=== PATIENT | male | born 1950 | race Caucasian/White ===

== ENCOUNTER 2019-08-17 08:41 | Inpatient (IN) | payer MEDICARE, OTHER, SELFPAY ==
[2019-08-17] VITALS (10 sets, daily range): BP systolic 107–132; BP diastolic 54–77; PULSE 79–122; RESP 13–22; TEMP 36.1–36.8; O2SAT 94–100
--- NOTE | ~2019-08-17 | US_ITS ---
EXAMINATION: US right upper quadrant DATE: 08/17/2019 11:04 INDICATION: Abdominal pain and vomiting TECHNIQUE: Multiple grayscale and Doppler ultrasound images of the abdomen were obtained. COMPARISON: CT dated 08/17/2019 FINDINGS: The region of the pancreas is obscured by shadowing bowel gas. The inferior vena cava is also not oscar [place] visualized. Liver has normal echogenicity and contour, with a smooth surface. No liver lesion id entified. No intrahepatic biliary duct dilation suspected. Portal venous flow was seen in the hepatop etal, normal direction and has normal Doppler waveform. The gallbladder is filled with echogenic slud ge. No definitive shadowing cholelithiasis identified. There is a mild gallbladder wall thickening or small amount of pericholecystic fluid. The common bile duct measures 5-6 mm in diameter which is wit hin normal limits. Sonographic Arriaga sign was reported as positive by the veterinary medicine scientist. IMPRESSION: 1. Sludge-filled gallbladder with mild wall thickening versus small amount of pericholecystic fluid a nd with positive sonographic Arriaga's which is concerning for acute cholecystitis although no definit sandeep shadowing cholelithiasis is appreciated. If clinically indicated HIDA scan could be obtained for more definitive determination. Reviewed, dictated and finalized at location A. IMPRESSION: 1. Sludge-filled gallbladder with mild wall thickening versus small amount of p ericholecystic fluid and with positive sonographic Arriaga's which is concerning for acute cholecystitis although no definitive shadowing cholelithiasis is sudarshan reciated. If clinically indicated HIDA scan could be obtained for more definiti ve determination.
--- NOTE | ~2019-08-17 | XR_ITS ---
EXAMINATION: XR chest 2V DATE: 08/17/2019 14:18 INDICATION: Abnormal findings of the lung green on CT CT TECHNIQUE: AP and lateral views of the chest are obtained. COMPARISON: CT from today FINDINGS: There are patchy opacities of the right middle and lower lobes. There is no pleural effusio n or pneumothorax. The cardiomediastinal silhouette is normal. There is mild thoracic spondylosis. IMPRESSION: 1. Airspace opacities of the right middle and lower lobes, likely infectious or inflammatory. Reviewed, dictated and finalized at location A.
--- NOTE | ~2019-08-17 | CT_ITS ---
EXAMINATION: CT abdomen pelvis w con DATE: 08/17/2019 09:52 INDICATION: Abdominal pain and vomiting TECHNIQUE: Computed tomography (CT) of the abdomen and pelvis was performed with 100 mL Omnipaque-350 intravenous contrast. Automated exposure control and iterative reconstruction technique were employe d. The dose-length product was 1574.65 mGy-cm. COMPARISON: None FINDINGS: Tree-in-bud opacities throughout the right middle lobe and medial basilar segment of the right lower lobe consistent with endobronchial spread of disease which could be either pneumonia or aspiration. M ild dependent atelectasis in the bilateral lower lobes and mild discoid atelectasis at the lingula. H eart size is normal. Atherosclerotic coronary artery calcification. No pericardial or pleural effusio n. Small sliding-type hiatal hernia. There is edematous wall thickening along the distal esophagus li luci related to reflux esophagitis. There is some inflammatory stranding surrounding the gallbladder suspicious for acute cholecystitis. Minimal central intrahepatic biliary ductal dilation. Common bile duct remains normal in caliber. Sma ll amount of perihepatic ascites with additional small amount of ascites in the deep pelvis. Mild fat ty atrophy of the pancreas. Spleen and bilateral adrenal glands are normal. Multiple small bilateral renal cysts, the largest measuring 1.9 cm in the right kidney. Gas and fluid throughout the small bow el which is not frankly dilated and without discrete transition point to suggest obstruction but whic h would be consistent with an ileus. Moderate amount of stool scattered throughout the colon. Bladder is normal. No abscess or free intraperitoneal gas. There is calcified atherosclerosis of the aorta a nd many of the other arteries. Small fat-containing left inguinal hernia. No pathologically enlarged abdominal or pelvic lymphadenopathy. Mild to moderate scattered degenerative skeletal changes. IMPRESSION: 1. Pericholecystic inflammatory stranding suspicious for acute cholecystitis. Correlate for Arriaga si gn and consider further evaluation with either ultrasound or HIDA scan. 2. Mild intrahepatic biliary ductal dilation with normal caliber common bile duct. Correlate with victorino er function tests. 3. Small sliding-type hiatal hernia with wall thickening throughout the distal esophagus suggestive o f reflux esophagitis. 4. Tree-in-bud opacities in the right middle and lower lobes which could represent aspiration and/or pneumonia. 5. Small amount of likely reactive ascites. 6. Nonspecific increased gas and fluid throughout the small bowel without discrete obstruction but wh ich could be seen with reactive ileus. Reviewed, dictated and finalized at location A. IMPRESSION: 1. Pericholecystic inflammatory stranding suspicious for acute cholecystitis. C orrelate for Arriaga sign and consider further evaluation with either ultrasound or HIDA scan. 2. Mild intrahepatic biliary ductal dilation with normal caliber common bile du ct. Correlate with liver function tests. 3. Small sliding-type hiatal hernia with wall thickening throughout the distal esophagus suggestive of reflux esophagitis. 4. Tree-in-bud opacities in the right middle and lower lobes which could repres ent aspiration and/or pneumonia. 5. Small amount of likely reactive ascites. 6. Nonspecific increased gas and fluid throughout the small bowel without discr ete obstruction but which could be seen with reactive ileus.
--- NOTE | 2019-08-17 08:55 | ECG_ITS ---
Measurements Intervals [place] Rate: 91 P: 27 CT: 164 QRS: 14 QRSD: 92 T: 31 QT: 329 QTc: 405 Interpretive Statements SINUS RHYTHM ATRIAL PREMATURE COMPLEXES BASELINE WANDER- I, AVR, V1, V6 BORDERLINE ECG Electronically Signed On 08-17-2019 9:34:42 CDT by Malcolm Han D.O.
[2019-08-17 09:02] LABS: Basophils Percent Auto 0.2 % (0.2-1.2); Eosinophils Absolute Auto 0.2 K/mm3 (0-0.3); Eosinophils Percent Auto 0.9 % (0-4.4); Hematocrit 42.2 % (42.0-52.0); Hemoglobin 14.2 g/dL (14.0-18.0); Immature Granulocyte Absolute 0.09 K/mm3 (0.00-0.031); Immature Granulocyte Percent A 0.5 % (0-0.5); Lymphocytes Percent Auto 4.3 % (18.3-44.2); Mean Corpuscular HGB Conc 33.6 g/dl (32-36); Mean Corpuscular Hemoglobin 30.3 pg (26-34); Mean Corpuscular Volume 90.2 fl (80-100); Mean Platelet Volume 9.9 fl (7.4-10.4); Monocytes Absolute Auto 1.3 K/mm3 (0.1-0.6); Monocytes Percent Auto 6.9 % (2.6-8.5); Neutrophils Absolute Auto 16.1 K/mm3 (1.3-6.7); Neutrophils Percent Auto 87.2 % (45.5-73.1); Platelet Count Result 184 k/mm3 (150-375); Red Blood Count 4.68 M/mm3 (4.6-6.20); Red Cell Distribution Width 13.1 % (11.5-14.5); White Blood Count 18.5 K/mm3 (4.5-10.0)
--- NOTE | 2019-08-17 09:06 | ED.GIBLEED ---
HPI - GI Bleed General Chief complaint: GI Bleed Stated complaint: vomiting blood Time Seen by Provider: 08/17/19 09:05 History of Present Illness HPI Narrative: Patient arrives via EMS from the assisted for vomiting dark substance. He has upper abdominal pain, 8 out of 10, which started yesterday. He has been vomiting this morning dark substance, with no history of ulcers. He denies other illness such as chest pain shortness of breath, coughing or fever. MD complaint: coffee ground emesis Onset (ago): hour(s) Pain Consistency: constant Severity: severe Relieving factors: none Exacerbating factors: none Context: other (No known history.) Associated symptoms: abdominal pain and nausea Related Data Home Medications Medication Instructions Recorded Confirmed amlodipine 5 mg PO DAILY 08/17/19 aspirin [Aspir-81] 81 mg PO DAILY 08/17/19 cyanocobalamin (vitamin B-12) 500 mcg PO DAILY 08/17/19 docusate sodium 100 mg PO DAILY 08/17/19 famotidine 08/17/19 folic acid 08/17/19 lidocaine 08/17/19 melatonin mg PO 08/17/19 multivitamin 1 tablet PO DAILY 08/17/19 olanzapine 2.5 mg PO DAILY 08/17/19 quetiapine 400 mg PO BID 08/17/19 saliva substitute combo no.9 08/17/19 [Biotene Dry Mouth Oral Rinse] simvastatin 20 mg PO DAILY 08/17/19 tamsulosin mg PO 08/17/19 Allergies Allergy/AdvReac Type Severity Reaction Status Date / Time No Known Allergies Allergy Verified 08/17/19 09:15 Review of Systems Review of Systems: Narrative: CONSTITUTIONAL: Denies fever, chills, or sweats. EYES: Denies visual changes, redness, or discharge. ENT: Denies rhinorrhea, congestion, sore throat, or otalgia. CARDIOVASCULAR: Denies chest pain, palpitations, or edema. RESPIRATORY: Denies cough or dyspnea. GASTROINTESTINAL: He is nauseated and vomiting with upper abdominal pain. GENITOURINARY: Denies dysuria or hematuria. SKIN: Denies rash or itching. MUSCULOSKELETAL: Denies back pain, joint pain, or myalgia. NEUROLOGIC: Denies headache, numbness, or weakness. PSYCHIATRIC: Denies anxiety or depression. [facility] Social History Social History (Updated 08/17/19 @ 09:24 by Abi Carballo MD) Smoking status: Never smoker Gender identity (if verbalized by the patient): Male Exam Narrative: Exam Narrative: GENERAL: Well-appearing, well-nourished, and in no acute distress. Unkempt HEAD: Normocephalic, atraumatic. EYES: PERRLA and EOMI. ENT: Nares clear, no rhinorrhea or epistaxis. Mucous membranes dry NECK: Supple. CHEST: Clear to auscultation. No respiratory distress. HEART: Regular rate and rhythm. No murmur heard. Normal peripheral pulses. ABDOMEN: Upper abdomen is firm and tender. EXTREMITIES: Normal range of motion. No edema. SKIN: Warm, dry, no rash. NEURO: No focal deficits. Alert. PSYCH: Flat affect and slow speech. Course Reevaluation(s) Reevaluation #1: I wanted to tell the patient that it is his gallbladder and he needs to be hospitalized and possible surgery, and he says he just wants to go back as he has an appointment on Sunday. I assured him he would be discharged by then. Date: 08/17/19 Time: 11:39 Consultations Consultation #1: Call the general surgeon Dr. Villalba for consultation for cholecystitis. He agrees to consult but would like the patient admitted under the hospitalist. Date: 08/17/19 Time: 11:34 Consultation #2: Call the hospitalist for admission for cholecystitis. Dr. Starks returned to call and accepts the patient. Date: 08/17/19 Time: 11:56 Vital Signs Vital signs: Vital Signs Temperature 97.8 F 08/17/19 08:38 Pulse Rate 106 H 08/17/19 08:38 Respiratory Rate 20 08/17/19 08:38 Blood Pressure 113/69 08/17/19 08:38 Pulse Oximetry 95 08/17/19 08:38 Temperature 97.8 F 08/17/19 08:38 Pulse Rate 90 08/17/19 11:54 Respiratory Rate 13 08/17/19 11:54 Blood Pressure 124/68 08/17/19 10:19 Pulse Oximetry 94 08/17/19 11:54 MDM - GI Bleed Differential Diag
[2019-08-17 09:14] LABS: INR 1.1; Partial Thromboplastin Time 27.6 SECONDS (22.3-36.8); Prothrombin Time 13.5 Seconds (11.1-14.7)
[2019-08-17 09:15] LABS: Alanine Aminotransferase 30 U/L (4-50); Alkaline Phosphatase 103 U/L (38-126); Aspartate Amino Transferase 26 U/L (17-59); Bilirubin,Total 0.9 mg/dL (0.2-1.3); Blood Urea Nitrogen 21 mg/dL (9-20); Calcium 9.2 mg/dL (8.4-10.2); Carbon Dioxide 23 mmol/L (22-30); Chloride 104 mmol/L (98-107); Estimated CRCL calculation 72 ml/min; Estimated Glomerular Filt Rate > 60; Glucose 176 mg/dL (75-110); Potassium 3.6 mmol/L (3.4-5.0); Sodium 137 mmol/L (137-145)
[2019-08-17] MEDS: SODIUM CHLORIDE 0.9% IV 1,000 ML 999 ML IV CONT (09:15)
[2019-08-17] MEDS: ONDANSETRON INJ 4 MG/2 ML VIAL IV PUSH (09:35)
[2019-08-17] MEDS: MORPHINE SULFATE 4 MG/ML INJ IV PUSH ×2 (09:35→16:54)
--- NOTE | 2019-08-17 09:42 | PC.NURSE ---
Pt to CT scan via stretcher.
[2019-08-17 11:03] LABS: Lipase 19 U/L (23-300)
--- NOTE | 2019-08-17 13:52 | PM.CNGS ---
Assessment and Plan Assessment and plan (1) Acute cholecystitis: Code(s): K81.0 - Acute cholecystitis Status: Acute Assessment and Plan: it appears patient does have acute cholecystitis. We will go ahead and treat him with IV Zosyn antibiotics. I will start a scheduled dose of IV ibuprofen and p.r.n. doses of IV morphine. He will be NPO except for ice chips. Hopefully will improve with the above measures. Continue IV fluids. (2) Abnormal CT scan of lung: Code(s): R91.8 - Other nonspecific abnormal finding of lung field Status: Acute Assessment and Plan: Will get PA and lateral chest x-ray to evaluate. (3) Bipolar 1 disorder: Code(s): F31.9 - Bipolar disorder, unspecified Status: Acute Assessment and Plan: Poor historian. Very poor memory. History of Present Illness Consult details Consult date: 08/17/19 Reason for consult: abdominal pain Narrative: Patient is a 68-year-old man who comes to the emergency room today from a senior care. He has a history of bipolar affective disorder. He reportedly was vomiting dark fluid. However he has severe upper abdominal pain which started yesterday. He really was not able to give me much in the way of history and most of my history was taken from talking to the emergency room physician and reading the record. He apparently is also had some nausea and vomiting. Evaluation in the emergency room showed a firm, tender abdomen with particular tenderness in right upper quadrant. The patient describes his pain is more in the lower abdomen but is tenderness is in the right upper quadrant. He was afebrile but is white blood cell [place] [address]. There was no anemia. Liver function tests were normal. Electrolytes were normal. EKG showed no acute changes. He had a CT scan of the abdomen and pelvis which showed inflammatory stranding around the gallbladder suspicious for acute cholecystitis. There was no biliary ductal dilatation. Tree in bud opacities in the right middle and lower lobes were noted. The patient also had a right upper quadrant ultrasound this showed a sludge filled gallbladder with mild wall thickening and a positive sonographic Arriaga sign. The patient has been admitted and he is seen now in consultation. He appeared quite uncomfortable when I saw him in the emergency room. Review of Systems Review of Systems: All systems reviewed & are unremarkable except as noted in HPI and below ROS unobtainable: Yes other ( Difficult to obtain review of systems, Poor memory) Constitutional: Constitutional: Denies headache(s) ENT: Denies headache(s) Cardiovascular: Cardiovascular: Denies chest pain and Denies dyspnea Respiratory: Respiratory: Denies cough and Denies dyspnea Gastrointestinal: Gastrointestinal: Reports as per HPI Neurologic: Denies syncope, Denies headache(s) and Denies focal weakness Psychiatric: Psychiatric: Reports confusion, Reports difficulty concentrating and Reports memory loss PMFSH Social History Social History Smoking status: Never smoker Alcohol intake: former Substance use: never Substance use type: does not use Gender identity (if verbalized by the patient): Male Spiritual care concerns: No Meds Home Medications and Allergies Home Medications Medication Instructions Recorded Confirmed Type amlodipine 5 mg PO DAILY 08/17/19 History aspirin [Aspir-81] 81 mg PO DAILY 08/17/19 History cyanocobalamin (vitamin B-12) 500 mcg PO DAILY 08/17/19 History docusate sodium 100 mg PO DAILY 08/17/19 History famotidine 08/17/19 History folic acid 08/17/19 History lidocaine 08/17/19 History melatonin mg PO 08/17/19 History multivitamin 1 tablet PO DAILY 08/17/19 History olanzapine 2.5 mg PO DAILY 08/17/19 History quetiapine 400 mg PO BID 08/17/19 History saliva substitute combo no.9 08/17/19 History [Biotene Dry M
[2019-08-17] MEDS: DEXTROSE 5%/0.9% SOD CHL 1,000 ML 100 ML IV CONT (15:12)
--- NOTE | 2019-08-17 15:45 | PM.IMHP ---
H&P: HPI History of Present Illness Chief complaint: cholecystitis Narrative: Manny Hurt is a 68 year old male was at [facility] for rehabilitation and doing well until last evening when he began to have some epigastric abdominal discomfort. He was unable to characterize it. But was worse with eating or drinking. Today he developed nausea and emesis of dark material. Because of this EMS was summoned by the staff and he was brought [facility]. Up until yesterday he had been eating and drinking well without change in bowel habits. His waited been relatively stable. He denied chest pain shortness of breath edema palpitations syncope dysuria hematuria hematochezia. [facility] records do indicate that he had fallen a couple of times in the past 2 days. But without injury. Review of Systems Review of Systems: All systems reviewed & are unremarkable except as noted in HPI and below PMFSH Past Medical History Medical History (Updated 08/17/19 @ 15:58 by Jose Godoy MD) Bipolar 1 disorder BPH loc w urin obs/LUTS GERD (gastroesophageal reflux disease) Hyperlipidemia Hypertension, essential Surgical History Surgical History (Updated 08/17/19 @ 15:58 by Jose Godoy MD) History of appendectomy at about age 21 Family History Family History (Updated 08/17/19 @ 15:58 by Jose Godoy MD) Father No problems noted. Mother No problems noted. Social History Social History (Updated 08/17/19 @ 16:00 by Jose Godoy MD) Social History: Quit smoking as a young man. Never abused alcohol or recreational drugs. Smoking status: Former smoker Alcohol intake: former Substance use: never Living arrangements: custodial Additional living arrangements comments: Currently resides at [facility] but hopes to get strong enough to go home. Occupation/Education: retired Gender identity (if verbalized by the patient): Male Spiritual care concerns: No Meds Home Medications and Allergies Home Medications Medication Instructions Recorded Confirmed Type amlodipine 5 mg PO DAILY 08/17/19 08/17/19 History aspirin [Aspir-81] 81 mg PO DAILY 08/17/19 08/17/19 History cyanocobalamin (vitamin B-12) 500 mcg PO DAILY 08/17/19 08/17/19 History docusate sodium 200 mg PO DAILY 08/17/19 08/17/19 History famotidine 10 mg PO BID 08/17/19 08/17/19 History folic acid 1 mg PO DAILY 08/17/19 08/17/19 History lidocaine 5 % TRANSDERMAL DAILY 08/17/19 08/17/19 History melatonin 3 mg PO HS PRN 08/17/19 08/17/19 History multivitamin 1 tablet PO DAILY 08/17/19 08/17/19 History olanzapine 2.5 mg PO DAILY PRN 08/17/19 08/17/19 History quetiapine 800 mg PO HS 08/17/19 08/17/19 History saliva substitute combo no.9 5 ml PO TID 08/17/19 08/17/19 History [Biotene Dry Mouth Oral Rinse] simvastatin 20 mg PO HS 08/17/19 08/17/19 History tamsulosin 0.4 mg PO HS 08/17/19 08/17/19 History Allergies Allergy/AdvReac Type Severity Reaction Status Date / Time No Known Allergies Allergy Verified 08/17/19 09:15 Vital Signs Vital Signs - 24 hr 08/17/19 08:38 08/17/19 08:50 08/17/19 08:51 Temperature 97.8 F Pulse Rate 106 H 112 H 122 H Respiratory Rate 20 Blood Pressure 113/69 108/69 Pulse Oximetry 95 08/17/19 10:19 08/17/19 11:54 08/17/19 12:11 Temperature Pulse Rate 88 90 113 H Respiratory Rate 13 13 22 H Blood Pressure 124/68 107/58 L Pulse Oximetry 98 94 98 08/17/19 12:54 Temperature Pulse Rate 79 Respiratory Rate 14 Blood Pressure Pulse Oximetry 99 Exam Narrative: Exam Narrative: HEENT: EOMI, PERRL, sclerae nonicteric, pharyngeal mucosa pink and intact NECK: No JVD, adenopathy, or thyromegaly CHEST: Clear to auscultation. Normal effort. HEART: NL S1/S2, regular, no murmur ABDOMEN: BS+, soft, exquisitely tender in the right upper quadrant with positive Arriaga sign. Guarding. No rebound. EXTREMITIES:
[2019-08-17] MEDS: HALOPERIDOL LACTATE 5 MG/ML VIAL IM (21:40)
[2019-08-17] MEDS: IBUPROFEN IV 800 MG/200 ML 800 MG/200 ML BAG 400 MG IVPB (21:45)
[2019-08-17] MEDS: FAMOTIDINE 20 MG/2 ML VIAL IV PUSH (21:50)
[2019-08-18] MEDS: DEXTROSE 5%/0.9% SOD CHL 1,000 ML 100 ML IV CONT ×2 (00:49→21:10)
[2019-08-18] MEDS: IBUPROFEN IV 800 MG/200 ML 800 MG/200 ML BAG 400 MG IVPB ×4 (03:46→21:10)
[2019-08-18 06:00] VITALS: BP 125/69; PULSE 73; RESP 20; TEMP 36.2; O2SAT 97
[2019-08-18 06:28] LABS: Basophils Percent Auto 0.2 % (0.2-1.2); Eosinophils Absolute Auto 0.7 K/mm3 (0-0.3); Eosinophils Percent Auto 5.6 % (0-4.4); Hematocrit 37.4 % (42.0-52.0); Hemoglobin 12.4 g/dL (14.0-18.0); Immature Granulocyte Absolute 0.05 K/mm3 (0.00-0.031); Immature Granulocyte Percent A 0.4 % (0-0.5); Lymphocytes Absolute Auto 1.05 K/mm3 (0.9-3.2); Lymphocytes Percent Auto 8.9 % (18.3-44.2); Mean Corpuscular HGB Conc 33.2 g/dl (32-36); Mean Corpuscular Hemoglobin 30.1 pg (26-34); Mean Corpuscular Volume 90.8 fl (80-100); Mean Platelet Volume 9.8 fl (7.4-10.4); Monocytes Absolute Auto 0.6 K/mm3 (0.1-0.6); Monocytes Percent Auto 4.9 % (2.6-8.5); Neutrophils Absolute Auto 9.4 K/mm3 (1.3-6.7); Platelet Count Result 147 k/mm3 (150-375); Red Blood Count 4.12 M/mm3 (4.6-6.20); Red Cell Distribution Width 13.3 % (11.5-14.5); White Blood Count 11.8 K/mm3 (4.5-10.0)
[2019-08-18 06:44] LABS: Alanine Aminotransferase 23 U/L (4-50); Albumin Level 3.2 g/dL (3.5-5.1); Alkaline Phosphatase 81 U/L (38-126); Aspartate Amino Transferase 21 U/L (17-59); Bilirubin,Total 0.6 mg/dL (0.2-1.3); Blood Urea Nitrogen 29 mg/dL (9-20); Calcium 8.9 mg/dL (8.4-10.2); Carbon Dioxide 25 mmol/L (22-30); Chloride 108 mmol/L (98-107); Estimated CRCL calculation 57 ml/min; Estimated Glomerular Filt Rate > 60; Glucose 112 mg/dL (75-110); Potassium 3.5 mmol/L (3.4-5.0); Sodium 138 mmol/L (137-145)
--- NOTE | 2019-08-18 08:13 | PM.PNGS ---
Progress Note: A&P Assessment and Plan (1) Acute cholecystitis: Code(s): K81.0 - Acute cholecystitis Status: Acute Assessment and Plan: patient improved this morning. Will start low-fat diet. Plan to go ahead tomorrow with laparoscopic cholecystectomy. I tried to discuss this with him but he has seems to have very limited cognition. He did nod as if he understands. The procedure the risks the benefits were discussed. He had no questions. (2) Abnormal CT scan of lung: Code(s): R91.8 - Other nonspecific abnormal finding of lung field Status: Acute Assessment and Plan: Chest x-ray looks unremarkable to me. (3) Bipolar 1 disorder: Code(s): F31.9 - Bipolar disorder, unspecified Status: Chronic Assessment and Plan: Very poor memory. Calm and cooperative. Subjective Subjective Date/Time Seen: 08/18/19 08:13 Patient reports: feels better and pain is less Interval history: patient still does not have much history to give. He does remember having abdominal pain yesterday. He is sleeping this morning and appears very comfortable. He currently denies any abdominal pain. Review of Systems Review of Systems: ROS unobtainable: Yes unobtainable due to mental status Exam Const: General: comfortable and no acute distress; No confusion Orientation/consciousness: patient oriented x3 and No confusion GI: Inspection: non-distended and obesity GI Palp: Yes Soft to palpation, Yes Tenderness to palpation present (GI) ( Mild right upper quadrant tenderness, markedly improved), No Guarding due to palpation present (GI) and No Rebound tenderness present Auscultation: normal bowel sounds Neuro: General: patient oriented x3, no focal motor deficits and No confusion Extrem: General: no calf tenderness and no edema Psych: Affect: normal affect Insight: Good insight present (Psych) Judgement: Good judgement present (Psych) Objective Data Vital Signs Vital Signs: Vital Signs - 24 hr 08/17/19 08:38 08/17/19 08:50 08/17/19 08:51 Temperature 36.6 C Pulse Rate 106 H 112 H 122 H Respiratory Rate 20 Blood Pressure 113/69 108/69 Pulse Oximetry 95 08/17/19 10:19 08/17/19 11:54 08/17/19 12:11 Temperature Pulse Rate 88 90 113 H Respiratory Rate 13 13 22 H Blood Pressure 124/68 107/58 L Pulse Oximetry 98 94 98 08/17/19 12:54 08/17/19 14:00 08/17/19 16:00 Temperature 36.1 C L 36.3 C L Pulse Rate 79 86 104 H Respiratory Rate 14 18 20 Blood Pressure 110/77 130/65 Pulse Oximetry 99 100 100 08/17/19 22:00 08/18/19 06:00 Temperature 36.8 C 36.2 C L Pulse Rate 90 73 Respiratory Rate 20 20 Blood Pressure 132/54 L 125/69 Pulse Oximetry 97 97 Intake/Output Intake/Output: Intake & Output 08/15/19 08/16/19 08/17/19 08/18/19 23:59 23:59 23:59 23:59 Intake Total 1350 1300 Balance 1350 1300 Meds/Results Medications: Active Medications Generic Name Dose Route Start Last Admin Trade Name Freq PRN Reason Stop Dose Admin Chlorhexidine Gluconate 1 applic 08/18/19 08:09 Hibiclens TOPICAL 08/18/19 08:10 ONCE ONE Enoxaparin Sodium 40 mg 08/18/19 09:00 Lovenox SUB-Q DAILY KWASI Famotidine 20 mg 08/17/19 21:00 08/17/19 21:50 Pepcid Iv IV PUSH 20 mg Q12HR KWASI Administration Hydralazine HCl 10 mg 08/17/19 16:13 Apresoline Hcl Inj IV PUSH Q8H PRN Blood Pressure - High Dextrose/Sodium Chloride 1,000 mls @ 100 mls/hr 08/17/19 12:10 08/18/19 00:49 Dextrose 5% Sodium Chloride 0.9% IV CONT 100 mls/hr .Q10H KWASI Administration Piperacillin/Tazobactam/Dextrose 3.375 gm in 50 mls @ 100 mls/hr 08/17/19 18:00 08/18/19 06:42 Zosyn 3.375 Gm/D5w 50ml Pm IVPB Infused Q6HR KWASI Infusion Ibuprofen 800 mg in 200 mls @ 400 mls/hr 08/18/19 09:00 Caldolor 800 Mg/200 Ml IVPB Q6H KWASI Cefazolin Sodium 2 gm in 50 mls @ 100 mls/hr 08/18/19 08:09 Ancef 2 Gm/D5w 50 Ml IVPB 05
--- NOTE | 2019-08-18 09:04 | PM.IMPN ---
Progress Note: A&P Assessment and Plan (1) Acute cholecystitis: Code(s): K81.0 - Acute cholecystitis Status: Acute Assessment and Plan: Clinically he has acute cholecystitis Mild biliary dilatation could be due to stone versus inflammatory change Normal LFTs favor the latter IV Zosyn Bowel rest Analgesics Antiemetics IV fluid Plan for lap cholecystectomy 08/18 (2) Abnormal CT scan of lung: Code(s): R91.8 - Other nonspecific abnormal finding of lung field Status: Acute Assessment and Plan: Lack of respiratory symptoms and history of emesis today suggest possible aspiration IV Zosyn (3) Bipolar 1 disorder: Code(s): F31.9 - Bipolar disorder, unspecified Status: Chronic Assessment and Plan: Hold quetiapine while NPO Haloperidol 5 mg IM one time at bedtime 08/16 08/17 Quetiapin 800mg at HS (4) Hypertension, essential: Code(s): I10 - Essential (primary) hypertension Status: Acute Assessment and Plan: Currently normotensive Monitor off medications while NPO P.r.n. hydralazine while NPO (5) GERD (gastroesophageal reflux disease): Code(s): K21.9 - Gastro-esophageal reflux disease without esophagitis Status: Acute Assessment and Plan: IV famotidine while NPO Subjective Date/time seen: 08/18/19 09:04 Interval history: 08/16 Admitted with abdominal pain, acute cholecystitis. 08/17 Less upper abdominal pain. Can't characterize it. Denied other pain (head, chest, back). Denied dyspnea. Denied difficulty with urinating or defecating. Denied bleeding. Denied weakness. Review of Systems Review of Systems: All systems reviewed & are unremarkable except as noted in HPI and below Exam Narrative: Exam Narrative: HEENT: EOMI, PERRL, sclerae nonicteric, pharyngeal mucosa pink and intact NECK: No JVD, adenopathy, or thyromegaly CHEST: Clear to auscultation. Normal effort. HEART: NL S1/S2, regular, no murmur ABDOMEN: BS+, soft, exquisitely tender in the right upper quadrant with positive Arriaga sign. Guarding. No rebound. EXTREMITIES: No cyanosis, edema, or clubbing. Venous stasis changes on distal lower extremities bilaterally. NEUROLOGIC: CN intact and symmetric to inspection. MUSCULOSKELETAL: Tone and strength symmetric. PSYCH: Alert. Oriented to person, place, and time. Flat affect. But otherwise cooperative and relatively pleasant. Answers questions tersely. Objective Data Vital Signs Vital Signs: Vital Signs - 24 hr 08/17/19 10:19 08/17/19 11:54 08/17/19 12:11 Temperature Pulse Rate 88 90 113 H Respiratory Rate 13 13 22 H Blood Pressure 124/68 107/58 L Pulse Oximetry 98 94 98 08/17/19 12:54 08/17/19 14:00 08/17/19 16:00 Temperature 97.0 F L 97.4 F L Pulse Rate 79 86 104 H Respiratory Rate 14 18 20 Blood Pressure 110/77 130/65 Pulse Oximetry 99 100 100 08/17/19 22:00 08/18/19 06:00 Temperature 98.3 F 97.2 F L Pulse Rate 90 73 Respiratory Rate 20 20 Blood Pressure 132/54 L 125/69 Pulse Oximetry 97 97 Intake/Output Intake/Output: Intake & Output 08/15/19 08/16/19 08/17/19 08/18/19 23:59 23:59 23:59 23:59 Intake Total 1350 1300 Balance 1350 1300 Meds/Results Medications: Active Medications Generic Name Dose Route Start Last Admin Trade Name Freq PRN Reason Stop Dose Admin Enoxaparin Sodium 40 mg 08/18/19 09:00 Lovenox SUB-Q DAILY KWASI Famotidine 20 mg 08/17/19 21:00 08/17/19 21:50 Pepcid Iv IV PUSH 20 mg Q12HR KWASI Administration Hydralazine HCl 10 mg 08/17/19 16:13 Apresoline Hcl Inj IV PUSH Q8H PRN Blood Pressure - High Dextrose/Sodium Chloride 1,000 mls @ 100 mls/hr 08/17/19 12:10 08/18/19 00:49 Dextrose 5% Sodium Chloride 0.9% IV CONT 100 mls/hr .Q10H KWASI Administration Piperacillin/Tazobactam/Dextrose 3.375 gm in 50 mls @ 100 mls/hr 08/17/19 18:00 08/18/19 06:42 Zosyn 3.375 Gm/D5w 50ml Pm IVP
[2019-08-18] MEDS: SALIVA SUBSTITUTE RINSE 473 ML BOTTLE PO ×3 (10:15→17:29)
[2019-08-18] MEDS: ENOXAPARIN 40 MG/0.4 ML SYRINGE SUB-Q (10:16)
[2019-08-18] MEDS: FAMOTIDINE 20 MG/2 ML VIAL IV PUSH ×2 (10:16→21:10)
[2019-08-18] MEDS: MORPHINE SULFATE 4 MG/ML INJ IV PUSH ×2 (10:23→17:28)
[2019-08-18 14:00] VITALS: BP 127/53; PULSE 92; RESP 18; TEMP 36.7; O2SAT 94
[2019-08-18] MEDS: QUEtiapine FUMARATE XR 200 MG TAB.ER.24H 800 MG PO (21:10)
[2019-08-18] MEDS: TAMSULOSIN HCL 0.4 MG CAPSULE PO (21:10)
[2019-08-18 22:00] VITALS: BP 129/65; PULSE 66; RESP 18; TEMP 35.9; O2SAT 96
[2019-08-19] VITALS (13 sets, daily range): BP systolic 115–150; BP diastolic 58–88; PULSE 67–98; RESP 12–20; TEMP 36–36.6; O2SAT 95–100
[2019-08-19] MEDS: IBUPROFEN IV 800 MG/200 ML 800 MG/200 ML BAG 400 MG IVPB (02:39)
[2019-08-19] MEDS: CHLORHEXIDINE GLUCONATE 4% SOL 120 ML BTL 1 APPLIC TOPICAL (06:11)
[2019-08-19 06:33] LABS: Alanine Aminotransferase 24 U/L (4-50); Albumin Level 3.1 g/dL (3.5-5.1); Alkaline Phosphatase 93 U/L (38-126); Amylase 84 U/L (30-110); Aspartate Amino Transferase 21 U/L (17-59); Bilirubin,Total 0.4 mg/dL (0.2-1.3)
[2019-08-19] MEDS: LACTATED RINGERS 1,000 ML 30 ML IV CONT ×2 (06:45→09:07)
--- NOTE | 2019-08-19 06:54 | WPDANESEPPF ---
Anes - Initial Pre Proc Eval Procedure: Operation Date: 08/19/19 07:30 Proposed Procedures p Laparoscopic Cholecystectomy - Leobardo Villalba MD Date/Time: 08/19/19 06:54 Surgeon: Jose Godoy MD Pre Op Diagnosis: cholecystitis Patient Data Age: 68 Gender: M Height: 5 ft 10 in Weight: 93.8 kg Last Vital Signs Temp 36.0 C L 08/19/19 02:00 Pulse 67 08/19/19 02:00 Resp 18 08/19/19 02:00 BP 142/88 H 08/19/19 02:00 Pulse Ox 96 08/19/19 02:00 Allergies Allergy/AdvReac Type Severity Reaction Status Date / Time No Known Allergies Allergy Verified 08/19/19 06:47 Home Medications Medication Instructions Recorded Confirmed Type amlodipine 5 mg PO DAILY 08/17/19 08/17/19 History aspirin [Aspir-81] 81 mg PO DAILY 08/17/19 08/17/19 History cyanocobalamin (vitamin B-12) 500 mcg PO DAILY 08/17/19 08/17/19 History docusate sodium 200 mg PO DAILY 08/17/19 08/17/19 History famotidine 10 mg PO BID 08/17/19 08/17/19 History folic acid 1 mg PO DAILY 08/17/19 08/17/19 History lidocaine 5 % TRANSDERMAL DAILY 08/17/19 08/17/19 History melatonin 3 mg PO HS PRN 08/17/19 08/17/19 History multivitamin 1 tablet PO DAILY 08/17/19 08/17/19 History olanzapine 2.5 mg PO DAILY PRN 08/17/19 08/17/19 History quetiapine 800 mg PO HS 08/17/19 08/17/19 History saliva substitute combo no.9 5 ml PO TID 08/17/19 08/17/19 History [Biotene Dry Mouth Oral Rinse] simvastatin 20 mg PO HS 08/17/19 08/17/19 History tamsulosin 0.4 mg PO HS 08/17/19 08/17/19 History Laboratory Tests 08/19/19 05:53 Total Bilirubin 0.4 mg/dL mg/dL (0.2-1.3) Direct Bilirubin 0.0 mg/dL mg/dL (0-0.3) AST 21 U/L U/L (17-59) ALT 24 U/L U/L (4-50) Alkaline Phosphatase 93 U/L U/L (38-126) Total Protein 6.0 g/dL L g/dL (6.3-8.2) Albumin 3.1 g/dL L g/dL (3.5-5.1) Amylase 84 U/L U/L (30-110) Lipase Pending Patient hx anesthesia problems: none Family hx anesthesia problems: none PMFSH Past Medical History Medical History Bipolar 1 disorder BPH loc w urin obs/LUTS GERD (gastroesophageal reflux disease) Hyperlipidemia Hypertension, essential Surgical History Surgical History History of appendectomy at about age 21 Family History Family History Father No problems noted. Mother No problems noted. Social History Social History Social History: Quit smoking as a young man. Never abused alcohol or recreational drugs. Smoking status: Former smoker Alcohol intake: former Substance use: never Living arrangements: group home Additional living arrangements comments: Currently resides at [facility] but hopes to get strong enough to go home. Occupation/Education: retired Gender identity (if verbalized by the patient): Male Spiritual care concerns: No Anes - Eval Final PreProcedure Day of Procedure 08/19/19 06:54 Patient weight: overweight Heart: regular rate and rhythm Lungs: clear to auscultation Airway: Mallampati scale class II Neurological: confused Last oral intake: >/= 8 hours ASA classification: III Emergent: no Anesthetic plan: proceed Anesthesia type and monitoring: general ETT and standard monitoring Informed Consent: The patient's anesthetic plan and its attendant risks and benefits were discussed with the patient/family/POA. Questions were solicited and answers provided to the satisfaction of the patient/family/POA.
[2019-08-19 07:16] LABS: Lipase < 10 U/L (23-300)
[2019-08-19] MEDS: ceFAZolin 2 GM/D5W 50 ML 2 GM/50 ML BAG IVPB (07:21)
[2019-08-19] MEDS: BUPIVACAINE/EPINEPHRINE 0.5% 30 ML VIAL INFILTRATE (07:53)
--- NOTE | 2019-08-19 09:27 | PM.PROC ---
Procedure Note - Detailed Date of procedure: 08/19/19 Pre-op diagnosis: Acute cholecystitis Acute cholecystitis Post-op diagnosis: other (Acute cholecystitis with gallstones with cystic duct obstruction and gallbladder rupture) Procedure performed: Laparoscopic cholecystectomy for ruptured gallbladder Description of procedure: The patient was taken to surgery and induced into general anesthesia. The abdomen was prepped and draped. Trocars were placed in the usual fashion using 0.5% Marcaine with epinephrine and applied Medical optical trocars. A 5 mm camera was used. After insufflating the abdomen, it was immediately obvious that the gallbladder had ruptured. There was greenish pigment splattered on multiple surface of the inside of the abdominal wall. We gently teased some of the omental adhesions from the fundus of the gallbladder and the hole was obvious. It was almost a cm in length near the fundus of the gallbladder. I suctioned out as much of the residual bile as I could. We then removed thickened pigmented strands of bile from the area and suctioned away the bile that was lying in the vicinity of the gallbladder. From there, we gently retracted the gallbladder and took down the inflammatory adhesions to the gallbladder and to the undersurface of the liver. Towards the infundibulum of the gallbladder, these adhesions were dense and difficult to take down. Sharp dissection and blunt dissection as well as cautery was used. I had to put an extra 5 mm port in the right mid abdomen. This was another 5 mm port. This was used as a blunt retractor to retract the distal stomach and duodenum posteriorly so that the cholecystohepatic triangle could be adequately exposed. Eventually, we took down enough adhesions that we could see the cystic duct. The cystic duct was actually pretty short. In this area, the inflammation was severe and all the adhesions were very tenacious and the tissues were hardened. Careful dissection with predominantly blunt technique but some hook cautery eventually showed us the cystic duct and cystic artery. Continued dissection of the lower portion of the gallbladder allowed us to free the lower 3rd of the gallbladder. Critical view was achieved. I then securely clipped and divided the cystic duct and cystic artery. The gallbladder was then carefully dissected free from the liver. The inflammation and gangrenous changes of the gallbladder at its attachment to the liver made it difficult to find a plane and dissect the gallbladder free without tearing off the liver surface. With more careful dissection, eventually we were able to dissect the gallbladder free. Near the fundus of the gallbladder, the wall of the gallbladder was taken with the liver surface as there was no ability to separate the 2. Finally the gallbladder was completely freed. I then exposed the gallbladder fossa and made this area hemostatic with the cautery. Patient had fatty liver change. There were some areas of the liver on the under surface that had cracks and were bleeding. We used Surgiflo and then placed it over these areas as well as the gallbladder surface. This greatly helped to achieve good hemostasis of any oozing from the surfaces. The gallbladder was then placed in an Endo-Catch bag and retrieved through the 10 11 epigastric trocar site. The epigastric trocar had to be enlarged to accommodate the gallbladder with large stone and thickened gallbladder wall. Eventually the gallbladder was removed. We replaced the 10 11 epigastric trocar and used a towel clip to occlude the site so that we could reinsufflate. I then looked again at the gallbladder fossa. We irrigated and suctioned the area. The cracks in the liver and the gallbladder fossa were hemostatic. I then looked at other areas in the abdomen and suctioned away any free bile and any pigment that I could find. A 19 Swedish Scotty drain was brought through the right lower quadrant trocar and positioned in
--- NOTE | 2019-08-19 11:01 | PC.NURSE ---
Returned from OR per BED DENIES THE NEED FOR PAIN MEDS AT PRESENT TIME. IV SITE CLEAN AND INTACT H-L 5 PUNCTURE SITES CLEAN MARAH J-P CONPRESSED AND MILKED BLLODDY RETURN NOTED TO RESERVIOR THE TOP PUMCTURE SITE SMALL HEMATOMA NOTED WILL CONT T MONITOR [ ]
[2019-08-19] MEDS: ENOXAPARIN 40 MG/0.4 ML SYRINGE SUB-Q (11:38)
[2019-08-19] MEDS: FAMOTIDINE 20 MG/2 ML VIAL IV PUSH ×2 (11:38→22:15)
[2019-08-19] MEDS: SALIVA SUBSTITUTE RINSE 473 ML BOTTLE PO ×3 (11:47→16:10)
[2019-08-19] MEDS: LACTATED RINGERS 1,000 ML 100 ML IV CONT (11:47)
--- NOTE | 2019-08-19 17:42 | PM.IMPN ---
Progress Note: A&P Assessment and Plan (1) Acute cholecystitis: Code(s): K81.0 - Acute cholecystitis Status: Acute Assessment and Plan: Clinically he has acute cholecystitis Mild biliary dilatation could be due to stone versus inflammatory change Normal LFTs favor the latter IV Zosyn Bowel rest Analgesics Antiemetics IV fluid Status post lap cholecystectomy this a.m. (2) Abnormal CT scan of lung: Code(s): R91.8 - Other nonspecific abnormal finding of lung field Status: Acute Assessment and Plan: Lack of respiratory symptoms and history of emesis today suggest possible aspiration IV Zosyn continue for respiratory as well as cholecystitis (3) Bipolar 1 disorder: Code(s): F31.9 - Bipolar disorder, unspecified Status: Chronic Assessment and Plan: Hold quetiapine while NPO Haloperidol 5 mg IM one time at bedtime 08/16 08/17 Quetiapin 800mg at HS (4) Hypertension, essential: Code(s): I10 - Essential (primary) hypertension Status: Acute Assessment and Plan: Currently normotensive Monitor off medications while NPO P.r.n. hydralazine while NPO (5) GERD (gastroesophageal reflux disease): Code(s): K21.9 - Gastro-esophageal reflux disease without esophagitis Status: Acute Assessment and Plan: IV famotidine while NPO Subjective Date/time seen: 08/19/19 17:42 Interval history: 08/16 Admitted with abdominal pain, acute cholecystitis. 08/18 Less upper abdominal pain. Status post lap choly this a.m.. Denied other pain (head, chest, back). Denied dyspnea. Exam Narrative: Exam Narrative: Blood pressure 144/70 pulse 96 sat 100% on room air HEENT: PERRL, sclerae nonicteric, NECK: No JVD, CHEST: Clear to auscultation. Normal effort. HEART: NL S1/S2, regular, no murmur ABDOMEN: BS+, incisions are clean EXTREMITIES: No edema, or . Venous stasis changes on distal lower extremities bilaterally. NEUROLOGIC: CN intact and no focal deficits PSYCH: Alert. Oriented to person, place, and time. Flat affect. But otherwise cooperative and relatively pleasant. . Objective Data Vital Signs Vital Signs: Vital Signs - 24 hr 08/18/19 22:00 08/19/19 02:00 05/19/20 06:00 Temperature 35.9 C L 36.0 C L 36.3 C L Pulse Rate 66 67 80 Respiratory Rate 18 18 18 Blood Pressure 129/65 142/88 H 137/68 Pulse Oximetry 96 96 96 08/19/19 06:30 08/19/19 09:07 08/19/19 09:15 Temperature 36.4 C L 36.1 C L Pulse Rate 85 76 78 Respiratory Rate 20 12 13 Blood Pressure 115/72 148/70 H 149/73 H Pulse Oximetry 96 100 100 08/19/19 09:30 08/19/19 09:45 08/19/19 10:00 Temperature Pulse Rate 82 89 81 Respiratory Rate 12 12 12 Blood Pressure 150/71 H 144/70 H 150/63 H Pulse Oximetry 98 97 97 08/19/19 10:10 08/19/19 10:30 08/19/19 10:45 Temperature 36.3 C L 36.4 C L Pulse Rate 90 95 97 Respiratory Rate 14 18 18 Blood Pressure 142/64 H 129/58 L 144/70 H Pulse Oximetry 97 98 100 Intake/Output Intake/Output: Intake & Output 08/16/19 08/17/19 08/18/19 08/19/19 23:59 23:59 23:59 23:59 Intake Total 1350 3270 780 Output Total 700 985 Balance 1350 2570 -205 Meds/Results Medications: Active Medications Generic Name Dose Route Start Last Admin Trade Name Freq PRN Reason Stop Dose Admin Hydrocodone Bitart/Acetaminophen 1 tab 08/19/19 10:16 [place] 5-325 Mg PO Q4H PRN Pain Rated 4-6 Hydrocodone Bitart/Acetaminophen 1 tab 08/19/19 10:16 [place] 10-325 Mg PO Q4H PRN Pain Rated 7-10 Enoxaparin Sodium 40 mg 08/18/19 09:00 08/19/19 11:38 Lovenox SUB-Q 40 mg DAILY KWASI Administration Famotidine 20 mg 08/17/19 21:00 08/19/19 11:38 Pepcid Iv IV PUSH 20 mg Q12HR KWASI Administration Hydralazine HCl 10 mg 08/17/19 16:13 Apresoline Hcl Inj IV PUSH Q8H PRN Blood Pressure - High Lactated Ringer's 1,000 mls @ 100 mls/hr 08/19/19 10:16 08/19/19
[2019-08-19] MEDS: TAMSULOSIN HCL 0.4 MG CAPSULE PO (22:13)
[2019-08-19] MEDS: QUEtiapine FUMARATE XR 200 MG TAB.ER.24H 800 MG PO (22:14)
[2019-08-20] MEDS: LACTATED RINGERS 1,000 ML 100 ML IV CONT ×2 (00:59→09:47)
[2019-08-20 02:00] VITALS: BP 157/75; PULSE 86; RESP 18; TEMP 36.4; O2SAT 97
[2019-08-20 06:00] VITALS: BP 136/66; PULSE 75; RESP 16; TEMP 36.4; O2SAT 97
[2019-08-20 06:15] LABS: Basophils Percent Auto 0.1 % (0.2-1.2); Eosinophils Absolute Auto 0.3 K/mm3 (0-0.3); Eosinophils Percent Auto 3.2 % (0-4.4); Hematocrit 30.6 % (42.0-52.0); Hemoglobin 10.2 g/dL (14.0-18.0); Immature Granulocyte Absolute 0.03 K/mm3 (0.00-0.031); Immature Granulocyte Percent A 0.3 % (0-0.5); Lymphocytes Absolute Auto 1.08 K/mm3 (0.9-3.2); Mean Corpuscular HGB Conc 33.3 g/dl (32-36); Mean Platelet Volume 9.8 fl (7.4-10.4); Monocytes Absolute Auto 0.6 K/mm3 (0.1-0.6); Monocytes Percent Auto 6.3 % (2.6-8.5); Neutrophils Absolute Auto 7.8 K/mm3 (1.3-6.7); Neutrophils Percent Auto 79.1 % (45.5-73.1); Platelet Count Result 163 k/mm3 (150-375); Red Cell Distribution Width 12.9 % (11.5-14.5); White Blood Count 9.8 K/mm3 (4.5-10.0)
[2019-08-20 06:30] LABS: Blood Urea Nitrogen 15 mg/dL (9-20); Carbon Dioxide 28 mmol/L (22-30); Chloride 106 mmol/L (98-107); Estimated CRCL calculation 53 ml/min; Estimated Glomerular Filt Rate 60; Glucose 99 mg/dL (75-110); Potassium 3.3 mmol/L (3.4-5.0); Sodium 139 mmol/L (137-145)
--- NOTE | 2019-08-20 08:59 | P.PNAN_ITS ---
Anes - Prog Note Post-Op Date/Time: 08/20/19 08:59 Cardiovascular status: normal Respiratory status: normal Airway patency: baseline Mental status: baseline Post-Op hydration status: normal Vital Signs: Last Vital Signs Temp 36.4 C L 08/20/19 06:00 Pulse 75 08/20/19 06:00 Resp 16 08/20/19 06:00 BP 136/66 08/20/19 06:00 Pulse Ox 97 08/20/19 06:00 I/O: Intake & Output 08/19/19 08/20/19 08/20/19 23:59 07:59 15:59 Intake Total 1380 1100 Output Total 1520 745 Balance -140 355 Laboratory Tests 08/20/19 05:48 08/20/19 05:48 08/20/19 08/20/19 05:48 05:48 WBC 9.8 RBC 3.40 L Hgb 10.2 L Hct 30.6 L MCV 90.0 MCH 30.0 MCHC 33.3 RDW 12.9 Plt Count 163 MPV 9.8 Immature Gran % (Auto) 0.3 Neut % (Auto) 79.1 H Lymph % (Auto) 11.0 L [place] % (Auto) 6.3 Eos % (Auto) 3.2 Baso % (Auto) 0.1 L Lymph # (Auto) 1.08 [place] # (Auto) 0.6 Eos # (Auto) 0.3 Baso # (Auto) 0.0 Abs Immat Gran (auto) 0.03 Absolute Neuts (auto) 7.8 H Absolute Nucleated RBC 0.0 Nucleated RBC % 0.0 Sodium 139 Potassium 3.3 L Chloride 106 Carbon Dioxide 28 BUN 15 D Creatinine 1.20 Estim Creat Clear Calc 53 Estimated GFR 60 Glucose 99 Calcium 9.0 Post-procedural complaints: none Patient Feedback: Patient satisfied with anesthetic care.
[2019-08-20] MEDS: POTASSIUM CHLORIDE 20 MEQ TABLET 40 MEQ PO (09:15)
[2019-08-20] MEDS: SALIVA SUBSTITUTE RINSE 473 ML BOTTLE PO ×3 (09:16→17:26)
[2019-08-20] MEDS: ENOXAPARIN 40 MG/0.4 ML SYRINGE SUB-Q (09:16)
[2019-08-20] MEDS: FAMOTIDINE 20 MG/2 ML VIAL IV PUSH ×2 (09:46→20:35)
--- NOTE | 2019-08-20 10:50 | PM.PNGS ---
Progress Note: A&P Assessment and Plan (1) Acute cholecystitis: Code(s): K81.0 - Acute cholecystitis Status: Acute Assessment and Plan: POD1 and doing well. Pain is well-controlled and patient is tolerating clear liquids well. Will advance diet as tolerated to a low fat diet. D/C IV fluids and bunch catheter today. Continue to monitor MARU drain output. Continue IV antibiotics. Encouraged increased activity and ambulation today. (2) Abnormal CT scan of lung: Code(s): R91.8 - Other nonspecific abnormal finding of lung field Status: Acute (3) Bipolar 1 disorder: Code(s): F31.9 - Bipolar disorder, unspecified Status: Chronic Assessment and Plan: Calm and cooperative this morning. Additional Plan K+ 3.3 today and replaced by Hospitalist. WBC normal. Discussed plan of care with Dr. Villalba. Subjective Subjective Date/Time Seen: 08/20/19 10:40 Post Op day: 1 (lap aron) Patient reports: no new complaints, tolerating liquids well, flatus and no bowel movement Interval history: Patient reports tolerating clear liquids with no nausea, vomiting, or bloating. Reports abdominal incisional pain that is tolerable with p.r.n. [place]. Bunch in place and draining well. Reports flatus this morning but no BM. No other complaints at this time. Review of Systems Review of Systems: All systems reviewed & are unremarkable except as noted in HPI and below Constitutional: Constitutional: Denies headache(s) Cardiovascular: Cardiovascular: Denies chest pain Respiratory: Respiratory: Denies cough and Denies dyspnea Gastrointestinal: Gastrointestinal: Reports as per HPI Neurologic: Denies focal weakness Exam Const: General: comfortable, no acute distress, alert and awake Orientation/consciousness: patient oriented x3 Resp: Effort & Inspection: normal respiratory effort Auscultation: clear to auscultation bilaterally Cardio: Rate: regular rate Rhythm: regular rhythm GI: Inspection: non-distended, incision (clean and dry) and obesity GI Palp: Yes Soft to palpation, Yes Tenderness to palpation present (GI) (incisional), No Guarding due to palpation present (GI) and No Rebound tenderness present Auscultation: normal bowel sounds Rectal Exam: deferred Other: MARU drain with serosanguineous drainage Skin: Rashes: no rashes Neuro: General: moves all extremities and no focal motor deficits Extrem: General: no calf tenderness and no edema Psych: Affect: Blunted affect present Insight: Good insight present (Psych) Judgement: Good judgement present (Psych) Objective Data Vital Signs Vital Signs: Vital Signs - 24 hr 08/19/19 14:00 08/19/19 22:00 08/20/19 02:00 Temperature 36.6 C 36.3 C L 36.4 C L Pulse Rate 98 84 86 Respiratory Rate 18 18 18 Blood Pressure 139/65 150/84 H 157/75 H Pulse Oximetry 100 95 97 08/20/19 06:00 Temperature 36.4 C L Pulse Rate 75 Respiratory Rate 16 Blood Pressure 136/66 Pulse Oximetry 97 Intake/Output Intake/Output: Intake & Output 08/17/19 08/18/19 08/19/19 08/20/19 23:59 23:59 23:59 23:59 Intake Total 1350 3270 2160 2090 Output Total 700 2505 745 Balance 1350 2570 -345 1345 Meds/Results Medications: Active Medications Generic Name Dose Route Start Last Admin Trade Name Freq PRN Reason Stop Dose Admin Hydrocodone Bitart/Acetaminophen 1 tab 08/19/19 10:16 [place] 5-325 Mg PO Q4H PRN Pain Rated 4-6 Hydrocodone Bitart/Acetaminophen 1 tab 08/19/19 10:16 08/20/19 05:55 [place] 10-325 Mg PO 1 tab Q4H PRN Administration Pain Rated 7-10 Enoxaparin Sodium 40 mg 08/18/19 09:00 08/20/19 09:16 Lovenox SUB-Q 40 mg DAILY KWASI Administration Famotidine 20 mg 08/17/19 21:00 08/20/19 09:46 Pepcid Iv IV PUSH 20 mg Q12HR KWASI Administration Hydralazine HCl 10 mg 08/17/19 16:13 Apresoline Hcl Inj IV PUSH Q8H PRN Blood Pressure - High Lactated Ringer's 1,000 mls @ 100 mls/
[2019-08-20 14:00] VITALS: BP 133/72; PULSE 81; RESP 18; TEMP 36.6; O2SAT 100
--- NOTE | 2019-08-20 17:14 | P.PNIM_ITS ---
Progress Note: A&P Assessment and Plan (1) Acute cholecystitis: Code(s): K81.0 - Acute cholecystitis Status: Acute Assessment and Plan: * Clinically he has had acute cholecystitis * Mild biliary dilatation could be due to stone versus inflammatory change * Normal LFTs favor the latter * IV Zosyn * Bowel rest * Analgesics * Antiemetics * IV fluid * Status post lap cholecystectomy 08/18 pod #1 and doing well. (2) Abnormal CT scan of lung: Code(s): R91.8 - Other nonspecific abnormal finding of lung field Status: Acute Assessment and Plan: * Lack of respiratory symptoms and history of emesis today suggest possible aspiration * IV Zosyn continue for respiratory as well as cholecystitis (3) Bipolar 1 disorder: Code(s): F31.9 - Bipolar disorder, unspecified Status: Chronic Assessment and Plan: * Hold quetiapine while NPO * Haloperidol 5 mg IM one time at bedtime 08/16 * 08/17 Quetiapin 800mg at HS (4) Hypertension, essential: Code(s): I10 - Essential (primary) hypertension Status: Acute Assessment and Plan: * Currently normotensive restart amlodipine 08/20 (5) GERD (gastroesophageal reflux disease): Code(s): K21.9 - Gastro-esophageal reflux disease without esophagitis Status: Acute Assessment and Plan: * IV famotidine while NPO Subjective Date/time seen: 08/20/19 17:14 Interval history: 08/16 Admitted with abdominal pain, acute cholecystitis. 08/19 Less upper abdominal pain. Status post lap choly 08/18. Denied other pain (head, chest, back). Denied dyspnea. gas but no bm yet Exam Narrative: Exam Narrative: Blood pressure 132/72 pulse 80 sat 100% on room air HEENT: PERRL, sclerae nonicteric, NECK: No JVD, CHEST: Clear to auscultation. Normal effort. HEART: NL S1/S2, regular, no murmur ABDOMEN: BS+, incisions are clean EXTREMITIES: No edema, or . Venous stasis changes on distal lower extremities bilaterally. NEUROLOGIC: CN intact and no focal deficits PSYCH: Alert. Oriented to person, place, and time. Flat affect. But otherwise cooperative and relatively pleasant. . Objective Data Vital Signs Vital Signs: Vital Signs - 24 hr 08/19/19 22:00 08/20/19 02:00 08/20/19 06:00 Temperature 36.3 C L 36.4 C L 36.4 C L Pulse Rate 84 86 75 Respiratory Rate 18 18 16 Blood Pressure 150/84 H 157/75 H 136/66 Pulse Oximetry 95 97 97 08/20/19 14:00 Temperature 36.6 C Pulse Rate 81 Respiratory Rate 18 Blood Pressure 133/72 Pulse Oximetry 100 Intake/Output Intake/Output: Intake & Output 08/17/19 08/18/19 08/19/19 08/20/19 23:59 23:59 23:59 23:59 Intake Total 1350 3270 2160 2810 Output Total 700 2505 745 Balance 1350 2570 -981 2065 Meds/Results Medications: Active Medications Generic Name Dose Route Start Last Admin Trade Name Freq PRN Reason Stop Dose Admin Hydrocodone Bitart/Acetaminophen 1 tab 08/19/19 10:16 [place] 5-325 Mg PO Q4H PRN Pain Rated 4-6 Hydrocodone Bitart/Acetaminophen 1 tab 08/19/19 10:16 08/20/19 05:55 [place] 10-325 Mg PO 1 tab Q4H PRN Administration Pain Rated 7-10 Enoxaparin Sodium 40 mg 08/18/19 09:00 08/19
--- NOTE | 2019-08-20 17:14 | PM.IMPN ---
Progress Note: A&P Assessment and Plan (1) Acute cholecystitis: Code(s): K81.0 - Acute cholecystitis Status: Acute Assessment and Plan: Clinically he has had acute cholecystitis Mild biliary dilatation could be due to stone versus inflammatory change Normal LFTs favor the latter IV Zosyn Bowel rest Analgesics Antiemetics IV fluid Status post lap cholecystectomy 08/18 pod #1 and doing well. (2) Abnormal CT scan of lung: Code(s): R91.8 - Other nonspecific abnormal finding of lung field Status: Acute Assessment and Plan: Lack of respiratory symptoms and history of emesis today suggest possible aspiration IV Zosyn continue for respiratory as well as cholecystitis (3) Bipolar 1 disorder: Code(s): F31.9 - Bipolar disorder, unspecified Status: Chronic Assessment and Plan: Hold quetiapine while NPO Haloperidol 5 mg IM one time at bedtime 08/16 08/17 Quetiapin 800mg at HS (4) Hypertension, essential: Code(s): I10 - Essential (primary) hypertension Status: Acute Assessment and Plan: Currently normotensive restart amlodipine 08/20 (5) GERD (gastroesophageal reflux disease): Code(s): K21.9 - Gastro-esophageal reflux disease without esophagitis Status: Acute Assessment and Plan: IV famotidine while NPO Subjective Date/time seen: 08/20/19 17:14 Interval history: 08/16 Admitted with abdominal pain, acute cholecystitis. 08/19 Less upper abdominal pain. Status post lap choly 08/18. Denied other pain (head, chest, back). Denied dyspnea. gas but no bm yet Exam Narrative: Exam Narrative: Blood pressure 132/72 pulse 80 sat 100% on room air HEENT: PERRL, sclerae nonicteric, NECK: No JVD, CHEST: Clear to auscultation. Normal effort. HEART: NL S1/S2, regular, no murmur ABDOMEN: BS+, incisions are clean EXTREMITIES: No edema, or . Venous stasis changes on distal lower extremities bilaterally. NEUROLOGIC: CN intact and no focal deficits PSYCH: Alert. Oriented to person, place, and time. Flat affect. But otherwise cooperative and relatively pleasant. . Objective Data Vital Signs Vital Signs: Vital Signs - 24 hr 08/19/19 22:00 08/20/19 02:00 08/20/19 06:00 Temperature 36.3 C L 36.4 C L 36.4 C L Pulse Rate 84 86 75 Respiratory Rate 18 18 16 Blood Pressure 150/84 H 157/75 H 136/66 Pulse Oximetry 95 97 97 08/20/19 14:00 Temperature 36.6 C Pulse Rate 81 Respiratory Rate 18 Blood Pressure 133/72 Pulse Oximetry 100 Intake/Output Intake/Output: Intake & Output 08/17/19 08/18/19 08/19/19 08/20/19 23:59 23:59 23:59 23:59 Intake Total 1350 3270 2160 2810 Output Total 700 2505 745 Balance 1350 4830 -401 2069 Meds/Results Medications: Active Medications Generic Name Dose Route Start Last Admin Trade Name Freq PRN Reason Stop Dose Admin Hydrocodone Bitart/Acetaminophen 1 tab 08/19/19 10:16 [place] 5-325 Mg PO Q4H PRN Pain Rated 4-6 Hydrocodone Bitart/Acetaminophen 1 tab 08/19/19 10:16 08/20/19 05:55 [place] 10-325 Mg PO 1 tab Q4H PRN Administration Pain Rated 7-10 Enoxaparin Sodium 40 mg 08/18/19 09:00 08/20/19 09:16 Lovenox SUB-Q 40 mg DAILY KWASI Administration Famotidine 20 mg 08/17/19 21:00 08/20/19 09:46 Pepcid Iv IV PUSH 20 mg Q12HR KWASI Administration Hydralazine HCl 10 mg 08/17/19 16:13 Apresoline Hcl Inj IV PUSH Q8H PRN Blood Pressure - High Piperacillin/Tazobactam/Dextrose 3.375 gm in 50 mls @ 100 mls/hr 08/19/19 18:00 08/20/19 13:30 Zosyn 3.375 Gm/D5w 50ml Pm IVPB 100 mls/hr Q6HR KWASI Administration Ibuprofen 400 mg 08/19/19 10:16 Motrin PO Q6H PRN Pain Rated 1-3 Morphine Sulfate 2 mg 08/17/19 13:48 Morphine Sulfate Inj IV PUSH Q2H PRN Pain Rated 4-6 Morphine Sulfate 4 mg 08/17/19 13:48 08/18/19 17:28 Morphine Sulfate Inj IV PUSH 4 mg Q2H PRN Administra
[2019-08-20] MEDS: TAMSULOSIN HCL 0.4 MG CAPSULE PO (20:35)
[2019-08-20] MEDS: QUEtiapine FUMARATE XR 200 MG TAB.ER.24H 800 MG PO (20:35)
[2019-08-20 22:00] VITALS: BP 145/71; PULSE 70; RESP 18; TEMP 36.2; O2SAT 94
[2019-08-21 06:00] VITALS: BP 137/65; PULSE 90; RESP 18; TEMP 36.4; O2SAT 96
[2019-08-21 08:00] VITALS: PULSE 90; RESP 18; O2SAT 96
[2019-08-21 09:14] LABS: Blood Urea Nitrogen 10 mg/dL (9-20); Calcium 8.4 mg/dL (8.4-10.2); Carbon Dioxide 27 mmol/L (22-30); Chloride 106 mmol/L (98-107); Estimated CRCL calculation 69 ml/min; Estimated Glomerular Filt Rate > 60; Glucose 105 mg/dL (75-110); Sodium 140 mmol/L (137-145)
[2019-08-21] MEDS: FAMOTIDINE 20 MG/2 ML VIAL IV PUSH ×2 (09:29→21:22)
[2019-08-21] MEDS: SALIVA SUBSTITUTE RINSE 473 ML BOTTLE PO ×3 (09:29→16:04)
[2019-08-21] MEDS: ENOXAPARIN 40 MG/0.4 ML SYRINGE SUB-Q (09:29)
--- NOTE | 2019-08-21 09:29 | PM.PNGS ---
Progress Note: A&P Assessment and Plan (1) Acute cholecystitis: Code(s): K81.0 - Acute cholecystitis Status: Acute Assessment and Plan: POD2 and doing well. Pain is well-controlled and patient is tolerating a low fat diet. Continue to monitor MARU drain output today. Continue IV antibiotics. Encouraged increased activity and ambulation. (2) Abnormal CT scan of lung: Code(s): R91.8 - Other nonspecific abnormal finding of lung field Status: Acute (3) Bipolar 1 disorder: Code(s): F31.9 - Bipolar disorder, unspecified Status: Chronic Assessment and Plan: Calm and cooperative this morning. Additional Plan Pathology showed acalculous gangrenous acute cholecystitis. Discussed plan of care with Dr. Villalba today. Subjective Subjective Date/Time Seen: 08/21/19 09:29 Post Op day: 2 (lap aron) Patient reports: feels better, tolerating a regular diet, flatus and no bowel movement Interval history: Reports feeling well today with mild incisional abdominal pain at this time being controlled well with PRN analgesics. Denies nausea, vomiting, or bloating. Tolerating the low fat diet. Voiding well without difficulties s/p bunch removal yesterday. No other complaints at this time. Review of Systems Review of Systems: All systems reviewed & are unremarkable except as noted in HPI and below Exam Const: General: comfortable, no acute distress, alert and awake Orientation/consciousness: patient oriented x3 GI: Inspection: non-distended, incision (clean and dry) and obesity GI Palp: Yes Soft to palpation, Yes Tenderness to palpation present (GI) (incisional), No Guarding due to palpation present (GI) and No Rebound tenderness present Auscultation: normal bowel sounds Other: MARU drain RLQ with serosanguineous drainage Skin: Rashes: no rashes Neuro: General: moves all extremities and no focal motor deficits Extrem: General: no calf tenderness and no edema Psych: Affect: normal affect Attitude: cooperative Insight: Good insight present (Psych) Judgement: Good judgement present (Psych) Objective Data Vital Signs Vital Signs: Vital Signs - 24 hr 08/20/19 14:00 08/20/19 22:00 08/21/19 06:00 Temperature 36.6 C 36.2 C L 36.4 C Pulse Rate 81 70 90 Respiratory Rate 18 18 18 Blood Pressure 133/72 145/71 H 137/65 Pulse Oximetry 100 94 96 08/21/19 08:00 Temperature Pulse Rate 90 Respiratory Rate 18 Blood Pressure Pulse Oximetry 96 Intake/Output Intake/Output: Intake & Output 08/18/19 08/19/19 08/20/19 08/21/19 23:59 23:59 23:59 23:59 Intake Total 3270 2410 3160 530 Output Total 700 4015 1675 30 Balance 2570 -1605 1485 500 Meds/Results Medications: Active Medications Generic Name Dose Route Start Last Admin Trade Name Freq PRN Reason Stop Dose Admin Hydrocodone Bitart/Acetaminophen 1 tab 08/19/19 10:16 [place] 5-325 Mg PO Q4H PRN Pain Rated 4-6 Hydrocodone Bitart/Acetaminophen 1 tab 08/19/19 10:16 08/21/19 04:04 [place] 10-325 Mg PO 1 tab Q4H PRN Administration Pain Rated 7-10 Enoxaparin Sodium 40 mg 08/18/19 09:00 08/21/19 09:29 Lovenox SUB-Q 40 mg DAILY KWASI Administration Famotidine 20 mg 08/17/19 21:00 08/21/19 09:29 Pepcid Iv IV PUSH 20 mg Q12HR KWASI Administration Hydralazine HCl 10 mg 08/17/19 16:13 Apresoline Hcl Inj IV PUSH Q8H PRN Blood Pressure - High Piperacillin/Tazobactam/Dextrose 3.375 gm in 50 mls @ 100 mls/hr 08/19/19 18:00 08/21/19 06:30 Zosyn 3.375 Gm/D5w 50ml Pm IVPB Infused Q6HR KWASI Infusion Ibuprofen 400 mg 08/19/19 10:16 Motrin PO Q6H PRN Pain Rated 1-3 Morphine Sulfate 2 mg 08/17/19 13:48 Morphine Sulfate Inj IV PUSH Q2H PRN Pain Rated 4-6 Morphine Sulfate 4 mg 08/17/19 13:48 08/18/19 17:28 Morphine Sulfate Inj IV PUSH 4 mg Q2H PRN Administration Pain Rated 7-10 Naloxone HCl 0.1 mg 08/17/19 13:48 Richard
[2019-08-21 09:33] VITALS: O2SAT 96
[2019-08-21] MEDS: POTASSIUM CHLORIDE 20 MEQ TABLET 40 MEQ PO ×2 (12:00→17:41)
[2019-08-21 14:00] VITALS: BP 122/63; PULSE 74; RESP 18; TEMP 36.9; O2SAT 98
--- NOTE | 2019-08-21 16:58 | PM.IMPN ---
Progress Note: A&P Assessment and Plan (1) Acute cholecystitis: Code(s): K81.0 - Acute cholecystitis Status: Acute Assessment and Plan: Clinically he has had acute cholecystitis IV Zosyn Analgesics Antiemetics IV fluid Status post lap cholecystectomy 08/18 pod #2 and doing well.tolerating diet (2) Abnormal CT scan of lung: Code(s): R91.8 - Other nonspecific abnormal finding of lung field Status: Acute Assessment and Plan: Lack of respiratory symptoms and history of emesis 08/18 suggest possible aspiration IV Zosyn continue for respiratory as well as cholecystitis (3) Bipolar 1 disorder: Code(s): F31.9 - Bipolar disorder, unspecified Status: Chronic Assessment and Plan: Hold quetiapine while NPO Haloperidol 5 mg IM one time at bedtime 08/16 08/17 Quetiapin 800mg at HS (4) Hypertension, essential: Code(s): I10 - Essential (primary) hypertension Status: Acute Assessment and Plan: Currently normotensive restart amlodipine 08/21 (5) GERD (gastroesophageal reflux disease): Code(s): K21.9 - Gastro-esophageal reflux disease without esophagitis Status: Acute Assessment and Plan: IV famotidine while NPO Subjective Date/time seen: 08/21/19 16:58 Interval history: 08/16 Admitted with abdominal pain, acute cholecystitis. 08/20 Less upper abdominal pain. Status post lap choly 08/18. Denied other pain (head, chest, back). Denied dyspnea. tolerating diet Exam Narrative: Exam Narrative: Blood pressure 122/64 pulse 72 sat 100% on room air T 36.9 HEENT: PERRL, sclerae nonicteric, NECK: No JVD, CHEST: Clear to auscultation. Normal effort. HEART: NL S1/S2, regular, no murmur ABDOMEN: BS+, incisions are clean EXTREMITIES: No edema, or . Venous stasis changes on distal lower extremities bilaterally. NEUROLOGIC: CN intact and no focal deficits PSYCH: Alert. Oriented to person, place, and time. Flat affect. But otherwise cooperative and relatively pleasant. . Objective Data Vital Signs Vital Signs: Vital Signs - 24 hr 08/20/19 22:00 08/21/19 06:00 08/21/19 08:00 Temperature 36.2 C L 36.4 C Pulse Rate 70 90 90 Respiratory Rate 18 18 18 Blood Pressure 145/71 H 137/65 Pulse Oximetry 94 96 96 08/21/19 09:33 08/21/19 14:00 Temperature 36.9 C Pulse Rate 74 Respiratory Rate 18 Blood Pressure 122/63 Pulse Oximetry 96 98 Intake/Output Intake/Output: Intake & Output 08/18/19 08/19/19 08/20/19 08/21/19 23:59 23:59 23:59 23:59 Intake Total 3270 2410 3160 1060 Output Total 700 4015 1675 30 Balance 2570 -1605 1485 1030 Meds/Results Medications: Active Medications Generic Name Dose Route Start Last Admin Trade Name Freq PRN Reason Stop Dose Admin Hydrocodone Bitart/Acetaminophen 1 tab 08/19/19 10:16 [place] 5-325 Mg PO Q4H PRN Pain Rated 4-6 Hydrocodone Bitart/Acetaminophen 1 tab 08/19/19 10:16 08/21/19 04:04 [place] 10-325 Mg PO 1 tab Q4H PRN Administration Pain Rated 7-10 Enoxaparin Sodium 40 mg 08/18/19 09:00 08/21/19 09:29 Lovenox SUB-Q 40 mg DAILY KWASI Administration Famotidine 20 mg 08/17/19 21:00 08/21/19 09:29 Pepcid Iv IV PUSH 20 mg Q12HR KWASI Administration Hydralazine HCl 10 mg 08/17/19 16:13 Apresoline Hcl Inj IV PUSH Q8H PRN Blood Pressure - High Piperacillin/Tazobactam/Dextrose 3.375 gm in 50 mls @ 100 mls/hr 08/19/19 18:00 08/21/19 12:30 Zosyn 3.375 Gm/D5w 50ml Pm IVPB Infused Q6HR KWASI Infusion Ibuprofen 400 mg 08/19/19 10:16 Motrin PO Q6H PRN Pain Rated 1-3 Morphine Sulfate 2 mg 08/17/19 13:48 Morphine Sulfate Inj IV PUSH Q2H PRN Pain Rated 4-6 Morphine Sulfate 4 mg 08/17/19 13:48 08/18/19 17:28 Morphine Sulfate Inj IV PUSH 4 mg Q2H PRN Administration Pain Rated 7-10 Naloxone HCl 0.1 mg 08/17/19 13:48 Narcan IV PUSH Q2M PRN
[2019-08-21] MEDS: AMLODIPINE BESYLATE 5 MG TABLET PO (17:41)
[2019-08-21] MEDS: QUEtiapine FUMARATE XR 200 MG TAB.ER.24H 800 MG PO (21:22)
[2019-08-21] MEDS: TAMSULOSIN HCL 0.4 MG CAPSULE PO (21:22)
[2019-08-21 22:00] VITALS: BP 135/70; PULSE 77; RESP 20; TEMP 36.3; O2SAT 97
[2019-08-22 06:00] VITALS: BP 170/66; PULSE 65; RESP 16; TEMP 36.3; O2SAT 99
[2019-08-22 06:31] VITALS: BP 136/77
[2019-08-22] MEDS: IBUPROFEN 400 MG TABLET PO (06:34)
[2019-08-22 06:49] LABS: Blood Urea Nitrogen 12 mg/dL (9-20); Calcium 8.7 mg/dL (8.4-10.2); Carbon Dioxide 30 mmol/L (22-30); Chloride 104 mmol/L (98-107); Estimated CRCL calculation 63 ml/min; Estimated Glomerular Filt Rate > 60; Glucose 93 mg/dL (75-110); Potassium 3.6 mmol/L (3.4-5.0); Sodium 137 mmol/L (137-145)
[2019-08-22] MEDS: POTASSIUM CHLORIDE 20 MEQ TABLET 40 MEQ PO (08:24)
[2019-08-22] MEDS: ENOXAPARIN 40 MG/0.4 ML SYRINGE SUB-Q (08:26)
[2019-08-22] MEDS: FAMOTIDINE 20 MG/2 ML VIAL IV PUSH (08:26)
--- NOTE | 2019-08-22 09:00 | PM.PNGS ---
Progress Note: A&P Assessment and Plan (1) Acute gangrenous cholecystitis: Code(s): K81.0 - Acute cholecystitis Status: Acute Assessment and Plan: with gallbladder perforation. No stones were noted. Patient doing quite well. Now eating solid food and comfortable on oral analgesics. Can be discharged today or tomorrow depending on opinion of hospitalist service. I will need to see him again in 2 weeks. I would continue him on Augmentin for another 4 days. See discharge instructions. (2) Bipolar 1 disorder: Code(s): F31.9 - Bipolar disorder, unspecified Status: Chronic (3) Hypertension, essential: Code(s): I10 - Essential (primary) hypertension Status: Acute Subjective Subjective Date/Time Seen: 08/22/19 09:00 Post Op day: 3 Patient reports: no new complaints, feels better, pain is less, tolerating a regular diet and bowel movement Review of Systems Review of Systems: All systems reviewed & are unremarkable except as noted in HPI and below Cardiovascular: Cardiovascular: Denies chest pain and Denies dyspnea Respiratory: Respiratory: Denies cough and Denies dyspnea Gastrointestinal: Gastrointestinal: Reports as per HPI Exam Const: General: cooperative, comfortable, no acute distress, alert and awake; No confusion GI: Inspection: incision ( all incisions healing well; MARU drain fluid is serous, No bile) and obesity GI Palp: Yes Soft to palpation, Yes Tenderness to palpation present (GI) ( appropriate right upper quadrant tenderness), No Guarding due to palpation present (GI), No Rigid due to palpation, No Hernia present, No Palpable mass present and No Rebound tenderness present Auscultation: normal bowel sounds Extrem: General: no calf tenderness and no edema Objective Data Vital Signs Vital Signs: Vital Signs - 24 hr 08/21/19 09:33 08/21/19 14:00 08/21/19 22:00 Temperature 36.9 C 36.3 C L Pulse Rate 74 77 Respiratory Rate 18 20 Blood Pressure 122/63 135/70 Pulse Oximetry 96 98 97 08/22/19 06:00 08/22/19 06:31 Temperature 36.3 C L Pulse Rate 65 Respiratory Rate 16 Blood Pressure 170/66 H 136/77 Pulse Oximetry 99 Intake/Output Intake/Output: Intake & Output 08/19/19 08/20/19 08/21/19 08/22/19 23:59 23:59 23:59 23:59 Intake Total 2410 3160 1600 200 Output Total 4015 1675 60 30 Balance -1605 1485 1540 170 Meds/Results Medications: Active Medications Generic Name Dose Route Start Last Admin Trade Name Freq PRN Reason Stop Dose Admin Hydrocodone Bitart/Acetaminophen 1 tab 08/19/19 10:16 08/21/19 17:44 [place] 5-325 Mg PO 1 tab Q4H PRN Administration Pain Rated 4-6 Hydrocodone Bitart/Acetaminophen 1 tab 08/19/19 10:16 08/21/19 04:04 [place] 10-325 Mg PO 1 tab Q4H PRN Administration Pain Rated 7-10 Amlodipine Besylate 5 mg 08/21/19 09:00 08/21/19 17:41 Norvasc PO 5 mg QAM KWASI Administration Enoxaparin Sodium 40 mg 08/18/19 09:00 08/22/19 08:26 Lovenox SUB-Q 40 mg DAILY KWASI Administration Famotidine 20 mg 08/17/19 21:00 08/22/19 08:26 Pepcid Iv IV PUSH 20 mg Q12HR KWASI Administration Hydralazine HCl 10 mg 08/17/19 16:13 Apresoline Hcl Inj IV PUSH Q8H PRN Blood Pressure - High Piperacillin/Tazobactam/Dextrose 3.375 gm in 50 mls @ 100 mls/hr 08/19/19 18:00 08/22/19 06:37 Zosyn 3.375 Gm/D5w 50ml Pm IVPB Infused Q6HR KWASI Infusion Ibuprofen 400 mg 08/19/19 10:16 08/22/19 06:34 Motrin PO 400 mg Q6H PRN Administration Pain Rated 1-3 Morphine Sulfate 2 mg 08/17/19 13:48 Morphine Sulfate Inj IV PUSH Q2H PRN Pain Rated 4-6 Morphine Sulfate 4 mg 08/17/19 13:48 08/18/19 17:28 Morphine Sulfate Inj IV PUSH 4 mg Q2H PRN Administration Pain Rated 7-10 Naloxone HCl 0.1 mg 08/17/19 13:48 Narcan IV PUSH Q2M PRN Opiate Reversal Ondansetron HCl 4 mg 08/19/19 10:16 Zofran Inj IV
[2019-08-22] MEDS: SALIVA SUBSTITUTE RINSE 473 ML BOTTLE PO (10:26)
[2019-08-22] MEDS: AMLODIPINE BESYLATE 5 MG TABLET PO (10:26)
--- NOTE | 2019-08-22 12:30 | PM.DS ---
DS: Admitting Diagnosis Admitting Diagnosis Admitting Diagnosis: Acute cholecystitis DS: Discharge Diagnosis Discharge Diagnosis (1) Acute cholecystitis: Code(s): K81.0 - Acute cholecystitis Status: Deleted Assessment and Plan: Clinically he has had acute cholecystitis s/p lap aron per Dr. Villalba POD 3. Doing well postoperatively. Okay for discharge from Surgical standpoint. Tolerating PO IV Zosyn during stay; will do Augmentin for 4 additional days per Surgery rec Analgesics Antiemetics d/c today to [facility] for SN[facility] (2) Abnormal CT scan of lung: Code(s): R91.8 - Other nonspecific abnormal finding of lung field Status: Acute Assessment and Plan: Lack of respiratory symptoms and history of emesis 08/18 suggest possible aspiration IV Zosyn during stay for respiratory as well as cholecystitis; will switch to Augmentin x4 days today (3) Bipolar 1 disorder: Code(s): F31.9 - Bipolar disorder, unspecified Status: Chronic Assessment and Plan: Continue home medications as prescribed (4) Hypertension, essential: Code(s): I10 - Essential (primary) hypertension Status: Acute Assessment and Plan: BP 130s sys Continue home medications (5) GERD (gastroesophageal reflux disease): Code(s): K21.9 - Gastro-esophageal reflux disease without esophagitis Status: Acute Assessment and Plan: Home medications DS: Summary Hospital Course Reason for hospitalization: Acute cholecystitis Hospital Course: Patient is a 68 yo M with history of GERD, HTN, HLD, and Bipolar 1 disorder who presented to the ED on 08/16 from [facility] with complaints of epigastric abdominal discomfort. While in the ER he was found to have imaging findings suggestive of acute cholecystitis. Patient was admitted under this setting. Please see H&P for further details. Presenting VS: Temp Pulse Resp BP Pulse Ox 97.8 F 106 H 20 113/69 95 08/17/19 08:38 08/17/19 08:38 08/17/19 08:38 08/17/19 08:38 08/17/19 08:38 Presenting Pertinent labs: WBC 18.5k. CBC, Chem, otherwise unremarkable Micro: none Imaging: Abdomen/Pelvis CT 08/17/19 09:57 IMPRESSION: 1. Pericholecystic inflammatory stranding suspicious for acute cholecystitis. Correlate for Arriaga sign and consider further evaluation with either ultrasound or HIDA scan. 2. Mild intrahepatic biliary ductal dilation with normal caliber common bile duct. Correlate with liver function tests. 3. Small sliding-type hiatal hernia with wall thickening throughout the distal esophagus suggestive of reflux esophagitis. 4. Tree-in-bud opacities in the right middle and lower lobes which could represent aspiration and/or pneumonia. 5. Small amount of likely reactive ascites. 6. Nonspecific increased gas and fluid throughout the small bowel without discrete obstruction but which could be seen with reactive ileus. Upper Quadrant Ultrasound 08/17/19 11:07 IMPRESSION: 1. Sludge-filled gallbladder with mild wall thickening versus small amount of pericholecystic fluid and with positive sonographic Arriaga's which is concerning for acute cholecystitis although no definitive shadowing cholelithiasis is appreciated. If clinically indicated HIDA scan could be obtained for more definitive determination. Chest X-Ray 08/17/19 20:09 IMPRESSION: 1. Airspace opacities of the right middle and lower lobes, likely infectious or inflammatory. ECG: Interpretive Statements SINUS RHYTHM ATRIAL PREMATURE COMPLEXES BASELINE WANDER- I, AVR, V1, V6 BORDERLINE ECG Patient was admitted to the hospitalist service for further evaluation for likely acute cholecystitis on imaging; Dr. Villalba (General Surgery) was consulted for further input. Patient was placed on IV Zosyn
[2019-08-22 14:00] VITALS: BP 111/60; PULSE 97; RESP 18; TEMP 36.1; O2SAT 100
== END 2019-08-22 15:00 | DRG 418 ==
LOC: ANHED 12:11 → ANH3MEDSUR 13:20
PROVIDERS: Internal Medicine; Surgery; Admitting Provider Internal Medicine; Emergency Provider Emergency Medicine; Visit Provider Internal Medicine
PROC: 0FT44ZZ Resection of Gallbladder, Percutaneous Endoscopic Approach (ICD-10-PCS; CPT 47562; principal; 2019-08-19 07:30)
DX: K81.0 Acute cholecystitis (principal); K82.A2 Perforation of gallbladder in cholecystitis; K91.61 Intraoperative hemorrhage and hematoma of a digestive system organ or structure complicating a digestive system procedure; K82.A1 Gangrene of gallbladder in cholecystitis; I10 Essential (primary) hypertension; K21.9 Gastro-esophageal reflux disease without esophagitis; F31.9 Bipolar disorder, unspecified; K82.8 Other specified diseases of gallbladder; R91.8 Other nonspecific abnormal finding of lung field; K76.0 Fatty (change of) liver, not elsewhere classified
CPT/HCPCS: 36415; 71046; 74177; 76705; 80048; 80053; 80076; 82150; 83690; 85025; 85610; 85730; 86850; 86900; 86901; 88304; 93005; 96365; 96375; 97110; 97116; 97161; 97165; 97530; 97535; 99285; A9270; C1713; J0330; J0690; J1100; J1630; J1650; J1741; J2001; J2270; J2405; J2543; J3010; J7030; J7042; J7120; Q9967

== ENCOUNTER 2019-09-23 07:32 | Inpatient (IN) | payer MEDICARE, OTHER, SELFPAY ==
[2019-09-23] VITALS (12 sets, daily range): BP systolic 103–141; BP diastolic 65–75; PULSE 10–130; RESP 12–28; TEMP 36.3–36.6; O2SAT 95–100; BMI 29.0
--- NOTE | ~2019-09-23 | CT_ITS ---
EXAMINATION: CT abdomen pelvis w con DATE: 10/06/2019 10:39 INDICATION: Persistent abdominal distention, ileus TECHNIQUE: Computed tomography (CT) of the abdomen and pelvis was performed with 100 cc Omnipaque 350 intravenous contrast. Automated exposure control and iterative reconstruction technique were employe d. Exam dose: 994.09 mGy-cm total exam DLP. COMPARISON: 09/29/2019 upper gastrointestinal water soluble contrast radiographic examination with sma ll bowel series 08/17/2019 CT abdomen pelvis 08/17/2019 right upper quadrant abdominal ultrasound 09/26/2019 radionuclide hepatobiliary scan postcholecystectomy FINDINGS: There is bilateral mild dependent lower lobe infiltrate and/atelectasis, left greater than right. There are small bilateral pleural effusions. Cardiomegaly. No pericardial effusion. Status post cholecystectomy. No hepatic, splenic, pancreatic, and adrenal space-occupying mass lesion is evident. Occasional renal cysts, the largest situated on the right, measuring approximately 1.9 c m maximal dimension, the largest on the left measuring up to approximately 1.6 cm dimension. No urina ry tract calculus or hydroureteronephrosis. There is extensive calcification of the abdominal aorta and iliac arteries but no evidence of aneurys m. There is calcification at the origins of the renal arteries and superior mesenteric and inferior m esenteric artery. No intraperitoneal or retroperitoneal or pelvic mass lesion or adenopathy. There is a minimal amount of free fluid in the dependent pelvis. The urinary bladder is unremarkable. There is a small sliding hiatal hernia with air-fluid level. There are air-fluid levels within the st omach, small bowel, colon and rectum without any apparent transition zone, suggesting enterocolitis. No intraperitoneal free air. IMPRESSION: Air-fluid levels throughout the stomach, small bowel, colon and rectum, suggesting enter ocolitis Cardiomegaly, small bilateral pleural effusions Bilateral dependent lower lobe infiltrate and/atelectasis, left greater than right Small sliding hiatal hernia Status post cholecystectomy Bilateral renal cysts Reviewed, dictated and finalized at [facility]. Reviewed, dictated and finalized at location B. IMPRESSION: Air-fluid levels throughout the stomach, small bowel, colon and re ctum, suggesting enterocolitis Cardiomegaly, small bilateral pleural effusions Bilateral dependent lower lobe infiltrate and/atelectasis, left greater than ri ght Small sliding hiatal hernia Status post cholecystectomy Bilateral renal cysts
--- NOTE | ~2019-09-23 | XR_ITS ---
EXAMINATION: XR ribs RT 2V INDICATION: Right rib pain, initial encounter TECHNIQUE: 3 views of the right ribs were obtained. COMPARISON: 0835 hours FINDINGS: There are acute fractures of the anterior right sixth and seventh ribs. And possible fractu res of the eighth and ninth ribs. The visualized thorax is unremarkable. There is no pleural effusion or pneumothorax. The cardiomediastinal silhouette is normal. Surgical clips in the right upper quadr ant are likely from prior cholecystectomy. IMPRESSION: 1. Acute fractures of the right sixth and seventh ribs and possible fractures of the right eighth and ninth ribs. Reviewed, dictated and finalized at location A. IMPRESSION: 1. Acute fractures of the right sixth and seventh ribs and possible fractures o f the right eighth and ninth ribs.
--- NOTE | ~2019-09-23 | XR_ITS ---
EXAMINATION: XR abdomen/kub 1V DATE: 10/08/2019 06:09 INDICATION: Ileus TECHNIQUE: A supine view of the abdomen on 2 radiographs was obtained. COMPARISON: CT dated 10/06/2019 FINDINGS: Again seen is diffuse gaseous distention of the colon and small bowel consistent with ileus. Cholecys tectomy clips in the right upper quadrant. Lung bases are clear. Heart size is normal. Mild scattered degenerative skeletal changes. IMPRESSION: 1. Extensive gaseous distention of the large and small bowel consistent with persistent ileus. Reviewed, dictated and finalized at location A. IMPRESSION: 1. Extensive gaseous distention of the large and small bowel consistent with pe rsistent ileus.
--- NOTE | ~2019-09-23 | XR_ITS ---
EXAMINATION: XR abdomen NG/feed tube insert EXAM DATE: 09/26/2019 09:40 INDICATION: Feeding tube insertion. TECHNIQUE: Frontal projection(s) of the abdomen for interpretation. Comparison is made to prior exami nation from earlier same date. FINDINGS: Bowel with large amount of gas, and stool probably combination of small and large bowel. F eeding tube has been inserted and is projecting over expected location of gastric body, adequate. Preeti g bases are unremarkable. IMPRESSION: Feeding tube in position. Air-filled dilated large and small bowel. Reviewed, dictated and finalized at location B. IMPRESSION: Feeding tube in position. Air-filled dilated large and small bowel .
--- NOTE | ~2019-09-23 | XR_ITS ---
EXAMINATION: XR abdomen/kub 1V DATE: 09/26/2019 05:51 INDICATION: Abdominal pain, emesis and constipation. TECHNIQUE: A supine view of the abdomen was obtained. COMPARISON: 09/25/2019 FINDINGS: A few persistent mildly dilated gas-filled loops of small bowel which could represent small bowel obs truction or ileus. Additional gas in the stomach and throughout the colon. Cholecystectomy clips in t he right upper quadrant. IMPRESSION: 1. Small bowel obstruction versus ileus. Reviewed, dictated and finalized at location A.
--- NOTE | ~2019-09-23 | XR_ITS ---
EXAMINATION: XR UGI water soluble w sbs DATE: 09/29/2019 22:14 INDICATION: Persistent ileus versus small bowel obstruction TECHNIQUE: 500 cc of Omnipaque 350 water-soluble contrast were injected through the indwelling nasoga stric tube. Conventional supine abdomen radiographs and fluoroscopy of the stomach and small bowel we re performed. Fluoroscopy exposure time was 0.3 minutes. The DAP for this procedure was 59.693 Gycm2. COMPARISON: 09/26/2019 FINDINGS: UPPER GASTROINTESTINAL SERIES: The nasogastric tube is in the stomach. The stomach shows a normal folding pattern. A small sliding h iatal hernia is present. There is a small amount of reflux contrast material in the distal esophagus. SMALL BOWEL SERIES: [place] image demonstrates multiple dilated loops of small bowel. The nasogastric tube is in the stomac h. Contrast material passes into the colon between the 10 hour and 14 hour images. IMPRESSION: 1. Possible dilated small bowel loops with slow transit of contrast, consistent with ileus. Reviewed, dictated and finalized at location A.
--- NOTE | ~2019-09-23 | XR_ITS ---
XR abdomen NG/feed tube rechec DATE: 09/26/2019 15:23 INDICATION: Abdominal pain, vomiting. TECHNIQUE: Portable upright AP view on 09/26/2019 1522 hours COMPARISON: None FINDINGS: A nasogastric tube is coiled once upon itself in the proximal stomach. IMPRESSION: NG tube in stomach Reviewed, dictated and finalized at [facility]. Reviewed, dictated and finalized at location A. IMPRESSION: NG tube in stomach
--- NOTE | ~2019-09-23 | XR_ITS ---
XR UGI water soluble wo kub DATE: 09/25/2019 11:13 INDICATION: Small bowel obstruction TECHNIQUE: 1 minute fluoroscopy time DAP: 20 COMPARISON: None FINDINGS: Upper gastrointestinal series and small bowel follow-through were attempted with water solu ble contrast material. The patient ingested a small amount of the contrast material but then declined to continue with the examination. There is esophageal tortuosity. There are tertiary contractions of esophagus. There is a small slidin g hiatal hernia. IMPRESSION: Incomplete examination due to patient refusal to complete examination Reviewed, dictated and finalized at [facility]. Reviewed, dictated and finalized at location A. IMPRESSION: Incomplete examination due to patient refusal to complete examinati on
--- NOTE | ~2019-09-23 | XR_ITS ---
XR abdomen NG/feed tube insert INDICATION: Evaluate NG tube position. TECHNIQUE: Limited KUB perform for evaluating NG tube . COMPARISON: 10/01/2019 FINDINGS: NG tube tip in the stomach. Visualized bowel gas pattern is nonspecific with residual cont rast in the right colon.There are cholecystectomy clips. IMPRESSION: 1: NG tube tip in the stomach. Reviewed, dictated and finalized at location A.
--- NOTE | ~2019-09-23 | XR_ITS ---
EXAMINATION: XR enema water soluble DATE: 09/23/2019 14:53 INDICATION: Leukocytosis with distended colon on CT. TECHNIQUE: A sizing sponger radiograph was obtained. A catheter was inserted into the patient's rectum. Contra st was infused by gravity. A total of 11 fluoroscopic images were obtained. Fluoroscopy exposure time was 0.4 minutes. COMPARISON: None. FINDINGS: Retrograde contrast administration into the rectum and sigmoid colon demonstrates multiple filling de fects corresponding to the large amount of stool as seen on prior CT. No evidence stricture or mucosa l irregularities. Contrast was unable to be advanced past the sigmoid colon as the enema bulb was loulou ble to be maintained in position in the distal rectum. IMPRESSION: 1. Incomplete single contrast enema evaluating only the rectum and sigmoid colon due to laxity of the anus and the large amount of stool in the sigmoid colon resulting in repeated ejection of the enema bulb from the rectum. Consider further therapeutic enemas and/or manual disimpaction with repeat imag ing as clinically indicated following resolution of constipation. 2. No stricture or mucosal irregularities identified along the rectum or sigmoid colon. Reviewed, dictated and finalized at location A. IMPRESSION: 1. Incomplete single contrast enema evaluating only the rectum and sigmoid colo n due to laxity of the anus and the large amount of stool in the sigmoid colon resulting in repeated ejection of the enema bulb from the rectum. Consider furt her therapeutic enemas and/or manual disimpaction with repeat imaging as clinic ally indicated following resolution of constipation. 2. No stricture or mucosal irregularities identified along the rectum or sigmoi d colon.
--- NOTE | ~2019-09-23 | XR_ITS ---
EXAMINATION: XR abdomen/kub 1V DATE: 10/01/2019 06:57 INDICATION: Small bowel obstruction TECHNIQUE: A supine view of the abdomen on 2 radiographs was obtained. COMPARISON: 09/30/2019 and 09/29/2019 FINDINGS: Nasogastric tube tip in proximal side port in the distal body of the stomach. Cholecystectomy clips i n the right upper quadrant. There is some oral contrast material throughout the gas distended colon. Some gas is also seen within a few loops of likely small bowel without bay dilation. IMPRESSION: 1. Nonspecific bowel gas pattern likely related to ileus without bay small bowel dilation to sugges t obstruction. Reviewed, dictated and finalized at location A. IMPRESSION: 1. Nonspecific bowel gas pattern likely related to ileus without bay small carlos wel dilation to suggest obstruction.
--- NOTE | ~2019-09-23 | XR_ITS ---
EXAMINATION: XR abdomen/kub 1V EXAM DATE: 09/28/2019 11:47 INDICATION: Follow-up ileus versus small bowel obstruction. TECHNIQUE: Frontal projection(s) of the abdomen for interpretation. Comparison is made to prior exami nation from 09/27/2019. FINDINGS: Feeding tube is in position. Previously seen stomach contrast is no longer identified. Aga in there is severely distended segment of small bowel, and moderate amount of colonic gas. There are cholecystectomy clips. There are bony degenerative changes. IMPRESSION: 1. Feeding tube in position. 2. Severely distended small bowel loops, moderate colonic distention unchanged. Reviewed, dictated and finalized at location A. IMPRESSION: 1. Feeding tube in position. 2. Severely distended small bowel loops, moderate colonic distention unchanged .
--- NOTE | ~2019-09-23 | XR_ITS ---
EXAMINATION: XR abdomen NG/feed tube rechec EXAM DATE: 09/30/2019 13:52 INDICATION: Feeding tube position. TECHNIQUE: Frontal projection(s) of the abdomen for interpretation. Comparison is made to prior exami nation from earlier same date. FINDINGS: Feeding tube overlying expected position of gastric body. There are multiple loops of catalino rely dilated air-filled small bowel. There is some contrast within the colon. Lung bases unremarkable . Mild to moderate lumbar spondylosis. IMPRESSION: Feeding tube in position. Severe small bowel dilation. Reviewed, dictated and finalized at location B.
--- NOTE | ~2019-09-23 | XR_ITS ---
EXAMINATION: XR abdomen/kub 1V DATE: 10/02/2019 05:50 INDICATION: Small bowel obstruction TECHNIQUE: A supine view of the abdomen on 2 radiographs was obtained. COMPARISON: 10/01/2019 FINDINGS: Nasogastric tube with tip in proximal side port in the distal stomach. Cholecystectomy clips in the r ight upper quadrant. There are a few mildly dilated gas-filled loops of small bowel in the central ab domen. Persistent gaseous distention of the colon with small amount of residual oral contrast materia l at the ascending colon. No pneumatosis. Lung bases are clear. IMPRESSION: 1. Multiple gas-filled loops of large and mildly dilated small bowel and favor ileus over obstruction . Reviewed, dictated and finalized at location A. IMPRESSION: 1. Multiple gas-filled loops of large and mildly dilated small bowel and favor ileus over obstruction.
--- NOTE | ~2019-09-23 | CT_ITS ---
EXAMINATION: CT brain wo con DATE: 09/23/2019 08:40 INDICATION: Syncopal episode. TECHNIQUE: Computed tomography (CT) of the head was performed without intravenous contrast. Sagittal and coronal reconstructions were performed. The mA was adjusted according to patient size. Iterative reconstruction technique was employed. The dose-length product was 681.00 mGy-cm. COMPARISON: None FINDINGS: No acute intracranial hemorrhage, acute infarction or abnormal extra axial fluid collection. Ventricl es are normal and symmetric. No mass/mass effect. Changes of bilateral intraocular lens replacement. The orbits, paranasal sinuses and mastoid air cells are normal. Intracranial calcified cerebral athe rosclerosis is noted. IMPRESSION: 1. No acute intracranial process. Reviewed, dictated and finalized at location A.
--- NOTE | ~2019-09-23 | XR_ITS ---
EXAMINATION: XR abdomen/kub 1V DATE: 10/05/2019 05:49 INDICATION: Ileus TECHNIQUE: A supine view of the abdomen on 2 radiographs was obtained. COMPARISON: 10/04/2019 FINDINGS: No significant interval change in large amount of gas scattered throughout the colon and several mild ly dilated loops of small bowel. No pneumatosis. Cholecystectomy clips in the right upper quadrant. L marisela bases are clear. Heart size is normal. IMPRESSION: 1. Unchanged ileus versus less likely obstruction. Reviewed, dictated and finalized at location A.
--- NOTE | ~2019-09-23 | XR_ITS ---
EXAMINATION: XR chest 1V DATE: 09/23/2019 08:37 INDICATION: Syncope. Weakness and vomiting. TECHNIQUE: frontal view of the chest was obtained. COMPARISON: Chest radiograph dated 08/17/2019 FINDINGS: Small lung volumes. No airspace opacities, pulmonary edema, pleural effusion or pneumothorax. The car diomediastinal silhouette is normal. Visualized bones and soft tissues are unremarkable. Cholecystect po clips in the right upper quadrant. Moderate degenerative skeletal changes in the cervical spine a nd bilateral shoulders. IMPRESSION: 1. No acute cardiopulmonary disease. Reviewed, dictated and finalized at location A.
--- NOTE | ~2019-09-23 | CT_ITS ---
EXAMINATION: CT abdomen pelvis w con EXAM DATE: 09/23/2019 08:41 INDICATION: Syncopal episode. Low abdominal pain with nausea and vomiting. TECHNIQUE: Spiral CT of the abdomen and pelvis was performed following intravenous injection of 100 m L Omnipaque 350. Axial, coronal and sagittal images were reviewed. The dose-length product (DLP) fo r this examination was 1375.49 mGy-cm. The exposure was tailored according to patient size (auto mA exposure control), and iterative reconstruction (ASIR) was used as additional dose reduction techniqu e. Comparison is made to prior examination from 08/17/2019. FINDINGS: The liver, spleen, adrenal glands and pancreas are unremarkable. There are cholecystectomy clips. Portal and splenic veins are patent. Kidneys enhance symmetrically. There is no hydronephr osis. The prostate is unremarkable. The bladder is unremarkable. There is no retroperitoneal or p elvic lymphadenopathy. There is moderate scattered arteriosclerotic disease. The appendix is not positively visualized. There is no pericecal inflammatory change to suggest appe ndicitis. There is small to moderate-sized gastroesophageal hiatal hernia. Evidence of gastroesopha geal reflux. There is large amount of colonic stool and gas throughout the colon, with the rectal va ult measuring 8 cm. No regions of focal wall thickening or pneumatosis intestinalis. No free intraper itoneal gas. The heart is normal in size. There are no pericardial or pleural effusions. The lung bases are unremarkable. Mild lumbar scoliosis. There are no osteoblastic or osteolytic lesions iden tified. Compared to last month, there was only moderate amount of colonic stool and gas on that examination. Patient has had interval cholecystectomy. Previously seen distal esophageal wall edema probably esoph agitis appears to have resolved. The previously seen lung basilar tree-in-bud pattern acute infectiou s process has resolved. IMPRESSION: 1. Large amount of colonic stool and gas with distended rectal vault up to 8 cm. Consider constipatio n. 2. Small to moderate hiatal hernia. Reflux. 3. Interval cholecystectomy. Reviewed, dictated and finalized at location B. IMPRESSION: 1. Large amount of colonic stool and gas with distended rectal vault up to 8 cm . Consider constipation. 2. Small to moderate hiatal hernia. Reflux. 3. Interval cholecystectomy.
--- NOTE | ~2019-09-23 | XR_ITS ---
EXAMINATION: XR abdomen/kub 1V DATE: 09/30/2019 06:00 INDICATION: Small bowel obstruction TECHNIQUE: A supine view of the abdomen on 2 radiographs was obtained. COMPARISON: 09/29/2019 FINDINGS: Nasogastric tube tip in the right upper quadrant likely in the proximal duodenum. Gas-filled but not frankly dilated small bowel with a small amount of residual oral contrast material in the distal smal l bowel. The majority of the contrast has advanced into the colon extending to the rectum. IMPRESSION: 1. Delayed transit of contrast through the small bowel which is not frankly dilated consistent with i leus. Reviewed, dictated and finalized at location A. IMPRESSION: 1. Delayed transit of contrast through the small bowel which is not frankly dil ated consistent with ileus.
--- NOTE | ~2019-09-23 | XR_ITS ---
XR abdomen NG/feed tube rechec INDICATION: Evaluate NG tube position. TECHNIQUE: Limited KUB perform for evaluating NG tube . COMPARISON: 09/29/2019 FINDINGS: NG tube tip in the stomach. There are multiple dilated loops of bowel in the upper abdomen, unchanged. There are cholecystectomy clips.. IMPRESSION: 1: NG tube tip in the stomach. Reviewed, dictated and finalized at location A.
--- NOTE | ~2019-09-23 | XR_ITS ---
EXAMINATION: XR abdomen/kub 1V DATE: 10/03/2019 05:53 INDICATION: Small bowel obstruction TECHNIQUE: A supine view of the abdomen on 2 radiographs was obtained. COMPARISON: 10/02/2019 FINDINGS: Nasogastric tube tip near the gastric antrum with proximal side-port in the body of the stomach. Chol ecystectomy clips in the right upper quadrant. Interval decrease in a small amount of residual oral c ontrast material scattered throughout the colon. Again seen are a few dilated gas-filled loops of sma ll bowel in the mid and left abdomen. Lung bases are clear. Heart size is normal. Minimal lumbar levo curvature. IMPRESSION: 1. Persistent dilated gas-filled small bowel which could represent ileus or obstruction. Reviewed, dictated and finalized at location A. IMPRESSION: 1. Persistent dilated gas-filled small bowel which could represent ileus or obs truction.
--- NOTE | ~2019-09-23 | NM_ITS ---
EXAMINATION: NM hepatobiliary wo pharm EXAM DATE: 09/26/2019 12:54 INDICATION: Evaluate for bile leak. Status post cholecystectomy. TECHNIQUE: 5 mCi Tc-99m mebrofenin (Choletec) was administered intravenously. Scintigraphic images o f the abdomen were obtained for one hour. Correlation is made to KUB same date, CT scan 09/22.. FINDINGS: There is normal clearance of radiotracer from the blood pool. There is homogeneous tracer u ptake by the liver. Activity rapidly excreted into the duodenal sweep, and also retrogradely into the stomach. During 60 minutes of imaging, only the stomach, dilated duodenum and small segment of jejun um demonstrate activity. This is suspicious for small bowel ileus or obstruction. No extraluminal act ivity/bile leak suspected. IMPRESSION: 1. No evidence of bile leak. 2. Activity within distended duodenum, small portion of jejunum and retrogradely within the stomach. Reviewed, dictated and finalized at location B. IMPRESSION: 1. No evidence of bile leak. 2. Activity within distended duodenum, small portion of jejunum and retrograde ly within the stomach.
--- NOTE | ~2019-09-23 | XR_ITS ---
EXAMINATION: XR abdomen/kub 1V EXAM DATE: 09/27/2019 06:02 INDICATION: Follow-up ileus versus small bowel obstruction. TECHNIQUE: Frontal projection(s) of the abdomen for interpretation. Comparison is made to prior exami nation from 09/26/2019. Correlation also made with upper GI examination from yesterday. FINDINGS: Feeding tube is in position. There is contrast within the stomach from yesterday's exam. T he contrast previously administered with yesterday's upper GI exam which was within the duodenum and 1st loop of small bowel is not identified today. Again there is severely distended segment of small b owel, and moderate amount of colonic gas. There are cholecystectomy clips. There are bony degenerativ e changes. IMPRESSION: 1. Feeding tube in position. 2. Contrast in stomach from yesterday's upper GI exam. Persistent jejunal loop and colonic dilation. Reviewed, dictated and finalized at location A.
--- NOTE | ~2019-09-23 | XR_ITS ---
EXAMINATION: XR abdomen obstructive series DATE: 09/24/2019 08:47 INDICATION: Evaluate retained stool. TECHNIQUE: Frontal supine and upright views of the abdomen were obtained. COMPARISON: None. FINDINGS: Moderate amount of stool in the ascending and proximal transverse colon. No significant stool in the gas-filled transverse or descending colon. There is a moderate amount of stool at the rectum projecti ng over the contrast opacified bladder. No dilated gas-filled loops of bowel. No free intraperitonea l gas. IMPRESSION: 1. Moderate amount of colonic stool in the proximal colon and at the rectum. Reviewed, dictated and finalized at location A.
--- NOTE | ~2019-09-23 | XR_ITS ---
EXAMINATION: XR abdomen/kub 1V DATE: 10/04/2019 05:57 INDICATION: Small bowel obstruction TECHNIQUE: A supine view of the abdomen on 2 radiographs was obtained. COMPARISON: None. FINDINGS: Nasogastric tube tip and proximal side port at the gastric antrum. Cholecystectomy clips in right upp er quadrant. Persistent large amount of gas throughout the colon and several mildly dilated loops of small bowel. Small amount of residual oral contrast material at the rectum. No pneumatosis are presen t to suggest free intraperitoneal gas. Visualized lung bases are clear. Heart size is normal. IMPRESSION: 1. Unchanged ileus versus is likely obstruction. Reviewed, dictated and finalized at location A.
--- NOTE | ~2019-09-23 | XR_ITS ---
EXAMINATION: XR UGI water soluble w sbs DATE: 09/26/2019 21:21 INDICATION: Abdominal pain, possible small bowel obstruction TECHNIQUE: Water-soluble contrast was administered through the nasogastric tube. Conventional supine abdomen radiographs and fluoroscopy of the esophagus, stomach, and small bowel were performed. Fluoro scopy exposure time was 1.9 minutes. The DAP for this procedure was 35.76 Gycm2. 14 images are obtain ed. COMPARISON: None. FINDINGS: UPPER GASTROINTESTINAL SERIES: The nasogastric tube is in the stomach. The stomach is normal in contour and appearance. There is a s mall sliding hiatal hernia. Contrast material refluxes into the distal esophagus. SMALL BOWEL SERIES: Multiple dilated loops of bowel are present. Sequential images of the abdomen are obtained. At the fo ur hour time point, the contrast had barely entered the first portion of the jejunum. IMPRESSION: 1. Findings consistent with ileus versus small bowel obstruction. Reviewed, dictated and finalized at location A.
--- NOTE | 2019-09-23 07:40 | ECG_ITS ---
Measurements Intervals [place] Rate: 95 P: 23 MO: 185 QRS: 4 QRSD: 82 T: 62 QT: 332 QTc: 418 Interpretive Statements SINUS RHYTHM BORDERLINE R WAVE PROGRESSION, ANTERIOR LEADS BORDERLINE T WAVE ABNORMALITY- HIGH LATERAL LEADS BASELINE ARTIFACT- I, II, AVR, V1 BORDERLINE ECG Electronically Signed On 09-23-2019 8:38:33 CDT by Malcolm Han D.O.
[2019-09-23 08:07] LABS: Hematocrit 46.3 % (42.0-52.0); Hemoglobin 15.3 g/dL (14.0-18.0); Mean Corpuscular Hemoglobin 30.5 pg (26-34); Mean Corpuscular Volume 92.4 fl (80-100); Platelet Count Result 203 k/mm3 (150-375); Red Blood Count 5.01 M/mm3 (4.6-6.20); Red Cell Distribution Width 13.4 % (11.5-14.5)
--- NOTE | 2019-09-23 08:10 | ED.SYNCOPE ---
HPI - Syncope General Chief Complaint: Syncope Stated Complaint: syncopal episode Time Seen by Provider: 09/23/19 08:32 History of Present Illness HPI narrative: [facility] He was standing up to go to the bathroom when he fainted. There was no injury. He said he felt woozy beforehand. He denies any pain. He is very slow to answer questions and sentences are short.. On exam he has lower abdominal tenderness and says that 3 out of 10. MD complaint: loss of consciousness and collapsed Duration of episode: 2 -: minutes(s) Description of event: other (Low blood pressure) Prodromal symptoms: other ([place] woozy) Witnessed: Yes - by Bystander Context: standing up Injuries sustained associated with event: none Current symptoms: none Treatments prior to arrival: none Related Data Home Medications Medication Instructions Recorded Confirmed Biotene Dry Mouth Oral Rinse 5 ml PO TID 08/17/19 09/08/19 amlodipine 5 mg PO DAILY 08/17/19 09/08/19 aspirin [Aspir-81] 81 mg PO DAILY 08/17/19 09/08/19 cyanocobalamin (vitamin B-12) 500 mcg PO DAILY 08/17/19 09/08/19 docusate sodium 200 mg PO DAILY 08/17/19 09/08/19 famotidine 10 mg PO BID 08/17/19 09/08/19 folic acid 1 mg PO DAILY 08/17/19 09/08/19 lidocaine 5 % TRANSDERMAL DAILY 08/17/19 09/08/19 melatonin 3 mg PO HS PRN 08/17/19 09/08/19 multivitamin 1 tablet PO DAILY 08/17/19 09/08/19 olanzapine 2.5 mg PO DAILY PRN 08/17/19 09/08/19 quetiapine 800 mg PO HS 08/17/19 09/08/19 simvastatin 20 mg PO HS 08/17/19 09/08/19 tamsulosin 0.4 mg PO HS 08/17/19 09/08/19 acetaminophen [Tylenol Extra 500 mg PO Q6H PRN 09/23/19 Strength] amoxicillin-pot clavulanate 1 tablet PO Q12H 09/23/19 hydrocodone-acetaminophen 1 tablet PO Q6H PRN 09/23/19 ibuprofen 600 mg PO Q6H PRN 09/23/19 sodium phosphates [Fleet Enema] 118 ml MA ONCE 09/23/19 Allergies Allergy/AdvReac Type Severity Reaction Status Date / Time No Known Allergies Allergy Verified 09/23/19 08:12 Review of Systems Review of Systems: Narrative: Review of systems limited by patient's slow response time. [facility] Past Medical History Medical History Bipolar 1 disorder BPH loc w urin obs/LUTS GERD (gastroesophageal reflux disease) Hyperlipidemia Hypertension, essential Surgical History Surgical History History of appendectomy at about age 21 Hx laparoscopic cholecystectomy Social History Social History Social History: Quit smoking as a young man. Never abused alcohol or recreational drugs. Smoking status: Former smoker Alcohol intake: former Substance use: never Additional living arrangements comments: Currently resides at [facility] but hopes to get strong enough to go home. Gender identity (if verbalized by the patient): Male Spiritual care concerns: No Exam Narrative: Exam Narrative: GENERAL: Elderly man with little spontaneous movement looking straight ahead with poor eye contact.. HEAD: Normocephalic, atraumatic. EYES: PERRLA and EOMI. ENT: Nares clear, no rhinorrhea or epistaxis. Mucous membranes moist. NECK: Supple. CHEST: Clear to auscultation. No respiratory distress. HEART: Regular rate and rhythm. No murmur heard. Normal peripheral pulses. ABDOMEN: Soft, mildly tender, nondistended, normal active bowel sounds. EXTREMITIES: Normal range of motion. Mild edema. SKIN: Warm, dry, no rash. NEURO: No focal deficits. Alert. PSYCH: Flat affect, and poor eye contact, very slow speech. Course Consultations Consultation #1: Call Dr. Villalba for a consult, for sepsis, since he had surgery last month for his gallbladder. Dr. Xie called back and accepts the consult. Date: 09/23/19 Time: 09:35 Consultation #2: Call the hospitalist, Dr. Bernal, admission for sepsis. He accepts to IMU. Date:
[2019-09-23 08:22] LABS: Estimated CRCL calculation 50 ml/min; Estimated Glomerular Filt Rate 46
[2019-09-23 08:23] LABS: Band Neutrophils Percent 3 % (0-6); Lymphocytes Absolute Manual 0.88 K/mm3 (1.1-4.5); Metamyelocytes Percent 1 %; Monocytes Absolute Manual 0.22 K/mm3 (0.1-0.90); Monocytes Percent Manual 1 % (3-9); Neutrophils Absolute Manual 20.68 K/mm3 (1.3-6.7); Neutrophils Percent Manual 91 % (46-73); Platelet Estimate Adequate (Adequate); Total Cells Counted 100
[2019-09-23 08:24] LABS: Albumin Level 4.4 g/dL (3.5-5.1); Alkaline Phosphatase 150 U/L (38-126); Aspartate Amino Transferase 51 U/L (17-59); Blood Urea Nitrogen 24 mg/dL (9-20); Calcium 10.8 mg/dL (8.4-10.2); Carbon Dioxide 19 mmol/L (22-30); Chloride 105 mmol/L (98-107); Estimated CRCL calculation 53 ml/min; Estimated Glomerular Filt Rate 50; Glucose 210 mg/dL (75-110); Potassium 4.3 mmol/L (3.4-5.0); Sodium 139 mmol/L (137-145)
--- NOTE | 2019-09-23 08:31 | PC.NURSE ---
PT IS STILL IN RADIOLOGY AT THIS TIME, PT HAS NOT GIVEN UA YET, WILL STRAIGHT CATH UPON HIS ARRIVAL BACK TO ED, AND MEDICATE PER PROVIDER ORDER.
[2019-09-23 08:33] LABS: NT Pro B Type Natriuretic Pept 69 PG/ML (5-100); Troponin I < 0.012 ng/mL (0.000-0.034)
[2019-09-23 08:40] LABS: Alanine Aminotransferase 46 U/L (4-50)
[2019-09-23] MEDS: ONDANSETRON INJ 4 MG/2 ML VIAL IV PUSH ×3 (08:42→17:10)
[2019-09-23] MEDS: SODIUM CHLORIDE 0.9% IV 1,000 ML 500 ML IV CONT (08:43)
--- NOTE | 2019-09-23 08:44 | PC.NURSE ---
PT BACK FROM SCANS, HILTON CLEMENTS DRAWING CULTURES AT THIS TIME, MEDICATED PER PROVIDER ORDER, HILTON LAUGHLIN CATHING PT FOR URINE, WILL ADMINISTER ANTIBIOTICS WHEN CULTURES ARE FINISHED.
[2019-09-23 09:17] LABS: Creatine Kinase 23 U/L (55-170)
[2019-09-23 09:19] LABS: Add Urine Microscopic? YES; Appearance Urine Clear (Clear); Bilirubin Urine 1+ (Negative); Blood Urine Negative (Negative); Color Urine Amber (Yellow); Glucose Urine UA Negative (Negative); Ketones Urine Negative (Negative); Leukocyte Esterase Ur Negative LEU/UL (Negative); Mucus Urine Rare /lpf; Nitrate Urine Negative (Negative); Protein Urine Negative (Negative); RBC Urine 0-2 /hpf (0-2); Specific Grav Ur 1.018 (1.001-1.035); WBC Urine 0-3 /hpf
[2019-09-23 09:23] LABS: Lactic Acid 4.8 mmol/L (0.7-2.1)
[2019-09-23 09:31] LABS: Amphetamine Screen Urine Negative (Negative); Barbiturate Screen Urine Negative (Negative); Benzodiazepines Screen Urine Negative (Negative); Cannabinoid Screen Urine Negative (Negative); Cocaine Screen Urine Negative (Negative); Methadone Screen Urine Negative (Negative); Opiate Screen Urine Negative (Negative); Phencyclidine Screen Urine Negative (Negative)
--- NOTE | 2019-09-23 10:52 | PC.NURSE ---
FLEETS ENEMA ADMINISTERED AT THIS TIME, PT HOLDING FLUID IN CURRENTLY.
--- NOTE | 2019-09-23 10:53 | PC.NURSE ---
MAGALI MEJIAS STATES THAT SHE DOES NOT WANT THE ORTHOSTATIC VS DONE.
--- NOTE | 2019-09-23 11:52 | PC.NURSE ---
This patient, Manny Hurt, was admitted to IMU Room 231-01. Patient/family oriented to hospital policies and general routines including ID bracelet, bed and alarms, visiting hours, pain management, procedures, bathroom and other care routines, personal items, smoking policy, room service/diet, and visiting hours. Valuables list has been completed. Information on how to activate the Rapid Response Team has been discussed. Patient/Family are encouraged to report perceived risks to care and to ask questions if they do not understand what they are told or what they should do.
--- NOTE | 2019-09-23 13:30 | PM.CNGS ---
Assessment and Plan Assessment and plan (1) Leukocytosis: Qualifiers: Leukocytosis type: unspecified Qualified Code(s): D72.829 - Elevated white blood cell count, unspecified Code(s): D72.829 - Elevated white blood cell count, unspecified Status: Acute Assessment and Plan: The patient has significant leukocytosis with a white blood cell count of 22,000, along with lactic acidosis. Blood cultures have been sent and he was started on broad-spectrum IV antibiotics. This does not appear to be due to any post-operative complications. Urine negative for UTI. Chest x-ray normal. No evidence of an intra-abdominal abscess, bowel obstruction, pancreatitis, or retained common bile duct stone on CT. No obvious source of infection as of yet, and he is afebrile. I discussed the patient's case and plan of care with Dr. Villalba. Some of this could be related to the vomiting with constipation. I started the patient on IV fluids and made him NPO. Continue analgesics and antiemetics. Will order a stat hypaque enema to further assess for any obstructing lesion in the colon that could be causing the constipation. Will start him on Metamucil and Mineral oil if tolerating oral intake later today. Will also repeat labs tomorrow morning. We will continue to follow along with you. Thank you for allowing me to see the patient in consultation. (2) Acidosis, lactic: Code(s): E87.2 - Acidosis Status: Acute Assessment and Plan: See plan above. (3) Constipation: Qualifiers: Constipation type: unspecified constipation type Qualified Code(s): K59.00 - Constipation, unspecified Code(s): K59.00 - Constipation, unspecified Status: Acute Assessment and Plan: See plan above. (4) ROSENDO (acute kidney injury): Code(s): N17.9 - Acute kidney failure, unspecified Status: Acute Assessment and Plan: Creatinine 1.4 on admission. Continue with IV fluid resuscitation. Monitor labs. (5) Syncope and collapse: Code(s): R55 - Syncope and collapse Status: Acute Assessment and Plan: Head CT normal. Management per Hospitalist. (6) Hypertension, essential: Code(s): I10 - Essential (primary) hypertension Status: Acute (7) Bipolar 1 disorder: Code(s): F31.9 - Bipolar disorder, unspecified Status: Chronic Assessment and Plan: Flat affect and difficult to gather a thorough history. (8) GERD (gastroesophageal reflux disease): Code(s): K21.9 - Gastro-esophageal reflux disease without esophagitis Status: Acute History of Present Illness Consult details Consult date: 09/23/19 Reason for consult: other (Leukocytosis and lactic acidosis with abdominal pain, nausea, vomiting. Status post laparoscopic cholecystectomy 08/19/19.) Narrative: This is a 68-year-old male with Bipolar Disorder who is a poor historian. He was hospitalized last month for acute cholecystitis and had a laparoscopoic cholecystectomy on 08/19/[address] Villalba and was found to have ruptured acute cholecystitis. He was treated with IV antibiotics and monitored for a few days inpatient. He was then discharged home with 4 more days of Augmentin, which he reportedly completed. The patient was apparently recovering well from surgery and was seen in our office in follow-up on 09/08/19 without any issues or complaints. The patient resides at [facility], where he reportedly had a syncopal episode this morning. He was being helped into the bathroom and lost consciousness while standing, but was assisted to the ground without a fall/injury. EMS reported emesis at the bedside when they came to transport the patient. He was then brought to the emergency department for further evaluation. While in the ED, he had more vomiting. CT scan of the abdomen and pelvis showed interval cholecystectomy, a large amount of colonic stool and gas with a distended rectal vault up to 8 cm, and a sm
[2019-09-23] MEDS: SODIUM CHLORIDE 0.9% IV 1,000 ML 150 ML IV CONT (15:03)
[2019-09-23 16:30] LABS: Lactic Acid Reflex 5.9 mmol/L (0.7-2.1)
--- NOTE | 2019-09-23 17:13 | PM.IMHP ---
H&P: HPI History of Present Illness Chief complaint: syncope/leukocytosis/lactic acidosis/constipation Narrative: Manny Hurt is a 68 year old male Who resides at [facility] for rehab. The patient came to the emergency room due to his syncopal episode. EMS was activated after the patient had a syncopal episode at the retirement. The patient was standing up to go to the bathroom when he fainted. Patient's blood pressure was found to be low. He did lose consciousness he felt woozy and it was witnessed. No injuries were sustained. The patient had a laparoscopic cholecystectomy on 08/18 here at [facility]. On IV Zosyn at that time. He was also placed on Augmentin when discharged. The patient stated he has been taking some pain medication but he does not feel he did it excessively. He cannot recall when he had his last bowel movement. He is vomiting all I from substance today. He feels very nauseated. To be read as large amount of colonic stool and gas with distended rectal vault up to 8 cm consider constipation hiatal hernia. Surgery had been consulted and enema with water-soluble had been prescribed single contrast enema evaluating only the rectum and sigmoid colon due to laxity of the anus of stool in the sigmoid colon resulting in repeated injection of the enema bulb from a rectum. The patient was given a Fleet enema in the emergency room. Since he had elevated white count white count was noted to be 22.0 to vomit light brown substance. 4.8 and now 5.9. The patient does have IV fluids infusing at this time. His afebrile. His speech is slow. He is slow to answer. Is a very poor historian. Creatinine 1.4. He has acute kidney injury as well. His being admitted for acute kidney injury constipation and sepsis. Date of 6 service 09/23/2019 Review of Systems Review of Systems: Narrative: Poor historian All systems reviewed & are unremarkable except as noted in HPI and below Constitutional: Constitutional: Reports as per HPI and Reports no additional constitutional complaints Eyes: Eyes: Reports as per HPI and Reports no additional eye complaints ENT: Reports system reviewed and no additional complaints, except as documented and Reports Normal hearing present Cardiovascular: Cardiovascular: Reports no additional cardiovascular complaints Respiratory: Respiratory: Reports no additional respiratory complaints and Reports no additional respiratory complaints Gastrointestinal: Gastrointestinal: Reports as per HPI and Reports no additional gastrointestinal complaints Musculoskeletal: Musculoskeletal: Reports no additional musculoskeletal complaints Integumentary/Breasts: Skin/Breast: Reports system reviewed and no additional complaints, except as docu and Reports as per HPI Neurologic: Reports system reviewed and no additional complaints, except as documented, Reports as per HPI and Reports Normal hearing present Psychiatric: Psychiatric: Reports no additional psychiatric complaints and Reports as per HPI Endocrine: Endocrine: Reports no additional endocrine complaints Hematologic/Lymphatic: Hematologic/Lymphatic: Reports no additional hematologic/lymphatic complaints Allergic/Immunologic: Allergic/Immunologic: Reports no additional allergic/immunologic complaints [facility] Past Medical History Medical History Bipolar 1 disorder BPH loc w urin obs/LUTS GERD (gastroesophageal reflux disease) Hyperlipidemia Hypertension, essential Surgical History Surgical History History of appendectomy at about age 21 Hx laparoscopic cholecystectomy 08/19/19 Laparoscopic cholecystectomy for acute rupture cholecystitis. Family History Family History (Updated 09/23/19 @ 17:26 by Radha Patel NP) Father No problems noted. Mother Cancer Social History Social History (Updated
[2019-09-23] MEDS: METHYLNALTREXONE 12 MG/0.6 ML VIAL SUB-Q (18:21)
[2019-09-23] MEDS: LACTULOSE ENEMA 200 GM/1,000 ML ENEMA RECTAL (18:28)
[2019-09-23 19:08] LABS: Reflex Lactic Acid Yes or No Add Lactic
--- NOTE | 2019-09-23 19:42 | PC.NURSE ---
At 1740 this nurse heard a sound from patient room. Upon entering room, patient was found to be on the floor. Patient stated he was going to the bucket to void. Patient was on bottom. Patient denies hitting head. Patient stated that right rib area was sore. Charge nurse notified, Radha Patel NP notified. Patient assisted to bed with hospital staff. Patient oriented x3, and answering all questions appropriately. No bruising or open areas noted, no shortness of breath or chest pain noted. Will continue to monitor closely.
[2019-09-23 19:43] LABS: Lactic Acid 5.8 mmol/L (0.7-2.1)
[2019-09-23] MEDS: LORAZEPAM INJ 2 MG/ML VIAL 0.5 MG IV PUSH (20:39)
[2019-09-24] VITALS (14 sets, daily range): BP systolic 90–180; BP diastolic 49–80; PULSE 73–106; RESP 12–18; TEMP 35.7–37.7; O2SAT 92–99; BMI 28.9
[2019-09-24] MEDS: SODIUM CHLORIDE 0.9% IV 1,000 ML 150 ML IV CONT ×2 (01:28→08:54)
[2019-09-24 05:19] LABS: Hematocrit 44.3 % (42.0-52.0); Hemoglobin 14.6 g/dL (14.0-18.0); Mean Corpuscular Volume 91.2 fl (80-100); Mean Platelet Volume 10.2 fl (7.4-10.4); Platelet Count Result 194 k/mm3 (150-375); Red Blood Count 4.86 M/mm3 (4.6-6.20); Red Cell Distribution Width 13.8 % (11.5-14.5); White Blood Count 21.7 K/mm3 (4.5-10.0)
[2019-09-24 05:44] LABS: Lactic Acid 3.3 mmol/L (0.7-2.1)
[2019-09-24 05:49] LABS: Band Neutrophils Percent 5 % (0-6); Lymphocytes Absolute Manual 1.08 K/mm3 (1.1-4.5); Monocytes Percent Manual 12 % (3-9); Neutrophils Absolute Manual 18.01 K/mm3 (1.3-6.7); Neutrophils Percent Manual 78 % (46-73); Platelet Estimate Adequate (Adequate); Total Cells Counted 100
--- NOTE | 2019-09-24 07:12 | PM.PNGS ---
Progress Note: A&P Assessment and Plan (1) Syncope and collapse: Code(s): R55 - Syncope and collapse Status: Acute Assessment and Plan: etiology unclear but patient more awake alert and comfortable this morning. May all be due to severe constipation. (2) Acidosis, lactic: Code(s): E87.2 - Acidosis Status: Acute Assessment and Plan: Lactate decreased today. (3) Constipation: Qualifiers: Constipation type: unspecified constipation type Qualified Code(s): K59.00 - Constipation, unspecified Code(s): K59.00 - Constipation, unspecified Status: Acute Assessment and Plan: Unable to retain high peak enema due to large volume of distal colonic and rectal stool. Patient had several bowel movements after lactulose enema. Will get obstructive series today. Continue Metamucil and mineral oil b.i.d.. Will add Senokot S 2 tabs at bedtime. (4) Leukocytosis: Qualifiers: Leukocytosis type: unspecified Qualified Code(s): D72.829 - Elevated white blood cell count, unspecified Code(s): D72.829 - Elevated white blood cell count, unspecified Status: Acute Assessment and Plan: Still over 20,000. Subjective Subjective Date/Time Seen: 09/24/19 07:12 Patient reports: feels better, pain is less, bowel movement ( multiple) and afebrile Review of Systems Review of Systems: All systems reviewed & are unremarkable except as noted in HPI and below Constitutional: Constitutional: Denies fever(s) and Reports increased appetite Cardiovascular: Cardiovascular: Denies chest pain and Denies dyspnea Respiratory: Respiratory: Denies cough and Denies dyspnea Gastrointestinal: Gastrointestinal: Reports as per HPI Exam Const: General: cooperative, comfortable, no acute distress, alert, awake and other ( mental status seems to be baseline for him, has bipolar disorder); No confusion Nutritional Appearance: obese Orientation/consciousness: No confusion and No patient obtunded GI: Inspection: non-distended and scar ( all laparoscopic trocar sites healing well) GI Palp: Yes Soft to palpation, Yes Tenderness to palpation present (GI) ( mild diffuse tenderness), No Guarding due to palpation present (GI) and No Rebound tenderness present Auscultation: normal bowel sounds Neuro: General: no focal motor deficits and CN's II-XI intact bilaterally Speech: normal speech Extrem: General: no calf tenderness and no edema Psych: Speech and movement: Slowed movement present (Neuro) Affect: Blunted affect present Attitude: cooperative Thought process: Impoverished thought process present Thought content: Yes Normal thought content present Insight: Fair insight present (Psych) Judgement: Fair judgement present (Psych) Objective Data Vital Signs Vital Signs: Vital Signs - 24 hr 09/23/19 07:33 09/23/19 07:40 09/23/19 09:02 Temperature 36.3 C L Pulse Rate 99 100 102 H Respiratory Rate 28 H 25 H 22 H Blood Pressure 124/72 124/72 141/70 H Pulse Oximetry 100 100 100 09/23/19 09:59 09/23/19 10:54 09/23/19 11:10 Temperature Pulse Rate 96 100 98 Respiratory Rate 18 18 18 Blood Pressure 110/68 130/75 133/68 Pulse Oximetry 99 99 95 09/23/19 12:00 09/23/19 14:00 09/23/19 16:00 Temperature 36.3 C L 36.6 C Pulse Rate 108 H 107 H 95 Respiratory Rate 12 12 Blood Pressure 111/70 123/69 Pulse Oximetry 99 100 09/23/19 18:00 09/23/19 20:00 09/23/19 22:00 Temperature 36.6 C Pulse Rate 108 H 120 H 108 H Respiratory Rate 20 Blood Pressure 103/65 Pulse Oximetry 99 09/24/19 00:00 09/24/19 01:45 09/24/19 04:00 Temperature 36.6 C 36.8 C Pulse Rate 104 H 101 H 94 Respiratory Rate 18 18 Blood Pressure 110/67 135/66 Pulse Oximetry 96 92 09/24/19 04:01 09/24/19 05:50 Temperature Pulse Rate 73 Respiratory Rate Blood Pressure 135/66 Pulse Oximetry Intake/Output Intake/Output: Intake & Output 06
[2019-09-24 07:35] LABS: Alanine Aminotransferase 36 U/L (4-50); Albumin Level 3.8 g/dL (3.5-5.1); Alkaline Phosphatase 89 U/L (38-126); Amylase 57 U/L (30-110); Aspartate Amino Transferase 35 U/L (17-59); Bilirubin,Total 1.3 mg/dL (0.2-1.3); Blood Urea Nitrogen 48 mg/dL (9-20); Calcium 9.5 mg/dL (8.4-10.2); Carbon Dioxide 20 mmol/L (22-30); Chloride 108 mmol/L (98-107); Estimated CRCL calculation 39 ml/min; Estimated Glomerular Filt Rate 40; Glucose 149 mg/dL (75-110); Potassium 4.3 mmol/L (3.4-5.0); Sodium 139 mmol/L (137-145)
[2019-09-24 08:10] LABS: Lipase < 10 U/L (23-300)
[2019-09-24] MEDS: ENOXAPARIN 40 MG/0.4 ML SYRINGE SUB-Q (09:00)
[2019-09-24] MEDS: MINERAL OIL 30 ML UDC PO ×2 (09:06→16:50)
[2019-09-24] MEDS: PSYLLIUM POWDER PACKET 1 PACKET PO ×2 (09:06→20:49)
--- NOTE | 2019-09-24 09:44 | PM.IMPN ---
Progress Note: A&P Assessment and Plan (1) Syncope and collapse: Code(s): R55 - Syncope and collapse Status: Acute Assessment and Plan: Patient had a witnessed syncopal episode at his SNF at [facility] prior to arrival while he was going to the bathroom. Could have been secondary to vasovagal episode, dehydration versus severe constipation Orthostatic blood pressure showed: Laying 145/63, and sitting 135/66, they did not perform a standing blood pressure. Patient's telemetry shows normal sinus rhythm with a heart rate of 95 beats per minute with some PACs and occasional PVCs noted. No arrhythmia identified or other causes of syncope. Patient has been receiving IV fluids on admission which will continue at this time. Do not feel further cardiac workup is needed at this time with an echocardiogram or carotid Dopplers since I believe syncopal episode is most likely vasovagal in origin due to severe constipation. Will continue monitoring on telemetry and the patient's symptoms. Will check orthostatics Q shift. (2) SIRS (systemic inflammatory response syndrome): Code(s): R65.10 - Systemic inflammatory response syndrome (SIRS) of non-infectious origin without acute organ dysfunction Status: Acute Assessment and Plan: The patient was initially said to be septic but there is no acute cause of infection at this time. We do have the patient on IV antibiotics but no underlying infection is diagnosed. The patient has leukocytosis, elevated lactic acid level, and tachycardia. Patient's vitals are much improved today, afebrile, normal blood pressure, non tachycardic, normal oxygenation and respiratory status. Continue IV antibiotics until underlying infection can be ruled out. Have been sent and initial reading is no growth at this time. Will continue monitoring. Will continue monitoring patient's vitals and lactic acid levels during admission. (3) ROSENDO (acute kidney injury): Code(s): N17.9 - Acute kidney failure, unspecified Status: Acute Assessment and Plan: Patient has been vomiting and is constipated probably has a poor appetite. Creatinine on arrival was 1.4 and this morning it increased to 1.7. Will continue with IV fluid hydration at this time since he has had a few episodes of vomiting and we are still treating his severe constipation. Continue monitoring his renal function, strict input and output. (4) Constipation: Qualifiers: Constipation type: unspecified constipation type Qualified Code(s): K59.00 - Constipation, unspecified Code(s): K59.00 - Constipation, unspecified Status: Acute Assessment and Plan: Patient was found to have a large amount of stool to his rectum and sigmoid colon. The patient had been given a fleets enema on arrival to the emergency department. The patient had also received a lactulose enema upon admission to the floor. The patient also received a water-soluble enema in the radiologist did not see much benefit but recommended to continue and emesis and possible manual disimpaction would be needed. Patient was also given Relistor for narcotic induced constipation to see if this would help. Surgery was consulted from the emergency department and have ordered the patient to be given Metamucil twice a day, mineral oil twice a day, Senokot 2 tablets HS and continue monitoring his constipation. Surgery ordered an obstructive series to be completed which showed moderate amount of colonic stool in the proximal colon and at the rectum. Will continue to monitor the patient's stool output and surgeries input is greatly appreciated. (5) Acidosis, lactic: Code(s): E87.2 - Acidosis Status: Acute Assessment and Plan: Could be due to dehydration could possibly be due to infectious p
[2019-09-24] MEDS: PANTOPRAZOLE SODIUM IV 40 MG VIAL IV PUSH ×2 (15:00→20:49)
[2019-09-24] MEDS: SODIUM CHLORIDE 0.9% IV 1,000 ML 125 ML IV CONT (16:50)
--- NOTE | 2019-09-24 19:16 | PC.NURSE ---
This patient, Manny Hurt, was transferred to [facility] on 09/24/19 at 1916. Personal belongings sent with patient. Report given to MEGAN Singer. Appropriate documentation sent with patient.
--- NOTE | 2019-09-24 19:28 | PC.NURSE ---
patient arrived to room 325-1 from IMU per bed.
[2019-09-24] MEDS: SENNA/DOCUSATE SODIUM TABLET 2 TAB PO (20:49)
[2019-09-24] MEDS: QUEtiapine FUMARATE 100 MG TABLET 800 MG PO (20:50)
[2019-09-24] MEDS: TAMSULOSIN HCL 0.4 MG CAPSULE PO (20:51)
[2019-09-24] MEDS: SIMVASTATIN 20 MG TABLET PO (20:51)
[2019-09-24] MEDS: ONDANSETRON INJ 4 MG/2 ML VIAL IV PUSH (21:08)
[2019-09-25] VITALS (16 sets, daily range): BP systolic 104–157; BP diastolic 74–89; PULSE 95–141; RESP 16–18; TEMP 36.6–37.8; O2SAT 96–99
[2019-09-25] MEDS: SODIUM CHLORIDE 0.9% IV 1,000 ML 125 ML IV CONT (01:29)
[2019-09-25] MEDS: ACETAMINOPHEN 500 MG TABLET PO ×2 (01:34→06:48)
[2019-09-25] MEDS: ONDANSETRON INJ 4 MG/2 ML VIAL IV PUSH (06:01)
[2019-09-25 06:55] LABS: Hematocrit 40.1 % (42.0-52.0); Hemoglobin 12.9 g/dL (14.0-18.0); Mean Corpuscular HGB Conc 32.2 g/dl (32-36); Mean Corpuscular Hemoglobin 29.5 pg (26-34); Mean Corpuscular Volume 91.8 fl (80-100); Platelet Count Result 166 k/mm3 (150-375); Red Blood Count 4.37 M/mm3 (4.6-6.20); White Blood Count 14.7 K/mm3 (4.5-10.0)
[2019-09-25 07:08] LABS: Blood Urea Nitrogen 45 mg/dL (9-20); Carbon Dioxide 20 mmol/L (22-30); Chloride 109 mmol/L (98-107); Estimated CRCL calculation 50 ml/min; Estimated Glomerular Filt Rate 55; Glucose 143 mg/dL (75-110); Potassium 3.5 mmol/L (3.4-5.0); Sodium 138 mmol/L (137-145)
[2019-09-25 07:09] LABS: Lactic Acid 2.5 mmol/L (0.7-2.1)
[2019-09-25 07:24] LABS: Lipase < 10 U/L (23-300)
[2019-09-25] MEDS: ASPIRIN 81 MG ENTERIC TABLET PO (08:36)
[2019-09-25] MEDS: ENOXAPARIN 40 MG/0.4 ML SYRINGE SUB-Q (08:36)
[2019-09-25] MEDS: MINERAL OIL 30 ML UDC PO ×2 (08:37→17:23)
[2019-09-25] MEDS: PANTOPRAZOLE SODIUM IV 40 MG VIAL IV PUSH ×2 (08:37→21:21)
[2019-09-25 10:00] LABS: Hematocrit 38.4 % (42.0-52.0); Hemoglobin 12.8 g/dL (14.0-18.0); Mean Corpuscular HGB Conc 33.3 g/dl (32-36); Mean Corpuscular Hemoglobin 30.5 pg (26-34); Mean Corpuscular Volume 91.6 fl (80-100); Mean Platelet Volume 10.3 fl (7.4-10.4); Platelet Count Result 156 k/mm3 (150-375); Red Blood Count 4.19 M/mm3 (4.6-6.20); Red Cell Distribution Width 14.1 % (11.5-14.5); White Blood Count 12.6 K/mm3 (4.5-10.0)
[2019-09-25] MEDS: SODIUM CHLORIDE 0.9% IV 1,000 ML 75 ML IV CONT ×2 (10:21→23:27)
[2019-09-25 10:28] LABS: Band Neutrophils Percent 6 % (0-6); Lymphocytes Absolute Manual 1.38 K/mm3 (1.1-4.5); Metamyelocytes Percent 1 %; Monocytes Absolute Manual 0.37 K/mm3 (0.1-0.90); Monocytes Percent Manual 3 % (3-9); Neutrophils Absolute Manual 10.71 K/mm3 (1.3-6.7); Neutrophils Percent Manual 79 % (46-73); Platelet Estimate Adequate (Adequate); Total Cells Counted 100
--- NOTE | 2019-09-25 10:28 | PM.PNGS ---
Progress Note: A&P Assessment and Plan (1) Constipation: Qualifiers: Constipation type: unspecified constipation type Qualified Code(s): K59.00 - Constipation, unspecified Code(s): K59.00 - Constipation, unspecified Status: Acute Assessment and Plan: Having bowel movements but still some nausea and small emesis. Will get Gastrografin upper GI small-bowel follow-through to evaluate for gastric or small bowel obstruction. (2) Syncope and collapse: Code(s): R55 - Syncope and collapse Status: Acute Assessment and Plan: None since admission. Will metabolic acidosis improved. Acute kidney injury improved. Lactate is down to 2.5 today (3) ROSENDO (acute kidney injury): Code(s): N17.9 - Acute kidney failure, unspecified Status: Acute Assessment and Plan: Creatinine normal today. (4) Nausea and vomiting: Code(s): R11.2 - Nausea with vomiting, unspecified Status: Acute Assessment and Plan: Still some episodes last night although overall better. Subjective Subjective Date/Time Seen: 09/25/19 10:28 Patient reports: feels better, pain is less, bowel movement (Large BM early this morning about 6:00 a.m.), nausea, vomiting (Small emesis around 2 or 3:00 a.m. with nausea) and afebrile Review of Systems Review of Systems: All systems reviewed & are unremarkable except as noted in HPI and below Constitutional: Constitutional: Denies headache(s) Cardiovascular: Cardiovascular: Denies chest pain and Denies dyspnea Respiratory: Respiratory: Denies cough and Denies dyspnea Gastrointestinal: Gastrointestinal: Reports as per HPI, Reports nausea and Reports vomiting (Small) Exam Const: General: comfortable, alert, awake and other (Baseline mental status with bipolar) Nutritional Appearance: well nourished Resp: Effort & Inspection: normal respiratory effort Auscultation: clear to auscultation bilaterally Cardio: Rate: regular rate Rhythm: regular rhythm GI: Inspection: normal to inspection, non-distended and incision (Well healed) GI Palp: Yes Soft to palpation, Yes Tenderness to palpation present (GI) (Minimal tenderness), No Guarding due to palpation present (GI) and No Rebound tenderness present Auscultation: normal bowel sounds Neuro: General: no focal motor deficits and No confusion Cranial nerves: Yes facial symmetry and Yes Midline tongue present Cognition (Neuro): abnormal cognition (Slow mentation but this is his baseline) Extrem: General: no calf tenderness and no edema Psych: Speech and movement: Slowed speech present (Psych) Affect: Blunted affect present Attitude: cooperative Thought process: Impoverished thought process present Insight: Limited insight present (Psych) Judgement: Limited judgement present (Psych) Objective Data Vital Signs Vital Signs: Vital Signs - 24 hr 09/24/19 12:00 09/24/19 13:00 09/24/19 14:00 Temperature 35.9 C L Pulse Rate 90 97 Respiratory Rate 12 Blood Pressure 180/77 H 90/70 L Pulse Oximetry 98 09/24/19 16:00 09/24/19 19:20 09/24/19 20:00 Temperature 35.7 C L 36.6 C Pulse Rate 85 97 101 H Respiratory Rate 12 12 Blood Pressure 121/61 143/71 H Pulse Oximetry 98 98 09/24/19 22:00 09/25/19 00:00 09/25/19 01:34 Temperature 37.7 C H 37.7 C H Pulse Rate 102 H 105 H Respiratory Rate 12 Blood Pressure 153/80 H Pulse Oximetry 99 09/25/19 02:00 09/25/19 02:34 09/25/19 04:00 Temperature 37.8 C H 36.9 C Pulse Rate 115 H 114 H Respiratory Rate 16 Blood Pressure 150/89 H Pulse Oximetry 99 09/25/19 06:00 09/25/19 06:05 09/25/19 06:10 Temperature 37.6 C H Pulse Rate 114 H 116 H 141 H Respiratory Rate 16 Blood Pressure 157/77 H 149/76 H 104/74 Pulse Oximetry 98 09/25/19 06:48 Temperature 37.6 C H Pulse Rate Respiratory Rate Blood Pressure Pulse Oximetry Intake/Output Intake/Output: Intake & Output 09/22/19 09/23/19 06/2
--- NOTE | 2019-09-25 11:58 | PM.IMPN ---
Progress Note: A&P Assessment and Plan (1) SIRS (systemic inflammatory response syndrome): Code(s): R65.10 - Systemic inflammatory response syndrome (SIRS) of non-infectious origin without acute organ dysfunction Status: Acute Assessment and Plan: The patient was initially said to be septic but there is no acute cause of infection at this time. We do have the patient on IV antibiotics but no underlying infection is diagnosed. The patient has leukocytosis, elevated lactic acid level, and tachycardia. Patient's vitals showed he had a fever overnight at 100F and slight fever of 99.7F this morning and tachycardic heart rate. His lactic acid this morning was still slightly elevated at 2.5. He has a normal blood pressure, normal oxygenation and respiratory status. Continue IV antibiotics until underlying infection can be ruled out. Blood cultures have been sent and initial reading is no growth at this time. Will continue monitoring. Will continue monitoring patient's vitals and lactic acid levels during admission. (2) ROSENDO (acute kidney injury): Code(s): N17.9 - Acute kidney failure, unspecified Status: Acute Assessment and Plan: Patient has been vomiting and is constipated probably has a poor appetite. Creatinine improved to 1.3 today. Will continue with IV fluid hydration at this time Continue monitoring his renal function, strict input and output. (3) Syncope and collapse: Code(s): R55 - Syncope and collapse Status: Acute Assessment and Plan: Patient had a witnessed syncopal episode at his SNF at [facility] prior to arrival while he was going to the bathroom. Could have been secondary to vasovagal episode, dehydration versus severe constipation Positive Orthostatic blood pressure showing: Laying 157/77, and sitting 149/76, Standing 104/74. Patient's telemetry shows sinus tachcyardia with a heart rate of 105 beats per minute with some PACs and occasional PVCs noted. No arrhythmia identified or other causes of syncope. Patient has been receiving IV fluids on admission which will continue at this time. Do not feel further cardiac workup is needed at this time with an echocardiogram or carotid Dopplers since I believe syncopal episode is most likely vasovagal in origin due to severe constipation. Will continue monitoring on telemetry and the patient's symptoms. Will check orthostatics Q shift. (4) Constipation: Qualifiers: Constipation type: unspecified constipation type Qualified Code(s): K59.00 - Constipation, unspecified Code(s): K59.00 - Constipation, unspecified Status: Acute Assessment and Plan: Patient was found to have a large amount of stool to his rectum and sigmoid colon. The patient had been given a fleets enema on arrival to the emergency department. The patient had also received a lactulose enema upon admission to the floor. The patient also received a water-soluble enema in the radiologist did not see much benefit but recommended to continue and emesis and possible manual disimpaction would be needed. Patient was also given Relistor for narcotic induced constipation to see if this would help. Surgery was consulted from the emergency department and have ordered the patient to be given Metamucil twice a day, mineral oil twice a day, Senokot 2 tablets HS and continue monitoring his constipation. Surgery ordered a small bowel follow through but the patient would not completely drink the contrast and continued to fall asleep. They did preform another abdominal x-ray to evaluate constipation. Pending. Will continue to monitor the patient's stool output and surgeries input is greatly appreciated. (5) Acidosis, lactic: Code(s): E87.2 - Acidosis Status: Acute Assessment and Plan: C
[2019-09-25] MEDS: PSYLLIUM POWDER PACKET 1 PACKET PO ×2 (12:05→21:22)
[2019-09-25 14:03] LABS: Lactic Acid Reflex 0.8 mmol/L (0.7-2.1)
[2019-09-25 14:06] LABS: Blood Urea Nitrogen 42 mg/dL (9-20); Calcium 8.7 mg/dL (8.4-10.2); Carbon Dioxide 19 mmol/L (22-30); Chloride 111 mmol/L (98-107); Estimated CRCL calculation 66 ml/min; Estimated Glomerular Filt Rate > 60; Glucose 117 mg/dL (75-110); Magnesium 2.2 mg/dL (1.6-2.3); Potassium 3.6 mmol/L (3.4-5.0); Sodium 136 mmol/L (137-145)
[2019-09-25] MEDS: LIDOCAINE 5% PATCH 1 PATCH TRANSDERM (14:52)
--- NOTE | 2019-09-25 15:11 | PCOTNOTE ---
Pt found in supine- pt refused therapy due to nausea- RN aware.
--- NOTE | 2019-09-25 15:19 | PCPTNOTE ---
The PT treatment was unable to be completed today. Will continue per Plan of Care frequency and duration.
[2019-09-25] MEDS: SENNA/DOCUSATE SODIUM TABLET 2 TAB PO (21:21)
[2019-09-25] MEDS: QUEtiapine FUMARATE 100 MG TABLET 800 MG PO (21:22)
[2019-09-25] MEDS: TAMSULOSIN HCL 0.4 MG CAPSULE PO (21:23)
[2019-09-25] MEDS: SIMVASTATIN 20 MG TABLET PO (21:23)
[2019-09-26] VITALS (11 sets, daily range): BP systolic 109–194; BP diastolic 73–91; PULSE 95–111; RESP 18–20; TEMP 36.8–37.2; O2SAT 95–99
--- NOTE | 2019-09-26 06:00 | PC.NURSE ---
Attempted orthostatic vitals as ordered every shift, but unable to complete because of nausea, vomiting, and weakness.
[2019-09-26] MEDS: ONDANSETRON INJ 4 MG/2 ML VIAL IV PUSH (06:49)
[2019-09-26 06:58] LABS: Blood Urea Nitrogen 34 mg/dL (9-20); Calcium 8.7 mg/dL (8.4-10.2); Carbon Dioxide 23 mmol/L (22-30); Chloride 110 mmol/L (98-107); Estimated CRCL calculation 73 ml/min; Estimated Glomerular Filt Rate > 60; Glucose 131 mg/dL (75-110); Potassium 3.4 mmol/L (3.4-5.0); Sodium 138 mmol/L (137-145)
[2019-09-26 07:00] LABS: Lactic Acid 0.7 mmol/L (0.7-2.1)
[2019-09-26 07:01] LABS: Basophils Absolute Auto 0.1 K/mm3 (0.0-0.1); Basophils Percent Auto 0.4 % (0.2-1.2); Eosinophils Absolute Auto 0.1 K/mm3 (0-0.3); Eosinophils Percent Auto 0.6 % (0-4.4); Hematocrit 37.3 % (42.0-52.0); Hemoglobin 12.4 g/dL (14.0-18.0); Immature Granulocyte Absolute 0.06 K/mm3 (0.00-0.031); Immature Granulocyte Percent A 0.5 % (0-0.5); Lymphocytes Absolute Auto 0.72 K/mm3 (0.9-3.2); Lymphocytes Percent Auto 5.7 % (18.3-44.2); Mean Corpuscular HGB Conc 33.2 g/dl (32-36); Mean Corpuscular Hemoglobin 30.3 pg (26-34); Mean Corpuscular Volume 91.2 fl (80-100); Mean Platelet Volume 10.1 fl (7.4-10.4); Monocytes Absolute Auto 0.6 K/mm3 (0.1-0.6); Monocytes Percent Auto 4.5 % (2.6-8.5); Neutrophils Absolute Auto 11.1 K/mm3 (1.3-6.7); Neutrophils Percent Auto 88.3 % (45.5-73.1); Platelet Count Result 167 k/mm3 (150-375); Red Blood Count 4.09 M/mm3 (4.6-6.20); Red Cell Distribution Width 13.9 % (11.5-14.5); White Blood Count 12.5 K/mm3 (4.5-10.0)
--- NOTE | 2019-09-26 08:57 | PM.PNGS ---
Progress Note: A&P Assessment and Plan (1) Nausea and vomiting: Code(s): R11.2 - Nausea with vomiting, unspecified Status: Acute Assessment and Plan: Although no evidence of small-bowel obstruction on initial CT scan, patient continues to have nausea and vomiting for reasons that are not clear. His plain films today suggest ileus or small-bowel obstruction with a very dilated gas-filled stomach. Will place NG tube. Will also get HIDA scan to evaluate for bile leak after laparoscopic cholecystectomy done prior to this admission. Patient was unable to get upper GI small-bowel follow-through yesterday as he was too sleepy to conduct the test. May need to get this per the NG tube later today or tomorrow if HIDA scan is negative. (2) Constipation: Qualifiers: Constipation type: unspecified constipation type Qualified Code(s): K59.00 - Constipation, unspecified Code(s): K59.00 - Constipation, unspecified Status: Acute Assessment and Plan: Bowels have been working after Metamucil, mineral oil and Senokot at bedtime. (3) Bipolar 1 disorder: Code(s): F31.9 - Bipolar disorder, unspecified Status: Chronic Assessment and Plan: Difficult to get any history from patient. Subjective Subjective Date/Time Seen: 09/26/19 08:57 Patient reports: nausea, vomiting (HAD EMESIS ALTHOUGH SMALL AMOUNTS THROUGHOUT THE NIGHT) and afebrile Review of Systems Review of Systems: All systems reviewed & are unremarkable except as noted in HPI and below (HPI) Gastrointestinal: Gastrointestinal: Reports belching, Reports bloating, Reports nausea and Reports vomiting Exam Const: General: comfortable, no acute distress, alert and awake; No confusion Nutritional Appearance: overweight GI: Inspection: distended and incision (All laparoscopic incisions healing well) GI Palp: Yes Soft to palpation, Yes Tenderness to palpation present (GI) (Minimal tenderness), No Guarding due to palpation present (GI) and No Rebound tenderness present Auscultation: Hypoactive bowel sounds present Extrem: General: no calf tenderness and no edema Objective Data Vital Signs Vital Signs: Vital Signs - 24 hr 09/25/19 12:00 09/25/19 14:00 09/25/19 16:00 Temperature 36.6 C Pulse Rate 99 95 98 Respiratory Rate 18 Blood Pressure 145/82 H Pulse Oximetry 98 09/25/19 20:00 09/25/19 22:00 09/26/19 00:00 Temperature 36.9 C Pulse Rate 107 H 112 H 102 H Respiratory Rate 18 Blood Pressure 126/78 Pulse Oximetry 96 09/26/19 01:58 09/26/19 04:00 09/26/19 06:00 Temperature 37.2 C 36.8 C Pulse Rate 108 H 104 H 100 Respiratory Rate 18 20 Blood Pressure 145/79 H 152/83 H Pulse Oximetry 99 97 Intake/Output Intake/Output: Intake & Output 09/23/19 09/24/19 09/25/19 09/26/19 23:59 23:59 23:59 23:59 Intake Total 2150 2640 3720 200 Output Total 1000 100 600 Balance 1150 2640 3620 -400 Meds/Results Medications: Active Medications Generic Name Dose Route Start Last Admin Trade Name Freq PRN Reason Stop Dose Admin Acetaminophen 500 mg 09/24/19 07:10 09/25/19 06:48 Tylenol Tablet PO 500 mg Q6H PRN Administration Mild Pain (1-3) or Fever Hydrocodone Bitart/Acetaminophen 1 tab 09/24/19 07:10 [place] 5-325 Mg PO Q4H PRN Pain Rated 4-6 Hydrocodone Bitart/Acetaminophen 1 tab 09/24/19 07:10 [place] 7.5-325 Mg PO Q4H PRN Pain Rated 7-10 Aspirin 81 mg 09/25/19 09:00 09/25/19 08:36 Aspirin Ec PO 81 mg DAILY KWASI Administration Enoxaparin Sodium 40 mg 09/24/19 09:00 09/25/19 08:36 Lovenox SUB-Q 40 mg DAILY KWASI Administration Hydralazine HCl 10 mg 09/23/19 17:46 Apresoline Hcl Inj IV PUSH Q8H PRN Blood Pressure - High Piperacillin/Tazobactam/Dextrose 3.375 gm in 50 mls @ 100 mls/hr 09/23/19 15:00 09/26/19 03:53 Zosyn 3.375 Gm/D5w 50ml Pm IVPB Infused Q6H KWASI Infusion Sodium Chlor
[2019-09-26] MEDS: ENOXAPARIN 40 MG/0.4 ML SYRINGE SUB-Q (09:53)
[2019-09-26] MEDS: PANTOPRAZOLE SODIUM IV 40 MG VIAL IV PUSH ×2 (09:53→20:53)
[2019-09-26] MEDS: LIDOCAINE 5% PATCH 1 PATCH TRANSDERM (09:53)
--- NOTE | 2019-09-26 11:52 | PCOTNOTE ---
Attempted to see patient this am, however patient was off floor for Nuclear Medicine at this time.
--- NOTE | 2019-09-26 13:24 | PCOTNOTE ---
Attempted to see patient this pm, however declined stating, I feel terrible. I don't feel like doing anything. Pt not seen for this reason.
--- NOTE | 2019-09-26 13:25 | PM.IMPN ---
Progress Note: A&P Assessment and Plan (1) Small bowel obstruction: Code(s): K56.609 - Unspecified intestinal obstruction, unspecified as to partial versus complete obstruction Status: Acute Assessment and Plan: Overnight the patient began having a few episodes of vomiting and a abdominal x-ray this morning shows he has a small-bowel obstruction versus an ileus. An NG tube was placed the patient is currently NPO. Surgery evaluated the patient and has plans to continue monitoring the patient with NG tube in place and possibly get a repeat upper GI small-bowel follow-through with the contrast through the NG for further evaluation. Surgery also will be getting a HIDA scan to rule out a bile leak from his laparoscopic cholecystectomy that was done a few weeks prior. Continue monitoring in surgical input is greatly appreciated. (2) SIRS (systemic inflammatory response syndrome): Code(s): R65.10 - Systemic inflammatory response syndrome (SIRS) of non-infectious origin without acute organ dysfunction Status: Acute Assessment and Plan: The patient was initially said to be septic but there is no acute cause of infection at this time. We do have the patient on IV antibiotics but no underlying infection is diagnosed. The patient has leukocytosis, elevated lactic acid level, and tachycardia. Patient is still intermittently tachycardic, he has been afebrile since yesterday morning. Blood pressure has been stable and oxygenation has been normal. Continue IV antibiotics until underlying infection can be ruled out. Blood cultures have been sent and initial reading is no growth at this time. Will continue monitoring. Will continue monitoring patient's vitals and lactic acid levels during admission. (3) ROSENDO (acute kidney injury): Code(s): N17.9 - Acute kidney failure, unspecified Status: Acute Assessment and Plan: Patient has been vomiting and is constipated probably has a poor appetite. Creatinine improved to 1.0 today. Will continue with IV fluid hydration at this time Continue monitoring his renal function, strict input and output. (4) Syncope and collapse: Code(s): R55 - Syncope and collapse Status: Acute Assessment and Plan: Patient had a witnessed syncopal episode at his SNF at [facility] prior to arrival while he was going to the bathroom. Could have been secondary to vasovagal episode, dehydration versus severe constipation Positive Orthostatic blood pressure showing: Laying 157/77, and sitting 149/76, Standing 104/74. Patient's telemetry shows normal sinus rhythm with a heart rate of 98 beats per minute with some PACs and occasional PVCs noted. No arrhythmia identified or other causes of syncope. Patient has been receiving IV fluids on admission which will continue at this time. Do not feel further cardiac workup is needed at this time with an echocardiogram or carotid Dopplers since I believe syncopal episode is most likely vasovagal in origin due to severe constipation. Will continue monitoring on telemetry and the patient's symptoms. Will check orthostatics Q shift. (5) Constipation: Qualifiers: Constipation type: unspecified constipation type Qualified Code(s): K59.00 - Constipation, unspecified Code(s): K59.00 - Constipation, unspecified Status: Acute Assessment and Plan: Patient was found to have a large amount of stool to his rectum and sigmoid colon. The patient had been given a fleets enema on arrival to the emergency department. The patient had also received a lactulose enema upon admission to the floor. The patient also received a water-soluble enema in the radiologist did not see much benefit but recommended to continue and emesis
--- NOTE | 2019-09-26 13:42 | PCPTNOTE ---
The PT treatment was unable to be completed today due to patient out of room for procedure. Will continue per Plan of Care frequency and duration.
[2019-09-26] MEDS: SODIUM CHLORIDE 0.9% IV 1,000 ML 75 ML IV CONT (15:00)
[2019-09-26] MEDS: QUEtiapine FUMARATE 100 MG TABLET 800 MG PO (20:56)
[2019-09-26] MEDS: TAMSULOSIN HCL 0.4 MG CAPSULE PO (20:56)
[2019-09-27] VITALS (10 sets, daily range): BP systolic 100–162; BP diastolic 68–79; PULSE 86–115; RESP 16–20; TEMP 36.6–36.9; O2SAT 95–99
[2019-09-27] MEDS: SODIUM CHLORIDE 0.9% IV 1,000 ML 75 ML IV CONT ×2 (04:39→23:58)
[2019-09-27 06:30] LABS: Basophils Percent Auto 0.2 % (0.2-1.2); Eosinophils Absolute Auto 0.2 K/mm3 (0-0.3); Eosinophils Percent Auto 2.2 % (0-4.4); Hematocrit 34.5 % (42.0-52.0); Hemoglobin 11.5 g/dL (14.0-18.0); Immature Granulocyte Absolute 0.07 K/mm3 (0.00-0.031); Immature Granulocyte Percent A 0.7 % (0-0.5); Lymphocytes Absolute Auto 0.98 K/mm3 (0.9-3.2); Lymphocytes Percent Auto 9.9 % (18.3-44.2); Mean Corpuscular HGB Conc 33.3 g/dl (32-36); Mean Corpuscular Volume 90.1 fl (80-100); Mean Platelet Volume 9.3 fl (7.4-10.4); Monocytes Absolute Auto 0.7 K/mm3 (0.1-0.6); Monocytes Percent Auto 6.6 % (2.6-8.5); Neutrophils Percent Auto 80.4 % (45.5-73.1); Platelet Count Result 191 k/mm3 (150-375); Red Blood Count 3.83 M/mm3 (4.6-6.20); Red Cell Distribution Width 13.7 % (11.5-14.5); White Blood Count 9.9 K/mm3 (4.5-10.0)
[2019-09-27 06:50] LABS: Blood Urea Nitrogen 28 mg/dL (9-20); Calcium 8.6 mg/dL (8.4-10.2); Carbon Dioxide 22 mmol/L (22-30); Chloride 111 mmol/L (98-107); Estimated CRCL calculation 65 ml/min; Estimated Glomerular Filt Rate > 60; Glucose 94 mg/dL (75-110); Magnesium 2.1 mg/dL (1.6-2.3); Potassium 3.1 mmol/L (3.4-5.0); Sodium 140 mmol/L (137-145)
[2019-09-27] MEDS: ONDANSETRON INJ 4 MG/2 ML VIAL IV PUSH (08:20)
[2019-09-27] MEDS: LIDOCAINE 5% PATCH 1 PATCH TRANSDERM (08:20)
[2019-09-27] MEDS: PANTOPRAZOLE SODIUM IV 40 MG VIAL IV PUSH ×2 (08:20→20:51)
[2019-09-27] MEDS: ENOXAPARIN 40 MG/0.4 ML SYRINGE SUB-Q (08:21)
--- NOTE | 2019-09-27 09:48 | PM.IMPN ---
Progress Note: A&P Assessment and Plan (1) Small bowel obstruction: Code(s): K56.609 - Unspecified intestinal obstruction, unspecified as to partial versus complete obstruction Status: Acute Assessment and Plan: Overnight the patient began having a few episodes of vomiting and a abdominal x-ray this morning shows he has a small-bowel obstruction versus an ileus. An NG tube was placed the patient is currently NPO. Surgery evaluated the patient and has plans to continue monitoring the patient with NG tube in place. Small-bowel follow-through was completed yesterday through his NG tube and showed ileus versus small-bowel obstruction. Repeat abdominal x-ray this morning shows severely distended segment of small bowel and moderate amount of colonic gas. HIDA scan showed that the patient does not have a bile leak from his laparoscopic cholecystectomy that was done a few weeks prior. The patient seems to still have a lot of output from his NG tube. Continue monitoring and surgical input is greatly appreciated. (2) SIRS (systemic inflammatory response syndrome): Code(s): R65.10 - Systemic inflammatory response syndrome (SIRS) of non-infectious origin without acute organ dysfunction Status: Acute Assessment and Plan: The patient was initially said to be septic but there is no acute cause of infection at this time. We do have the patient on IV antibiotics but no underlying infection is diagnosed. The patient has leukocytosis, elevated lactic acid level, and tachycardia. Patient is still intermittently tachycardic, he has been afebrile. Blood pressure has been stable and oxygenation has been normal. Continue IV antibiotics until underlying infection can be ruled out. Blood cultures have been sent and initial reading is no growth at this time. Will continue monitoring patient's vitals and lactic acid levels during admission. (3) ROSENDO (acute kidney injury): Code(s): N17.9 - Acute kidney failure, unspecified Status: Acute Assessment and Plan: Patient has been vomiting and is constipated probably has a poor appetite. Creatinine improved to 1.0 today. Will continue with IV fluid hydration at this time Continue monitoring his renal function, strict input and output. (4) Syncope and collapse: Code(s): R55 - Syncope and collapse Status: Acute Assessment and Plan: Patient had a witnessed syncopal episode at his SNF at [facility] prior to arrival while he was going to the bathroom. Could have been secondary to vasovagal episode, dehydration versus severe constipation Positive Orthostatic blood pressure showing: Laying 157/77, and sitting 149/76, Standing 104/74. Patient's telemetry shows normal sinus rhythm with a heart rate of 98 beats per minute with some PACs and occasional PVCs noted. No arrhythmia identified or other causes of syncope. Will discontinue telemetry at this time. Patient has been receiving IV fluids on admission which will continue at this time. Do not feel further cardiac workup is needed at this time with an echocardiogram or carotid Dopplers since I believe syncopal episode is most likely vasovagal in origin due to severe constipation. Will continue monitoring on telemetry and the patient's symptoms. Will check orthostatics Q shift. (5) Constipation: Qualifiers: Constipation type: unspecified constipation type Qualified Code(s): K59.00 - Constipation, unspecified Code(s): K59.00 - Constipation, unspecified Status: Acute Assessment and Plan: Patient was found to have a large amount of stool to his rectum and sigmoid colon. The patient had been given a fleets enema on arrival to the emergency department. The patient had also rec
--- NOTE | 2019-09-27 10:29 | PM.PNGS ---
Progress Note: A&P Assessment and Plan (1) Small bowel obstruction: Code(s): K56.609 - Unspecified intestinal obstruction, unspecified as to partial versus complete obstruction Status: Acute Assessment and Plan: seems more functional, will try Reglan, cont NG decompression for now (2) Acute gangrenous cholecystitis: Code(s): K81.0 - Acute cholecystitis Status: Acute Assessment and Plan: s/p cholecystectomy Subjective Subjective Date/Time Seen: 09/27/19 10:29 Pt largely non-verbal, drinking and eating large cup of ice chips, denies any pain, nausea Review of Systems Review of Systems: ROS unobtainable: Yes unobtainable due to mental status Exam Const: General: no acute distress Resp: Auscultation: diminished lung sounds Cardio: Rate: regular rate Rhythm: regular rhythm GI: Other: S, mod dist, NT, hypo BS Objective Data Vital Signs Vital Signs: Vital Signs - 24 hr 09/26/19 14:00 09/26/19 14:05 09/26/19 14:10 Temperature 37.1 C Pulse Rate 95 Respiratory Rate 18 Blood Pressure 194/90 H 133/91 H 109/73 Pulse Oximetry 97 09/26/19 16:00 09/26/19 20:00 09/26/19 21:20 Temperature 36.8 C Pulse Rate 102 H 95 105 H Respiratory Rate 18 Blood Pressure 160/75 H Pulse Oximetry 95 09/27/19 00:00 09/27/19 02:27 09/27/19 04:00 Temperature 36.9 C Pulse Rate 95 106 H 96 Respiratory Rate 20 Blood Pressure 162/79 H Pulse Oximetry 95 09/27/19 06:00 09/27/19 08:00 09/27/19 08:01 Temperature 36.8 C 36.8 C 36.8 C Pulse Rate 102 H 94 106 H Respiratory Rate 18 16 18 Blood Pressure 136/68 153/77 H 111/70 Pulse Oximetry 95 98 98 09/27/19 08:02 Temperature 36.8 C Pulse Rate 115 H Respiratory Rate 18 Blood Pressure 100/75 Pulse Oximetry 99 Intake/Output Intake/Output: Intake & Output 09/24/19 09/25/19 09/26/19 09/27/19 23:59 23:59 23:59 23:59 Intake Total 2640 3720 1350 1100 Output Total 100 2700 1000 Balance 2640 3620 -1350 100 Meds/Results Medications: Active Medications Generic Name Dose Route Start Last Admin Trade Name Freq PRN Reason Stop Dose Admin Acetaminophen 500 mg 09/24/19 07:10 09/25/19 06:48 Tylenol Tablet PO 500 mg Q6H PRN Administration Mild Pain (1-3) or Fever Hydrocodone Bitart/Acetaminophen 1 tab 09/24/19 07:10 [place] 5-325 Mg PO Q4H PRN Pain Rated 4-6 Hydrocodone Bitart/Acetaminophen 1 tab 09/24/19 07:10 [place] 7.5-325 Mg PO Q4H PRN Pain Rated 7-10 Aspirin 81 mg 09/25/19 09:00 09/25/19 08:36 Aspirin Ec PO 81 mg DAILY KWASI Administration Enoxaparin Sodium 40 mg 09/24/19 09:00 09/27/19 08:21 Lovenox SUB-Q 40 mg DAILY KWASI Administration Hydralazine HCl 10 mg 09/23/19 17:46 Apresoline Hcl Inj IV PUSH Q8H PRN Blood Pressure - High Piperacillin/Tazobactam/Dextrose 3.375 gm in 50 mls @ 100 mls/hr 09/23/19 15:00 09/27/19 08:50 Zosyn 3.375 Gm/D5w 50ml Pm IVPB Infused Q6H KWASI Infusion Sodium Chloride 1,000 mls @ 100 mls/hr 09/23/19 12:40 09/27/19 05:04 Normal Saline Iv IV CONT 75 mls/hr .Q10H KWASI Infusion Ibuprofen 800 mg in 200 mls @ 400 mls/hr 09/24/19 07:10 [place] 800 Mg/200 Ml IVPB Q6H PRN Pain Rated 4-6 Potassium Chloride 500 mls @ 125 mls/hr 09/27/19 07:45 09/27/19 09:06 Kcl 40 Meq/D5w 500 Ml Peripheral IVPB 09/27/19 11:44 125 mls/hr ONCE ONE Administration Lidocaine 1 patch 09/25/19 09:00 09/27/19 08:20 Lidoderm TRANSDERM 1 patch DAILY KWASI Administration Lorazepam 0.5 mg 09/23/19 17:43 09/23/19 20:39 Ativan Inj IV PUSH 0.5 mg Q6H PRN Administration Anxiety Mineral Oil 30 ml 09/23/19 17:00 09/25/19 17:23 Mineral Oil PO 30 ml BID KWASI Administration Morphine Sulfate 2 mg 09/24/19 07:10 Morphine Sulfate Inj IV PUSH Q2H PRN Pain Rated 7-10 Olanzapine 2.5 mg 09/24/19 11:45 Zyprexa PO DAILY PRN
[2019-09-27] MEDS: METOCLOPRAMIDE HCL INJ 10 MG/2 ML VIAL IV PUSH ×2 (11:44→18:00)
[2019-09-27] MEDS: QUEtiapine FUMARATE 100 MG TABLET 800 MG PO (20:51)
[2019-09-27] MEDS: TAMSULOSIN HCL 0.4 MG CAPSULE PO (20:52)
[2019-09-28] VITALS (10 sets, daily range): BP systolic 117–163; BP diastolic 63–87; PULSE 86–109; RESP 16–20; TEMP 36.6–37.1; O2SAT 96–100
[2019-09-28] MEDS: METOCLOPRAMIDE HCL INJ 10 MG/2 ML VIAL IV PUSH ×5 (00:23→23:28)
[2019-09-28 06:31] LABS: Basophils Percent Auto 0.4 % (0.2-1.2); Eosinophils Absolute Auto 0.2 K/mm3 (0-0.3); Eosinophils Percent Auto 3.1 % (0-4.4); Hematocrit 35.5 % (42.0-52.0); Hemoglobin 11.6 g/dL (14.0-18.0); Immature Granulocyte Absolute 0.14 K/mm3 (0.00-0.031); Immature Granulocyte Percent A 1.9 % (0-0.5); Lymphocytes Absolute Auto 1.22 K/mm3 (0.9-3.2); Lymphocytes Percent Auto 16.2 % (18.3-44.2); Mean Corpuscular HGB Conc 32.7 g/dl (32-36); Mean Corpuscular Hemoglobin 29.8 pg (26-34); Mean Corpuscular Volume 91.3 fl (80-100); Mean Platelet Volume 9.4 fl (7.4-10.4); Monocytes Absolute Auto 0.7 K/mm3 (0.1-0.6); Neutrophils Absolute Auto 5.2 K/mm3 (1.3-6.7); Neutrophils Percent Auto 69.4 % (45.5-73.1); Platelet Count Result 212 k/mm3 (150-375); Red Blood Count 3.89 M/mm3 (4.6-6.20); Red Cell Distribution Width 13.5 % (11.5-14.5); White Blood Count 7.5 K/mm3 (4.5-10.0)
[2019-09-28 06:42] LABS: Blood Urea Nitrogen 26 mg/dL (9-20); Calcium 8.6 mg/dL (8.4-10.2); Carbon Dioxide 24 mmol/L (22-30); Chloride 109 mmol/L (98-107); Estimated CRCL calculation 71 ml/min; Estimated Glomerular Filt Rate > 60; Glucose 89 mg/dL (75-110); Magnesium 2.1 mg/dL (1.6-2.3); Potassium 3.1 mmol/L (3.4-5.0); Sodium 141 mmol/L (137-145)
[2019-09-28] MEDS: LACTATED RINGERS 1,000 ML 100 ML IV CONT ×2 (07:54→21:14)
[2019-09-28] MEDS: PANTOPRAZOLE SODIUM IV 40 MG VIAL IV PUSH ×2 (07:57→21:10)
[2019-09-28] MEDS: ENOXAPARIN 40 MG/0.4 ML SYRINGE SUB-Q (07:57)
[2019-09-28] MEDS: LIDOCAINE 5% PATCH 1 PATCH TRANSDERM (07:57)
--- NOTE | 2019-09-28 11:13 | PM.IMPN ---
Progress Note: A&P Assessment and Plan (1) Small bowel obstruction: Code(s): K56.609 - Unspecified intestinal obstruction, unspecified as to partial versus complete obstruction Status: Acute Assessment and Plan: Overnight the patient began having a few episodes of vomiting and a abdominal x-ray this morning shows he has a small-bowel obstruction versus an ileus. An NG tube was placed the patient is currently NPO. Surgery evaluated the patient and has plans to continue monitoring the patient with NG tube in place. HIDA scan showed that the patient does not have a bile leak from his laparoscopic cholecystectomy that was done a few weeks prior. Small-bowel follow-through was completed through his NG tube and showed ileus versus small-bowel obstruction. Repeat abdominal x-ray this morning shows severely distended segment of small bowel and moderate amount of colonic gas. The patient did have a bowel movement overnight. Surgery evaluated the patient today and recommended clamping his tube to see how he does. Continue monitoring and surgical input is greatly appreciated. (2) SIRS (systemic inflammatory response syndrome): Code(s): R65.10 - Systemic inflammatory response syndrome (SIRS) of non-infectious origin without acute organ dysfunction Status: Acute Assessment and Plan: The patient was initially said to be septic but there is no acute cause of infection at this time. We do have the patient on IV antibiotics but no underlying infection is diagnosed. The patient has leukocytosis, elevated lactic acid level, and tachycardia. Patient is still intermittently tachycardic, he has been afebrile. Blood pressure has been stable and oxygenation has been normal. Continue IV antibiotics until underlying infection can be ruled out. Blood cultures have been sent and initial reading is no growth at this time. Will continue monitoring patient's vitals and lactic acid levels during admission. (3) ROSENDO (acute kidney injury): Code(s): N17.9 - Acute kidney failure, unspecified Status: Acute Assessment and Plan: Patient has been vomiting and is constipated probably has a poor appetite. Creatinine improved to 0.9 today. Will continue with IV fluid hydration at this time Continue monitoring his renal function, strict input and output. (4) Syncope and collapse: Code(s): R55 - Syncope and collapse Status: Acute Assessment and Plan: Patient had a witnessed syncopal episode at his SNF at [facility] prior to arrival while he was going to the bathroom. Could have been secondary to vasovagal episode, dehydration versus severe constipation Positive Orthostatic blood pressure showing: Laying 157/77, and sitting 149/76, Standing 104/74. 09/27/2019: Patient's telemetry shows normal sinus rhythm with a heart rate of 98 beats per minute with some PACs and occasional PVCs noted. No arrhythmia identified or other causes of syncope. Will discontinue telemetry at this time. Patient has been receiving IV fluids on admission which will continue at this time. Do not feel further cardiac workup is needed at this time with an echocardiogram or carotid Dopplers since I believe syncopal episode is most likely vasovagal in origin due to severe constipation. Will continue monitoring on telemetry and the patient's symptoms. Will check orthostatics Q shift. (5) Constipation: Qualifiers: Constipation type: unspecified constipation type Qualified Code(s): K59.00 - Constipation, unspecified Code(s): K59.00 - Constipation, unspecified Status: Acute Assessment and Plan: Patient was found to have a large amount of stool to his rectum and sigmoid colon. The patient had been given a fle
[2019-09-28 12:08] LABS: Glucose Point of Care 116 (65-105)
[2019-09-28 13:05] LABS: Potassium 3.4 mmol/L (3.4-5.0)
--- NOTE | 2019-09-28 13:26 | PM.PNGS ---
Progress Note: A&P Assessment and Plan (1) Small bowel obstruction: Code(s): K56.609 - Unspecified intestinal obstruction, unspecified as to partial versus complete obstruction Status: Acute Assessment and Plan: exam benign, +BM overnight, will trial NG clamping Subjective Subjective Date/Time Seen: 09/28/19 13:26 seems better today, +loose BM overnight, no N/V, NG output significantly decreased Review of Systems Review of Systems: ROS unobtainable: Yes unobtainable due to mental status Exam Const: General: no acute distress Resp: Auscultation: clear to auscultation bilaterally Cardio: Rate: regular rate Rhythm: regular rhythm GI: Other: S, mod dist, NT Objective Data Vital Signs Vital Signs: Vital Signs - 24 hr 09/27/19 14:00 09/27/19 22:00 09/28/19 02:00 Temperature 36.7 C 36.6 C 36.6 C Pulse Rate 99 86 90 Respiratory Rate 16 20 18 Blood Pressure 141/75 H 150/68 H 155/74 H Pulse Oximetry 99 98 100 09/28/19 03:09 09/28/19 03:10 09/28/19 08:00 Temperature 37.1 C Pulse Rate 95 109 H 99 Respiratory Rate 16 Blood Pressure 152/85 H 132/87 160/75 H Pulse Oximetry 97 09/28/19 08:01 09/28/19 08:02 09/28/19 10:20 Temperature 37.1 C Pulse Rate 100 Respiratory Rate 16 Blood Pressure 142/77 H 117/70 126/80 Pulse Oximetry 98 Intake/Output Intake/Output: Intake & Output 09/25/19 09/26/19 09/27/19 09/28/19 23:59 23:59 23:59 23:59 Intake Total 3720 1350 2700 722 Output Total 100 2700 1950 1575 Balance 3620 1350 750 -393 Meds/Results Medications: Active Medications Generic Name Dose Route Start Last Admin Trade Name Freq PRN Reason Stop Dose Admin Acetaminophen 500 mg 09/24/19 07:10 09/25/19 06:48 Tylenol Tablet PO 500 mg Q6H PRN Administration Mild Pain (1-3) or Fever Hydrocodone Bitart/Acetaminophen 1 tab 09/24/19 07:10 [place] 5-325 Mg PO Q4H PRN Pain Rated 4-6 Hydrocodone Bitart/Acetaminophen 1 tab 09/24/19 07:10 [place] 7.5-325 Mg PO Q4H PRN Pain Rated 7-10 Aspirin 81 mg 09/25/19 09:00 09/25/19 08:36 Aspirin Ec PO 81 mg DAILY KWASI Administration Enoxaparin Sodium 40 mg 09/24/19 09:00 09/28/19 07:57 Lovenox SUB-Q 40 mg DAILY KWASI Administration Hydralazine HCl 10 mg 09/23/19 17:46 Apresoline Hcl Inj IV PUSH Q8H PRN Blood Pressure - High Piperacillin/Tazobactam/Dextrose 3.375 gm in 50 mls @ 100 mls/hr 09/23/19 15:00 09/28/19 08:25 Zosyn 3.375 Gm/D5w 50ml Pm IVPB Infused Q6H KWASI Infusion Ibuprofen 800 mg in 200 mls @ 400 mls/hr 09/24/19 07:10 Caldolor 800 Mg/200 Ml IVPB Q6H PRN Pain Rated 4-6 Lactated Ringer's 1,000 mls @ 100 mls/hr 09/28/19 07:40 09/28/19 07:54 Lr - Lactated Ringers Iv IV CONT 100 mls/hr .Q10H KWASI Administration Lidocaine 1 patch 09/25/19 09:00 09/28/19 07:57 Lidoderm TRANSDERM 1 patch DAILY KWASI Administration Lorazepam 0.5 mg 09/23/19 17:43 09/23/19 20:39 Ativan Inj IV PUSH 0.5 mg Q6H PRN Administration Anxiety Metoclopramide HCl 10 mg 09/27/19 12:00 09/28/19 12:21 Reglan IV PUSH 10 mg Q6HR KWASI Administration Mineral Oil 30 ml 09/23/19 17:00 09/25/19 17:23 Mineral Oil PO 30 ml BID KWASI Administration Morphine Sulfate 2 mg 09/24/19 07:10 Morphine Sulfate Inj IV PUSH Q2H PRN Pain Rated 7-10 Olanzapine 2.5 mg 09/24/19 11:45 Zyprexa PO DAILY PRN Anxiety Ondansetron HCl 4 mg 09/23/19 10:27 09/27/19 08:20 Zofran Inj IV PUSH 4 mg Q4H PRN Administration Nausea Pantoprazole Sodium 40 mg 09/24/19 11:50 09/28/19 07:57 Protonix Iv IV PUSH 40 mg Q12HR KWASI Administration Psyllium Hydrophilic Mucilloid 1 packet 09/23/19 21:00 09/25/19 21:22 Metamucil Packet PO 1 packet Q12HR KWASI Administration Quetiapine Fumarate 800 mg 09/24/19 21:00 09/27/19 20:51 Seroquel PO 800 mg HS KWASI Adm
[2019-09-28 17:41] LABS: Glucose Point of Care 123 (65-105)
[2019-09-28] MEDS: TAMSULOSIN HCL 0.4 MG CAPSULE PO (21:11)
[2019-09-28] MEDS: QUEtiapine FUMARATE 100 MG TABLET 800 MG PO (21:12)
[2019-09-29 00:08] LABS: Glucose Point of Care 92 (65-105)
[2019-09-29] MEDS: METOCLOPRAMIDE HCL INJ 10 MG/2 ML VIAL IV PUSH ×3 (05:25→17:54)
[2019-09-29 06:00] VITALS: BP 151/75; PULSE 91; RESP 18; TEMP 36.3; O2SAT 96
[2019-09-29 06:15] LABS: Hematocrit 36.5 % (42.0-52.0); Hemoglobin 11.7 g/dL (14.0-18.0); Mean Corpuscular HGB Conc 32.1 g/dl (32-36); Mean Corpuscular Hemoglobin 29.9 pg (26-34); Mean Corpuscular Volume 93.4 fl (80-100); Mean Platelet Volume 9.2 fl (7.4-10.4); Platelet Count Result 230 k/mm3 (150-375); Red Blood Count 3.91 M/mm3 (4.6-6.20); Red Cell Distribution Width 13.6 % (11.5-14.5); White Blood Count 8.5 K/mm3 (4.5-10.0)
[2019-09-29 06:29] LABS: Blood Urea Nitrogen 21 mg/dL (9-20); Calcium 8.6 mg/dL (8.4-10.2); Carbon Dioxide 22 mmol/L (22-30); Chloride 109 mmol/L (98-107); Estimated CRCL calculation 71 ml/min; Estimated Glomerular Filt Rate > 60; Glucose 106 mg/dL (75-110); Potassium 3.3 mmol/L (3.4-5.0); Sodium 138 mmol/L (137-145)
[2019-09-29 06:30] LABS: Glucose Point of Care 93 (65-105)
--- NOTE | 2019-09-29 07:30 | PC.NURSE ---
To radiology per hospital bed for abdominal x-ray/kub.
[2019-09-29 08:00] VITALS: BP 151/75; PULSE 91; RESP 18; TEMP 36.3; O2SAT 96
[2019-09-29] MEDS: KCL 40 MEQ/D5/0.9% SOD CHL 1,000 ML 100 ML IV CONT (09:29)
[2019-09-29] MEDS: LIDOCAINE 5% PATCH 1 PATCH TRANSDERM (09:34)
[2019-09-29] MEDS: ENOXAPARIN 40 MG/0.4 ML SYRINGE SUB-Q (09:34)
[2019-09-29] MEDS: PANTOPRAZOLE SODIUM IV 40 MG VIAL IV PUSH ×2 (09:35→20:51)
--- NOTE | 2019-09-29 11:15 | PM.PNGS ---
Progress Note: A&P Assessment and Plan (1) Small bowel obstruction: Code(s): K56.609 - Unspecified intestinal obstruction, unspecified as to partial versus complete obstruction Status: Acute Assessment and Plan: Bowels are moving, although he remains distended and diffusely tender with intermittent nausea. His plain films still showing persistently dilated small bowel. Ordered a Gastrografin small bowel follow through today to further assess for an obstruction. Continue NG tube decompression for now and bowel rest while pending SBFT results. Will order PICC line and initiate TPN/Clinimix with lipids today for nutrition. (2) Bipolar 1 disorder: Code(s): F31.9 - Bipolar disorder, unspecified Status: Chronic Assessment and Plan: Baseline mentation. Additional Plan Discussed the plan of care with Dr. Villalba today. HIDA scan showed no evidence of a bile leak. Subjective Subjective Date/Time Seen: 09/29/19 11:15 Patient reports: no new complaints and bowel movement Interval history: Patient seen and examined. Reports still having bloating and abdominal tenderness. Denies nausea at this time but has been intermittently nauseous this morning and is holding an emesis bag in his hand. No reported vomiting. Per the nurse, he had bowel movements overnight. No other complaints at this time. Review of Systems Review of Systems: Narrative: ROS limited due to baseline cognition with bipolar disorder Exam Const: General: no acute distress, alert, awake and other (Baseline mental status with bipolar) GI: Inspection: distended and incision (All laparoscopic incisions well healed) GI Palp: Yes Soft to palpation, Yes Tenderness to palpation present (GI) (mild diffuse tenderness), No Guarding due to palpation present (GI) and No Rebound tenderness present Auscultation: High-pitched bowel sounds present and Hyperactive bowel sounds present Skin: General skin exam: normal color Extrem: General: no clubbing, cyanosis or edema and no calf tenderness Psych: Mental Status: mental status grossly normal Speech and movement: Slowed speech present (Psych) Affect: Blunted affect present Insight: Fair insight present (Psych) Judgement: Fair judgement present (Psych) Objective Data Vital Signs Vital Signs: Vital Signs - 24 hr 09/28/19 14:00 09/28/19 20:00 09/28/19 22:00 Temperature 36.6 C 36.6 C Pulse Rate 87 86 Respiratory Rate 18 20 Blood Pressure 149/75 H 124/63 163/80 H Pulse Oximetry 96 99 09/29/19 06:00 09/29/19 08:00 Temperature 36.3 C L 36.3 C L Pulse Rate 91 91 Respiratory Rate 18 18 Blood Pressure 151/75 H 151/75 H Pulse Oximetry 96 96 Intake/Output Intake/Output: Intake & Output 09/26/19 09/27/19 09/28/19 09/29/19 23:59 23:59 23:59 23:59 Intake Total 1350 2700 2822 223 Output Total 2700 1950 1575 Balance -0939 602 9712 223 Meds/Results Medications: Active Medications Generic Name Dose Route Start Last Admin Trade Name Freq PRN Reason Stop Dose Admin Acetaminophen 500 mg 09/24/19 07:10 09/25/19 06:48 Tylenol Tablet PO 500 mg Q6H PRN Administration Mild Pain (1-3) or Fever Hydrocodone Bitart/Acetaminophen 1 tab 09/24/19 07:10 [place] 5-325 Mg PO Q4H PRN Pain Rated 4-6 Hydrocodone Bitart/Acetaminophen 1 tab 09/24/19 07:10 [place] 7.5-325 Mg PO Q4H PRN Pain Rated 7-10 Aspirin 81 mg 09/25/19 09:00 09/25/19 08:36 Aspirin Ec PO 81 mg DAILY KWASI Administration Enoxaparin Sodium 40 mg 09/24/19 09:00 09/29/19 09:34 Lovenox SUB-Q 40 mg DAILY KWASI Administration Hydralazine HCl 10 mg 09/23/19 17:46 Apresoline Hcl Inj IV PUSH Q8H PRN Blood Pressure - High Piperacillin/Tazobactam/Dextrose 3.375 gm in 50 mls @ 100 mls/hr 09/23/19 15:00 09/29/19 09:35 Zosyn 3.375 Gm/D5w 50ml Pm IVPB 100 mls/hr Q6H KWASI Administration Ibuprofen 800 mg in 200 mls @ 400 mls/hr 09/24/19 07:10 Jovita
[2019-09-29 11:42] LABS: Glucose Point of Care 105 (65-105)
--- NOTE | 2019-09-29 12:27 | PM.IMPN ---
Progress Note: A&P Assessment and Plan (1) Small bowel obstruction: Code(s): K56.609 - Unspecified intestinal obstruction, unspecified as to partial versus complete obstruction Status: Acute Assessment and Plan: The patient developed vomiting and plain abdominal films 09/26/19 revealed a small bowel obstruction versus ileus. NG tube was placed and the patient is NPO. General surgery is on board and input is greatly appreciated. Plan to continue conservative management with NG tube decompression and bowel rest. Continue analgesics PRN and antiemetics PRN. SBFT was ordered and results are pending. He did have two soft bowel movements with diarrhea last night (09/28/19) and today. Bowel sounds are normoactive. Plan for PICC line and TPN/clinimix with lipids for nutrition. Continue to monitor closely with abdominal plain films and UGI tomororw. (2) SIRS (systemic inflammatory response syndrome): Code(s): R65.10 - Systemic inflammatory response syndrome (SIRS) of non-infectious origin without acute organ dysfunction Status: Acute Assessment and Plan: The patient met SIRS criteria with leukocytosis and tachycardia. Lactic acid was elevated initially which has resolved. There was no identifiable cause of infection and his tachycardia and leukocytosis may have been due to vomiting. He was treated with IV zosyn since he is s/p recent cholecystectomy and his leukocytosis resolved. HIDA was negative for bile leak. He is stable from this standpoint. Blood cultures were final and reveal no growth. Continue to monitor. (3) ROSENDO (acute kidney injury): Code(s): N17.9 - Acute kidney failure, unspecified Status: Resolved Assessment and Plan: Resolved. ROSENDO was likely pre-renal due to decreased PO intake and vomiting. Plan to continue gentle IV fluids. Continue to monitor renal function. (4) Syncope and collapse: Code(s): R55 - Syncope and collapse Status: Acute Assessment and Plan: Patient had a witnessed syncopal episode at his SNF at [facility] prior to arrival while he was going to the bathroom. This was likely due to a vasovagal episode due to dehydration versus severe constipation. he does exhibit orthostatic hypotension. Temeletry revealed sinus rhythm with occasional PACs and PVCs. There were no evidence of arrhythmias/pauses. No further caridac workup was indicated as his episode was highly suspicious for vasovagal syncope. Continue to monitor. (5) Constipation: Qualifiers: Constipation type: unspecified constipation type Qualified Code(s): K59.00 - Constipation, unspecified Code(s): K59.00 - Constipation, unspecified Status: Acute Assessment and Plan: Patient was found to have a large amount of stool to his rectum and sigmoid colon. The patient had been given a fleets enema on arrival to the emergency department. The patient had also received a lactulose enema upon admission to the floor. The patient also received a water-soluble enema in the radiologist did not see much benefit but recommended to continue and emesis and possible manual disimpaction would be needed. Patient was also given Relistor for narcotic induced constipation to see if this would help. Surgery was consulted from the emergency department and had him on a bowel regimen. Now the patient is NPO with a potential bowel obstruction versus ileus. Will continue to monitor the patient's stool output and surgeries input is greatly appreciated. (6) Hypertension, essential: Code(s): I10 - Essential (primary) hypertension Status: Acute Assessment and Plan: Blood pressures were reviewed and blood pressure control is reasonable with slight BP elevation in the 150s systolic. Continue PRN hydralazine. Continue to monitor closely. (7) Bipolar 1 disorder: Code(s): F31.9 - B
[2019-09-29 13:22] VITALS: BMI 29.9
[2019-09-29] MEDS: LIDOCAINE HCL 1% PF INJ 5 ML VIAL INFILTRATE (13:45)
[2019-09-29 14:00] VITALS: BP 153/74; PULSE 98; RESP 16; TEMP 36.7; O2SAT 97
--- NOTE | 2019-09-29 14:47 | PCPTNOTE ---
PT attempted to see patient 4 times today. Pt was unavailable on 3 attempts due to bowel incontinence and fourth attempt patient having PIC line placed. PT will continue to follow per plan of care.
[2019-09-29] MEDS: FAT EMULSIONS IV 20% 250 ML 20.8 ML IVPB (17:54)
[2019-09-29] MEDS: CENTRAL LINE FLUSH 10 ML IV PUSH ×2 (17:57→20:54)
[2019-09-29 19:50] LABS: Glucose Point of Care 159 (65-105)
[2019-09-29 20:00] VITALS: RESP 20
[2019-09-29] MEDS: QUEtiapine FUMARATE 100 MG TABLET 800 MG PO (20:52)
[2019-09-29] MEDS: TAMSULOSIN HCL 0.4 MG CAPSULE PO (20:52)
[2019-09-29 22:00] VITALS: BP 165/87; PULSE 100; RESP 22; TEMP 36.9; O2SAT 95
--- NOTE | 2019-09-30 00:23 | PC.NURSE ---
notified that patient's NG tube has put out over 3 liters since 2219. Orders received and entered.
[2019-09-30] MEDS: SODIUM CHLORIDE 0.9% IV 500 ML 250 ML IV CONT (00:32)
[2019-09-30] MEDS: METOCLOPRAMIDE HCL INJ 10 MG/2 ML VIAL IV PUSH ×4 (00:33→21:24)
[2019-09-30 02:30] VITALS: BP 165/85; PULSE 93; RESP 20; TEMP 37.1; O2SAT 98
[2019-09-30 02:37] LABS: Glucose Point of Care 159 (65-105)
[2019-09-30] MEDS: CENTRAL LINE FLUSH 10 ML IV PUSH ×4 (05:01→21:54)
[2019-09-30 05:11] LABS: Basophils Absolute Auto 0.1 K/mm3 (0.0-0.1); Basophils Percent Auto 0.5 % (0.2-1.2); Eosinophils Absolute Auto 0.2 K/mm3 (0-0.3); Eosinophils Percent Auto 2.6 % (0-4.4); Hematocrit 34.4 % (42.0-52.0); Hemoglobin 11.4 g/dL (14.0-18.0); Immature Granulocyte Absolute 0.14 K/mm3 (0.00-0.031); Immature Granulocyte Percent A 1.5 % (0-0.5); Lymphocytes Absolute Auto 0.98 K/mm3 (0.9-3.2); Lymphocytes Percent Auto 10.4 % (18.3-44.2); Mean Corpuscular HGB Conc 33.1 g/dl (32-36); Mean Corpuscular Hemoglobin 30.2 pg (26-34); Mean Platelet Volume 9.3 fl (7.4-10.4); Monocytes Absolute Auto 0.7 K/mm3 (0.1-0.6); Monocytes Percent Auto 7.3 % (2.6-8.5); Neutrophils Absolute Auto 7.3 K/mm3 (1.3-6.7); Neutrophils Percent Auto 77.7 % (45.5-73.1); Platelet Count Result 283 k/mm3 (150-375); Red Blood Count 3.78 M/mm3 (4.6-6.20); Red Cell Distribution Width 13.8 % (11.5-14.5); White Blood Count 9.4 K/mm3 (4.5-10.0)
[2019-09-30 06:00] VITALS: BP 154/66; PULSE 83; RESP 18; TEMP 36.9; O2SAT 96
[2019-09-30 07:10] LABS: Glucose Point of Care 142 (65-105)
[2019-09-30 08:00] VITALS: BP 154/66; PULSE 82; PULSE 83; RESP 18; TEMP 36.9; O2SAT 96
[2019-09-30] MEDS: LIDOCAINE 5% PATCH 1 PATCH TRANSDERM (08:59)
[2019-09-30] MEDS: PANTOPRAZOLE SODIUM IV 40 MG VIAL IV PUSH ×2 (08:59→21:43)
[2019-09-30] MEDS: ENOXAPARIN 40 MG/0.4 ML SYRINGE SUB-Q (09:00)
[2019-09-30 09:07] LABS: Blood Urea Nitrogen 17 mg/dL (9-20); Calcium 8.6 mg/dL (8.4-10.2); Carbon Dioxide 27 mmol/L (22-30); Chloride 108 mmol/L (98-107); Estimated CRCL calculation 80 ml/min; Estimated Glomerular Filt Rate > 60; Glucose 136 mg/dL (75-110); Phosphorus 3.3 mg/dL (2.5-4.5); Sodium 138 mmol/L (137-145)
[2019-09-30 09:21] LABS: Triglycerides 131 mg/dL (<150)
[2019-09-30 11:11] LABS: Hemoglobin A1C 5.7 % (<5.7)
--- NOTE | 2019-09-30 12:19 | PM.PNGS ---
Progress Note: A&P Assessment and Plan (1) Adynamic ileus: Code(s): K56.0 - Paralytic ileus Status: Acute Assessment and Plan: patient with prolonged ileus. Etiology is unclear to me. The entire scenario is puzzling. The patient had surgery for acute gangrenous cholecystitis with ruptured gallbladder on August 18. This was done laparoscopically and he did well. He was able to be returned to the [facility]p in [facility] after discharge on August 21. He was seen in the office on September 07 doing well and having finished a 1 week course of all antibiotics. He then presented with all the signs of sepsis other than a known source of infection. This was on September 22. He had lactic acidosis with a lactate as high as 5.9. His CT scan showed no evidence of complication from his cholecystectomy but did show severe constipation. No sign of bowel obstruction was noted. He was started empirically on Zosyn and given fluid resuscitation. His signs of sepsis and lactic acidosis reversed. He had several bowel movements and was continued on some fiber supplement cathartics. Today is 7 days of Zosyn and this has been stopped. I talked to the hospitalist Adina Willard PAC., about the patient. He started showing signs of ileus or small-bowel obstruction on September 24. Small-bowel series was ordered but patient would not drink the contrast. A HIDA scan was done which showed no evidence of bile leak. Follow-up plain films showed either ileus or small-bowel obstruction and on 09/26/2019 in NG tube was placed. A water-soluble contrast upper GI small-bowel follow-through was done on 09/25. Multiple dilated loops of bowel were present. By 4 hours the contrasted barely entered the 1st portion of the jejunum. The NG tube was left in place. He had high NG outputs. His NG tube was clamped on SundaySeptember 27. On Sunday he looked worse and NG was resume to suction. Contrast moved exceptionally slowly. On 09/26, there was still contrast in the stomach. Although the small intestine was still quite dilated, the contrast there had moved on to the colon. A repeat upper GI small-bowel follow-through with water-soluble contrast done yesterday took 12 hours to completely perform. This was consistent with ileus. His NG was clamped the entire time and last night when it was hooked to suction 4 L of fluid was evacuated. He does look better this morning and has some bowel sounds. He still has large in small-bowel air with small bowel dilatation. After talking with the hospitalist, we will consult gastroenterology. I agree with stopping his IV antibiotics. We will continue his TPN which was started yesterday. Continue NG suction for now. He may need an EGD since contrast is so slow to exit the stomach. Will continue to follow but see no indication for surgery. (2) Bipolar 1 disorder: Code(s): F31.9 - Bipolar disorder, unspecified Status: Chronic Subjective Subjective Date/Time Seen: 09/30/19 12:19 Patient reports: no new complaints, bowel movement ( Eventually had 3 bowel movements yesterday and 1 so far today.) and other ( Patient had Gastrografin upper GI small-bowel follow-through yesterday. Took until 10:00 last night to complete.) Interval history: Nursing reports patient NG was clamped all day due to the upper GI small-bowel follow-through. At 10:00 p.m. last night, the NG tube was hooked back to suction and 4000 cc came forth. Patient feels a little better this morning. He did have bowel movements after the study. The study showed an ileus. Review of Systems Review of Systems: All systems reviewed & are unremarkable except as noted in HPI and below ( HPI and those items noted below) ROS unobtainable: Yes unobtainable due to mental status ( patient provides little history due to bipolar affective disorder ) Constitutional: Constitutional: Denies headache(s) Cardiovascular: Cardiovascular: Denies chest pain and
[2019-09-30 12:34] LABS: Glucose Point of Care 174 (65-105)
--- NOTE | 2019-09-30 13:18 | WPDGICN ---
Assessment and Plan Assessment and plan (1) Adynamic ileus: Code(s): K56.0 - Paralytic ileus Status: Acute Assessment and Plan: Patient appears to have prolonged ileus. No evidence of obstruction by recent small bowel series. He does appear to have poor motility. Manifested by decreased bowel sounds, prolonged constipation, significant NG tube output. At present with the dilated loops of small bowel no obvious obstruction. I would defer endoscopy at this time. Agree with using metoclopramide promotility agent via IV. I would attempt to discontinue any extra narcotics if at all possible. And perhaps some of the antipsychotic medications as well. We will continue to follow with you. Ensuring that electrolytes are imbalance will be important as well. (2) Rib fractures: Qualifiers: Encounter type: sequela Rib fracture type: multiple ribs Fracture type: closed Laterality: right Qualified Code(s): S22.41XS - Multiple fractures of ribs, right side, sequela Code(s): S22.39XA - Fracture of one rib, unspecified side, initial encounter for closed fracture Status: Acute Assessment and Plan: Rib fractures do not immediately appear to contribute to his poor motility aside from the use of narcotic pain medications which should be limited at this juncture. (3) Bipolar 1 disorder: Code(s): F31.9 - Bipolar disorder, unspecified Status: Chronic (4) Hx laparoscopic cholecystectomy: Code(s): Z90.49 - Acquired absence of other specified parts of digestive tract Status: Acute Assessment and Plan: Patient had lap choly 1 month ago. At that time was identified as having a gangrenous gallbladder and ruptured gallbladder. It is possible the patient could have adhesions contributing to poor motility. No obstruction on recent small bowel series noted. Recent HIDA scan reveals no evidence of a bile leak. (5) Constipation: Qualifiers: Constipation type: unspecified constipation type Qualified Code(s): K59.00 - Constipation, unspecified Code(s): K59.00 - Constipation, unspecified Status: Acute Assessment and Plan: Constipation likely on the basis of poor bowel motility. Perhaps secondary to recent narcotic use. Plan is to continue Reglan. Consider enemas and will try dulcolax suppository. GI Consult Note Consult date/time: 09/30/19 13:18 HPI: Manny Hurt is a 68 year old male seen in evaluation at the request of the hospitalist service. This patient has a history of bipolar illness. Currently resides in a senior living. He was admitted to the hospital 1 month ago. During that hospital stay underwent a cholecystectomy by Dr. Villalba on 08/19/2019 he was identified as having a gangrenous on ruptured gallbladder. He was able to be discharged home on antibiotics on 08/21 and return to her senior living. He apparently had syncope prompting him to be admitted to the hospital on 09/23/2019 and was felt to have significant constipation by CT scan. Patient has been unable to give any useful history. It is uncertain but apparently this is his baseline. He currently has been treated with metoclopramide with poor response to this therapy. Nursing staff does report bowel movements on a daily basis. Patient is unable to confirm this. Patient underwent a small bowel series yesterday which reveal contrast passing through to the colon but in a delayed fashion. The small bowel is noted to be somewhat distended. Review of Systems Review of Systems: All systems reviewed & are unremarkable except as noted in HPI and below ROS unobtainable: Yes unobtainable due to mental status PMFSH Past Medical History Medical History Bipolar 1 disorder BPH loc w urin obs/LUTS GERD (gastroesophageal reflux disease) Hyperlipidemia Hypertension, essential Surgical History Surgical History (Reviewed 09/30/19 @ 13:21
[2019-09-30] MEDS: BISACODYL 10 MG SUPPOSITORY RECTAL (14:21)
--- NOTE | 2019-09-30 17:03 | PCDIET ---
Nutrition Follow-Up Complete: Altered GI fxn as related to SBO as evidenced by NPO x 5 days. Meet estimated nutritional needs Goal: Goal met. Continue current goal. Pt current nutrition is TNP. Nutrition recommendation: Agree Last recorded weight is 91.8 kg (down from 97.4kg yesterday, questions accuracy) Bowel Motility: Decreased (on reglan, mineral oil, and senna) Labs Reviewed:Glucose 136. Triglycerides normal Meds Noted:Ativan, Zofran, and bowel agents noted above Additional Notes: Pt on TPN: Clinimix E 5/15 at 40 ml/hr and 250 ml Lipid Emulsion providing 1182 kcals and 48g protein. All labs WNL today. Recommend advancing to 80 ml/hr to provide 1863kcals and 98g protein to better meet pt needs. Pt with aron one month ago. May benefit from roasterman bile salt supplementation to aid in proper digestion. Recommend a heart healthy diet when pt able to consume foods orally. We will continue to monitor every T/F.
[2019-09-30 17:38] LABS: Glucose Point of Care 117 (65-105)
--- NOTE | 2019-09-30 17:42 | PM.IMPN ---
Progress Note: A&P Assessment and Plan (1) Adynamic ileus: Code(s): K56.0 - Paralytic ileus Status: Acute Assessment and Plan: The patient developed vomiting and plain abdominal films 09/26/19 revealed a small bowel obstruction versus ileus. NG tube was placed and the patient is NPO. General surgery is on board and input is greatly appreciated. Repeat upper GI series with gastrografin and SBFT 09/29/19 revealed evidence of ileus as contrast did reach the colon between the 10 and [address] Sellers with GI was consulted today after discussion with general surgery and input is appreciated. Plan to continue conservative management with NG tube decompression and bowel rest. Continue analgesics PRN and antiemetics PRN. Discontinue opioids. Taper seroquel slowly. Encourage ambulation and OOB to chair. He did have three bowel movements yesterday and two today so far. His abdomen feels softer today and he does have bowel sounds which are somewhat hypoactive. He is on TPN/clinimix at this time and the registered associate recommended we increase his rate to 80cc/hr to meet his nutritional needs. Will check TSH. Continue to monitor electrolytes. Continue to monitor closely with abdominal plain films tomorrow. (2) SIRS (systemic inflammatory response syndrome): Code(s): R65.10 - Systemic inflammatory response syndrome (SIRS) of non-infectious origin without acute organ dysfunction Status: Acute Assessment and Plan: The patient met SIRS criteria with leukocytosis and tachycardia. Lactic acid was elevated initially which has resolved. There was no identifiable cause of infection and his tachycardia and leukocytosis may have been due to vomiting. He was treated with IV zosyn since he is s/p recent cholecystectomy and his leukocytosis resolved. HIDA was negative for bile leak. He is stable from this standpoint. Blood cultures were final and reveal no growth. Continue to monitor. (3) ROSENDO (acute kidney injury): Code(s): N17.9 - Acute kidney failure, unspecified Status: Resolved Assessment and Plan: Resolved. ROSENDO was likely pre-renal due to decreased PO intake and vomiting. Plan to continue gentle IV fluids. Continue to monitor renal function. (4) Syncope and collapse: Code(s): R55 - Syncope and collapse Status: Acute Assessment and Plan: Patient had a witnessed syncopal episode at his SNF at [facility] prior to arrival while he was going to the bathroom. This was likely due to a vasovagal episode due to dehydration versus severe constipation. he does exhibit orthostatic hypotension and seroquel is likely contributing. Temeletry revealed sinus rhythm with occasional PACs and PVCs. There were no evidence of arrhythmias/pauses. No further caridac workup was indicated as his episode was highly suspicious for vasovagal syncope. Continue to monitor. (5) Constipation: Qualifiers: Constipation type: unspecified constipation type Qualified Code(s): K59.00 - Constipation, unspecified Code(s): K59.00 - Constipation, unspecified Status: Acute Assessment and Plan: Patient was found to have a large amount of stool to his rectum and sigmoid colon at presentation. This is likely due to poor motility and possibly narcotic pain medication. He received several enemas and relistor. General surgery was consulted from the ED. He developed SBO vs ileus 09/26/19. He is NPO with NG tube in place for bowel rest. He is having loose stools. Continue to monitor. Appreciated continued GI and general surgery input. (6) Hypertension, essential: Code(s): I10 - Essential (primary) hypertension Status: Acute Assessment and Plan: Blood pressures were reviewed and blood pressure control is reasonable bu elevated >150 systolic. Resume amlodipine. Continue PRN hydralazine. Continue to monitor closely. (7) Bipolar 1 dis
[2019-09-30] MEDS: FAT EMULSIONS IV 20% 250 ML 20.8 ML IVPB (18:35)
[2019-09-30] MEDS: QUEtiapine FUMARATE 100 MG TABLET 700 MG PO (21:31)
[2019-09-30] MEDS: TAMSULOSIN HCL 0.4 MG CAPSULE PO (21:32)
[2019-09-30 22:00] VITALS: BP 143/73; PULSE 71; RESP 18; TEMP 36.4; O2SAT 97
[2019-10-01] VITALS (9 sets, daily range): BP systolic 89–146; BP diastolic 51–73; PULSE 72–105; RESP 16–18; TEMP 36.2–36.7; O2SAT 95–100
[2019-10-01 00:26] LABS: Glucose Point of Care 125 (65-105)
[2019-10-01] MEDS: METOCLOPRAMIDE HCL INJ 10 MG/2 ML VIAL IV PUSH ×3 (04:57→17:33)
[2019-10-01] MEDS: CENTRAL LINE FLUSH 10 ML IV PUSH ×4 (04:57→21:20)
[2019-10-01 06:33] LABS: Hematocrit 33.3 % (42.0-52.0); Hemoglobin 11.1 g/dL (14.0-18.0); Mean Corpuscular HGB Conc 33.3 g/dl (32-36); Mean Corpuscular Hemoglobin 30.6 pg (26-34); Mean Corpuscular Volume 91.7 fl (80-100); Mean Platelet Volume 9.3 fl (7.4-10.4); Platelet Count Result 272 k/mm3 (150-375); Red Blood Count 3.63 M/mm3 (4.6-6.20); Red Cell Distribution Width 13.7 % (11.5-14.5); White Blood Count 8.8 K/mm3 (4.5-10.0)
[2019-10-01 06:48] LABS: Blood Urea Nitrogen 20 mg/dL (9-20); Calcium 8.2 mg/dL (8.4-10.2); Carbon Dioxide 27 mmol/L (22-30); Chloride 106 mmol/L (98-107); Estimated CRCL calculation 80 ml/min; Estimated Glomerular Filt Rate > 60; Glucose 123 mg/dL (75-110); Potassium 4.2 mmol/L (3.4-5.0); Sodium 137 mmol/L (137-145)
[2019-10-01] MEDS: BISACODYL 10 MG SUPPOSITORY RECTAL (08:33)
[2019-10-01] MEDS: PANTOPRAZOLE SODIUM IV 40 MG VIAL IV PUSH ×2 (08:33→21:11)
[2019-10-01] MEDS: ENOXAPARIN 40 MG/0.4 ML SYRINGE SUB-Q (08:33)
[2019-10-01] MEDS: LIDOCAINE 5% PATCH 1 PATCH TRANSDERM (08:33)
--- NOTE | 2019-10-01 09:31 | WPDGIPROGNO ---
Progress Note: A&P Assessment and Plan (1) Hx laparoscopic cholecystectomy: Code(s): Z90.49 - Acquired absence of other specified parts of digestive tract Status: Acute (2) Adynamic ileus: Code(s): K56.0 - Paralytic ileus Status: Acute Assessment and Plan: Clinically ileus is improved. Bowel sounds are present. Bowel movements are reported by nursing staff abdomen is soft and nontender. A KUB obtained today reveals nondistended loops of bowel. Recent small bowel series revealed no obstruction. Plan is to clamp the NG tube. Continue Reglan intravenously. Dulcolax suppositories may be of some benefit will be continued. Hopefully we can DC NG tube if is abdomen remains nondistended. (3) Bipolar 1 disorder: Code(s): F31.9 - Bipolar disorder, unspecified Status: Chronic Subjective Date/time seen: 10/01/19 09:31 Patient unable to give any useful history. He is alert today. Offers no specific complaints. Nursing staff reports he continues to have bowel movements daily. No bleeding reported. Exam Narrative: Exam Narrative: On physical exam is vital signs are stable. He is afebrile. He is anicteric. Lungs are clear. NG tube in place. Abdomen is soft bowel sounds are present today no tenderness. No organomegaly. Objective Data Vital Signs Vital Signs: Vital Signs - 24 hr 09/30/19 22:00 10/01/19 06:00 10/01/19 06:05 Temperature 36.4 C 36.2 C L Pulse Rate 71 75 86 Respiratory Rate 18 16 Blood Pressure 143/73 H 137/56 L 92/51 L Pulse Oximetry 97 95 10/01/19 06:10 10/01/19 08:13 Temperature Pulse Rate 102 H Respiratory Rate Blood Pressure 89/57 L 146/60 H Pulse Oximetry Intake/Output Intake/Output: Intake & Output 09/28/19 09/29/19 09/30/19 10/01/19 23:59 23:59 23:59 23:59 Intake Total 2822 373 2365 Output Total 1575 1800 300 Balance 1247 373 565 -300 Meds/Results Medications: Active Medications Generic Name Dose Route Start Last Admin Trade Name Freq PRN Reason Stop Dose Admin Acetaminophen 500 mg 09/24/19 07:10 09/25/19 06:48 Tylenol Tablet PO 500 mg Q6H PRN Administration Mild Pain (1-3) or Fever Hydrocodone Bitart/Acetaminophen 1 tab 09/24/19 07:10 [place] 5-325 Mg PO Q4H PRN Pain Rated 4-6 Hydrocodone Bitart/Acetaminophen 1 tab 09/24/19 07:10 [place] 7.5-325 Mg PO Q4H PRN Pain Rated 7-10 Aspirin 81 mg 09/25/19 09:00 09/25/19 08:36 Aspirin Ec PO 81 mg DAILY KWASI Administration Bisacodyl 10 mg 09/30/19 09:00 10/01/19 08:33 Dulcolax Suppository RECTAL 10 mg QAM KWASI Administration Enoxaparin Sodium 40 mg 09/24/19 09:00 10/01/19 08:33 Lovenox SUB-Q 40 mg DAILY KWASI Administration Hydralazine HCl 10 mg 09/23/19 17:46 Apresoline Hcl Inj IV PUSH Q8H PRN Blood Pressure - High Ibuprofen 800 mg in 200 mls @ 400 mls/hr 09/24/19 07:10 Caldolor 800 Mg/200 Ml IVPB Q6H PRN Pain Rated 4-6 Dextrose 1,000 mls @ 50 mls/hr 09/29/19 11:39 Dextrose 10% IV CONT .Q20H PRN if PN is interrupted Multivitamins 5 ml/ Amino 2,005 mls @ 80 mls/hr 09/29/19 18:00 09/30/19 18:36 Acids/Electrolytes/Dextrose IV CONT 40 mls/hr .Q24H KWASI Administration Protocol Fat Emulsion Intravenous 250 mls @ 20.833 mls/hr 09/29/19 18:00 09/30/19 18:35 Lipids 20% IVPB 20.8 mls/hr Q24H KWASI Administration Lidocaine 1 patch 09/25/19 09:00 10/01/19 08:33 Lidoderm TRANSDERM 1 patch DAILY KWASI Administration Lorazepam 0.5 mg 09/23/19 17:43 09/23/19 20:39 Ativan Inj IV PUSH 0.5 mg Q6H PRN Administration Anxiety Metoclopramide HCl 10 mg 09/27/19 12:00 10/01/19 04:57 Reglan IV PUSH 10 mg Q6HR KWASI Administration Mineral Oil 30 ml 09/23/19 17:00 09/25/19 17:23 Mineral Oil PO 30 ml BID KWASI Administration Morphine Sulfate 2 mg 09/24/19 07:10 Morphine Sulfate Inj IV PUSH
--- NOTE | 2019-10-01 10:35 | PC.NURSE ---
Patient is withdrawn and unwilling to answer questions this morning. I have asked the patient multiple times about any pain he may have and he will look away and not answer my questions this morning.
--- NOTE | 2019-10-01 11:19 | PCPTNOTE ---
Patient refused treatment this session due to fatigue. Therapist reminded Pt of the importance of therapy and getting up. POt continued to refuse stating Nope, I don't really want to do that. Will attempt again.
--- NOTE | 2019-10-01 11:20 | PM.PNGS ---
Progress Note: A&P Assessment and Plan (1) Adynamic ileus: Code(s): K56.0 - Paralytic ileus Status: Acute Assessment and Plan: S/p laparoscopic cholecystectomy on 08/19/19 for acute gangrenous cholecystitis with a ruptured gallbladder. Completed a course of antibiotics and discharged home with oral antibiotics. Returned to the ER for this hospitalization with constipation, leukocytosis, and lactic acidosis. HIDA scan showed no evidence of a bile leak. He has completed a 7-day course of broad-spectrum IV abx, which was stopped yesterday. WBC remains normal and he is afebrile. Constipation was treated initially as well. He then began showing signs of an ileus versus SBO on 09/25/19. Patient now with prolonged ileus of an uknown etiology. SBFT done on 09/26/19 and again on 09/29/19 which showed no evidence of an obstruction but prolonged transit, consistent with an ileus. The second SBFT showed contrast moving to the colon between 10-12 hours. Gastroenterology consulted yesterday and recommendations noted. Continue Reglan to promote motility and dulcolax supp. KUB this morning showed normal bowel gas pattern with some oral contrast in the colon. NG tube has been clamped this morning. Will see how he tolerates this. Continue TPN for now until tolerating a substantial diet. Still no indication for surgery at this time. (2) Bipolar 1 disorder: Code(s): F31.9 - Bipolar disorder, unspecified Status: Chronic Assessment and Plan: Non-verbal for me today. When speaking to his sister/POA earlier this week, she stated that he becomes non-verbal when feeling more depressed. It appears he has been continued on his home medications that he takes for his psychiatric illness. Management per Hospitalist. Additional Plan Discussed the plan of care with Dr. Villalba today. Subjective Subjective Date/Time Seen: 10/01/19 10:00 Interval history: The patient is sitting up in bed alert and awake. He is refusing to answer any questions today and will not verbally respond to me, but does make eye contact. Review of Systems Review of Systems: ROS unobtainable: Yes unobtainable due to mental status Exam Const: General: no acute distress, alert and awake Nutritional Appearance: overweight Resp: Effort & Inspection: no respiratory distress Auscultation: clear to auscultation bilaterally Cardio: Rate: regular rate Rhythm: regular rhythm GI: Inspection: incision ( Laparoscopic trocar sites continue to heal well) and other (mildly distended) GI Palp: Yes Soft to palpation, No Tenderness to palpation present (GI) (No grimacing with palpation) and No Guarding due to palpation present (GI) Auscultation: normal bowel sounds ( good bowel sounds this morning.) Neuro: General: moves all extremities and no focal motor deficits Cranial nerves: Yes facial symmetry Extrem: General: no calf tenderness and no edema Psych: Affect: Blunted affect present Insight: Limited insight present (Psych) Judgement: Limited judgement present (Psych) Objective Data Vital Signs Vital Signs: Vital Signs - 24 hr 09/30/19 22:00 10/01/19 06:00 10/01/19 06:05 Temperature 36.4 C 36.2 C L Pulse Rate 71 75 86 Respiratory Rate 18 16 Blood Pressure 143/73 H 137/56 L 92/51 L Pulse Oximetry 97 95 10/01/19 06:10 10/01/19 08:13 Temperature Pulse Rate 102 H Respiratory Rate Blood Pressure 89/57 L 146/60 H Pulse Oximetry Intake/Output Intake/Output: Intake & Output 09/28/19 09/29/19 09/30/19 10/01/19 23:59 23:59 23:59 23:59 Intake Total 2822 373 2365 Output Total 1575 1800 300 Balance 1247 373 565 -300 Meds/Results Medications: Active Medications Generic Name Dose Route Start Last Admin Trade Name Freq PRN Reason Stop Dose Admin Acetaminophen 500 mg 09/24/19 07:10 09/25/19 06:48 Tylenol Tablet PO 500 mg Q6H PRN Administration Mild Pain (1-3) or Fever Hydrocodone Bitart/Acetaminophen 1 tab 09/24/19 07:
--- NOTE | 2019-10-01 11:37 | PCOTNOTE ---
Attempted to see patient this am, however patient declined. Upon entering, patient made minimal communication or eye contact. I don't feel like it. Pt declined feeling upset about anything at this time.
[2019-10-01 12:21] LABS: Glucose Point of Care 102 (65-105)
[2019-10-01 12:38] LABS: Glucose Point of Care 108 (65-105)
--- NOTE | 2019-10-01 14:05 | PM.IMPN ---
Progress Note: A&P Assessment and Plan (1) Adynamic ileus: Code(s): K56.0 - Paralytic ileus Status: Acute Assessment and Plan: The patient developed vomiting and plain abdominal films 09/26/19 revealed a small bowel obstruction versus ileus. NG tube was placed and the patient was made NPO for bowel rest. General surgery is on board and input is greatly appreciated. Repeat upper GI series with gastrografin and SBFT 09/29/19 revealed evidence of ileus as contrast did reach the colon between the 10 and [address] Sellers with GI was consulted 09/30/19 after discussion with general surgery and input is appreciated. Plan to continue conservative management. Dr. Sellers clamped the NG tube today (10/01/19)) and will continue ducolax suppositories. Repeat abdominal plain films revealed no significant bowel gas distention today. He does seem to be improving as his abdomen is soft and less distended. He feels he is improving as well. He has not had a bowel movement yet today. Continue analgesics PRN and antiemetics PRN. Discontinue opioids. Taper seroquel slowly. Encourage ambulation and OOB to chair which I dicussed with RN today. Will re-consult PT/OT as well. Continue TPN/clinimix at 80cc/hr to meet his nutritional needs. TSH was normal. Continue to monitor electrolytes. Continue to monitor closely with serial abdominal plain films. (2) SIRS (systemic inflammatory response syndrome): Code(s): R65.10 - Systemic inflammatory response syndrome (SIRS) of non-infectious origin without acute organ dysfunction Status: Resolved Assessment and Plan: Resolved. The patient met SIRS criteria with leukocytosis and tachycardia. Lactic acid was elevated initially which has resolved. There was no identifiable cause of infection and his tachycardia and leukocytosis may have been due to vomiting. He was treated with IV zosyn since he is s/p recent cholecystectomy and his leukocytosis resolved. HIDA was negative for bile leak. He is stable from this standpoint. Blood cultures were final and reveal no growth. (3) ROSENDO (acute kidney injury): Code(s): N17.9 - Acute kidney failure, unspecified Status: Resolved Assessment and Plan: Resolved. ROSENDO was likely pre-renal due to decreased PO intake and vomiting. Plan to continue gentle IV fluids. Continue to monitor renal function. (4) Syncope and collapse: Code(s): R55 - Syncope and collapse Status: Acute Assessment and Plan: Patient had a witnessed syncopal episode at his SNF at [facility] prior to arrival while he was going to the bathroom. This was likely due to a vasovagal episode due to dehydration versus severe constipation. He does exhibit orthostatic hypotension and seroquel is likely contributing as well as tamsulosin. Temeletry revealed sinus rhythm with occasional PACs and PVCs. There were no evidence of arrhythmias/pauses. No further caridac workup was indicated as his episode was highly suspicious for vasovagal syncope. Continue to monitor. Continue RAJ hose for orthostatic hypotension and precautions when going from lying to sitting and sitting to standing. (5) Constipation: Qualifiers: Constipation type: unspecified constipation type Qualified Code(s): K59.00 - Constipation, unspecified Code(s): K59.00 - Constipation, unspecified Status: Acute Assessment and Plan: Patient was found to have a large amount of stool to his rectum and sigmoid colon at presentation. This is likely due to poor motility and possibly narcotic pain medication. He received several enemas and relistor. General surgery was consulted from the ED. He developed SBO vs ileus 09/26/19 and was made NPO with NG tube in place for bowel rest. NG tube is clamped at this time. He has not had a bowel movement today. Continue ducolax suppositories per GI. Appreciate continued GI and general surgery input. (6) Hyp
[2019-10-01] MEDS: FAT EMULSIONS IV 20% 250 ML 20 ML IVPB (17:33)
[2019-10-01 17:50] LABS: Glucose Point of Care 133 (65-105)
[2019-10-01] MEDS: TAMSULOSIN HCL 0.4 MG CAPSULE PO (21:06)
[2019-10-01] MEDS: QUEtiapine FUMARATE 100 MG TABLET 700 MG PO (21:06)
[2019-10-02] MEDS: METOCLOPRAMIDE HCL INJ 10 MG/2 ML VIAL IV PUSH ×4 (00:40→16:41)
[2019-10-02 02:24] LABS: Glucose Point of Care 110 (65-105)
[2019-10-02 05:25] LABS: Basophils Percent Auto 0.2 % (0.2-1.2); Eosinophils Absolute Auto 0.3 K/mm3 (0-0.3); Eosinophils Percent Auto 2.8 % (0-4.4); Hematocrit 31.9 % (42.0-52.0); Hemoglobin 10.5 g/dL (14.0-18.0); Immature Granulocyte Absolute 0.19 K/mm3 (0.00-0.031); Immature Granulocyte Percent A 1.8 % (0-0.5); Lymphocytes Absolute Auto 1.74 K/mm3 (0.9-3.2); Lymphocytes Percent Auto 16.8 % (18.3-44.2); Mean Corpuscular HGB Conc 32.9 g/dl (32-36); Mean Corpuscular Hemoglobin 30.1 pg (26-34); Mean Corpuscular Volume 91.4 fl (80-100); Mean Platelet Volume 9.4 fl (7.4-10.4); Monocytes Absolute Auto 0.5 K/mm3 (0.1-0.6); Monocytes Percent Auto 4.7 % (2.6-8.5); Neutrophils Absolute Auto 7.6 K/mm3 (1.3-6.7); Neutrophils Percent Auto 73.7 % (45.5-73.1); Platelet Count Result 266 k/mm3 (150-375); Red Blood Count 3.49 M/mm3 (4.6-6.20); Red Cell Distribution Width 13.6 % (11.5-14.5); White Blood Count 10.4 K/mm3 (4.5-10.0)
[2019-10-02] MEDS: CENTRAL LINE FLUSH 10 ML IV PUSH ×4 (05:25→20:29)
[2019-10-02 05:39] LABS: Alanine Aminotransferase 105 U/L (4-50); Alkaline Phosphatase 79 U/L (38-126); Aspartate Amino Transferase 50 U/L (17-59); Bilirubin,Total 0.2 mg/dL (0.2-1.3); Blood Urea Nitrogen 24 mg/dL (9-20); Calcium 8.3 mg/dL (8.4-10.2); Carbon Dioxide 25 mmol/L (22-30); Chloride 105 mmol/L (98-107); Estimated CRCL calculation 80 ml/min; Estimated Glomerular Filt Rate > 60; Glucose 111 mg/dL (75-110); Phosphorus 4.1 mg/dL (2.5-4.5); Potassium 4.1 mmol/L (3.4-5.0); Sodium 135 mmol/L (137-145)
[2019-10-02 06:00] VITALS: BP 132/62; PULSE 69; RESP 18; TEMP 36.5; O2SAT 96
[2019-10-02 06:30] VITALS: BP 126/54; PULSE 68
[2019-10-02 06:35] VITALS: BP 115/58; PULSE 77
[2019-10-02 07:51] LABS: Glucose Point of Care 105 (65-105)
[2019-10-02 08:00] VITALS: PULSE 77; RESP 18; O2SAT 96
--- NOTE | 2019-10-02 08:04 | WPDGIPROGNO ---
Progress Note: A&P Additional Plan Patient remains alert. Unable to add significant history. States that he passes a bowel movement daily. Nurses agree with this assessment. NG tube remains in place. Currently clamped. Physical exam reveals patient to be alert. Vital signs are stable. NG tube in place but clamp. Lungs are clear. Heart without murmur. Abdomen is soft. Mild tympany noted diffusely. No localized tenderness. No masses. Impression 1. Ileus may not totally be resolved. Plantar is to restart NG tube decompression. I would not plan an EGD as this is contraindicated with an ileus. Continue intravenous Reglan. Supplement with Dulcolax suppositories. Continue to monitor KUB. Today's KUB results pending. 2. Status post lap choly. 3. Bipolar Subjective Date/time seen: 10/02/19 08:04 Objective Data Vital Signs Vital Signs: Vital Signs - 24 hr 10/01/19 08:13 10/01/19 14:00 10/01/19 15:00 Temperature 98.1 F Pulse Rate 105 H Respiratory Rate 18 Blood Pressure 146/60 H 135/67 139/65 Pulse Oximetry 96 10/01/19 15:01 10/01/19 15:03 10/01/19 22:00 Temperature 97.9 F Pulse Rate 72 Respiratory Rate 18 Blood Pressure 110/61 102/57 L 128/73 Pulse Oximetry 100 10/02/19 06:00 10/02/19 06:30 10/02/19 06:35 Temperature 97.7 F Pulse Rate 69 68 77 Respiratory Rate 18 Blood Pressure 132/62 126/54 L 115/58 L Pulse Oximetry 96 Intake/Output Intake/Output: Intake & Output 09/29/19 09/30/19 10/01/19 10/02/19 23:59 23:59 23:59 23:59 Intake Total 373 2365 1289 Output Total 1800 300 Balance 373 565 989 Meds/Results Medications: Active Medications Generic Name Dose Route Start Last Admin Trade Name Freq PRN Reason Stop Dose Admin Acetaminophen 500 mg 09/24/19 07:10 09/25/19 06:48 Tylenol Tablet PO 500 mg Q6H PRN Administration Mild Pain (1-3) or Fever Hydrocodone Bitart/Acetaminophen 1 tab 09/24/19 07:10 [place] 5-325 Mg PO Q4H PRN Pain Rated 4-6 Hydrocodone Bitart/Acetaminophen 1 tab 09/24/19 07:10 [place] 7.5-325 Mg PO Q4H PRN Pain Rated 7-10 Aspirin 81 mg 09/25/19 09:00 09/25/19 08:36 Aspirin Ec PO 81 mg DAILY KWASI Administration Bisacodyl 10 mg 09/30/19 09:00 10/01/19 08:33 Dulcolax Suppository RECTAL 10 mg QAM KWASI Administration Enoxaparin Sodium 40 mg 09/24/19 09:00 10/01/19 08:33 Lovenox SUB-Q 40 mg DAILY KWASI Administration Hydralazine HCl 10 mg 09/23/19 17:46 Apresoline Hcl Inj IV PUSH Q8H PRN Blood Pressure - High Ibuprofen 800 mg in 200 mls @ 400 mls/hr 09/24/19 07:10 [place] 800 Mg/200 Ml IVPB Q6H PRN Pain Rated 4-6 Dextrose 1,000 mls @ 50 mls/hr 09/29/19 11:39 Dextrose 10% IV CONT .Q20H PRN if PN is interrupted Multivitamins 5 ml/ Amino 2,005 mls @ 80 mls/hr 09/29/19 18:00 10/01/19 17:33 Acids/Electrolytes/Dextrose IV CONT 80 mls/hr .Q24H KWASI Infusion Protocol Fat Emulsion Intravenous 250 mls @ 20.833 mls/hr 09/29/19 18:00 10/01/19 17:33 Lipids 20% IVPB 20 mls/hr Q24H KWASI Administration Lidocaine 1 patch 09/25/19 09:00 10/01/19 08:33 Lidoderm TRANSDERM 1 patch DAILY KWASI Administration Lorazepam 0.5 mg 09/23/19 17:43 09/23/19 20:39 Ativan Inj IV PUSH 0.5 mg Q6H PRN Administration Anxiety Metoclopramide HCl 10 mg 09/27/19 12:00 10/02/19 05:25 Reglan IV PUSH 10 mg Q6HR KWASI Administration Mineral Oil 30 ml 09/23/19 17:00 09/25/19 17:23 Mineral Oil PO 30 ml BID KWASI Administration Morphine Sulfate 2 mg 09/24/19 07:10 Morphine Sulfate Inj IV PUSH Q2H PRN Pain Rated 7-10 Olanzapine 2.5 mg 09/24/19 11:45 Zyprexa PO DAILY PRN Anxiety Ondansetron HCl 4 mg 09/23/19 10:27 09/27/19 08:20 Zofran Inj IV PUSH 4 mg Q4H PRN Administration Nausea Pantoprazole Sodium 40 mg 09/24/19 11:50 07
[2019-10-02] MEDS: LIDOCAINE 5% PATCH 1 PATCH TRANSDERM (09:08)
[2019-10-02] MEDS: ENOXAPARIN 40 MG/0.4 ML SYRINGE SUB-Q (09:09)
[2019-10-02] MEDS: PANTOPRAZOLE SODIUM IV 40 MG VIAL IV PUSH ×2 (09:09→20:28)
[2019-10-02] MEDS: BISACODYL 10 MG SUPPOSITORY RECTAL (09:10)
--- NOTE | 2019-10-02 12:21 | PM.PNGS ---
Progress Note: A&P Assessment and Plan (1) Hx laparoscopic cholecystectomy: Code(s): Z90.49 - Acquired absence of other specified parts of digestive tract Status: Acute Assessment and Plan: I placed NG back up to suction this afternoon and there was very minimal output. Will try to keep NG clamped and start clear liquids today. Also ordered simethicone per NG q.6 hours. Increasing activity would hopefully help with bowel function. Will try to gradually advanced diet and get NG tube out over the next couple days. If there is any worsening of abdominal distension or further elevated white count, could consider repeat CT abdomen and pelvis. (2) Adynamic ileus: Code(s): K56.0 - Paralytic ileus Status: Acute (3) Nausea and vomiting: Qualifiers: Vomiting type: unspecified Vomiting Intractability: non-intractable Qualified Code(s): R11.2 - Nausea with vomiting, unspecified Code(s): R11.2 - Nausea with vomiting, unspecified Status: Acute Subjective Subjective Date/Time Seen: 10/02/19 12:21 Interval history: Patient thinks he had a bowel movement yesterday. He is passing flatus today. Says that NG is uncomfortable. Exam GI: Inspection: incision (Healed) and other (Mild distention) GI Palp: Yes Soft to palpation and No Tenderness to palpation present (GI) Percussion: Yes tympanic to percussion Auscultation: normal bowel sounds Objective Data Vital Signs Vital Signs: Vital Signs - 24 hr 10/01/19 14:00 10/01/19 15:00 10/01/19 15:01 Temperature 36.7 C Pulse Rate 105 H Respiratory Rate 18 Blood Pressure 135/67 139/65 110/61 Pulse Oximetry 96 10/01/19 15:03 10/01/19 22:00 10/02/19 06:00 Temperature 36.6 C 36.5 C Pulse Rate 72 69 Respiratory Rate 18 18 Blood Pressure 102/57 L 128/73 132/62 Pulse Oximetry 100 96 10/02/19 06:30 10/02/19 06:35 10/02/19 08:00 Temperature Pulse Rate 68 77 77 Respiratory Rate 18 Blood Pressure 126/54 L 115/58 L Pulse Oximetry 96 Intake/Output Intake/Output: Intake & Output 09/29/19 09/30/19 10/01/1910/01/20 23:59 23:59 23:59 23:59 Intake Total 373 1952 2266 4090 Output Total 1800 300 Balance 373 299 936 5757 Meds/Results Medications: Active Medications Generic Name Dose Route Start Last Admin Trade Name Freq PRN Reason Stop Dose Admin Acetaminophen 500 mg 09/24/19 07:10 09/25/19 06:48 Tylenol Tablet PO 500 mg Q6H PRN Administration Mild Pain (1-3) or Fever Hydrocodone Bitart/Acetaminophen 1 tab 09/24/19 07:10 [place] 5-325 Mg PO Q4H PRN Pain Rated 4-6 Hydrocodone Bitart/Acetaminophen 1 tab 09/24/19 07:10 [place] 7.5-325 Mg PO Q4H PRN Pain Rated 7-10 Al Hydrox/Mg Hydrox/Simethicone 30 ml 10/02/19 12:20 Mylanta FEED TUBE Q6H KWASI Aspirin 81 mg 09/25/19 09:00 09/25/19 08:36 Aspirin Ec PO 81 mg DAILY KWASI Administration Bisacodyl 10 mg 09/30/19 09:00 10/02/19 09:10 Dulcolax Suppository RECTAL 10 mg QAM KWASI Administration Enoxaparin Sodium 40 mg 09/24/19 09:00 10/02/19 09:09 Lovenox SUB-Q 40 mg DAILY KWASI Administration Hydralazine HCl 10 mg 09/23/19 17:46 Apresoline Hcl Inj IV PUSH Q8H PRN Blood Pressure - High Ibuprofen 800 mg in 200 mls @ 400 mls/hr 09/24/19 07:10 Cald[place] 800 Mg/200 Ml IVPB Q6H PRN Pain Rated 4-6 Dextrose 1,000 mls @ 50 mls/hr 09/29/19 11:39 Dextrose 10% IV CONT .Q20H PRN if PN is interrupted Multivitamins 5 ml/ Amino 2,005 mls @ 80 mls/hr 09/29/19 18:00 10/01/19 17:33 Acids/Electrolytes/Dextrose IV CONT 80 mls/hr .Q24H KWASI Infusion Protocol Fat Emulsion Intravenous 250 mls @ 20.833 mls/hr 09/29/19 18:00 10/02/19 07:00 Lipids 20% IVPB Infused Q24H KWASI Infusion Lidocaine 1 patch 06/25/20 09:00 10/02/19 09:08 Lidoderm TRANSDERM 1 patch DAILY KWASI Administration Lorazepam 0.5 mg
[2019-10-02 12:28] LABS: Glucose Point of Care 93 (65-105)
[2019-10-02] MEDS: MAG HYDROX/AL HYDROX/SIMETH 30 ML UDC FEED TUBE ×2 (12:45→19:57)
[2019-10-02 12:52] LABS: Triglycerides 126 mg/dL (<150)
--- NOTE | 2019-10-02 13:43 | PM.IMPN ---
Progress Note: A&P Assessment and Plan (1) Adynamic ileus: Code(s): K56.0 - Paralytic ileus Status: Acute Assessment and Plan: CT abd/pelvis at admission revealed a large amount of colonic stool and gas throughout the colon, with the rectal vault measuring 8 cm. After admission, the patient developed vomiting. Plain abdominal films 09/26/19 revealed a small bowel obstruction versus ileus. NG tube was placed and the patient was made NPO for bowel rest. General surgery is on board and input is greatly appreciated. Repeat upper GI series with gastrografin and SBFT 09/29/19 revealed evidence of ileus as contrast did reach the colon between the 10 and [address] Sellers with GI was consulted 09/30/19 after discussion with general surgery and input is appreciated. Plan to continue conservative management for now. The NG was placed to suction with very minimal output. Plan to clamp the NG and advance to a clear liquid diet. Begin simethicone. Continue analgesics PRN and antiemetics PRN. Discontinue opioids. Taper seroquel slowly. Continue to encourage ambulation and OOB to chair which I dicussed with RN today. Will re-consult PT/OT as well. Continue TPN/clinimix at 80cc/hr to meet his nutritional needs. TSH was normal. Continue to monitor electrolytes. Continue to monitor closely with serial abdominal plain films. (2) SIRS (systemic inflammatory response syndrome): Code(s): R65.10 - Systemic inflammatory response syndrome (SIRS) of non-infectious origin without acute organ dysfunction Status: Resolved Assessment and Plan: Resolved. The patient met SIRS criteria with leukocytosis and tachycardia. Lactic acid was elevated initially which has resolved. There was no identifiable cause of infection and his tachycardia and leukocytosis may have been due to vomiting. He was treated with IV zosyn since he is s/p recent cholecystectomy. HIDA was negative for bile leak. He is stable from this standpoint. Blood cultures were final and reveal no growth. (3) ROSENDO (acute kidney injury): Code(s): N17.9 - Acute kidney failure, unspecified Status: Resolved Assessment and Plan: Resolved. ROSENDO was likely pre-renal due to decreased PO intake and vomiting. Plan to continue TPN. Continue to monitor renal function. (4) Syncope and collapse: Code(s): R55 - Syncope and collapse Status: Acute Assessment and Plan: Patient had a witnessed syncopal episode at his SNF at [facility] prior to arrival while he was going to the bathroom. This was likely due to a vasovagal episode due to dehydration versus severe constipation. He does exhibit orthostatic hypotension and seroquel is likely contributing as well as tamsulosin. Orthostasis has improved on repeat readings today with rehydration. Temeletry was monitored and revealed sinus rhythm with occasional PACs and PVCs. There were no evidence of arrhythmias/pauses. No further caridac workup was indicated as his episode was highly suspicious for vasovagal syncope. Continue to monitor. Continue RAJ hose for orthostatic hypotension and precautions when going from lying to sitting and sitting to standing. (5) Constipation: Qualifiers: Constipation type: unspecified constipation type Qualified Code(s): K59.00 - Constipation, unspecified Code(s): K59.00 - Constipation, unspecified Status: Resolved Assessment and Plan: Patient was found to have a large amount of stool to his rectum and sigmoid colon on CT abd/pelvis 09/23/19. This is likely due to poor motility, minimal mobility recently, and narcotic pain medication. He received several enemas and relistor. General surgery was consulted from the ED. He developed SBO vs. ileus 09/26/19 and became more consistent with ileus clinically and on imaging. He is having loose bowel movements at this time. Appreciate continued GI and general surgery input. (
[2019-10-02 14:00] VITALS: BP 137/56; PULSE 91; RESP 16; TEMP 36.2; O2SAT 97
[2019-10-02 17:54] LABS: Glucose Point of Care 121 (65-105)
[2019-10-02] MEDS: FAT EMULSIONS IV 20% 250 ML 20 ML IVPB (19:57)
[2019-10-02] MEDS: TAMSULOSIN HCL 0.4 MG CAPSULE PO (20:28)
[2019-10-02] MEDS: QUEtiapine FUMARATE 100 MG TABLET 600 MG PO (20:28)
[2019-10-02 22:00] VITALS: BP 134/69; PULSE 83; RESP 20; TEMP 36.4; O2SAT 94
[2019-10-03] MEDS: METOCLOPRAMIDE HCL INJ 10 MG/2 ML VIAL IV PUSH ×5 (01:00→23:48)
[2019-10-03 03:41] LABS: Blood Urea Nitrogen 22 mg/dL (9-20); Carbon Dioxide 24 mmol/L (22-30); Chloride 103 mmol/L (98-107); Estimated CRCL calculation 80 ml/min; Estimated Glomerular Filt Rate > 60; Glucose 159 mg/dL (75-110); Phosphorus 3.3 mg/dL (2.5-4.5); Potassium 3.3 mmol/L (3.4-5.0); Sodium 136 mmol/L (137-145)
[2019-10-03 03:49] LABS: Glucose Point of Care 163 (65-105)
[2019-10-03 06:00] VITALS: BP 135/67; PULSE 94; RESP 20; TEMP 36.6; O2SAT 97
[2019-10-03] MEDS: CENTRAL LINE FLUSH 10 ML IV PUSH ×4 (07:00→20:43)
--- NOTE | 2019-10-03 07:46 | WPDGIPROGNO ---
Progress Note: A&P Additional Plan Patient unable to give any useful history. Reports that he has had bowel movements. NG tube remains in place. NG tube currently clamped. He feels it is uncomfortable. Physical Koul exam reveals vital signs are stable. Lungs are clear. Abdomen is soft with mild distention. Bowel sounds are present but diminished. No organomegaly. No tenderness. Labs reveal KUB was some continued distention. Impression 1. Resolving ileus. Plan to continue intravenous Reglan. Do a lack suppositories on a routine basis advised. Plan to continue to monitor electrolytes. Avoid narcotics. Hopefully increase activity. I would defer endoscopic evaluation at this time. 2. Status post lap choly. Patient had a gangrenous ruptured gallbladder. 3. Bipolar plan to continue supportive care as outlined above. Surgery following. Subjective Date/time seen: 10/03/19 07:46 Objective Data Vital Signs Vital Signs: Vital Signs - 24 hr 10/02/19 08:00 10/02/19 14:00 10/02/19 22:00 Temperature 97.2 F L 97.6 F Pulse Rate 77 91 83 Respiratory Rate 18 16 20 Blood Pressure 137/56 L 134/69 Pulse Oximetry 96 97 94 10/03/19 06:00 Temperature 97.8 F Pulse Rate 94 Respiratory Rate 20 Blood Pressure 135/67 Pulse Oximetry 97 Intake/Output Intake/Output: Intake & Output 09/30/19 10/01/19 10/02/19 10/03/19 23:59 23:59 23:59 23:59 Intake Total 2365 1289 4941 Output Total 1800 300 Balance 813 393 8364 Meds/Results Medications: Active Medications Generic Name Dose Route Start Last Admin Trade Name Freq PRN Reason Stop Dose Admin Acetaminophen 500 mg 09/24/19 07:10 09/25/19 06:48 Tylenol Tablet PO 500 mg Q6H PRN Administration Mild Pain (1-3) or Fever Hydrocodone Bitart/Acetaminophen 1 tab 09/24/19 07:10 [place] 5-325 Mg PO Q4H PRN Pain Rated 4-6 Hydrocodone Bitart/Acetaminophen 1 tab 09/24/19 07:10 [place] 7.5-325 Mg PO Q4H PRN Pain Rated 7-10 Al Hydrox/Mg Hydrox/Simethicone 30 ml 10/02/19 12:00 10/02/19 19:57 Mylanta FEED TUBE 30 ml Q6HR KWASI Administration Aspirin 81 mg 09/25/19 09:00 09/25/19 08:36 Aspirin Ec PO 81 mg DAILY KWASI Administration Bisacodyl 10 mg 09/30/19 09:00 10/02/19 09:10 Dulcolax Suppository RECTAL 10 mg QAM KWASI Administration Enoxaparin Sodium 40 mg 09/24/19 09:00 10/02/19 09:09 Lovenox SUB-Q 40 mg DAILY KWASI Administration Hydralazine HCl 10 mg 09/23/19 17:46 Apresoline Hcl Inj IV PUSH Q8H PRN Blood Pressure - High Ibuprofen 800 mg in 200 mls @ 400 mls/hr 09/24/19 07:10 Caldolor 800 Mg/200 Ml IVPB Q6H PRN Pain Rated 4-6 Dextrose 1,000 mls @ 50 mls/hr 09/29/19 11:39 Dextrose 10% IV CONT .Q20H PRN if PN is interrupted Multivitamins 5 ml/ Amino 2,005 mls @ 80 mls/hr 09/29/19 18:00 10/02/19 18:40 Acids/Electrolytes/Dextrose IV CONT 80 mls/hr .Q24H KWASI Administration Protocol Fat Emulsion Intravenous 250 mls @ 20.833 mls/hr 09/29/19 18:00 10/02/19 19:57 Lipids 20% IVPB 20 mls/hr Q24H KWASI Administration Lidocaine 1 patch 09/25/19 09:00 10/02/19 09:08 Lidoderm TRANSDERM 1 patch DAILY KWASI Administration Lorazepam 0.5 mg 09/23/19 17:43 09/23/19 20:39 Ativan Inj IV PUSH 0.5 mg Q6H PRN Administration Anxiety Metoclopramide HCl 10 mg 09/27/19 12:00 10/02/19 16:41 Reglan IV PUSH 10 mg Q6HR KWASI Administration Mineral Oil 30 ml 09/23/19 17:00 09/25/19 17:23 Mineral Oil PO 30 ml BID KWASI Administration Morphine Sulfate 2 mg 09/24/19 07:10 Morphine Sulfate Inj IV PUSH Q2H PRN Pain Rated 7-10 Olanzapine 2.5 mg 09/24/19 11:45 Zyprexa PO DAILY PRN Anxiety Ondansetron HCl 4 mg 09/23/19 10:27 09/27/19 08:20 Zofran Inj IV PUSH 4 mg Q4H PRN Administration Nausea Pantoprazole Sodium 40 mg 09/24/19 11:5
[2019-10-03 09:04] LABS: Glucose Point of Care 151 (65-105)
[2019-10-03 09:10] VITALS: BP 109/62; BP 87/46
[2019-10-03] MEDS: POTASSIUM CHLORIDE 20 MEQ TABLET 40 MEQ PO (09:28)
[2019-10-03] MEDS: LIDOCAINE 5% PATCH 1 PATCH TRANSDERM (09:29)
[2019-10-03] MEDS: PANTOPRAZOLE SODIUM IV 40 MG VIAL IV PUSH ×2 (09:29→20:43)
[2019-10-03] MEDS: ENOXAPARIN 40 MG/0.4 ML SYRINGE SUB-Q (09:29)
--- NOTE | 2019-10-03 11:18 | PCOTNOTE ---
Attempted to see patient this am, pt reported already completing bathing and dressing. Pt up in chair at this time reported feeling weak. Assisted patient back to bed. Pt declined activity at this time.
[2019-10-03] MEDS: BISACODYL 10 MG SUPPOSITORY RECTAL (11:59)
[2019-10-03] MEDS: MAG HYDROX/AL HYDROX/SIMETH 30 ML UDC FEED TUBE ×3 (12:04→23:48)
--- NOTE | 2019-10-03 12:40 | PCDIET ---
Nutrition Follow-Up Complete: Altered GI fxn as related to SBO as evidenced by NPO x 5 days. Meet estimated nutritional needs Goal:Progressing towards goal. Continue goal. Pt current nutrition is TPN 08/14+ 250ml lipids at 80ml/hr + clear liquids. Nutrition recommendation: Agree Last recorded weight is 92.6 kg (up from 91.8kg on Sunday) Bowel Motility: Large BM yesterday Labs Reviewed: K 3.3, Na 136, Glucose 159 Meds Noted:Zofran, Ativan, Reglan, Mylanta, Mineral Oil, Dulcolax Additional Notes: Pt has intakes of 100% on clear liquid diet. Bowels moving. NG clamped. Wt up. TNP appropriate. Recommend slowly weaning TNP as diet normalizes and intakes are routinely 50% or greater. We will continue to monitor every T/F.
--- NOTE | 2019-10-03 13:18 | PM.PNGS ---
Progress Note: A&P Assessment and Plan (1) Hx laparoscopic cholecystectomy: Code(s): Z90.49 - Acquired absence of other specified parts of digestive tract Status: Acute (2) Adynamic ileus: Code(s): K56.0 - Paralytic ileus Status: Acute Assessment and Plan: Continue per GI recommendations. Will get repeat CBC in AM. Consider repeat CT abd/pelvis if still not showing any improvement or WBC continues to rise. Subjective Subjective Date/Time Seen: 10/03/19 13:18 Interval history: Still having some distention and nausea with NG clamped and on clears. Nurse had to place NG to suction once overnight for nausea/vomiting. I placed to suction for about 10 min today and got about 400 mL output. Patient says he feels a little bloated at times. Still passing flatus. Exam GI: Other: Mild distention, no focal tenderness. Hypoactive bowel sounds. Objective Data Vital Signs Vital Signs: Vital Signs - 24 hr 10/02/19 14:00 10/02/19 22:00 10/03/19 06:00 Temperature 36.2 C L 36.4 C 36.6 C Pulse Rate 91 83 94 Respiratory Rate 16 20 20 Blood Pressure 137/56 L 134/69 135/67 Pulse Oximetry 97 94 97 Intake/Output Intake/Output: Intake & Output 09/30/19 10/01/19 10/02/19 10/03/19 23:59 23:59 23:59 23:59 Intake Total 2365 1289 4941 350 Output Total 1800 300 Balance 229 624 6561 350 Meds/Results Medications: Active Medications Generic Name Dose Route Start Last Admin Trade Name Freq PRN Reason Stop Dose Admin Acetaminophen 500 mg 09/24/19 07:10 09/25/19 06:48 Tylenol Tablet PO 500 mg Q6H PRN Administration Mild Pain (1-3) or Fever Hydrocodone Bitart/Acetaminophen 1 tab 09/24/19 07:10 [place] 5-325 Mg PO Q4H PRN Pain Rated 4-6 Hydrocodone Bitart/Acetaminophen 1 tab 09/24/19 07:10 [place] 7.5-325 Mg PO Q4H PRN Pain Rated 7-10 Al Hydrox/Mg Hydrox/Simethicone 30 ml 10/02/19 12:00 10/03/19 12:04 Mylanta FEED TUBE 30 ml Q6HR KWASI Administration Aspirin 81 mg 09/25/19 09:00 09/25/19 08:36 Aspirin Ec PO 81 mg DAILY KWASI Administration Bisacodyl 10 mg 09/30/19 09:00 10/03/19 11:59 Dulcolax Suppository RECTAL 10 mg QAM KWASI Administration Enoxaparin Sodium 40 mg 09/24/19 09:00 10/03/19 09:29 Lovenox SUB-Q 40 mg DAILY KWASI Administration Hydralazine HCl 10 mg 09/23/19 17:46 Apresoline Hcl Inj IV PUSH Q8H PRN Blood Pressure - High Ibuprofen 800 mg in 200 mls @ 400 mls/hr 09/24/19 07:10 Caldolor 800 Mg/200 Ml IVPB Q6H PRN Pain Rated 4-6 Dextrose 1,000 mls @ 50 mls/hr 09/29/19 11:39 Dextrose 10% IV CONT .Q20H PRN if PN is interrupted Multivitamins 5 ml/ Amino 2,005 mls @ 80 mls/hr 09/29/19 18:00 10/02/19 18:40 Acids/Electrolytes/Dextrose IV CONT 80 mls/hr .Q24H KWASI Administration Protocol Fat Emulsion Intravenous 250 mls @ 20.833 mls/hr 09/29/19 18:00 10/03/19 08:27 Lipids 20% IVPB Infused Q24H KWASI Infusion Lidocaine 1 patch 09/25/19 09:00 10/03/19 09:29 Lidoderm TRANSDERM 1 patch DAILY KWASI Administration Lorazepam 0.5 mg 09/23/19 17:43 09/23/19 20:39 Ativan Inj IV PUSH 0.5 mg Q6H PRN Administration Anxiety Metoclopramide HCl 10 mg 09/27/19 12:00 10/03/19 12:21 Reglan IV PUSH 10 mg Q6HR KWASI Administration Mineral Oil 30 ml 09/23/19 17:00 09/25/19 17:23 Mineral Oil PO 30 ml BID KWASI Administration Morphine Sulfate 2 mg 09/24/19 07:10 Morphine Sulfate Inj IV PUSH Q2H PRN Pain Rated 7-10 Olanzapine 2.5 mg 09/24/19 11:45 Zyprexa PO DAILY PRN Anxiety Ondansetron HCl 4 mg 09/23/19 10:27 09/27/19 08:20 Zofran Inj IV PUSH 4 mg Q4H PRN Administration Nausea Pantoprazole Sodium 40 mg 09/24/19 11:50 10/03/19 09:29 Protonix Iv IV PUSH 40 mg Q12HR KWASI Administration Psyllium Hydrophilic Mucilloid 1 packet 09/23/19 21:00
[2019-10-03 14:00] VITALS: BP 120/59; PULSE 77; RESP 18; TEMP 37.2; O2SAT 99
--- NOTE | 2019-10-03 16:02 | PM.IMPN ---
Progress Note: A&P Assessment and Plan (1) Adynamic ileus: Code(s): K56.0 - Paralytic ileus Status: Acute Assessment and Plan: CT abd/pelvis at admission revealed a large amount of colonic stool and gas throughout the colon, with the rectal vault measuring 8 cm. After admission, the patient developed vomiting. Plain abdominal films 09/26/19 revealed a small bowel obstruction versus ileus. NG tube was placed and the patient was made NPO for bowel rest. General surgery is on board and input is greatly appreciated. Repeat upper GI series with gastrografin and SBFT 09/29/19 revealed evidence of ileus as contrast did reach the colon between the 10 and [address] Sellers with GI was consulted 09/30/19 after discussion with general surgery and input is appreciated. He was advanced to CLD diet yesterday and tolerated this reasonably well but did vomit overnight. The NG is clamped today and he has not had any further emesis. He reports belching. Continue simethicone. Continue analgesics PRN and antiemetics PRN. Avoid opioids. Taper seroquel slowly. Continue to encourage ambulation and OOB to chair and I reiterated this today. PT/OT was consulted again for further treatment sessions. Continue TPN/clinimix at 80cc/hr to meet his nutritional needs. TSH was normal. Repeat abdominal xray revealed persistent gas-filled small bowel manufacturer's representative of ileus or obstruction. Continue to monitor electrolytes. Continue to monitor closely with serial abdominal plain films. (2) SIRS (systemic inflammatory response syndrome): Code(s): R65.10 - Systemic inflammatory response syndrome (SIRS) of non-infectious origin without acute organ dysfunction Status: Resolved Assessment and Plan: Resolved. The patient met SIRS criteria with marked leukocytosis and tachycardia. Lactic acid was elevated initially which has resolved. There was no identifiable cause of infection and his tachycardia and leukocytosis may have been due to vomiting. He was treated with IV zosyn since he is s/p recent cholecystectomy. HIDA was negative for bile leak. He is stable from this standpoint. Blood cultures were final and reveal no growth. (3) ROSENDO (acute kidney injury): Code(s): N17.9 - Acute kidney failure, unspecified Status: Resolved Assessment and Plan: Resolved. ROSENDO was likely pre-renal due to decreased PO intake and vomiting. Plan to continue TPN. Continue to monitor renal function. (4) Syncope and collapse: Code(s): R55 - Syncope and collapse Status: Acute Assessment and Plan: Patient had a witnessed syncopal episode at his SNF at [facility] prior to arrival while he was going to the bathroom. This was likely due to a vasovagal episode due to dehydration versus severe constipation. He does exhibit orthostatic hypotension and seroquel is likely contributing as well as tamsulosin. Orthostasis has improved on repeat readings today with rehydration. Temeletry was monitored and revealed sinus rhythm with occasional PACs and PVCs. There were no evidence of arrhythmias/pauses. No further caridac workup was indicated as his episode was highly suspicious for vasovagal syncope. Continue to monitor. Continue RAJ hose for orthostatic hypotension and precautions when going from lying to sitting and sitting to standing. (5) Constipation: Qualifiers: Constipation type: unspecified constipation type Qualified Code(s): K59.00 - Constipation, unspecified Code(s): K59.00 - Constipation, unspecified Status: Resolved Assessment and Plan: Patient was found to have a large amount of stool to his rectum and sigmoid colon on CT abd/pelvis 09/23/19. This is likely due to poor motility, minimal mobility recently, and narcotic pain medication. He received several enemas and relistor. General surgery was consulted from the ED. He developed SBO vs. ileus 09/26/19 and became more con
[2019-10-03] MEDS: FAT EMULSIONS IV 20% 250 ML 20.8 ML IVPB (18:01)
[2019-10-03 18:44] LABS: Glucose Point of Care 140 (65-105)
[2019-10-03] MEDS: QUEtiapine FUMARATE 25 MG TABLET 50 MG PO (20:43)
[2019-10-03] MEDS: QUEtiapine FUMARATE 100 MG TABLET 500 MG PO (20:43)
[2019-10-03] MEDS: TAMSULOSIN HCL 0.4 MG CAPSULE PO (20:43)
[2019-10-03 22:00] VITALS: BP 125/60; PULSE 83; RESP 18; TEMP 36.8; O2SAT 94
[2019-10-04] VITALS (7 sets, daily range): BP systolic 84–144; BP diastolic 46–70; PULSE 78–102; RESP 16–18; TEMP 36.3–36.8; O2SAT 95–99
[2019-10-04 05:08] LABS: Hematocrit 31.1 % (42.0-52.0); Hemoglobin 10.2 g/dL (14.0-18.0); Mean Corpuscular HGB Conc 32.8 g/dl (32-36); Mean Corpuscular Hemoglobin 29.9 pg (26-34); Mean Corpuscular Volume 91.2 fl (80-100); Mean Platelet Volume 9.3 fl (7.4-10.4); Platelet Count Result 280 k/mm3 (150-375); Red Blood Count 3.41 M/mm3 (4.6-6.20); Red Cell Distribution Width 13.9 % (11.5-14.5); White Blood Count 9.3 K/mm3 (4.5-10.0)
[2019-10-04 05:22] LABS: Alanine Aminotransferase 68 U/L (4-50); Alkaline Phosphatase 94 U/L (38-126); Aspartate Amino Transferase 30 U/L (17-59); Bilirubin,Total 0.2 mg/dL (0.2-1.3); Blood Urea Nitrogen 26 mg/dL (9-20); Carbon Dioxide 25 mmol/L (22-30); Chloride 102 mmol/L (98-107); Estimated CRCL calculation 80 ml/min; Estimated Glomerular Filt Rate > 60; Glucose 126 mg/dL (75-110); Phosphorus 2.6 mg/dL (2.5-4.5); Sodium 133 mmol/L (137-145)
[2019-10-04 05:32] LABS: Triglycerides 215 mg/dL (<150)
[2019-10-04] MEDS: METOCLOPRAMIDE HCL INJ 10 MG/2 ML VIAL IV PUSH ×3 (05:42→18:40)
[2019-10-04] MEDS: MAG HYDROX/AL HYDROX/SIMETH 30 ML UDC FEED TUBE ×2 (05:44→13:22)
[2019-10-04] MEDS: CENTRAL LINE FLUSH 10 ML IV PUSH ×4 (06:37→23:26)
[2019-10-04] MEDS: ENOXAPARIN 40 MG/0.4 ML SYRINGE SUB-Q (10:00)
[2019-10-04] MEDS: LIDOCAINE 5% PATCH 1 PATCH TRANSDERM (10:00)
[2019-10-04] MEDS: PANTOPRAZOLE SODIUM IV 40 MG VIAL IV PUSH ×2 (10:01→23:24)
--- NOTE | 2019-10-04 11:40 | WPDGIPROGNO ---
Progress Note: A&P Assessment and Plan (1) Adynamic ileus: Code(s): K56.0 - Paralytic ileus <Kymberly Perry APRN - Last Filed: 10/04/19 11:44> Status: Acute <Kymberly Perry APRN - Last Filed: 10/04/19 11:44> Assessment and Plan: Encourage ambulation Increase diet as tolerated KUB in AM Consider d/c NG <Kymberly Perry APRN - Last Filed: 10/04/19 11:44> Additional Plan I have personally reviewed the chart and examined the patient. I agree with the above note. Abdomen soft/NT. Linda clears, positive BM's. No N/V. D/C NG. Increase diet. Appreciate surgical input. Thanks, [facility] [phone] <Domo Ritter MD - Last Filed: 10/04/19 14:33> Subjective Date/time seen: 10/04/19 11:40 Patient is not answering my questions but alert and awake. Per nursing staff he has had no NG output and tolerating a clear liquid diet which he wants to continue. Nursing also reports brown liquids stools. Reviewed KUB and showed continued unchanged ileus <Kymberly Perry APRN - Last Filed: 10/04/19 11:44> Review of Systems Review of Systems: All systems reviewed & are unremarkable except as noted in HPI and below <Kymberly Perry APRN - Last Filed: 10/04/19 11:44> Gastrointestinal: Gastrointestinal: Reports as per HPI <Kymberly Perry APRN - Last Filed: 10/04/19 11:44> Exam Const: General: healthy appearing, comfortable, no acute distress, alert and awake <Kymberly Perry APRN - Last Filed: 10/04/19 11:44> Orientation/consciousness: patient oriented x3 <Kymberly Perry APRN - Last Filed: 10/04/19 11:44> Resp: Effort & Inspection: normal respiratory effort <Kymberly Perry APRN - Last Filed: 10/04/19 11:44> Auscultation: clear to auscultation bilaterally <Kymberly Perry APRN - Last Filed: 10/04/19 11:44> Cardio: Rate: regular rate <Kymberly RachelDary VickyALYCIA bundy - Last Filed: 10/04/19 11:44> Rhythm: regular rhythm <Kymberly VenturaALYCIA bundy Last Filed: 10/04/19 11:44> Heart sounds: S1 normal heart sound present, S2 normal heart sound present, no gallops, no murmurs and no rubs <Kymberly RachelDary Perry APRN - Last Filed: 10/04/19 11:44> GI: Inspection: normal to inspection (mild abd distension) and distended <Kymberly RachelDary Perry APRN - Last Filed: 10/04/19 11:44> GI Palp: No abdominal tenderness, Yes Soft to palpation and No Hepatosplenomegaly present <Kymberly RachelDary Perry APRN Last Filed: 10/04/19 11:44> Auscultation: Hypoactive bowel sounds present <Kymberly VirginieDary Perry APRN Last Filed: 10/04/19 11:44> Rectal Exam: deferred <Kymberly RachelDary Vicky, [employer] Last Filed: 10/04/19 11:44> Skin: General skin exam: normal color <Kymberly VirginieDary Perry APRN Last Filed: 10/04/19 11:44> Neuro: General: patient oriented x3 <Kymberly VirginieDary Perry APRN Last Filed: 10/04/19 11:44> Objective Data Vital Signs Vital Signs: Vital Signs - 24 hr 10/03/19 14:00 10/03/19 22:00 10/04/19 06:00 Temperature 37.2 C 36.8 C 36.6 C Pulse Rate 77 83 80 Respiratory Rate 18 18 18 Blood Pressure 120/59 L 125/60 144/70 H Pulse Oximetry 99 94 96 10/04/19 06:30 10/04/19 06:35 10/04/19 06:40 Temperature Pulse Rate 78 99 102 H Respiratory Rate Blood Pressure 132/53 L 84/46 L 105/64 Pulse Oximetry <Kymberly VirginieDary Perry APRN Last Filed: 10/04/19 11:44> Intake/Output Intake/Output: Intake & Output 07/04/2110/02/19 10/03/19 10/04/19 23:59 23:59 23:59 23:59 Intake Total 1289 4941 3075 1459.0 Output Total 300 300 350 Balance 989 4941 2775 1109.0 <Kymberly Perry, [employer] - Last Filed: 10/04/19 11:44> Meds/Results Medications: Active Medications Generic Name Dose Route Start Last Admin Trade Name Freq PRN Reason Stop Dose Admin Acetaminophen 500 mg 09/24/19 07:10 09/25/19 06:48 Tylenol Tablet PO 500 mg Q6H PRN Administration Mild Pain (1-3) or Fever Hydrocodone Bitart/Acetaminophen 1 tab 09/24/19 07:10 [place] 5-325 Mg PO Q4H PRN Pain Rated 4-6 Hydroc
--- NOTE | 2019-10-04 11:42 | PM.IMPN ---
Progress Note: A&P Assessment and Plan (1) Adynamic ileus: Code(s): K56.0 - Paralytic ileus Status: Acute Assessment and Plan: CT abd/pelvis at admission revealed a large amount of colonic stool and gas throughout the colon, with the rectal vault measuring 8 cm. After admission, the patient developed vomiting. Plain abdominal films 09/26/19 revealed a small bowel obstruction versus ileus. NG tube was placed and the patient was made NPO for bowel rest. General surgery is on board and input is greatly appreciated. Repeat upper GI series with gastrografin and SBFT 09/29/19 revealed evidence of ileus as contrast did reach the colon between the 10 and [address] Sellers with GI was consulted 09/30/19 after discussion with general surgery and input is appreciated. He was advanced to CLD diet 10/02/19 and tolerated this reasonably well with one episode of emesis the night of 10/02/19. He had no further N/V last night or today. He has not had any further NG output and seems to be improving overall. Continue simethicone. Continue analgesics PRN and antiemetics PRN. Avoid opioids. Taper seroquel slowly. Continue to encourage ambulation and OOB to chair and I reiterated this again today. PT/OT was consulted again for further treatment sessions. Continue TPN/clinimix at 80cc/hr to meet his nutritional needs. TSH was normal. Repeat abdominal xray was read as unchanged ileus, less likely obstruction. Continue to monitor electrolytes. Continue to monitor closely with serial abdominal plain films. (2) SIRS (systemic inflammatory response syndrome): Code(s): R65.10 - Systemic inflammatory response syndrome (SIRS) of non-infectious origin without acute organ dysfunction Status: Resolved Assessment and Plan: Resolved. The patient met SIRS criteria with marked leukocytosis and tachycardia. Lactic acid was elevated initially which has resolved. There was no identifiable cause of infection and his tachycardia and leukocytosis may have been due to vomiting. He was treated with IV zosyn since he is s/p recent cholecystectomy. HIDA was negative for bile leak. He is stable from this standpoint. Blood cultures were final and reveal no growth. (3) ROSENDO (acute kidney injury): Code(s): N17.9 - Acute kidney failure, unspecified Status: Resolved Assessment and Plan: Resolved. ROSENDO was likely pre-renal due to decreased PO intake and vomiting. Plan to continue TPN. Continue to monitor renal function. (4) Syncope and collapse: Code(s): R55 - Syncope and collapse Status: Acute Assessment and Plan: Patient had a witnessed syncopal episode at his SNF at [facility] prior to arrival while he was going to the bathroom. This was likely due to a vasovagal episode due to dehydration versus severe constipation. He does exhibit orthostatic hypotension and seroquel is likely contributing as well as tamsulosin. Orthostasis has improved on repeat readings today with rehydration. Temeletry was monitored and revealed sinus rhythm with occasional PACs and PVCs. There were no evidence of arrhythmias/pauses. No further caridac workup was indicated as his episode was highly suspicious for vasovagal syncope. Continue to monitor. Continue RAJ hose for orthostatic hypotension and precautions when going from lying to sitting and sitting to standing. (5) Constipation: Qualifiers: Constipation type: unspecified constipation type Qualified Code(s): K59.00 - Constipation, unspecified Code(s): K59.00 - Constipation, unspecified Status: Resolved Assessment and Plan: Resolved. Patient was found to have a large amount of stool to his rectum and sigmoid colon on CT abd/pelvis 09/23/19. This is likely due to poor motility, minimal mobility recently, and narcotic pain medication. He received several enemas and relistor. General surgery was consulted from the ED. He developed SBO
--- NOTE | 2019-10-04 13:08 | PM.PNGS ---
Progress Note: A&P Assessment and Plan (1) Hx laparoscopic cholecystectomy: Code(s): Z90.49 - Acquired absence of other specified parts of digestive tract Status: Acute (2) Adynamic ileus: Code(s): K56.0 - Paralytic ileus Status: Acute Assessment and Plan: NG out today, advance slowly Subjective Subjective Date/Time Seen: 10/04/19 13:08 Bowels moving, no nausea or vomiting. Exam GI: Inspection: other (mildly distended) GI Palp: No Tenderness to palpation present (GI) and No Guarding due to palpation present (GI) Objective Data Vital Signs Vital Signs: Vital Signs - 24 hr 10/03/19 14:00 10/03/19 22:00 10/04/19 06:00 Temperature 37.2 C 36.8 C 36.6 C Pulse Rate 77 83 80 Respiratory Rate 18 18 18 Blood Pressure 120/59 L 125/60 144/70 H Pulse Oximetry 99 94 96 10/04/19 06:30 10/04/19 06:35 10/04/19 06:40 Temperature Pulse Rate 78 99 102 H Respiratory Rate Blood Pressure 132/53 L 84/46 L 105/64 Pulse Oximetry Intake/Output Intake/Output: Intake & Output 10/01/19 10/02/19 10/03/19 10/04/19 23:59 23:59 23:59 23:59 Intake Total 1289 4941 3075 1459.0 Output Total 300 300 350 Balance 989 4941 2775 1109.0 Meds/Results Medications: Active Medications Generic Name Dose Route Start Last Admin Trade Name Freq PRN Reason Stop Dose Admin Acetaminophen 500 mg 09/24/19 07:10 09/25/19 06:48 Tylenol Tablet PO 500 mg Q6H PRN Administration Mild Pain (1-3) or Fever Hydrocodone Bitart/Acetaminophen 1 tab 09/24/19 07:10 [place] 5-325 Mg PO Q4H PRN Pain Rated 4-6 Hydrocodone Bitart/Acetaminophen 1 tab 09/24/19 07:10 [place] 7.5-325 Mg PO Q4H PRN Pain Rated 7-10 Al Hydrox/Mg Hydrox/Simethicone 30 ml 10/02/19 12:00 10/04/19 05:44 Mylanta FEED TUBE 30 ml Q6HR KWASI Administration Aspirin 81 mg 09/25/19 09:00 09/25/19 08:36 Aspirin Ec PO 81 mg DAILY KWASI Administration Bisacodyl 10 mg 09/30/19 09:00 10/04/19 12:52 Dulcolax Suppository RECTAL Not Given QAM KWASI Enoxaparin Sodium 40 mg 09/24/19 09:00 10/04/19 10:00 Lovenox SUB-Q 40 mg DAILY KWASI Administration Hydralazine HCl 10 mg 09/23/19 17:46 Apresoline Hcl Inj IV PUSH Q8H PRN Blood Pressure - High Ibuprofen 800 mg in 200 mls @ 400 mls/hr 09/24/19 07:10 Caldolor 800 Mg/200 Ml IVPB Q6H PRN Pain Rated 4-6 Dextrose 1,000 mls @ 50 mls/hr 09/29/19 11:39 Dextrose 10% IV CONT .Q20H PRN if PN is interrupted Multivitamins 5 ml/ Amino 2,005 mls @ 80 mls/hr 09/29/19 18:00 10/04/19 05:40 Acids/Electrolytes/Dextrose IV CONT 80 mls/hr .Q24H KWASI Infusion Protocol Fat Emulsion Intravenous 250 mls @ 20.833 mls/hr 09/29/19 18:00 10/04/19 06:37 Lipids 20% IVPB Infused Q24H KWASI Infusion Lidocaine 1 patch 09/25/19 09:00 10/04/19 10:00 Lidoderm TRANSDERM 1 patch DAILY KWASI Administration Lorazepam 0.5 mg 09/23/19 17:43 09/23/19 20:39 Ativan Inj IV PUSH 0.5 mg Q6H PRN Administration Anxiety Metoclopramide HCl 10 mg 09/27/19 12:00 10/04/19 05:42 Reglan IV PUSH 10 mg Q6HR KWASI Administration Mineral Oil 30 ml 09/23/19 17:00 09/25/19 17:23 Mineral Oil PO 30 ml BID KWASI Administration Olanzapine 2.5 mg 09/24/19 11:45 Zyprexa PO DAILY PRN Anxiety Ondansetron HCl 4 mg 09/23/19 10:27 09/27/19 08:20 Zofran Inj IV PUSH 4 mg Q4H PRN Administration Nausea Pantoprazole Sodium 40 mg 09/24/19 11:50 10/04/19 10:01 Protonix Iv IV PUSH 40 mg Q12HR KWASI Administration Psyllium Hydrophilic Mucilloid 1 packet 09/23/19 21:00 09/25/19 21:22 Metamucil Packet PO 1 packet Q12HR KWASI Administration Quetiapine Fumarate 500 mg 10/03/19 21:00 10/03/19 20:43 Seroquel PO 500 mg HS KWASI Administration Quetiapine Fumarate 50 mg 10/03/19 21:00 10/03/19 20:43 Seroquel PO 50 mg H
[2019-10-04] MEDS: SODIUM CHLORIDE 0.9% IV 500 ML IV CONT (17:27)
--- NOTE | 2019-10-04 17:44 | PC.NURSE ---
Pt's NG tube removed at 1715.
[2019-10-04] MEDS: FAT EMULSIONS IV 20% 250 ML 20.8 ML IVPB (18:28)
[2019-10-04 18:48] LABS: Glucose Point of Care 146 (65-105)
[2019-10-04] MEDS: QUEtiapine FUMARATE 25 MG TABLET 50 MG PO (23:25)
[2019-10-04] MEDS: QUEtiapine FUMARATE 100 MG TABLET 500 MG PO (23:25)
[2019-10-04] MEDS: TAMSULOSIN HCL 0.4 MG CAPSULE PO (23:25)
[2019-10-05] VITALS (7 sets, daily range): BP systolic 80–150; BP diastolic 50–66; PULSE 83–110; RESP 18–20; TEMP 36.7–36.9; O2SAT 95–97
[2019-10-05] MEDS: METOCLOPRAMIDE HCL INJ 10 MG/2 ML VIAL IV PUSH ×4 (00:03→18:17)
[2019-10-05] MEDS: MAG HYDROX/AL HYDROX/SIMETH 30 ML UDC FEED TUBE ×4 (00:13→18:17)
[2019-10-05 04:55] LABS: Hematocrit 32.8 % (42.0-52.0); Hemoglobin 10.7 g/dL (14.0-18.0); Mean Corpuscular HGB Conc 32.6 g/dl (32-36); Mean Corpuscular Hemoglobin 30.3 pg (26-34); Mean Corpuscular Volume 92.9 fl (80-100); Mean Platelet Volume 9.9 fl (7.4-10.4); Platelet Count Result 218 k/mm3 (150-375); Red Blood Count 3.53 M/mm3 (4.6-6.20); Red Cell Distribution Width 13.7 % (11.5-14.5); White Blood Count 8.5 K/mm3 (4.5-10.0)
[2019-10-05] MEDS: CENTRAL LINE FLUSH 10 ML IV PUSH ×3 (05:50→20:35)
[2019-10-05 05:58] LABS: Alanine Aminotransferase 56 U/L (4-50); Alkaline Phosphatase 89 U/L (38-126); Aspartate Amino Transferase 32 U/L (17-59); Bilirubin,Total 0.3 mg/dL (0.2-1.3); Blood Urea Nitrogen 25 mg/dL (9-20); Calcium 7.8 mg/dL (8.4-10.2); Carbon Dioxide 24 mmol/L (22-30); Chloride 103 mmol/L (98-107); Estimated CRCL calculation 90 ml/min; Estimated Glomerular Filt Rate > 60; Glucose 138 mg/dL (75-110); Magnesium 2.1 mg/dL (1.6-2.3); Phosphorus 2.9 mg/dL (2.5-4.5); Potassium 4.8 mmol/L (3.4-5.0); Sodium 132 mmol/L (137-145)
[2019-10-05 07:46] LABS: Glucose Point of Care 130 (65-105)
[2019-10-05 08:14] LABS: Glucose Point of Care 157 (65-105)
[2019-10-05] MEDS: LIDOCAINE 5% PATCH 1 PATCH TRANSDERM (10:34)
[2019-10-05] MEDS: PANTOPRAZOLE SODIUM IV 40 MG VIAL IV PUSH ×2 (10:34→20:34)
[2019-10-05] MEDS: ENOXAPARIN 40 MG/0.4 ML SYRINGE SUB-Q (10:34)
--- NOTE | 2019-10-05 10:56 | WPDGIPROGNO ---
Progress Note: A&P Assessment and Plan (1) Adynamic ileus: Code(s): K56.0 - Paralytic ileus Status: Acute Assessment and Plan: Encourage ambulation was discussed again with patient. I am not sure how much he is actually getting up and moving. This would benefit patient a great deal Increase diet as tolerated KUB in AM Continue Reglan Appreciate surgical input If nausea and vomiting resume, may need ng placed Subjective Date/time seen: 10/05/19 10:56 Patient reports nausea and no vomiting. NG was removed yesterday. He is having liquids stools per nursing staff. KUB showed persistant ileus, no evidence of obstruction Review of Systems Review of Systems: All systems reviewed & are unremarkable except as noted in HPI and below Gastrointestinal: Gastrointestinal: Reports as per HPI Exam GI: Inspection: obesity GI Palp: Yes Firmness to palpation present (GI), No Tenderness to palpation present (GI), No Guarding due to palpation present (GI) and No Rigid due to palpation Auscultation: High-pitched bowel sounds present Rectal Exam: deferred Objective Data Vital Signs Vital Signs: Vital Signs - 24 hr 10/04/19 14:00 10/04/19 22:00 10/04/19 23:58 Temperature 36.3 C L 36.8 C Pulse Rate 99 95 90 Respiratory Rate 16 16 Blood Pressure 119/58 L 126/54 L 116/62 Pulse Oximetry 99 97 95 10/05/19 05:00 10/05/19 05:15 10/05/19 05:25 Temperature Pulse Rate 98 110 H 107 H Respiratory Rate Blood Pressure 119/66 92/50 L 80/55 L Pulse Oximetry 10/05/19 06:00 Temperature 36.7 C Pulse Rate 83 Respiratory Rate 20 Blood Pressure 119/66 Pulse Oximetry 97 Intake/Output Intake/Output: Intake & Output 10/02/19 10/03/19 10/04/19 10/05/19 23:59 23:59 23:59 23:59 Intake Total 4941 3075 3155.0 500 Output Total 300 350 650 Balance 4941 2775 2805.0 -150 Meds/Results Medications: Active Medications Generic Name Dose Route Start Last Admin Trade Name Freq PRN Reason Stop Dose Admin Acetaminophen 500 mg 09/24/19 07:10 09/25/19 06:48 Tylenol Tablet PO 500 mg Q6H PRN Administration Mild Pain (1-3) or Fever Hydrocodone Bitart/Acetaminophen 1 tab 09/24/19 07:10 [place] 5-325 Mg PO Q4H PRN Pain Rated 4-6 Hydrocodone Bitart/Acetaminophen 1 tab 09/24/19 07:10 [place] 7.5-325 Mg PO Q4H PRN Pain Rated 7-10 Al Hydrox/Mg Hydrox/Simethicone 30 ml 10/02/19 12:00 10/05/19 05:50 Mylanta FEED TUBE 30 ml Q6HR KWASI Administration Aspirin 81 mg 09/25/19 09:00 09/25/19 08:36 Aspirin Ec PO 81 mg DAILY KWASI Administration Bisacodyl 10 mg 09/30/19 09:00 10/05/19 10:35 Dulcolax Suppository RECTAL 10 mg QAM KWASI Administration Enoxaparin Sodium 40 mg 09/24/19 09:00 10/05/19 10:34 Lovenox SUB-Q 40 mg DAILY KWASI Administration Hydralazine HCl 10 mg 09/23/19 17:46 Apresoline Hcl Inj IV PUSH Q8H PRN Blood Pressure - High Ibuprofen 800 mg in 200 mls @ 400 mls/hr 09/24/19 07:10 Caldolor 800 Mg/200 Ml IVPB Q6H PRN Pain Rated 4-6 Dextrose 1,000 mls @ 50 mls/hr 09/29/19 11:39 Dextrose 10% IV CONT .Q20H PRN if PN is interrupted Multivitamins 5 ml/ Amino 2,005 mls @ 80 mls/hr 09/29/19 18:00 10/04/19 18:28 Acids/Electrolytes/Dextrose IV CONT 80 mls/hr .Q24H KWASI Administration Protocol Fat Emulsion Intravenous 250 mls @ 20.833 mls/hr 09/29/19 18:00 10/04/19 18:28 Lipids 20% IVPB 20.8 mls/hr Q24H KWASI Administration Lidocaine 1 patch 09/25/19 09:00 10/05/19 10:34 Lidoderm TRANSDERM 1 patch DAILY KWASI Administration Lorazepam 0.5 mg 09/23/19 17:43 09/23/19 20:39 Ativan Inj IV PUSH 0.5 mg Q6H PRN Administration Anxiety Metoclopramide HCl 10 mg 09/27/19 12:00 10/05/19 05:47 Reglan IV PUSH 10 mg Q6HR KWASI Administration Mineral Oil 30 ml 09/23/19 17:00 09/25/19 17:23 Mineral Oil PO 30 ml BID KWASI Administr
[2019-10-05 12:45] LABS: Glucose Point of Care 148 (65-105)
--- NOTE | 2019-10-05 12:58 | PM.IMPN ---
Progress Note: A&P Assessment and Plan (1) Adynamic ileus: Code(s): K56.0 - Paralytic ileus Status: Acute Assessment and Plan: CT abd/pelvis at admission revealed a large amount of colonic stool and gas throughout the colon, with the rectal vault measuring 8 cm. After admission, the patient developed vomiting. Plain abdominal films 09/26/19 revealed a small bowel obstruction versus ileus. NG tube was placed and the patient was made NPO for bowel rest. General surgery is on board and input is greatly appreciated. Repeat upper GI series with gastrografin and SBFT 09/29/19 revealed evidence of ileus as contrast did reach the colon between the 10 and [address] Sellers with GI was consulted 09/30/19 after discussion with general surgery and input is appreciated. He was advanced to CLD diet 10/02/19 and tolerated this reasonably well with one episode of emesis the night of 10/02/19. The NG was removed yesterday (10/04/19). He had 1 episode of emesis overnight and one today. Continue simethicone. Continue analgesics PRN and antiemetics PRN. Avoid opioids. Taper seroquel slowly. Continue to encourage ambulation and OOB to chair. He did get up and ambulate with PT today. Continue TPN/clinimix at 80cc/hr to meet his nutritional needs. TSH was normal. Repeat KUB was unchanged. Continue to monitor electrolytes. Continue to monitor closely with serial abdominal plain films. He reports two episodes of emesis and epigastric discomfort. I will repeat CT abd/pelvis today. (2) SIRS (systemic inflammatory response syndrome): Code(s): R65.10 - Systemic inflammatory response syndrome (SIRS) of non-infectious origin without acute organ dysfunction Status: Resolved Assessment and Plan: Resolved. The patient met SIRS criteria with marked leukocytosis and tachycardia. Lactic acid was elevated initially which has resolved. There was no identifiable cause of infection and his tachycardia and leukocytosis may have been due to vomiting. He was treated with IV zosyn since he is s/p recent cholecystectomy. HIDA was negative for bile leak. He is stable from this standpoint. Blood cultures were final and reveal no growth. (3) ROSENDO (acute kidney injury): Code(s): N17.9 - Acute kidney failure, unspecified Status: Resolved Assessment and Plan: Resolved. ROSENDO was likely pre-renal due to decreased PO intake and vomiting. Plan to continue TPN. Continue to monitor renal function. (4) Syncope and collapse: Code(s): R55 - Syncope and collapse Status: Acute Assessment and Plan: Patient had a witnessed syncopal episode at his SNF at [facility] prior to arrival while he was going to the bathroom. This was likely due to a vasovagal episode due to dehydration versus severe constipation. He does exhibit orthostatic hypotension and seroquel is likely contributing as well as tamsulosin. Temeletry was monitored and revealed sinus rhythm with occasional PACs and PVCs. There were no evidence of arrhythmias/pauses. No further caridac workup was indicated as his episode was highly suspicious for vasovagal syncope. Continue to monitor. Continue RAJ hose for orthostatic hypotension and precautions when going from lying to sitting and sitting to standing. (5) Constipation: Qualifiers: Constipation type: unspecified constipation type Qualified Code(s): K59.00 - Constipation, unspecified Code(s): K59.00 - Constipation, unspecified Status: Resolved Assessment and Plan: Resolved. Patient was found to have a large amount of stool to his rectum and sigmoid colon on CT abd/pelvis 09/23/19. This is likely due to poor motility, minimal mobility recently, and narcotic pain medication. He received several enemas and relistor. General surgery was consulted from the ED. He developed SBO vs. ileus 09/26/19 and became more consistent with ileus clinically and on imaging. He is having loose b
--- NOTE | 2019-10-05 15:24 | PM.PNGS ---
Progress Note: A&P Assessment and Plan (1) Hx laparoscopic cholecystectomy: Code(s): Z90.49 - Acquired absence of other specified parts of digestive tract Status: Acute Assessment and Plan: Patient still having distended abdomen and occasional nausea and vomiting. Discussed with Hospitalist today and will get repeat CT abd/pelvis today to rule out colitis or other causes. Advance diet as tolerated. Out of bed and ambulate more frequently. Surgically, no other suggestions. (2) Adynamic ileus: Code(s): K56.0 - Paralytic ileus Status: Acute Subjective Subjective Date/Time Seen: 10/05/19 15:24 Nurse reports patient vomited overnight. Patient says he feels somewhat full. Still passing flatus. Exam GI: Inspection: other (minimally distended but soft) GI Palp: No Tenderness to palpation present (GI), No Guarding due to palpation present (GI) and No Rebound tenderness present Objective Data Vital Signs Vital Signs: Vital Signs - 24 hr 10/04/19 22:00 10/04/19 23:58 10/05/19 05:00 Temperature 36.8 C Pulse Rate 95 90 98 Respiratory Rate 16 Blood Pressure 126/54 L 116/62 119/66 Pulse Oximetry 97 95 10/05/19 05:15 10/05/19 05:25 10/05/19 06:00 Temperature 36.7 C Pulse Rate 110 H 107 H 83 Respiratory Rate 20 Blood Pressure 92/50 L 80/55 L 119/66 Pulse Oximetry 97 10/05/19 08:00 10/05/19 14:00 Temperature 36.7 C Pulse Rate 84 84 Respiratory Rate 18 18 Blood Pressure 106/57 L Pulse Oximetry 96 96 Intake/Output Intake/Output: Intake & Output 10/02/19 10/03/19 10/04/19 10/05/19 23:59 23:59 23:59 23:59 Intake Total 4941 3075 3155.0 740 Output Total 300 350 650 Balance 4941 2775 2805.0 90 Meds/Results Medications: Active Medications Generic Name Dose Route Start Last Admin Trade Name Freq PRN Reason Stop Dose Admin Acetaminophen 500 mg 09/24/19 07:10 09/25/19 06:48 Tylenol Tablet PO 500 mg Q6H PRN Administration Mild Pain (1-3) or Fever Hydrocodone Bitart/Acetaminophen 1 tab 09/24/19 07:10 [place] 5-325 Mg PO Q4H PRN Pain Rated 4-6 Hydrocodone Bitart/Acetaminophen 1 tab 09/24/19 07:10 [place] 7.5-325 Mg PO Q4H PRN Pain Rated 7-10 Al Hydrox/Mg Hydrox/Simethicone 30 ml 10/02/19 12:00 10/05/19 13:53 Mylanta FEED TUBE 30 ml Q6HR KWASI Administration Aspirin 81 mg 09/25/19 09:00 09/25/19 08:36 Aspirin Ec PO 81 mg DAILY KWASI Administration Bisacodyl 10 mg 09/30/19 09:00 10/05/19 11:15 Dulcolax Suppository RECTAL Not Given QAM [facility] Enoxaparin Sodium 40 mg 09/24/19 09:00 10/05/19 10:34 Lovenox SUB-Q 40 mg DAILY KWASI Administration Hydralazine HCl 10 mg 09/23/19 17:46 Apresoline Hcl Inj IV PUSH Q8H PRN Blood Pressure - High Ibuprofen 800 mg in 200 mls @ 400 mls/hr 09/24/19 07:10 Caldolor 800 Mg/200 Ml IVPB Q6H PRN Pain Rated 4-6 Dextrose 1,000 mls @ 50 mls/hr 09/29/19 11:39 Dextrose 10% IV CONT .Q20H PRN if PN is interrupted Multivitamins 5 ml/ Amino 2,005 mls @ 80 mls/hr 09/29/19 18:00 10/04/19 18:28 Acids/Electrolytes/Dextrose IV CONT 80 mls/hr .Q24H KWASI Administration Protocol Fat Emulsion Intravenous 250 mls @ 20.833 mls/hr 09/29/19 18:00 10/04/19 18:28 Lipids 20% IVPB 20.8 mls/hr Q24H KWASI Administration Lidocaine 1 patch 09/25/19 09:00 10/05/19 10:34 Lidoderm TRANSDERM 1 patch DAILY KWAIS Administration Lorazepam 0.5 mg 09/23/19 17:43 09/23/19 20:39 Ativan Inj IV PUSH 0.5 mg Q6H PRN Administration Anxiety Metoclopramide HCl 10 mg 09/27/19 12:00 10/05/19 13:53 Reglan IV PUSH 10 mg Q6HR KWASI Administration Mineral Oil 30 ml 09/23/19 17:00 09/25/19 17:23 Mineral Oil PO 30 ml BID KWASI Administration Olanzapine 2.5 mg 09/24/19 11:45 Zyprexa PO DAILY PRN Anxiety Ondansetron HCl 4 mg 09/23/19 10:27 09/27/19 08:20 Zofra
[2019-10-05] MEDS: FAT EMULSIONS IV 20% 250 ML 20.8 ML IVPB (18:17)
[2019-10-05 18:44] LABS: Glucose Point of Care 154 (65-105)
[2019-10-05] MEDS: TAMSULOSIN HCL 0.4 MG CAPSULE PO (20:34)
[2019-10-05] MEDS: QUEtiapine FUMARATE 100 MG TABLET 500 MG PO (20:35)
[2019-10-06] MEDS: METOCLOPRAMIDE HCL INJ 10 MG/2 ML VIAL IV PUSH ×3 (00:19→12:27)
[2019-10-06] MEDS: CENTRAL LINE FLUSH 10 ML IV PUSH ×2 (00:19→05:48)
[2019-10-06 02:39] LABS: Glucose Point of Care 159 (65-105)
[2019-10-06] MEDS: MAG HYDROX/AL HYDROX/SIMETH 30 ML UDC FEED TUBE (05:48)
[2019-10-06 06:21] LABS: Basophils Percent Auto 0.4 % (0.2-1.2); Eosinophils Absolute Auto 0.2 K/mm3 (0-0.3); Eosinophils Percent Auto 2.8 % (0-4.4); Hematocrit 31.3 % (42.0-52.0); Hemoglobin 10.2 g/dL (14.0-18.0); Immature Granulocyte Absolute 0.02 K/mm3 (0.00-0.031); Immature Granulocyte Percent A 0.3 % (0-0.5); Lymphocytes Absolute Auto 0.95 K/mm3 (0.9-3.2); Lymphocytes Percent Auto 14.1 % (18.3-44.2); Mean Corpuscular HGB Conc 32.6 g/dl (32-36); Mean Corpuscular Hemoglobin 29.9 pg (26-34); Mean Corpuscular Volume 91.8 fl (80-100); Mean Platelet Volume 9.6 fl (7.4-10.4); Monocytes Absolute Auto 0.9 K/mm3 (0.1-0.6); Neutrophils Absolute Auto 4.6 K/mm3 (1.3-6.7); Neutrophils Percent Auto 68.4 % (45.5-73.1); Platelet Count Result 262 k/mm3 (150-375); Red Blood Count 3.41 M/mm3 (4.6-6.20); Red Cell Distribution Width 13.5 % (11.5-14.5); White Blood Count 6.7 K/mm3 (4.5-10.0)
[2019-10-06 06:27] LABS: INR 1.1; Prothrombin Time 13.4 Seconds (11.1-14.7)
[2019-10-06 06:28] LABS: Partial Thromboplastin Time 33.7 SECONDS (22.3-36.8)
[2019-10-06 06:33] LABS: Alanine Aminotransferase 41 U/L (4-50); Albumin Level 2.7 g/dL (3.5-5.1); Alkaline Phosphatase 84 U/L (38-126); Aspartate Amino Transferase 22 U/L (17-59); Bilirubin,Total 0.2 mg/dL (0.2-1.3); Blood Urea Nitrogen 19 mg/dL (9-20); Calcium 7.8 mg/dL (8.4-10.2); Carbon Dioxide 26 mmol/L (22-30); Chloride 102 mmol/L (98-107); Estimated CRCL calculation 90 ml/min; Estimated Glomerular Filt Rate > 60; Glucose 140 mg/dL (75-110); Magnesium 2.1 mg/dL (1.6-2.3); Phosphorus 3.2 mg/dL (2.5-4.5); Potassium 3.4 mmol/L (3.4-5.0); Sodium 133 mmol/L (137-145)
[2019-10-06 06:40] LABS: Transferrin 154 mg/dL (206-381)
[2019-10-06 06:55] LABS: Triglycerides 105 mg/dL (<150)
[2019-10-06 06:56] VITALS: BP 134/58; PULSE 91; RESP 20; TEMP 36.6; O2SAT 96
--- NOTE | 2019-10-06 08:25 | PM.PNGS ---
Progress Note: A&P Assessment and Plan (1) Adynamic ileus: Code(s): K56.0 - Paralytic ileus Status: Acute Assessment and Plan: still appears to have ileus. Abdomen is less distended than the last time I saw him. Last several plain films have shown ileus as well as the upper GI small-bowel series on 09/28. No indication for surgery. Plans per GI and hospitalist. (2) Bipolar 1 disorder: Code(s): F31.9 - Bipolar disorder, unspecified Status: Chronic Assessment and Plan: Seems to be more depressed this morning. Subjective Subjective Date/Time Seen: 10/06/19 08:25 Patient reports: no new complaints ( Minimally verbal this morning) Review of Systems Review of Systems: ROS unobtainable: Yes unobtainable due to mental status Exam GI: Inspection: distended and incision ( all incisions healing well) GI Palp: Yes Soft to palpation and No Tenderness to palpation present (GI) Auscultation: High-pitched bowel sounds present ( some tinkling quality to the bowel sounds) Objective Data Vital Signs Vital Signs: Vital Signs - 24 hr 10/05/19 14:00 10/05/19 22:00 10/06/19 06:56 Temperature 36.7 C 36.9 C 36.6 C Pulse Rate 84 91 91 Respiratory Rate 18 20 20 Blood Pressure 106/57 L 150/65 H 134/58 L Pulse Oximetry 96 95 96 Intake/Output Intake/Output: Intake & Output 10/03/19 10/04/19 10/05/19 10/06/19 23:59 23:59 23:59 23:59 Intake Total 3075 3155.0 3195 250 Output Total 300 350 650 150 Balance 2775 2805.0 2545 100 Meds/Results Medications: Active Medications Generic Name Dose Route Start Last Admin Trade Name Freq PRN Reason Stop Dose Admin Acetaminophen 500 mg 09/24/19 07:10 09/25/19 06:48 Tylenol Tablet PO 500 mg Q6H PRN Administration Mild Pain (1-3) or Fever Hydrocodone Bitart/Acetaminophen 1 tab 09/24/19 07:10 [place] 5-325 Mg PO Q4H PRN Pain Rated 4-6 Hydrocodone Bitart/Acetaminophen 1 tab 09/24/19 07:10 [place] 7.5-325 Mg PO Q4H PRN Pain Rated 7-10 Aspirin 81 mg 09/25/19 09:00 09/25/19 08:36 Aspirin Ec PO 81 mg DAILY KWASI Administration Bisacodyl 10 mg 09/30/19 09:00 10/05/19 11:15 Dulcolax Suppository RECTAL Not Given QAM KWASI Enoxaparin Sodium 40 mg 09/24/19 09:00 10/05/19 10:34 Lovenox SUB-Q 40 mg DAILY KWASI Administration Hydralazine HCl 10 mg 09/23/19 17:46 Apresoline Hcl Inj IV PUSH Q8H PRN Blood Pressure - High Ibuprofen 800 mg in 200 mls @ 400 mls/hr 09/24/19 07:10 [place] 800 Mg/200 Ml IVPB Q6H PRN Pain Rated 4-6 Dextrose 1,000 mls @ 50 mls/hr 09/29/19 11:39 Dextrose 10% IV CONT .Q20H PRN if PN is interrupted Multivitamins 5 ml/ Amino 2,005 mls @ 80 mls/hr 09/29/19 18:00 10/05/19 18:18 Acids/Electrolytes/Dextrose IV CONT 80 mls/hr .Q24H KWASI Administration Protocol Fat Emulsion Intravenous 250 mls @ 20.833 mls/hr 09/29/19 18:00 10/05/19 18:17 Lipids 20% IVPB 20.8 mls/hr Q24H KWASI Administration Lidocaine 1 patch 09/25/19 09:00 10/05/19 10:34 Lidoderm TRANSDERM 1 patch DAILY KWASI Administration Lorazepam 0.5 mg 09/23/19 17:43 09/23/19 20:39 Ativan Inj IV PUSH 0.5 mg Q6H PRN Administration Anxiety Metoclopramide HCl 10 mg 09/27/19 12:00 10/06/19 05:48 Reglan IV PUSH 10 mg Q6HR KWASI Administration Mineral Oil 30 ml 09/23/19 17:00 09/25/19 17:23 Mineral Oil PO 30 ml BID KWASI Administration Olanzapine 2.5 mg 09/24/19 11:45 Zyprexa PO DAILY PRN Anxiety Ondansetron HCl 4 mg 09/23/19 10:27 09/27/19 08:20 Zofran Inj IV PUSH 4 mg Q4H PRN Administration Nausea Pantoprazole Sodium 40 mg 09/24/19 11:50 10/05/19 20:34 Protonix Iv IV PUSH 40 mg Q12HR KWASI Administration Psyllium Hydrophilic Mucilloid 1 packet 09/23/19 21:00 09/25/19 21:22 Metamucil Packet PO 1 packet Q12HR KWASI Administration Quetiap
[2019-10-06 09:02] LABS: Glucose Point of Care 144 (65-105)
[2019-10-06] MEDS: BISACODYL 10 MG SUPPOSITORY RECTAL (09:27)
[2019-10-06] MEDS: ENOXAPARIN 40 MG/0.4 ML SYRINGE SUB-Q (09:27)
[2019-10-06] MEDS: PANTOPRAZOLE SODIUM IV 40 MG VIAL IV PUSH ×2 (09:28→21:13)
[2019-10-06] MEDS: LIDOCAINE 5% PATCH 1 PATCH TRANSDERM (09:28)
--- NOTE | 2019-10-06 10:09 | WPDGIPROGNO ---
Progress Note: A&P Additional Plan Patient alert but unable to add too much to his history. NG tube is now out. Patient reported to be passing bowel movements. Physical exam reveals patient to be alert. Vital signs are stable he is afebrile. HEENT exam is anicteric. Lungs are clear. Heart without murmur. Abdomen is soft. Mild distention. Mild tympany noted. Bowel sounds are present. Impression resolving ileus. Plan is to continue IV Reglan period and Dulcolax suppositories on a routine basis. Liquid diet to be advanced slowly. Continue to avoid narcotics if at all possible. 2. Bipolar. Subjective Date/time seen: 10/06/19 10:09 Objective Data Vital Signs Vital Signs: Vital Signs - 24 hr 10/05/19 14:00 10/05/19 22:00 10/06/19 06:56 Temperature 98.1 F 98.5 F 97.9 F Pulse Rate 84 91 91 Respiratory Rate 18 20 20 Blood Pressure 106/57 L 150/65 H 134/58 L Pulse Oximetry 96 95 96 Intake/Output Intake/Output: Intake & Output 10/03/19 10/04/19 10/05/19 10/06/19 23:59 23:59 23:59 23:59 Intake Total 3075 3155.0 3195 250 Output Total 300 350 650 150 Balance 2775 2805.0 2545 100 Meds/Results Medications: Active Medications Generic Name Dose Route Start Last Admin Trade Name Freq PRN Reason Stop Dose Admin Acetaminophen 500 mg 09/24/19 07:10 09/25/19 06:48 Tylenol Tablet PO 500 mg Q6H PRN Administration Mild Pain (1-3) or Fever Aspirin 81 mg 09/25/19 09:00 09/25/19 08:36 Aspirin Ec PO 81 mg DAILY KWASI Administration Bisacodyl 10 mg 09/30/19 09:00 10/06/19 09:27 Dulcolax Suppository RECTAL 10 mg QAM KWASI Administration Enoxaparin Sodium 40 mg 09/24/19 09:00 10/06/19 09:27 Lovenox SUB-Q 40 mg DAILY KWASI Administration Hydralazine HCl 10 mg 09/23/19 17:46 Apresoline Hcl Inj IV PUSH Q8H PRN Blood Pressure - High Ibuprofen 800 mg in 200 mls @ 400 mls/hr 09/24/19 07:10 [place] 800 Mg/200 Ml IVPB Q6H PRN Pain Rated 4-6 Dextrose 1,000 mls @ 50 mls/hr 09/29/19 11:39 Dextrose 10% IV CONT .Q20H PRN if PN is interrupted Multivitamins 5 ml/ Amino 2,005 mls @ 80 mls/hr 09/29/19 18:00 10/05/19 18:18 Acids/Electrolytes/Dextrose IV CONT 80 mls/hr .Q24H KWASI Administration Protocol Fat Emulsion Intravenous 250 mls @ 20.833 mls/hr 09/29/19 18:00 10/05/19 18:17 Lipids 20% IVPB 20.8 mls/hr Q24H KWASI Administration Lidocaine 1 patch 09/25/19 09:00 10/06/19 09:28 Lidoderm TRANSDERM 1 patch DAILY KWASI Administration Lorazepam 0.5 mg 09/23/19 17:43 09/23/19 20:39 Ativan Inj IV PUSH 0.5 mg Q6H PRN Administration Anxiety Metoclopramide HCl 10 mg 09/27/19 12:00 10/06/19 05:48 Reglan IV PUSH 10 mg Q6HR KWASI Administration Mineral Oil 30 ml 09/23/19 17:00 09/25/19 17:23 Mineral Oil PO 30 ml BID KWASI Administration Olanzapine 2.5 mg 09/24/19 11:45 Zyprexa PO DAILY PRN Anxiety Ondansetron HCl 4 mg 09/23/19 10:27 09/27/19 08:20 Zofran Inj IV PUSH 4 mg Q4H PRN Administration Nausea Pantoprazole Sodium 40 mg 09/24/19 11:50 10/06/19 09:28 Protonix Iv IV PUSH 40 mg Q12HR KWASI Administration Psyllium Hydrophilic Mucilloid 1 packet 09/23/19 21:00 09/25/19 21:22 Metamucil Packet PO 1 packet Q12HR KWASI Administration Quetiapine Fumarate 500 mg 10/03/19 21:00 10/05/19 20:35 Seroquel PO 500 mg HS KWASI Administration Senna/Docusate Sodium 2 tab 09/24/19 21:00 09/25/19 21:21 Senokot S Tablet PO 2 tab HS KWASI Administration Simvastatin 20 mg 09/24/19 21:00 09/25/19 21:23 Zocor PO 20 mg HS KWASI Administration Sodium Chloride 10 ml 09/29/19 22:00 10/06/19 05:48 Central Line Flush IV PUSH 10 ml Q8HR KWASI Administration Sodium Chloride 10 ml 09/29/19 18:00 10/05/19 20:35 Central Line Flush IV PUSH 10 ml DAILY@1800 KWASI Administration Sodium Chloride 20 ml
--- NOTE | 2019-10-06 11:43 | PM.IMPN ---
Progress Note: A&P Assessment and Plan (1) Adynamic ileus: Code(s): K56.0 - Paralytic ileus Status: Acute Assessment and Plan: CT abd/pelvis at admission revealed a large amount of colonic stool and gas throughout the colon, with the rectal vault measuring 8 cm. After admission, the patient developed vomiting. Plain abdominal films 09/26/19 revealed a small bowel obstruction versus ileus. NG tube was placed and the patient was made NPO for bowel rest. General surgery is on board and input is greatly appreciated. Repeat upper GI series with gastrografin and SBFT 09/29/19 revealed evidence of ileus as contrast did reach the colon between the 10 and [address] Sellers with GI was consulted 09/30/19 after discussion with general surgery and input is appreciated. He was advanced to CLD diet 10/02/19 and tolerated this reasonably well with one episode of emesis the night of 10/02/19. The NG was removed 10/04/19. Repeat KUB was unchanged. Repeat CT abdomen pelvis showed enterocolitis with air-fluid levels throughout the stomach, small bowel, colon and rectum. Will talk with GI and Surgery about switching Reglan if possible due to risk of tardive dyskinesia with interaction with his Seroquel. Continue simethicone. Continue analgesics PRN and antiemetics PRN. Avoid opioids. Continue to encourage ambulation and OOB to chair. He did get up and ambulate with PT today, 200 feet. Continue TPN/clinimix at 80cc/hr to meet his nutritional needs. Continue to monitor electrolytes. Continue to monitor closely with serial abdominal plain films. (2) SIRS (systemic inflammatory response syndrome): Code(s): R65.10 - Systemic inflammatory response syndrome (SIRS) of non-infectious origin without acute organ dysfunction Status: Resolved Assessment and Plan: Resolved. The patient met SIRS criteria with marked leukocytosis and tachycardia. Lactic acid was elevated initially which has resolved. There was no identifiable cause of infection and his tachycardia and leukocytosis may have been due to vomiting. He was treated with IV zosyn since he is s/p recent cholecystectomy. HIDA was negative for bile leak. He is stable from this standpoint. Blood cultures were final and reveal no growth. (3) ROSENDO (acute kidney injury): Code(s): N17.9 - Acute kidney failure, unspecified Status: Resolved Assessment and Plan: Resolved. ROSENDO was likely pre-renal due to decreased PO intake and vomiting. Plan to continue TPN. Continue to monitor renal function. (4) Syncope and collapse: Code(s): R55 - Syncope and collapse Status: Acute Assessment and Plan: Patient had a witnessed syncopal episode at his SNF at [facility] prior to arrival while he was going to the bathroom. This was likely due to a vasovagal episode due to dehydration versus severe constipation. He does exhibit orthostatic hypotension and seroquel is likely contributing as well as tamsulosin. Temeletry was monitored and revealed sinus rhythm with occasional PACs and PVCs. There were no evidence of arrhythmias/pauses. No further caridac workup was indicated as his episode was highly suspicious for vasovagal syncope. Continue to monitor. Continue RAJ hose for orthostatic hypotension and precautions when going from lying to sitting and sitting to standing. (5) Constipation: Qualifiers: Constipation type: unspecified constipation type Qualified Code(s): K59.00 - Constipation, unspecified Code(s): K59.00 - Constipation, unspecified Status: Resolved Assessment and Plan: Resolved. Patient was found to have a large amount of stool to his rectum and sigmoid colon on CT abd/pelvis 09/23/19. This is likely due to poor motility, mini
[2019-10-06 11:44] VITALS: PULSE 91; RESP 20; O2SAT 96
[2019-10-06 12:37] LABS: Glucose Point of Care 155 (65-105)
[2019-10-06] MEDS: FAT EMULSIONS IV 20% 250 ML 20.8 ML IVPB (17:37)
[2019-10-06 17:44] LABS: Glucose Point of Care 122 (65-105)
[2019-10-06] MEDS: QUEtiapine FUMARATE 100 MG TABLET 800 MG PO (21:11)
[2019-10-06] MEDS: TAMSULOSIN HCL 0.4 MG CAPSULE PO (21:11)
[2019-10-06 22:00] VITALS: BP 141/59; PULSE 83; RESP 18; TEMP 37; O2SAT 97
[2019-10-07 00:20] LABS: Glucose Point of Care 118 (65-105)
[2019-10-07 06:00] VITALS: BP 120/45; PULSE 74; RESP 18; TEMP 36.7; O2SAT 95
[2019-10-07 06:55] LABS: Glucose Point of Care 121 (65-105)
[2019-10-07 07:08] LABS: Blood Urea Nitrogen 21 mg/dL (9-20); Calcium 7.7 mg/dL (8.4-10.2); Carbon Dioxide 26 mmol/L (22-30); Chloride 105 mmol/L (98-107); Estimated CRCL calculation 90 ml/min; Estimated Glomerular Filt Rate > 60; Glucose 118 mg/dL (75-110); Potassium 3.5 mmol/L (3.4-5.0); Sodium 135 mmol/L (137-145)
--- NOTE | 2019-10-07 07:26 | PM.PNGS ---
Progress Note: A&P Assessment and Plan (1) Adynamic ileus: Code(s): K56.0 - Paralytic ileus Status: Acute Assessment and Plan: still appears to have ileus. Abdomen is still slightly distended. Plans per GI and hospitalist. (2) Bipolar 1 disorder: Code(s): F31.9 - Bipolar disorder, unspecified Status: Chronic Assessment and Plan: more conversant with increase in Seroquel. Subjective Subjective Date/Time Seen: 10/07/19 07:26 Patient reports: no new complaints ( A little more alert and talkative this morning) Interval history: patient denies any vomiting last night. Still has no appetite. Review of Systems Review of Systems: All systems reviewed & are unremarkable except as noted in HPI and below ( HPI and those items noted below) ROS unobtainable: Yes unobtainable due to mental status Exam GI: Inspection: distended and incision ( all incisions healing well) Auscultation: Hypoactive bowel sounds present Objective Data Vital Signs Vital Signs: Vital Signs - 24 hr 10/06/19 11:44 10/06/19 22:00 10/07/19 06:00 Temperature 37.0 C 36.7 C Pulse Rate 91 83 74 Respiratory Rate 20 18 18 Blood Pressure 141/59 H 120/45 L Pulse Oximetry 96 97 95 Intake/Output Intake/Output: Intake & Output 10/04/19 10/05/19 10/06/19 10/07/19 23:59 23:59 23:59 23:59 Intake Total 3155.0 3195 3035 250 Output Total 350 650 150 Balance 2805.0 2545 2885 250 Meds/Results Medications: Active Medications Generic Name Dose Route Start Last Admin Trade Name Freq PRN Reason Stop Dose Admin Acetaminophen 500 mg 09/24/19 07:10 09/25/19 06:48 Tylenol Tablet PO 500 mg Q6H PRN Administration Mild Pain (1-3) or Fever Aspirin 81 mg 09/25/19 09:00 09/25/19 08:36 Aspirin Ec PO 81 mg DAILY KWASI Administration Bisacodyl 10 mg 09/30/19 09:00 10/06/19 09:27 Dulcolax Suppository RECTAL 10 mg QAM KWASI Administration Enoxaparin Sodium 40 mg 09/24/19 09:00 10/06/19 09:27 Lovenox SUB-Q 40 mg DAILY KWASI Administration Hydralazine HCl 10 mg 09/23/19 17:46 Apresoline Hcl Inj IV PUSH Q8H PRN Blood Pressure - High Ibuprofen 800 mg in 200 mls @ 400 mls/hr 09/24/19 07:10 Caldolor 800 Mg/200 Ml IVPB Q6H PRN Pain Rated 4-6 Dextrose 1,000 mls @ 50 mls/hr 09/29/19 11:39 Dextrose 10% IV CONT .Q20H PRN if PN is interrupted Multivitamins 5 ml/ Amino 2,005 mls @ 80 mls/hr 09/29/19 18:00 10/06/19 17:36 Acids/Electrolytes/Dextrose IV CONT 80 mls/hr .Q24H KWSAI Administration Protocol Fat Emulsion Intravenous 250 mls @ 20.833 mls/hr 09/29/19 18:00 10/07/19 05:39 Lipids 20% IVPB Infused Q24H KWASI Infusion Lidocaine 1 patch 09/25/19 09:00 10/06/19 09:28 Lidoderm TRANSDERM 1 patch DAILY KWASI Administration Lorazepam 0.5 mg 09/23/19 17:43 09/23/19 20:39 Ativan Inj IV PUSH 0.5 mg Q6H PRN Administration Anxiety Mineral Oil 30 ml 09/23/19 17:00 09/25/19 17:23 Mineral Oil PO 30 ml BID KWASI Administration Olanzapine 2.5 mg 09/24/19 11:45 Zyprexa PO DAILY PRN Anxiety Ondansetron HCl 4 mg 09/23/19 10:27 09/27/19 08:20 Zofran Inj IV PUSH 4 mg Q4H PRN Administration Nausea Pantoprazole Sodium 40 mg 09/24/19 11:50 10/06/19 21:13 Protonix Iv IV PUSH 40 mg Q12HR KWASI Administration Psyllium Hydrophilic Mucilloid 1 packet 09/23/19 21:00 09/25/19 21:22 Metamucil Packet PO 1 packet Q12HR KWASI Administration Quetiapine Fumarate 800 mg 10/06/19 21:00 10/06/19 21:11 Seroquel PO 800 mg HS KWASI Administration Senna/Docusate Sodium 2 tab 09/24/19 21:00 09/25/19 21:21 Senokot S Tablet PO 2 tab HS KWASI Administration Simvastatin 20 mg 09/24/19 21:00 09/25/19 21:23 Zocor PO 20 mg HS KWASI Administration Sodium Chloride 10 ml 09/29/19 22:00 10/06/19 05:48 Central Line Flush IV PUSH 10
--- NOTE | 2019-10-07 07:54 | WPDGIPROGNO ---
Progress Note: A&P Additional Plan Patient alert this morning. Not willing to have a conversation however. Unable to give any useful history. Nursing staff reports daily bowel movements. Patient denies abdominal pain. Physical exam reveals patient to be alert. Vital signs are stable. Lungs are clear. Heart without murmur. Abdomen is soft and nontender. Bowel sounds are present. Abdomen much softer and less tympanic today than previous. Labs reveal small bowel series with air-fluid levels to a mild degree throughout the intestines. Impression 1. Resolving ileus. Please currently on a clear liquid diet. Plan is to advance diet. Continue IV Reglan. And a [place] suppositories. Try to increase activity if at all possible. 2. Status post lap choly. Patient had a ruptured gangrenous gallbladder. 3. Bipolar Subjective Date/time seen: 10/07/19 07:54 Objective Data Vital Signs Vital Signs: Vital Signs - 24 hr 10/06/19 11:44 10/06/19 22:00 10/07/19 06:00 Temperature 98.6 F 98.1 F Pulse Rate 91 83 74 Respiratory Rate 20 18 18 Blood Pressure 141/59 H 120/45 L Pulse Oximetry 96 97 95 Intake/Output Intake/Output: Intake & Output 10/04/19 10/05/19 10/06/19 10/07/19 23:59 23:59 23:59 23:59 Intake Total 3155.0 3195 3035 250 Output Total 350 650 150 Balance 2805.0 2545 2885 250 Meds/Results Medications: Active Medications Generic Name Dose Route Start Last Admin Trade Name Freq PRN Reason Stop Dose Admin Acetaminophen 500 mg 09/24/19 07:10 09/25/19 06:48 Tylenol Tablet PO 500 mg Q6H PRN Administration Mild Pain (1-3) or Fever Aspirin 81 mg 09/25/19 09:00 09/25/19 08:36 Aspirin Ec PO 81 mg DAILY KWASI Administration Bisacodyl 10 mg 09/30/19 09:00 10/06/19 09:27 Dulcolax Suppository RECTAL 10 mg QAM KWASI Administration Enoxaparin Sodium 40 mg 09/24/19 09:00 10/06/19 09:27 Lovenox SUB-Q 40 mg DAILY KWASI Administration Hydralazine HCl 10 mg 09/23/19 17:46 Apresoline Hcl Inj IV PUSH Q8H PRN Blood Pressure - High Ibuprofen 800 mg in 200 mls @ 400 mls/hr 09/24/19 07:10 Caldolor 800 Mg/200 Ml IVPB Q6H PRN Pain Rated 4-6 Dextrose 1,000 mls @ 50 mls/hr 09/29/19 11:39 Dextrose 10% IV CONT .Q20H PRN if PN is interrupted Multivitamins 5 ml/ Amino 2,005 mls @ 80 mls/hr 09/29/19 18:00 10/06/19 17:36 Acids/Electrolytes/Dextrose IV CONT 80 mls/hr .Q24H KWASI Administration Protocol Fat Emulsion Intravenous 250 mls @ 20.833 mls/hr 09/29/19 18:00 10/07/19 05:39 Lipids 20% IVPB Infused Q24H KWASI Infusion Lidocaine 1 patch 09/25/19 09:00 10/06/19 09:28 Lidoderm TRANSDERM 1 patch DAILY KWASI Administration Lorazepam 0.5 mg 09/23/19 17:43 09/23/19 20:39 Ativan Inj IV PUSH 0.5 mg Q6H PRN Administration Anxiety Mineral Oil 30 ml 09/23/19 17:00 09/25/19 17:23 Mineral Oil PO 30 ml BID KWASI Administration Olanzapine 2.5 mg 09/24/19 11:45 Zyprexa PO DAILY PRN Anxiety Ondansetron HCl 4 mg 09/23/19 10:27 09/27/19 08:20 Zofran Inj IV PUSH 4 mg Q4H PRN Administration Nausea Pantoprazole Sodium 40 mg 09/24/19 11:50 10/06/19 21:13 Protonix Iv IV PUSH 40 mg Q12HR KWASI Administration Psyllium Hydrophilic Mucilloid 1 packet 09/23/19 21:00 09/25/19 21:22 Metamucil Packet PO 1 packet Q12HR KWASI Administration Quetiapine Fumarate 800 mg 10/06/19 21:00 10/06/19 21:11 Seroquel PO 800 mg HS KWASI Administration Senna/Docusate Sodium 2 tab 09/24/19 21:00 09/25/19 21:21 Senokot S Tablet PO 2 tab HS KWASI Administration Simvastatin 20 mg 09/24/19 21:00 09/25/19 21:23 Zocor PO 20 mg HS KWASI Administration Sodium Chloride 10 ml 09/29/19 22:00 10/06/19 05:48 Central Line Flush IV PUSH 10 ml Q8HR KWASI Administration Sodium Chloride 10 ml 09/29/19 18:00 10/05/19 20:35 Central Li
[2019-10-07] MEDS: PANTOPRAZOLE SODIUM IV 40 MG VIAL IV PUSH ×2 (08:43→21:50)
[2019-10-07] MEDS: ENOXAPARIN 40 MG/0.4 ML SYRINGE SUB-Q (08:43)
[2019-10-07] MEDS: LIDOCAINE 5% PATCH 1 PATCH TRANSDERM (08:43)
[2019-10-07] MEDS: BISACODYL 10 MG SUPPOSITORY RECTAL (08:43)
--- NOTE | 2019-10-07 09:45 | PM.IMPN ---
Progress Note: A&P Assessment and Plan (1) Adynamic ileus: Code(s): K56.0 - Paralytic ileus Status: Acute Assessment and Plan: CT abd/pelvis at admission revealed a large amount of colonic stool and gas throughout the colon, with the rectal vault measuring 8 cm. After admission, the patient developed vomiting. Plain abdominal films 09/26/19 revealed a small bowel obstruction versus ileus. NG tube was placed and the patient was made NPO for bowel rest. General surgery is on board and input is greatly appreciated. Repeat upper GI series with gastrografin and SBFT 09/29/19 revealed evidence of ileus as contrast did reach the colon between the 10 and [address] Sellers with GI was consulted 09/30/19 after discussion with general surgery and input is appreciated. He was advanced to CLD diet 10/02/19 and tolerated this reasonably well with one episode of emesis the night of 10/02/19. The NG was removed 10/04/19. Repeat KUB was unchanged. Repeat CT abdomen pelvis showed enterocolitis with air-fluid levels throughout the stomach, small bowel, colon and rectum. I talked to GI who believes that the entercolitis was misdiagnosed and is still his ileus that is resolving. Dr. Villalba surgery told me a could discontinue the IV Reglan to try and prevent the risk of tardive dyskinesia with interaction with his Seroquel. I talked to Dr. Verito BELCHER who states the patient is looking much better today and he is advancing his diet to a full liquid diet. Will continue monitoring the patients symptoms Continue analgesics PRN and antiemetics PRN. Avoid opioids. Continue to encourage ambulation and OOB to chair. He did get up and ambulate with PT today. Continue TPN/clinimix at 80cc/hr to meet his nutritional needs. Continue to monitor electrolytes. Continue to monitor closely with serial abdominal plain films. (2) SIRS (systemic inflammatory response syndrome): Code(s): R65.10 - Systemic inflammatory response syndrome (SIRS) of non-infectious origin without acute organ dysfunction Status: Resolved Assessment and Plan: Resolved. The patient met SIRS criteria with marked leukocytosis and tachycardia. Lactic acid was elevated initially which has resolved. There was no identifiable cause of infection and his tachycardia and leukocytosis may have been due to vomiting. He was treated with IV zosyn since he is s/p recent cholecystectomy. HIDA was negative for bile leak. He is stable from this standpoint. Blood cultures were final and reveal no growth. (3) ROSENDO (acute kidney injury): Code(s): N17.9 - Acute kidney failure, unspecified Status: Resolved Assessment and Plan: Resolved. ROSENDO was likely pre-renal due to decreased PO intake and vomiting. Plan to continue TPN. Continue to monitor renal function. (4) Syncope and collapse: Code(s): R55 - Syncope and collapse Status: Acute Assessment and Plan: Patient had a witnessed syncopal episode at his SNF at [facility] prior to arrival while he was going to the bathroom. This was likely due to a vasovagal episode due to dehydration versus severe constipation. He does exhibit orthostatic hypotension and seroquel is likely contributing as well as tamsulosin. Temeletry was monitored and revealed sinus rhythm with occasional PACs and PVCs. There were no evidence of arrhythmias/pauses. No further caridac workup was indicated as his episode was highly suspicious for vasovagal syncope. Continue to monitor. Continue RAJ hose for orthostatic hypotension and precautions when going from lying to sitting and sitting to standing. (5) Constipation: Qualifiers: Constipation type: unspecified constipation type Qualified Code(s): K59.00 - Constipation, unspecifi
--- NOTE | 2019-10-07 11:09 | PCOTNOTE ---
Patient declined to participate in therapy this date due to patient reporting to not feeling well. Will attempt therapy session at a later date 10/07/2019.
[2019-10-07 12:38] LABS: Glucose Point of Care 112 (65-105)
--- NOTE | 2019-10-07 12:56 | PCNFU ---
Nutrition Follow-Up Complete: Altered GI fxn as related to SBO as evidenced by NPO x 5 days. Goal: Meet estimated nutritional needs Progressing towards goal. We will continue current goal. Pt current nutrition is full liquids. Nutrition recommendation: Advance as tolerated. Last recorded weight is 90.4 kg. Bowel Motility:+BM / Labs Reviewed:Glu 118,BUN 21,Na 135 Meds Noted:Lovenox,Protonix, Clinimix E 4.25/5 and 250 ml of 20% Lipid Emulsion. Additional Notes: Patient remains on PPN at this time providing 1153 kcals and 82 gms protein. Spoke with patient today, he ate all of his full liquid tray for breakfast. We discussed diet supplements and he is going to try Ensure compact BID providing an additional 220 kcals and 9 gms protein. Monitoring: RD will monitor labs, intake every 3 days.
[2019-10-07 14:00] VITALS: BP 118/47; PULSE 77; RESP 18; TEMP 36.7; O2SAT 95
[2019-10-07] MEDS: CENTRAL LINE FLUSH 10 ML IV PUSH ×3 (14:00→21:51)
--- NOTE | 2019-10-07 15:08 | PCPTNOTE ---
Patient refused treatment this session patient stated not today come back tomorrow. Therapist informed R.N. Will continue treatment per POC.
[2019-10-07] MEDS: FAT EMULSIONS IV 20% 250 ML 20.8 ML IVPB (18:00)
[2019-10-07 18:15] LABS: Glucose Point of Care 122 (65-105)
[2019-10-07] MEDS: QUEtiapine FUMARATE 100 MG TABLET 800 MG PO (21:50)
[2019-10-07] MEDS: TAMSULOSIN HCL 0.4 MG CAPSULE PO (21:50)
[2019-10-07 22:00] VITALS: BP 125/57; PULSE 81; RESP 18; TEMP 37.2; O2SAT 99
[2019-10-08 01:11] LABS: Glucose Point of Care 132 (65-105)
[2019-10-08] MEDS: CENTRAL LINE FLUSH 10 ML IV PUSH ×4 (05:42→20:40)
[2019-10-08 06:00] VITALS: BP 121/53; PULSE 82; RESP 18; TEMP 36.9; O2SAT 96
[2019-10-08 06:14] LABS: Glucose Point of Care 110 (65-105)
[2019-10-08 06:41] LABS: Blood Urea Nitrogen 19 mg/dL (9-20); Carbon Dioxide 26 mmol/L (22-30); Chloride 103 mmol/L (98-107); Estimated CRCL calculation 80 ml/min; Estimated Glomerular Filt Rate > 60; Glucose 104 mg/dL (75-110); Potassium 3.8 mmol/L (3.4-5.0); Sodium 134 mmol/L (137-145)
[2019-10-08] MEDS: ENOXAPARIN 40 MG/0.4 ML SYRINGE SUB-Q (09:36)
[2019-10-08] MEDS: PANTOPRAZOLE SODIUM IV 40 MG VIAL IV PUSH ×2 (09:39→20:39)
--- NOTE | 2019-10-08 10:02 | WPDGIPROGNO ---
Progress Note: A&P Additional Plan Patient unable to give any significant history. Apparently tolerating diet. Bowel movements are reported by nursing service. Patient denies any abdominal pain. Physical exam abdomen is modestly distended today. Bowel sounds are present. Abdomen is soft. Mild tympany noted. Impression 1. Ileus. It is apparent that ileus may not be completely resolved. Plan is to resume intravenous Reglan. Seroquel may need To be held if there could be a potential interaction. Plan to continue monitor KUB intermittently. 2. Status post lap choly. History of gangrenous ruptured gallbladder. 3. Bipolar. Subjective Date/time seen: 10/08/19 10:02 Objective Data Vital Signs Vital Signs: Vital Signs - 24 hr 10/07/19 14:00 10/07/19 22:00 10/08/19 06:00 Temperature 98.1 F 99.0 F 98.4 F Pulse Rate 77 81 82 Respiratory Rate 18 18 18 Blood Pressure 118/47 L 125/57 L 121/53 L Pulse Oximetry 95 99 96 Intake/Output Intake/Output: Intake & Output 10/05/19 10/06/19 10/07/19 10/08/19 23:59 23:59 23:59 23:59 Intake Total 3195 3035 2455 640 Output Total 650 150 Balance 2545 2885 2455 640 Meds/Results Medications: Active Medications Generic Name Dose Route Start Last Admin Trade Name Freq PRN Reason Stop Dose Admin Acetaminophen 500 mg 09/24/19 07:10 09/25/19 06:48 Tylenol Tablet PO 500 mg Q6H PRN Administration Mild Pain (1-3) or Fever Aspirin 81 mg 09/25/19 09:00 09/25/19 08:36 Aspirin Ec PO 81 mg DAILY KWASI Administration Bisacodyl 10 mg 09/30/19 09:00 10/07/19 08:43 Dulcolax Suppository RECTAL 10 mg QAM KWASI Administration Enoxaparin Sodium 40 mg 09/24/19 09:00 10/08/19 09:36 Lovenox SUB-Q 40 mg DAILY KWASI Administration Hydralazine HCl 10 mg 09/23/19 17:46 Apresoline Hcl Inj IV PUSH Q8H PRN Blood Pressure - High Ibuprofen 800 mg in 200 mls @ 400 mls/hr 09/24/19 07:10 Caldolor 800 Mg/200 Ml IVPB Q6H PRN Pain Rated 4-6 Dextrose 1,000 mls @ 50 mls/hr 09/29/19 11:39 Dextrose 10% IV CONT .Q20H PRN if PN is interrupted Multivitamins 5 ml/ Amino 2,005 mls @ 80 mls/hr 09/29/19 18:00 10/07/19 18:00 Acids/Electrolytes/Dextrose IV CONT 80 mls/hr .Q24H KWASI Administration Protocol Fat Emulsion Intravenous 250 mls @ 20.833 mls/hr 09/29/19 18:00 10/08/19 07:48 Lipids 20% IVPB Infused Q24H KWASI Infusion Lidocaine 1 patch 09/25/19 09:00 10/07/19 08:43 Lidoderm TRANSDERM 1 patch DAILY KWASI Administration Lorazepam 0.5 mg 09/23/19 17:43 09/23/19 20:39 Ativan Inj IV PUSH 0.5 mg Q6H PRN Administration Anxiety Mineral Oil 30 ml 09/23/19 17:00 09/25/19 17:23 Mineral Oil PO 30 ml BID KWASI Administration Olanzapine 2.5 mg 09/24/19 11:45 Zyprexa PO DAILY PRN Anxiety Ondansetron HCl 4 mg 09/23/19 10:27 09/27/19 08:20 Zofran Inj IV PUSH 4 mg Q4H PRN Administration Nausea Pantoprazole Sodium 40 mg 09/24/19 11:50 10/08/19 09:39 Protonix Iv IV PUSH 40 mg Q12HR KWASI Administration Psyllium Hydrophilic Mucilloid 1 packet 09/23/19 21:00 09/25/19 21:22 Metamucil Packet PO 1 packet Q12HR KWASI Administration Quetiapine Fumarate 800 mg 10/06/19 21:00 10/07/19 21:50 Seroquel PO 800 mg HS KWASI Administration Senna/Docusate Sodium 2 tab 09/24/19 21:00 09/25/19 21:21 Senokot S Tablet PO 2 tab HS KWASI Administration Simvastatin 20 mg 09/24/19 21:00 09/25/19 21:23 Zocor PO 20 mg HS KWASI Administration Sodium Chloride 10 ml 09/29/19 22:00 10/08/19 05:42 Central Line Flush IV PUSH 10 ml Q8HR KWASI Administration Sodium Chloride 10 ml 09/29/19 18:00 10/07/19 18:02 Central Line Flush IV PUSH 10 ml DAILY@1800 KWASI Administration Sodium Chloride 20 ml 09/29/19 14:19 Central Line Flush IV PUSH PRN PRN after blood draws Tams
--- NOTE | 2019-10-08 11:04 | PCPTNOTE ---
Attempted to see pt for PT re-evaluation. Pt states he's too tired to work with therapy and requests coming back later.
--- NOTE | 2019-10-08 11:12 | PM.IMPN ---
Progress Note: A&P Assessment and Plan (1) Adynamic ileus: Code(s): K56.0 - Paralytic ileus Status: Acute Assessment and Plan: CT abd/pelvis at admission revealed a large amount of colonic stool and gas throughout the colon, with the rectal vault measuring 8 cm. After admission, the patient developed vomiting. Plain abdominal films 09/26/19 revealed a small bowel obstruction versus ileus. NG tube was placed and the patient was made NPO for bowel rest. General surgery is on board and input is greatly appreciated. Repeat upper GI series with gastrografin and SBFT 09/29/19 revealed evidence of ileus as contrast did reach the colon between the 10 and [address] Sellers with GI was consulted 09/30/19 after discussion with general surgery and input is appreciated. He was advanced to CLD diet 10/02/19 and tolerated this reasonably well with one episode of emesis the night of 10/02/19. The NG was removed 10/04/19. Repeat KUB was unchanged 10/08/2019. Repeat CT abdomen pelvis showed enterocolitis with air-fluid levels throughout the stomach, small bowel, colon and rectum. I talked to GI who believes that the entercolitis was misdiagnosed and is still his ileus that is resolving. Dr. Villalba surgery told me a could discontinue the IV Reglan to try and prevent the risk of tardive dyskinesia with interaction with his Seroquel. 10/08/2019: Dr. Sellers GI restarted the patient's Reglan IV due to some abdominal distention and decreased bowel sounds. He recommends holding Seroquel if we are concerned about interaction with Reglan. Patient was switched to a soft diet today and ate 80% of his meal. Discussed with Karyna Garcia NP Surgery about the patients diet and she states we can discontinue Clinimix at this time since he has been eating and drinking without any issues. Will continue monitoring the patients symptoms Continue analgesics PRN and antiemetics PRN. Avoid opioids. Continue to encourage ambulation and OOB to chair. He did get up and ambulate with PT today. Continue to monitor electrolytes. Continue to monitor closely with serial abdominal plain films. (2) SIRS (systemic inflammatory response syndrome): Code(s): R65.10 - Systemic inflammatory response syndrome (SIRS) of non-infectious origin without acute organ dysfunction Status: Resolved Assessment and Plan: Resolved. The patient met SIRS criteria with marked leukocytosis and tachycardia. Lactic acid was elevated initially which has resolved. There was no identifiable cause of infection and his tachycardia and leukocytosis may have been due to vomiting. He was treated with IV zosyn since he is s/p recent cholecystectomy. HIDA was negative for bile leak. He is stable from this standpoint. Blood cultures were final and reveal no growth. (3) ROSENDO (acute kidney injury): Code(s): N17.9 - Acute kidney failure, unspecified Status: Resolved Assessment and Plan: Resolved. ROSENDO was likely pre-renal due to decreased PO intake and vomiting. Plan to continue TPN. Continue to monitor renal function. (4) Syncope and collapse: Code(s): R55 - Syncope and collapse Status: Acute Assessment and Plan: Patient had a witnessed syncopal episode at his SNF at [facility] prior to arrival while he was going to the bathroom. This was likely due to a vasovagal episode due to dehydration versus severe constipation. He does exhibit orthostatic hypotension and seroquel is likely contributing as well as tamsulosin. Temeletry was monitored and revealed sinus rhythm with occasional PACs and PVCs. There were no evidence of arrhythmias/pauses. No further caridac workup was indicated as his episode was highly suspicious for vasovagal syncope. Continue to monitor. Continue RAJ hose for orthostatic hypotension and precau
--- NOTE | 2019-10-08 11:15 | PCOTNOTE ---
OT reassess attempted. Patient wanting to take nap and refusing therapy at this time despite encouragement. Will attempt OT re-assessment at later time.
[2019-10-08 11:26] LABS: Triglycerides 85 mg/dL (<150)
--- NOTE | 2019-10-08 12:02 | PM.PNGS ---
Progress Note: A&P Assessment and Plan (1) Adynamic ileus: Code(s): K56.0 - Paralytic ileus Status: Acute Assessment and Plan: Still slightly distended with hypoactive bowel sounds, concerning for a persistent ileus. He is showing slight signs of improvement and is tolerating a soft diet today. No indication for surgery. Plans per GI and Hospitalist. (2) Bipolar 1 disorder: Code(s): F31.9 - Bipolar disorder, unspecified Status: Chronic Assessment and Plan: More talkative and able to hold somewhat of a conversation today, which seems to be improved since I last saw the patient. Has been increased back to home dose of Seroquel. Additional Plan Discussed the plan of care with Dr. Villalba today. Subjective Subjective Date/Time Seen: 10/08/19 11:45 Patient reports: no new complaints, feels better and tolerating a regular diet (soft diet) Interval history: Patient seen in the bed today. Denies abdominal pain, nausea, vomiting, or bloating. Reports eating over 1/2 of his breakfast tray of a soft diet. More talkative and responsive today when asking him questions. No other complaints at this time. Patient cannot recall his last BM or if he is having flatus. Per the nurse, he had a BM yesterday. Review of Systems Review of Systems: All systems reviewed & are unremarkable except as noted in HPI and below Gastrointestinal: Gastrointestinal: Reports as per HPI and Reports no additional gastrointestinal complaints Genitourinary: Genitourinary: Reports no additional male genitourinary complaints, Denies dysuria and Reports urinary incontinence Exam Const: General: comfortable, no acute distress, alert and awake Orientation/consciousness: patient oriented x3 GI: Inspection: incision (abdominal incisions well healed) and other (still mildly distended) GI Palp: Yes Soft to palpation, Yes Tenderness to palpation present (GI) (diffuse mild tenderness, no focal tenderness), No Guarding due to palpation present (GI) and No Rebound tenderness present Auscultation: Hypoactive bowel sounds present Skin: General skin exam: normal color Neuro: General: moves all extremities and no focal motor deficits Psych: Affect: Blunted affect present Attitude: cooperative Insight: Limited insight present (Psych) Judgement: Limited judgement present (Psych) Objective Data Vital Signs Vital Signs: Vital Signs - 24 hr 10/07/19 14:00 10/07/19 22:00 10/08/19 06:00 Temperature 98.1 F 99.0 F 98.4 F Pulse Rate 77 81 82 Respiratory Rate 18 18 18 Blood Pressure 118/47 L 125/57 L 121/53 L Pulse Oximetry 95 99 96 Intake/Output Intake/Output: Intake & Output 10/05/19 10/06/19 10/07/19 10/08/19 23:59 23:59 23:59 23:59 Intake Total 3195 3035 2455 640 Output Total 650 150 Balance 2545 8005 2455 640 Meds/Results Medications: Active Medications Generic Name Dose Route Start Last Admin Trade Name Freq PRN Reason Stop Dose Admin Acetaminophen 500 mg 09/24/19 07:10 09/25/19 06:48 Tylenol Tablet PO 500 mg Q6H PRN Administration Mild Pain (1-3) or Fever Aspirin 81 mg 09/25/19 09:00 09/25/19 08:36 Aspirin Ec PO 81 mg DAILY KWASI Administration Bisacodyl 10 mg 09/30/19 09:00 10/07/19 08:43 Dulcolax Suppository RECTAL 10 mg QAM KWASI Administration Enoxaparin Sodium 40 mg 09/24/19 09:00 10/08/19 09:36 Lovenox SUB-Q 40 mg DAILY KWASI Administration Hydralazine HCl 10 mg 09/23/19 17:46 Apresoline Hcl Inj IV PUSH Q8H PRN Blood Pressure - High Ibuprofen 800 mg in 200 mls @ 400 mls/hr 09/24/19 07:10 Caldolor 800 Mg/200 Ml IVPB Q6H PRN Pain Rated 4-6 Dextrose 1,000 mls @ 50 mls/hr 09/29/19 11:39 Dextrose 10% IV CONT .Q20H PRN if PN is interrupted Lidocaine 1 patch 09/25/19 09:00 10/07/19 08:43 Lidoderm TRANSDERM 1 patch DAILY KWASI Administration Lorazepam 0.5 mg 09/23/19 17:43 09/23/19 20:39 Ativan Inj
[2019-10-08] MEDS: LIDOCAINE 5% PATCH 1 PATCH TRANSDERM (12:56)
[2019-10-08] MEDS: BISACODYL 10 MG SUPPOSITORY RECTAL (12:56)
[2019-10-08] MEDS: METOCLOPRAMIDE HCL 10 MG TABLET PO ×3 (12:56→20:39)
[2019-10-08 13:29] LABS: SARS-CoV-2 RNA PCR Negative
[2019-10-08 14:00] VITALS: BP 123/64; PULSE 95; RESP 16; TEMP 36.3; O2SAT 97
[2019-10-08 17:18] LABS: Glucose Point of Care 101 (65-105)
[2019-10-08 18:32] LABS: Glucose Point of Care 119 (65-105)
[2019-10-08] MEDS: TAMSULOSIN HCL 0.4 MG CAPSULE PO (20:39)
[2019-10-08 22:00] VITALS: BP 137/62; PULSE 96; RESP 16; TEMP 36.7; O2SAT 97
[2019-10-09 00:30] LABS: Glucose Point of Care 97 (65-105)
[2019-10-09 06:00] VITALS: BP 122/60; PULSE 100; RESP 16; TEMP 36.3; O2SAT 97
[2019-10-09] MEDS: CENTRAL LINE FLUSH 10 ML IV PUSH ×4 (06:12→20:58)
[2019-10-09 06:13] LABS: Glucose Point of Care 114 (65-105)
[2019-10-09] MEDS: METOCLOPRAMIDE HCL 10 MG TABLET PO ×4 (06:13→20:57)
[2019-10-09 06:22] LABS: Basophils Percent Auto 0.7 % (0.2-1.2); Eosinophils Absolute Auto 0.1 K/mm3 (0-0.3); Eosinophils Percent Auto 2.4 % (0-4.4); Hemoglobin 10.4 g/dL (14.0-18.0); Immature Granulocyte Absolute 0.04 K/mm3 (0.00-0.031); Immature Granulocyte Percent A 0.7 % (0-0.5); Lymphocytes Absolute Auto 1.29 K/mm3 (0.9-3.2); Lymphocytes Percent Auto 22.4 % (18.3-44.2); Mean Corpuscular HGB Conc 32.5 g/dl (32-36); Mean Corpuscular Volume 92.2 fl (80-100); Mean Platelet Volume 9.4 fl (7.4-10.4); Monocytes Absolute Auto 0.7 K/mm3 (0.1-0.6); Monocytes Percent Auto 11.4 % (2.6-8.5); Neutrophils Absolute Auto 3.6 K/mm3 (1.3-6.7); Neutrophils Percent Auto 62.4 % (45.5-73.1); Platelet Count Result 260 k/mm3 (150-375); Red Blood Count 3.47 M/mm3 (4.6-6.20); Red Cell Distribution Width 13.4 % (11.5-14.5); White Blood Count 5.8 K/mm3 (4.5-10.0)
[2019-10-09 06:45] LABS: Alanine Aminotransferase 20 U/L (4-50); Albumin Level 2.9 g/dL (3.5-5.1); Alkaline Phosphatase 100 U/L (38-126); Aspartate Amino Transferase 16 U/L (17-59); Bilirubin,Total 0.2 mg/dL (0.2-1.3); Blood Urea Nitrogen 20 mg/dL (9-20); Calcium 8.4 mg/dL (8.4-10.2); Carbon Dioxide 23 mmol/L (22-30); Chloride 104 mmol/L (98-107); Estimated CRCL calculation 71 ml/min; Estimated Glomerular Filt Rate > 60; Glucose 112 mg/dL (75-110); Potassium 4.1 mmol/L (3.4-5.0); Sodium 136 mmol/L (137-145)
--- NOTE | 2019-10-09 07:12 | WPDGIPROGNO ---
Progress Note: A&P Additional Plan Patient gives very limited history. He reports that he is starting to tolerate diet. He is uncertain about his bowel habits. Bowel habits have been reported by nursing staff. Physical exam reveals him to be alert. Lungs are clear. Heart without murmur. Abdomen is soft. Bowel sounds are diminished. Abdomen is modestly tympanic. Impression 1. Ileus may not totally be resolved. Plan is to continue intravenous Reglan. Dulcolax suppositories. Start oral laxatives if patient is tolerating diet. Hopefully increase activity to some degree. 2. Status post lap choly for gangrenous gallbladder. 3. Bipolar illness. Subjective Date/time seen: 10/09/19 07:12 Objective Data Vital Signs Vital Signs: Vital Signs - 24 hr 10/08/19 14:00 10/08/19 22:00 10/09/19 06:00 Temperature 97.3 F L 98.0 F 97.3 F L Pulse Rate 95 96 100 Respiratory Rate 16 16 16 Blood Pressure 123/64 137/62 122/60 Pulse Oximetry 97 97 97 Intake/Output Intake/Output: Intake & Output 10/06/19 10/07/19 10/08/19 10/09/19 23:59 23:59 23:59 23:59 Intake Total 3035 2455 1080 350 Output Total 150 Balance 2885 2455 1080 350 Meds/Results Medications: Active Medications Generic Name Dose Route Start Last Admin Trade Name Freq PRN Reason Stop Dose Admin Acetaminophen 500 mg 09/24/19 07:10 09/25/19 06:48 Tylenol Tablet PO 500 mg Q6H PRN Administration Mild Pain (1-3) or Fever Aspirin 81 mg 09/25/19 09:00 09/25/19 08:36 Aspirin Ec PO 81 mg DAILY KWASI Administration Bisacodyl 10 mg 09/30/19 09:00 10/08/19 12:56 Dulcolax Suppository RECTAL 10 mg QAM KWASI Administration Enoxaparin Sodium 40 mg 09/24/19 09:00 10/08/19 09:36 Lovenox SUB-Q 40 mg DAILY KWASI Administration Hydralazine HCl 10 mg 09/23/19 17:46 Apresoline Hcl Inj IV PUSH Q8H PRN Blood Pressure - High Ibuprofen 800 mg in 200 mls @ 400 mls/hr 09/24/19 07:10 Caldolor 800 Mg/200 Ml IVPB Q6H PRN Pain Rated 4-6 Dextrose 1,000 mls @ 50 mls/hr 09/29/19 11:39 Dextrose 10% IV CONT .Q20H PRN if PN is interrupted Lidocaine 1 patch 09/25/19 09:00 10/08/19 12:56 Lidoderm TRANSDERM 1 patch DAILY KWASI Administration Lorazepam 0.5 mg 09/23/19 17:43 09/23/19 20:39 Ativan Inj IV PUSH 0.5 mg Q6H PRN Administration Anxiety Metoclopramide HCl 10 mg 10/08/19 11:30 10/09/19 06:13 Reglan PO 10 mg ACHS KWASI Administration Mineral Oil 30 ml 09/23/19 17:00 09/25/19 17:23 Mineral Oil PO 30 ml BID KWASI Administration Olanzapine 2.5 mg 09/24/19 11:45 Zyprexa PO DAILY PRN Anxiety Ondansetron HCl 4 mg 09/23/19 10:27 09/27/19 08:20 Zofran Inj IV PUSH 4 mg Q4H PRN Administration Nausea Pantoprazole Sodium 40 mg 09/24/19 11:50 10/08/19 20:39 Protonix Iv IV PUSH 40 mg Q12HR KWASI Administration Psyllium Hydrophilic Mucilloid 1 packet 09/23/19 21:00 09/25/19 21:22 Metamucil Packet PO 1 packet Q12HR KWASI Administration Quetiapine Fumarate 800 mg 10/06/19 21:00 10/07/19 21:50 Seroquel PO 800 mg HS KWASI Administration Senna/Docusate Sodium 2 tab 09/24/19 21:00 09/25/19 21:21 Senokot S Tablet PO 2 tab HS KWASI Administration Simvastatin 20 mg 09/24/19 21:00 09/25/19 21:23 Zocor PO 20 mg HS KWASI Administration Sodium Chloride 10 ml 09/29/19 22:00 10/09/19 06:12 Central Line Flush IV PUSH 10 ml Q8HR KWASI Administration Sodium Chloride 10 ml 09/29/19 18:00 10/08/19 17:13 Central Line Flush IV PUSH 10 ml DAILY@1800 KWASI Administration Sodium Chloride 20 ml 09/29/19 14:19 Central Line Flush IV PUSH PRN PRN after blood draws Tamsulosin HCl 0.4 mg 09/24/19 21:00 10/08/19 20:39 Flomax PO 0.4 mg HS KWASI Administration Radiology Results: ITS Impressions Head CT 09/23/19 08:44 IMPRESSION: 1. No acute intrac
--- NOTE | 2019-10-09 07:40 | PM.PNGS ---
Progress Note: A&P Assessment and Plan (1) Adynamic ileus: Code(s): K56.0 - Paralytic ileus Status: Acute Assessment and Plan: Ate better yesterday. We will see how the day goes. Encouraged to ambulate. (2) Hx laparoscopic cholecystectomy: Code(s): Z90.49 - Acquired absence of other specified parts of digestive tract Status: Acute Subjective Subjective Date/Time Seen: 10/09/19 07:40 Patient reports: pain is less and afebrile Interval history: Att more yesterday but feels bloated this morning. Says he may have overdone it with eating too much yesterday. Review of Systems Review of Systems: All systems reviewed & are unremarkable except as noted in HPI and below Constitutional: Constitutional: Denies headache(s) Cardiovascular: Cardiovascular: Denies chest pain and Denies dyspnea Respiratory: Respiratory: Denies cough and Denies dyspnea Gastrointestinal: Gastrointestinal: Reports as per HPI, Denies abdominal pain, Reports bloating, Denies constipation, Reports diarrhea ( Large liquid stool last night), Reports nausea and Denies vomiting Genitourinary: Genitourinary: Reports urinary incontinence ( wearing a diaper.) Exam GI: Inspection: distended and incision ( Healing well) GI Palp: Yes Soft to palpation, No Tenderness to palpation present (GI), No Guarding due to palpation present (GI) and No Rebound tenderness present Neuro: General: patient oriented x3, no focal motor deficits and No confusion Extrem: General: no calf tenderness and no edema Objective Data Vital Signs Vital Signs: Vital Signs - 24 hr 10/08/19 14:00 10/08/19 22:00 10/09/19 06:00 Temperature 36.3 C L 36.7 C 36.3 C L Pulse Rate 95 96 100 Respiratory Rate 16 16 16 Blood Pressure 123/64 137/62 122/60 Pulse Oximetry 97 97 97 Intake/Output Intake/Output: Intake & Output 10/06/19 10/07/19 10/08/19 10/09/19 23:59 23:59 23:59 23:59 Intake Total 3035 2455 1080 350 Output Total 150 Balance 2885 2455 1080 350 Meds/Results Medications: Active Medications Generic Name Dose Route Start Last Admin Trade Name Freq PRN Reason Stop Dose Admin Acetaminophen 500 mg 09/24/19 07:10 09/25/19 06:48 Tylenol Tablet PO 500 mg Q6H PRN Administration Mild Pain (1-3) or Fever Aspirin 81 mg 09/25/19 09:00 09/25/19 08:36 Aspirin Ec PO 81 mg DAILY KWASI Administration Bisacodyl 10 mg 09/30/19 09:00 10/08/19 12:56 Dulcolax Suppository RECTAL 10 mg QAM KWASI Administration Enoxaparin Sodium 40 mg 09/24/19 09:00 10/08/19 09:36 Lovenox SUB-Q 40 mg DAILY KWASI Administration Hydralazine HCl 10 mg 09/23/19 17:46 Apresoline Hcl Inj IV PUSH Q8H PRN Blood Pressure - High Ibuprofen 800 mg in 200 mls @ 400 mls/hr 09/24/19 07:10 Caldolor 800 Mg/200 Ml IVPB Q6H PRN Pain Rated 4-6 Dextrose 1,000 mls @ 50 mls/hr 09/29/19 11:39 Dextrose 10% IV CONT .Q20H PRN if PN is interrupted Lidocaine 1 patch 09/25/19 09:00 10/08/19 12:56 Lidoderm TRANSDERM 1 patch DAILY KWASI Administration Lorazepam 0.5 mg 09/23/19 17:43 09/23/19 20:39 Ativan Inj IV PUSH 0.5 mg Q6H PRN Administration Anxiety Metoclopramide HCl 10 mg 10/08/19 11:30 10/09/19 06:13 Reglan PO 10 mg ACHS KWASI Administration Mineral Oil 30 ml 09/23/19 17:00 09/25/19 17:23 Mineral Oil PO 30 ml BID KWASI Administration Olanzapine 2.5 mg 09/24/19 11:45 Zyprexa PO DAILY PRN Anxiety Ondansetron HCl 4 mg 09/23/19 10:27 09/27/19 08:20 Zofran Inj IV PUSH 4 mg Q4H PRN Administration Nausea Pantoprazole Sodium 40 mg 09/24/19 11:50 10/08/19 20:39 Protonix Iv IV PUSH 40 mg Q12HR KWASI Administration Psyllium Hydrophilic Mucilloid 1 packet 09/23/19 21:00 09/25/19 21:22 Metamucil Packet PO 1 packet Q12HR KWASI Administration Quetiapine Fumarate 800 mg 10/06/19 21:00 10/07/19 21:50
[2019-10-09] MEDS: BISACODYL 10 MG SUPPOSITORY RECTAL (08:45)
[2019-10-09] MEDS: LIDOCAINE 5% PATCH 1 PATCH TRANSDERM (08:45)
[2019-10-09] MEDS: ENOXAPARIN 40 MG/0.4 ML SYRINGE SUB-Q (08:45)
[2019-10-09] MEDS: PANTOPRAZOLE SODIUM IV 40 MG VIAL IV PUSH ×2 (08:46→20:57)
[2019-10-09 14:00] VITALS: BP 145/60; PULSE 88; RESP 18; TEMP 36.7; O2SAT 96
--- NOTE | 2019-10-09 14:57 | PM.IMPN ---
Progress Note: A&P Assessment and Plan (1) Adynamic ileus: Code(s): K56.0 - Paralytic ileus Status: Acute Assessment and Plan: CT abd/pelvis at admission revealed a large amount of colonic stool and gas throughout the colon, with the rectal vault measuring 8 cm. After admission, the patient developed vomiting. Plain abdominal films 09/26/19 revealed a small bowel obstruction versus ileus. NG tube was placed and the patient was made NPO for bowel rest. General surgery is on board and input is greatly appreciated. Repeat upper GI series with gastrografin and SBFT 09/29/19 revealed evidence of ileus as contrast did reach the colon between the 10 and [address] Sellers with GI was consulted 09/30/19 after discussion with general surgery and input is appreciated. He was advanced to CLD diet 10/02/19 and tolerated this reasonably well with one episode of emesis the night of 10/02/19. The NG was removed 10/04/19. Repeat KUB was unchanged 10/08/2019. Repeat CT abdomen pelvis showed enterocolitis with air-fluid levels throughout the stomach, small bowel, colon and rectum. I talked to GI who believes that the entercolitis was misdiagnosed and is still his ileus that is resolving. Dr. Villalba surgery is still monitoring the patient believes he is not a surgical case at this time. 10/08/2019: Dr. Sellers GI restarted the patient's Reglan IV due to some abdominal distention and decreased bowel sounds. He recommends holding Seroquel if we are concerned about interaction with Reglan. Patient is still on a soft diet today and has not had any vomiting episodes. Will continue monitoring the patients symptoms Continue analgesics PRN and antiemetics PRN. Avoid opioids. Continue to encourage ambulation and OOB to chair. He did get up and ambulate with PT today. Continue to monitor electrolytes. Continue to monitor closely with serial abdominal plain films. (2) SIRS (systemic inflammatory response syndrome): Code(s): R65.10 - Systemic inflammatory response syndrome (SIRS) of non-infectious origin without acute organ dysfunction Status: Resolved Assessment and Plan: Resolved. The patient met SIRS criteria with marked leukocytosis and tachycardia. Lactic acid was elevated initially which has resolved. There was no identifiable cause of infection and his tachycardia and leukocytosis may have been due to vomiting. He was treated with IV zosyn since he is s/p recent cholecystectomy. HIDA was negative for bile leak. He is stable from this standpoint. Blood cultures were final and reveal no growth. (3) ROSENDO (acute kidney injury): Code(s): N17.9 - Acute kidney failure, unspecified Status: Resolved Assessment and Plan: Resolved. ROSENDO was likely pre-renal due to decreased PO intake and vomiting. Plan to continue TPN. Continue to monitor renal function. (4) Syncope and collapse: Code(s): R55 - Syncope and collapse Status: Acute Assessment and Plan: Patient had a witnessed syncopal episode at his [facility] at [facility] prior to arrival while he was going to the bathroom. This was likely due to a vasovagal episode due to dehydration versus severe constipation. He does exhibit orthostatic hypotension and seroquel is likely contributing as well as tamsulosin. Temeletry was monitored and revealed sinus rhythm with occasional PACs and PVCs. There were no evidence of arrhythmias/pauses. No further caridac workup was indicated as his episode was highly suspicious for vasovagal syncope. Continue to monitor. Continue RAJ hose for orthostatic hypotension and precautions when going from lying to sitting and sitting to standing. (5) Constipation: Qualifiers: Constipation type: unspecified constipation type Quali
--- NOTE | 2019-10-09 19:37 | PC.NURSE ---
Manny refused to get out of bed to sit in the chair or walk in the halls. I asked him several times. Sylvia asked him four times, also. Pt declined eating breakfast or lunch, but he did eat 50% of dinner and drank all of his dietary supplements. Pt appears extremely withdrawn.
[2019-10-09] MEDS: TAMSULOSIN HCL 0.4 MG CAPSULE PO (20:57)
[2019-10-09 22:00] VITALS: BP 138/51; PULSE 75; RESP 18; TEMP 36.9; O2SAT 100
[2019-10-10 06:00] VITALS: BP 156/62; PULSE 88; RESP 18; TEMP 36.9; O2SAT 98
[2019-10-10] MEDS: CENTRAL LINE FLUSH 10 ML IV PUSH ×3 (06:14→21:27)
[2019-10-10] MEDS: METOCLOPRAMIDE HCL 10 MG TABLET PO ×3 (06:14→21:27)
--- NOTE | 2019-10-10 07:14 | WPDGIPROGNO ---
Progress Note: A&P Additional Plan Patient looking much better this morning. He is more alert. States he is eating better. Physical exam reveals patient to be alert. Abdomen is soft. Bowel sounds are present. Nontender. Improved clinical exam evident. Impression 1. Resolving ileus. Plan to advance diet and activity. Oral medications are suggested. Hopefully we can DC IV meds. 2. Status post recent lap choly for gangrenous gallbladder. Patient clinically healing. 3. Bipolar. Hopefully plan is to hopefully changed oral medications. Increase activity and discharge anticipated. Subjective Date/time seen: 10/10/19 07:14 Objective Data Vital Signs Vital Signs: Vital Signs - 24 hr 10/09/19 14:00 10/09/19 22:00 10/10/19 06:00 Temperature 98.0 F 98.4 F 98.4 F Pulse Rate 88 75 88 Respiratory Rate 18 18 18 Blood Pressure 145/60 H 138/51 L 156/62 H Pulse Oximetry 96 100 98 Intake/Output Intake/Output: Intake & Output 10/07/19 10/08/19 10/09/19 10/10/19 23:59 23:59 23:59 23:59 Intake Total 2455 1080 810 300 Balance 2455 1080 810 300 Meds/Results Medications: Active Medications Generic Name Dose Route Start Last Admin Trade Name Freq PRN Reason Stop Dose Admin Acetaminophen 500 mg 09/24/19 07:10 09/25/19 06:48 Tylenol Tablet PO 500 mg Q6H PRN Administration Mild Pain (1-3) or Fever Aspirin 81 mg 09/25/19 09:00 09/25/19 08:36 Aspirin Ec PO 81 mg DAILY KWASI Administration Bisacodyl 10 mg 09/30/19 09:00 10/09/19 08:45 Dulcolax Suppository RECTAL 10 mg QAM KWASI Administration Enoxaparin Sodium 40 mg 09/24/19 09:00 10/09/19 08:45 Lovenox SUB-Q 40 mg DAILY KWASI Administration Hydralazine HCl 10 mg 09/23/19 17:46 Apresoline Hcl Inj IV PUSH Q8H PRN Blood Pressure - High Ibuprofen 800 mg in 200 mls @ 400 mls/hr 09/24/19 07:10 Caldolor 800 Mg/200 Ml IVPB Q6H PRN Pain Rated 4-6 Dextrose 1,000 mls @ 50 mls/hr 09/29/19 11:39 Dextrose 10% IV CONT .Q20H PRN if PN is interrupted Lidocaine 1 patch 09/25/19 09:00 10/09/19 08:45 Lidoderm TRANSDERM 1 patch DAILY KWASI Administration Lorazepam 0.5 mg 09/23/19 17:43 09/23/19 20:39 Ativan Inj IV PUSH 0.5 mg Q6H PRN Administration Anxiety Metoclopramide HCl 10 mg 10/08/19 11:30 10/10/19 06:14 Reglan PO 10 mg ACHS KWASI Administration Mineral Oil 30 ml 09/23/19 17:00 09/25/19 17:23 Mineral Oil PO 30 ml BID KWASI Administration Olanzapine 2.5 mg 09/24/19 11:45 Zyprexa PO DAILY PRN Anxiety Ondansetron HCl 4 mg 09/23/19 10:27 09/27/19 08:20 Zofran Inj IV PUSH 4 mg Q4H PRN Administration Nausea Pantoprazole Sodium 40 mg 09/24/19 11:50 10/09/19 20:57 Protonix Iv IV PUSH 40 mg Q12HR KWASI Administration Psyllium Hydrophilic Mucilloid 1 packet 09/23/19 21:00 09/25/19 21:22 Metamucil Packet PO 1 packet Q12HR KWASI Administration Quetiapine Fumarate 800 mg 10/06/19 21:00 10/07/19 21:50 Seroquel PO 800 mg HS KWASI Administration Senna/Docusate Sodium 2 tab 09/24/19 21:00 09/25/19 21:21 Senokot S Tablet PO 2 tab HS KWASI Administration Simvastatin 20 mg 09/24/19 21:00 09/25/19 21:23 Zocor PO 20 mg HS KWASI Administration Sodium Chloride 10 ml 09/29/19 22:00 10/10/19 06:14 Central Line Flush IV PUSH 10 ml Q8HR KWASI Administration Sodium Chloride 10 ml 09/29/19 18:00 10/09/19 17:45 Central Line Flush IV PUSH 10 ml DAILY@1800 KWASI Administration Sodium Chloride 20 ml 09/29/19 14:19 Central Line Flush IV PUSH PRN PRN after blood draws Tamsulosin HCl 0.4 mg 09/24/19 21:00 10/09/19 20:57 Flomax PO 0.4 mg HS KWASI Administration Radiology Results: ITS Impressions Head CT 09/23/19 08:44 IMPRESSION: 1. No acute intracranial process. Chest X-Ray 09/23/19 08:46 IMPRESSION: 1. No acute cardiop
[2019-10-10] MEDS: ENOXAPARIN 40 MG/0.4 ML SYRINGE SUB-Q (08:43)
[2019-10-10] MEDS: LIDOCAINE 5% PATCH 1 PATCH TRANSDERM (08:45)
--- NOTE | 2019-10-10 10:22 | PM.PNGS ---
Progress Note: A&P Assessment and Plan (1) Adynamic ileus: Code(s): K56.0 - Paralytic ileus Status: Acute Assessment and Plan: Seems to be eating better. Still lethargic and not ambulating. (2) Hx laparoscopic cholecystectomy: Code(s): Z90.49 - Acquired absence of other specified parts of digestive tract Status: Chronic Assessment and Plan: Healing well. I will sign off. No need for surgical f/u. Resume care with medical doctor after discharge. (3) Bipolar 1 disorder: Code(s): F31.9 - Bipolar disorder, unspecified Status: Chronic Assessment and Plan: seems depressed. Subjective Subjective Date/Time Seen: 10/10/19 10:22 Patient reports: no new complaints and bowel movement Interval history: No particular complaints but still has poor appetite, incontinent of urine, does not want to get up and ambulate. Denies abdominal pain. No vomiting. Eating a little better. Review of Systems Review of Systems: All systems reviewed & are unremarkable except as noted in HPI and below Constitutional: Constitutional: Denies chills, Reports fatigue, Denies headache(s) and Reports poor appetite Cardiovascular: Cardiovascular: Denies chest pain and Denies dyspnea Respiratory: Respiratory: Denies cough and Denies dyspnea Gastrointestinal: Gastrointestinal: Reports as per HPI Neurologic: Denies confusion and Denies headache(s) Exam Resp: Effort & Inspection: normal respiratory effort Auscultation: clear to auscultation bilaterally Cardio: Rate: regular rate Rhythm: regular rhythm GI: Inspection: incision (continue to heal well) GI Palp: Yes Soft to palpation, No Tenderness to palpation present (GI), No Guarding due to palpation present (GI) and No Rebound tenderness present Auscultation: Hypoactive bowel sounds present Extrem: General: no calf tenderness and no edema Objective Data Vital Signs Vital Signs: Vital Signs - 24 hr 10/09/19 14:00 10/09/19 22:00 10/10/19 06:00 Temperature 36.7 C 36.9 C 36.9 C Pulse Rate 88 75 88 Respiratory Rate 18 18 18 Blood Pressure 145/60 H 138/51 L 156/62 H Pulse Oximetry 96 100 98 Intake/Output Intake/Output: Intake & Output 10/07/19 10/08/19 10/09/19 10/10/19 23:59 23:59 23:59 23:59 Intake Total 9244 4640 810 300 Balance 2455 4336 810 300 Meds/Results Medications: Active Medications Generic Name Dose Route Start Last Admin Trade Name Freq PRN Reason Stop Dose Admin Acetaminophen 500 mg 09/24/19 07:10 09/25/19 06:48 Tylenol Tablet PO 500 mg Q6H PRN Administration Mild Pain (1-3) or Fever Aspirin 81 mg 09/25/19 09:00 09/25/19 08:36 Aspirin Ec PO 81 mg DAILY KWASI Administration Bisacodyl 10 mg 09/30/19 09:00 10/09/19 08:45 Dulcolax Suppository RECTAL 10 mg QAM KWASI Administration Enoxaparin Sodium 40 mg 09/24/19 09:00 10/10/19 08:43 Lovenox SUB-Q 40 mg DAILY KWASI Administration Hydralazine HCl 10 mg 09/23/19 17:46 Apresoline Hcl Inj IV PUSH Q8H PRN Blood Pressure - High Ibuprofen 800 mg in 200 mls @ 400 mls/hr 09/24/19 07:10 Caldolor 800 Mg/200 Ml IVPB Q6H PRN Pain Rated 4-6 Dextrose 1,000 mls @ 50 mls/hr 09/29/19 11:39 Dextrose 10% IV CONT .Q20H PRN if PN is interrupted Lidocaine 1 patch 09/25/19 09:00 10/10/19 08:45 Lidoderm TRANSDERM 1 patch DAILY KWASI Administration Lorazepam 0.5 mg 09/23/19 17:43 09/23/19 20:39 Ativan Inj IV PUSH 0.5 mg Q6H PRN Administration Anxiety Metoclopramide HCl 10 mg 10/08/19 11:30 10/10/19 06:14 Reglan PO 10 mg ACHS KWASI Administration Mineral Oil 30 ml 09/23/19 17:00 09/25/19 17:23 Mineral Oil PO 30 ml BID KWASI Administration Olanzapine 2.5 mg 09/24/19 11:45 10/10/19 08:44 Zyprexa PO 2.5 mg DAILY PRN Administration Anxiety Ondansetron HCl 4 mg 09/23/19 10:27 09/27/19 08:20 Zofran Inj IV PUSH 4 mg
[2019-10-10] MEDS: BISACODYL 10 MG SUPPOSITORY RECTAL (11:36)
--- NOTE | 2019-10-10 12:07 | PCNFU ---
Nutrition Follow-Up Complete: Altered GI fxn as related to SBO as evidenced by NPO x 5 days. Goal: Meet estimated nutritional needs progressing towards goal. We will continue current goal. Pt current nutrition is Soft and Bite Sized, Level 6. Nutrition recommendation: Agree Last recorded weight is 90 kg. Bowel Motility:+BM reported 10/09 Labs Reviewed:Na 136,Glu 112,Alb 2.9,Hct 32.0,Hgb 10.4 Meds Noted:Reglan, Lovenox Additional Notes: PPN has been discontinued. Patient oral intake today 30% of breakfast-oatmeal, apple juice and milk. Patient is drinking Ensure compact BID providing an additional 220 kcals and 9 gms protein per 4 oz drink. PO intake is encouraged. Monitoring: every 3 days.
[2019-10-10 14:00] VITALS: BP 145/60; PULSE 86; RESP 20; TEMP 36.4; O2SAT 100
[2019-10-10] MEDS: PANTOPRAZOLE 40 MG TABLET PO ×2 (14:00→21:26)
--- NOTE | 2019-10-10 14:14 | PM.IMPN ---
Progress Note: A&P Assessment and Plan (1) Bipolar 1 disorder: Code(s): F31.9 - Bipolar disorder, unspecified Status: Chronic Assessment and Plan: The patient seems to have a more flat affect today not answering my questions like he was when I saw him a week ago. The patient's daughter has informed the nurses of her concerns that he is becoming more quiet and less talkative which is sometimes what happens when his medications need to be adjusted Continue Seroquel 800 mg (10/06/2019) I discussed with the patient's sister, Meño about the reaction between Reglan and Seroquel. She understands the risks and asks about making adjustments to his medications. I explained that being here in the hospital is not best time to be making adjustments to his antipsychotics and we do not have a psychiatrist who can best make adjustments at this time. She understands and agrees with the plan to continue with the management of Reglan and Seroquel and continue monitoring for any tardive dyskinesias symptoms. 10/10/2019: I did not realize that the patient's Seroquel has been put on hold by the GI specialist starting 10/08/2019. The patient has not been receiving his Seroquel the last 2 nights and that is most likely the cause of his anxiety in slight agitation today. The patient was given Zyprexa 2.5 mg earlier with improvement of his symptoms. I will continue monitoring the patient overnight and restart his Seroquel 100 mg HS. Will see how the patient is doing in the morning and if his mood is more stable then I would feel comfortable with discharging him back to [facility] for further treatment and monitoring at that time. I will have the nursing staff monitor for any tardive dyskinesia during hospitalization secondary to medication interaction. Will continue monitoring for any symptoms to occur. (2) Adynamic ileus: Code(s): K56.0 - Paralytic ileus Status: Acute Assessment and Plan: CT abd/pelvis at admission revealed a large amount of colonic stool and gas throughout the colon, with the rectal vault measuring 8 cm. After admission, the patient developed vomiting. Plain abdominal films 09/26/19 revealed a small bowel obstruction versus ileus. NG tube was placed and the patient was made NPO for bowel rest. General surgery is on board and input is greatly appreciated. Repeat upper GI series with gastrografin and SBFT 09/29/19 revealed evidence of ileus as contrast did reach the colon between the 10 and [address] Sellers with GI was consulted 09/30/19 after discussion with general surgery and input is appreciated. The NG was removed 10/04/19. Repeat KUB was unchanged 10/08/2019. Repeat CT abdomen pelvis showed enterocolitis with air-fluid levels throughout the stomach, small bowel, colon and rectum. I talked to GI who believes that the entercolitis was misdiagnosed and is still his ileus that is resolving. Dr. Villalba surgery is still monitoring the patient believes he is not a surgical case at this time. 10/08/2019: Dr. Sellers GI restarted the patient's Reglan IV due to some abdominal distention and decreased bowel sounds and discontinued the patient's Seroquel at that time. 10/10/2019: The patient's abdomen is much improved today and he is tolerating a soft diet without any issues. Dr. Sellers believes the patient can be discharged to continue Reglan orally for 2-3 weeks and suppositories to help with bowel movements. He does not feel the patient needs to follow-up with him as an outpatient but he can if there is any issues upon discharge. Dr. Villalba surgery has signed off the patient's case because he is not a surgical candidate at this time and his symptoms are improving. I talked to my attending provider who recommended upon discharge to continue his suppositories for another 3 days then discontinue. Then to continue Reglan 10 mg 4 times a day and then decreased the frequency e
[2019-10-10] MEDS: TAMSULOSIN HCL 0.4 MG CAPSULE PO (21:26)
[2019-10-10] MEDS: QUEtiapine FUMARATE 100 MG TABLET 800 MG PO (21:26)
[2019-10-10 22:00] VITALS: BP 127/62; PULSE 89; RESP 20; TEMP 37.2; O2SAT 97
[2019-10-11 06:00] VITALS: BP 125/70; PULSE 93; RESP 16; TEMP 36.9; O2SAT 98
[2019-10-11] MEDS: CENTRAL LINE FLUSH 10 ML IV PUSH ×2 (06:05→13:41)
[2019-10-11] MEDS: METOCLOPRAMIDE HCL 10 MG TABLET PO ×3 (06:05→16:05)
[2019-10-11] MEDS: polyethylene glycoL 3350 17 GM POWD.PACK PO (08:33)
[2019-10-11] MEDS: LIDOCAINE 5% PATCH 1 PATCH TRANSDERM (08:33)
[2019-10-11] MEDS: PANTOPRAZOLE 40 MG TABLET PO (08:33)
[2019-10-11] MEDS: BISACODYL 10 MG SUPPOSITORY RECTAL (08:34)
[2019-10-11] MEDS: ENOXAPARIN 40 MG/0.4 ML SYRINGE SUB-Q (08:34)
[2019-10-11 14:00] VITALS: BP 128/68; PULSE 90; RESP 16; TEMP 36.7; O2SAT 98
--- NOTE | 2019-10-11 15:09 | PM.DS ---
DS: Admitting Diagnosis Admitting Diagnosis Admitting Diagnosis: Elevated white blood cell count, unspecified DS: Discharge Diagnosis Discharge Diagnosis (1) Bipolar 1 disorder: Code(s): F31.9 - Bipolar disorder, unspecified Status: Chronic Assessment and Plan: The patient seems to have a more flat affect today not answering my questions like he was when I saw him a week ago. The patient's daughter has informed the nurses of her concerns that he is becoming more quiet and less talkative which is sometimes what happens when his medications need to be adjusted Continue Seroquel 800 mg (10/06/2019) I discussed with the patient's sister, Meño about the reaction between Reglan and Seroquel. She understands the risks and asks about making adjustments to his medications. I explained that being here in the hospital is not best time to be making adjustments to his antipsychotics and we do not have a psychiatrist who can best make adjustments at this time. She understands and agrees with the plan to continue with the management of Reglan and Seroquel and continue monitoring for any tardive dyskinesias symptoms. 10/10/2019: I did not realize that the patient's Seroquel has been put on hold by the GI specialist starting 10/08/2019. The patient has not been receiving his Seroquel the last 2 nights and that is most likely the cause of his anxiety in slight agitation today. The patient was given Zyprexa 2.5 mg earlier with improvement of his symptoms. 10/11/2019: The patients mood is improved. Will continue him on his Seroquel 100 mg HS. He is stable to be discharged back to [facility] and warnings having given to watch for tardive dyskinesia symptoms. (2) Adynamic ileus: Code(s): K56.0 - Paralytic ileus Status: Acute Assessment and Plan: CT abd/pelvis at admission revealed a large amount of colonic stool and gas throughout the colon, with the rectal vault measuring 8 cm. After admission, the patient developed vomiting. Plain abdominal films 09/26/19 revealed a small bowel obstruction versus ileus. NG tube was placed and the patient was made NPO for bowel rest. General surgery is on board and input is greatly appreciated. Repeat upper GI series with gastrografin and SBFT 09/29/19 revealed evidence of ileus as contrast did reach the colon between the 10 and [address] Sellers with GI was consulted 09/30/19 after discussion with general surgery and input is appreciated. The NG was removed 10/04/19. Repeat KUB was unchanged 10/08/2019. Repeat CT abdomen pelvis showed enterocolitis with air-fluid levels throughout the stomach, small bowel, colon and rectum. I talked to GI who believes that the entercolitis was misdiagnosed and is still his ileus that is resolving. Dr. Villalba surgery is still monitoring the patient believes he is not a surgical case at this time. 10/08/2019: Dr. Sellers GI restarted the patient's Reglan IV due to some abdominal distention and decreased bowel sounds and discontinued the patient's Seroquel at that time. 10/10/2019: The patient's abdomen is much improved today and he is tolerating a soft diet without any issues. Dr. Sellers believes the patient can be discharged to continue Reglan orally for 2-3 weeks and suppositories to help with bowel movements. He does not feel the patient needs to follow-up with him as an outpatient but he can if there is any issues upon discharge. Dr. Villalba surgery has signed off the patient's case because he is not a surgical candidate at this time and his symptoms are improving. I talked to my attending provider who recommended upon discharge to continue his suppositories for another 3 days then discontinue. Then to continue Reglan 10 mg 4 times a day and then decreased the frequency every 3 days until his symptoms have resolved. He also recommended to start MiraLax to help bulk up his stools daily. The patient is much impro
[2019-10-11] MEDS: NEOMYCIN/POLYMYXIN/BACITRACIN OINTMENT PACKET 1 PACKET TOPICAL (16:05)
== END 2019-10-11 18:00 | DRG 392 ==
LOC: ANHED 10:26 → ANHIMU 09-24 07:01 → ANH3MEDSUR 09-24 19:39 → ANHIMU 10-13 12:53
PROVIDERS: Family Medicine; Nurse Practitioner; Nurse Practitioner Family; Physician Assistant; Surgery; Admitting Provider Internal Medicine; Emergency Provider Emergency Medicine; PCP Internal Medicine; Visit Provider Physician Assistant
DX: K59.00 Constipation, unspecified (principal); S22.41XA Multiple fractures of ribs, right side, initial encounter for closed fracture; K56.0 Paralytic ileus; K56.609 Unspecified intestinal obstruction, unspecified as to partial versus complete obstruction; E87.2 Acidosis; N17.9 Acute kidney failure, unspecified; R65.10 Systemic inflammatory response syndrome (SIRS) of non-infectious origin without acute organ dysfunction; N13.8 Other obstructive and reflux uropathy; Z11.59 Encounter for screening for other viral diseases; W19.XXXA Unspecified fall, initial encounter; E86.0 Dehydration; R11.2 Nausea with vomiting, unspecified; I95.1 Orthostatic hypotension; T43.595A Adverse effect of other antipsychotics and neuroleptics, initial encounter; T44.6X5A Adverse effect of alpha-adrenoreceptor antagonists, initial encounter; R55 Syncope and collapse; D72.829 Elevated white blood cell count, unspecified; R00.0 Tachycardia, unspecified; F31.9 Bipolar disorder, unspecified; E83.52 Hypercalcemia; N40.1 Benign prostatic hyperplasia with lower urinary tract symptoms; K21.9 Gastro-esophageal reflux disease without esophagitis; E78.5 Hyperlipidemia, unspecified; I10 Essential (primary) hypertension; Z90.49 Acquired absence of other specified parts of digestive tract; Z87.891 Personal history of nicotine dependence; Z98.42 Cataract extraction status, left eye; Z98.41 Cataract extraction status, right eye
CPT/HCPCS: 36415; 36569; 51701; 70450; 71045; 71100; 74018; 74019; 74177; 74240; 74248; 74270; 78226; 80048; 80053; 80307; 81001; 82150; 82550; 83036; 83605; 83690; 83735; 83880; 84100; 84132; 84443; 84466; 84478; 84484; 85025; 85027; 85610; 85730; 87040; 87635; 93005; 96365; 96375; 97110; 97116; 97161; 97165; 97530; 97535; 99285; A9270; A9537; C1751; C9113; C9803; J1650; J2060; J2212; J2405; J2543; J2765; J3480; J7030; J7040; J7120; Q9967; U0003

== ENCOUNTER 2019-10-20 11:37 | Observation (INO) | payer MEDICARE, OTHER, SELFPAY ==
[2019-10-20] VITALS (14 sets, daily range): BP systolic 74–144; BP diastolic 50–79; PULSE 69–108; RESP 14–20; TEMP 36.5–36.7; O2SAT 99–100; BMI 28.3
--- NOTE | ~2019-10-20 | XR_ITS ---
EXAMINATION: XR chest 1V portable DATE: 10/21/2019 13:11 INDICATION: Syncope. TECHNIQUE: A single frontal view of the chest was obtained. COMPARISON: Chest single view 09/23/2019 FINDINGS: There is mild atelectasis in the lower lung zones. No pleural effusion or pneumothorax. The heart size is normal. Surgical clips in the right upper quadrant are likely from cholecystectomy. IMPRESSION: 1. Mild atelectasis in the lower lung zones. Reviewed, dictated and finalized at location A.
--- NOTE | ~2019-10-20 | CT_ITS ---
EXAMINATION: CTA chest PE protocol DATE: 10/21/2019 23:42 INDICATION: Tachycardia and elevated d-dimer TECHNIQUE: Computed tomography angiography (CTA) of the chest was performed with 100 mL Omnipaque-350 intravenous contrast timed to evaluate the pulmonary arteries. Coronal maximum intensity projection 3D-reconstructions were created by the technologist. The dose-length product (DLP) was 764.63 mGy-cm. Automated exposure control and iterative reconstruction technique were employed. COMPARISON: None. FINDINGS: The pulmonary arteries are well-opacified. There is a saddle embolism. Emboli extend into p roximal branches of the bilateral lower lobes and lingula. There is straightening of the interventric ular septum of the heart. There are patchy airspace opacities in the lower lobes. Small pleural effus ions are present. There is no pneumothorax. The heart size is normal. There are no pathologically enl arged thoracic lymph nodes. The gallbladder is surgically absent. There is moderate thoracic and catalino re lower cervical spondylosis. IMPRESSION: 1. Saddle embolism in the main pulmonary artery with extension proximal branches of the bilateral low er lobes and lingula. Straightening of the interventricular septum of the heart could reflect right h eart strain. These findings were communicated to MEGAN Hoffmann on [address] [place] [address] at 0001 hours on 10/22/2019. 2. Patchy airspace opacities of the lower lobes which could reflect pneumonia or possibly early pulmo nary infarct. Reviewed, dictated and finalized at location A. IMPRESSION: 1. Saddle embolism in the main pulmonary artery with extension proximal branche s of the bilateral lower lobes and lingula. Straightening of the interventricul ar septum of the heart could reflect right heart strain. These findings were co mmunicated to MEGAN Hoffmann on [address] [place] [address] at 0001 hours on 10/22/2019. 2. Patchy airspace opacities of the lower lobes which could reflect pneumonia o r possibly early pulmonary infarct.
--- NOTE | ~2019-10-20 | CT_ITS ---
EXAMINATION: CT brain wo con, CT cervical spine wo con EXAM DATE: 10/20/2019 15:32 INDICATION: Dizziness, fell backwards. Head injury. TECHNIQUE: Spiral CT of the head was performed without contrast. Axial, coronal and sagittal images were reviewed. Spiral CT of the cervical spine was performed without contrast. Axial images were rev iewed. Coronal and sagittal reformatted images were also reviewed. The dose-length product (DLP) fo r this examination was 681.00 (accession [id number]), 450.80 (accession [id number]) mGy-cm. The exposure was tailored according to patient size, and iterative reconstruction (ASIR) was used as additional dose reduction technique. There is no prior study for comparison. FINDINGS: HEAD CT: There is no acute intraparenchymal hemorrhage. No evidence of intraparenchymal brain mass l esion. No evidence of acute infarction. There is mild periventricular and subcortical hypodensity, n onspecific but probably related to small vessel ischemic disease. There is mild prominence of the s ulci and ventricles related to cerebral atrophy. There is intracranial carotid arteriosclerosis. There is no mass effect or midline shift. There is no obstructive hydrocephalus suspected. There are no extra-axial collections. There are no acute calvarial fractures. Patient has had bilateral ocul ar lens surgery. Soft tissue is unremarkable. The visualized sinuses and mastoid air cells are well aerated. CERVICAL CT: Advanced lower cervical disc disease. There is no evidence of acute cervical fracture. The odontoid process is intact. Pre-dens space is normal. Prevertebral soft tissue is normal. Ther e are no soft tissue abnormalities identified. There is no disc space widening or traumatic vertebra l body subluxation suspected. A detailed level by level evaluation of spondylosis can be added as ad dendum if requested. IMPRESSION: 1. No acute intracranial findings or cervical fracture. Reviewed, dictated and finalized at location A. IMPRESSION: 1. No acute intracranial findings or cervical fracture.
--- NOTE | ~2019-10-20 | XR_ITS ---
EXAMINATION: XR abdomen/kub 1V DATE: 10/21/2019 13:11 INDICATION: Adynamic ileus. TECHNIQUE: A supine view of the abdomen was obtained. COMPARISON: Abdomen radiographs 10/08/2019, CT abdomen and pelvis 10/06/2019 FINDINGS: There are multiple dilated loops of small bowel. The colon is normal in caliber. Surgical c lips in the right upper quadrant are likely from cholecystectomy. IMPRESSION: 1. Persistently dilated small bowel, likely adynamic ileus. Reviewed, dictated and finalized at location A.
--- NOTE | 2019-10-20 14:04 | ECG_ITS ---
Measurements Intervals Millen Rate: 75 P: 19 IN: 195 QRS: -9 QRSD: 89 T: 31 QT: 381 QTc: 425 Interpretive Statements SINUS RHYTHM LOW QRS VOLTAGE IN PRECORDIAL LEADS VOLTAGE CRITERIA FOR LVH BORDERLINE ECG Electronically Signed On 10-20-2019 16:13:36 CDT by Malcolm Han D.O.
[2019-10-20 14:56] LABS: Basophils Percent Auto 0.3 % (0.2-1.2); Eosinophils Absolute Auto 0.2 K/mm3 (0-0.3); Eosinophils Percent Auto 3.8 % (0-4.4); Hematocrit 35.5 % (42.0-52.0); Hemoglobin 11.6 g/dL (14.0-18.0); Immature Granulocyte Absolute 0.03 K/mm3 (0.00-0.031); Immature Granulocyte Percent A 0.5 % (0-0.5); Lymphocytes Absolute Auto 1.27 K/mm3 (0.9-3.2); Mean Corpuscular HGB Conc 32.7 g/dl (32-36); Mean Corpuscular Hemoglobin 29.6 pg (26-34); Mean Corpuscular Volume 90.6 fl (80-100); Mean Platelet Volume 8.9 fl (7.4-10.4); Monocytes Absolute Auto 0.4 K/mm3 (0.1-0.6); Monocytes Percent Auto 6.8 % (2.6-8.5); Neutrophils Absolute Auto 4.4 K/mm3 (1.3-6.7); Neutrophils Percent Auto 68.6 % (45.5-73.1); Platelet Count Result 253 k/mm3 (150-375); Red Blood Count 3.92 M/mm3 (4.6-6.20); Red Cell Distribution Width 13.9 % (11.5-14.5); White Blood Count 6.4 K/mm3 (4.5-10.0)
[2019-10-20 15:05] LABS: Prothrombin Time 12.9 Seconds (11.1-14.7)
[2019-10-20 15:06] LABS: Partial Thromboplastin Time 26.8 SECONDS (22.3-36.8)
[2019-10-20 15:10] LABS: Alanine Aminotransferase 12 U/L (4-50); Albumin Level 3.5 g/dL (3.5-5.1); Alkaline Phosphatase 103 U/L (38-126); Aspartate Amino Transferase 17 U/L (17-59); Bilirubin,Total 0.4 mg/dL (0.2-1.3); Blood Urea Nitrogen 19 mg/dL (9-20); Calcium 8.9 mg/dL (8.4-10.2); Carbon Dioxide 25 mmol/L (22-30); Chloride 104 mmol/L (98-107); Estimated CRCL calculation 73 ml/min; Estimated Glomerular Filt Rate > 60; Glucose 106 mg/dL (75-110); Potassium 3.9 mmol/L (3.4-5.0); Sodium 136 mmol/L (137-145)
--- NOTE | 2019-10-20 15:38 | ED.FALL ---
HPI - Fall General Chief Complaint: Fall <MONIK Saravia Last Filed: 10/20/19 18:11> Stated Complaint: fall <MONIK Saravia Last Filed: 10/20/19 18:11> Time Seen by Provider: 10/20/19 14:53 <MONIK Saravia Last Filed: 10/20/19 18:11> Source: patient <MONIK Saravia Last Filed: 10/20/19 18:11> Mode of arrival: ambulatory <MONIK Saravia Last Filed: 10/20/19 18:11> Limitations: no limitations <MONIK Saravia Last Filed: 10/20/19 18:11> History of Present Illness HPI Narrative: Patient is a 68-year-old male who presents from intermediate per EMS for evaluation of having had a fall patient reportedly was going into the bathroom may have become dizzy fell backwards striking the head notes mild posterior headache and neck pain patient on arrival is alert and oriented x3 with a GCS of 15 patient denies other injuries or complaints and is resting comfortably in the room upon arrival. <MONIK Saravia Last Filed: 10/20/19 18:11> Related Data Home Medications: Home Medications Medication Instructions Recorded Confirmed Biotene Dry Mouth Oral Rinse 5 ml PO TID 08/17/19 09/23/19 aspirin [Aspir-81] 81 mg PO DAILY 08/17/19 09/23/19 cyanocobalamin (vitamin B-12) 500 mcg PO DAILY 08/17/19 09/23/19 famotidine 10 mg PO BID 08/17/19 09/23/19 folic acid 1 mg PO DAILY 08/17/19 09/23/19 lidocaine 1 patch TOPICAL DAILY #0 08/17/19 09/23/19 melatonin 3 mg PO HS PRN 08/17/19 09/23/19 multivitamin 1 tablet PO DAILY 08/17/19 09/23/19 olanzapine 2.5 mg PO DAILY PRN 08/17/19 09/23/19 quetiapine 800 mg PO HS 08/17/19 09/23/19 simvastatin 20 mg PO HS 08/17/19 09/23/19 tamsulosin 0.4 mg PO HS 08/17/19 09/23/19 Milk of Magnesia 400 mg PO PRN PRN 09/23/19 09/23/19 acetaminophen [Tylenol Extra 500 mg PO Q6H PRN 09/23/19 09/23/19 Strength] ibuprofen 600 mg PO Q6H PRN 09/23/19 09/23/19 <Israel Mckee PA-C - Last Filed: 10/20/19 18:11> Allergies/Adverse Reactions: Allergies Allergy/AdvReac Type Severity Reaction Status Date / Time No Known Allergies Allergy Verified 09/23/19 08:12 <Israel Mckee PA-C - Last Filed: 10/20/19 18:11> Review of Systems Review of Systems: All systems reviewed & are unremarkable except as noted in HPI and below <Israel Mckee PA-C - Last Filed: 10/20/19 18:11> [facility] Past Medical History Medical History: Medical History Bipolar 1 disorder BPH loc w urin obs/LUTS GERD (gastroesophageal reflux disease) Hyperlipidemia Hypertension, essential <Israel Mckee PA-C - Last Filed: 10/20/19 18:11> Surgical History Surgical History: Surgical History History of appendectomy at about age 21 Hx laparoscopic cholecystectomy 08/19/19 Laparoscopic cholecystectomy for acute rupture cholecystitis. <Israel Mckee PA-C - Last Filed: 10/20/19 18:11> Social History Social History: Social History Social History: Quit smoking as a young man. Never abused alcohol or recreational drugs. Currently resides at [facility]. Prior to his last hospitalization, he was placed there due to confusion and forgetfulness with medications. Previously lived at home alone. . The patient has no biological children. The lady that he was to had 2 children. There are not his biological children. 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 Smoking status: Former smoker Tobacco type: cigars Alcohol intake: never Substance use: never Gender identity (if verbalized by the patient): Male Spiritual care concerns: No <Israel Mckee PA-C - Last Filed: 10/20/19 18:11> Exam Narrative: Exam Narrative: GENERAL: Well-appear
[2019-10-20] MEDS: SODIUM CHLORIDE 0.9% IV 1,000 ML 999 ML IV CONT ×2 (16:05→18:54)
[2019-10-20] MEDS: FAMOTIDINE 20 MG/2 ML VIAL IV PUSH (16:05)
[2019-10-20 17:59] LABS: Add Urine Microscopic? NO; Appearance Urine Clear (Clear); Bilirubin Urine Negative (Negative); Blood Urine Negative (Negative); Color Urine Yellow (Yellow); Glucose Urine UA Negative (Negative); Ketones Urine Negative (Negative); Leukocyte Esterase Ur Negative LEU/UL (Negative); Nitrate Urine Negative (Negative); Protein Urine Negative (Negative); Specific Grav Ur 1.012 (1.001-1.035); Urobilinogen Urine Negative mg/dL (<2.0)
[2019-10-20] MEDS: LACTATED RINGERS 1,000 ML 125 ML IV CONT (21:22)
--- NOTE | 2019-10-20 22:13 | ADMGEN ---
This patient, Manny Hurt, was admitted to Medical Room 344-01. Patient/family oriented to hospital policies and general routines including ID bracelet, bed and alarms, visiting hours, pain management, procedures, bathroom and other care routines, personal items, smoking policy, room service/diet, and visiting hours. Valuables list has been completed. Information on how to activate the Rapid Response Team has been discussed. Patient/Family are encouraged to report perceived risks to care and to ask questions if they do not understand what they are told or what they should do.
[2019-10-21] VITALS (13 sets, daily range): BP systolic 107–151; BP diastolic 62–87; PULSE 61–94; RESP 16–18; TEMP 36.5–36.6; O2SAT 97–100
--- NOTE | 2019-10-21 | ECHO_ITS ---
Patient Info Name: Manny Hurt Age: 68 years : 1950 Gender: Male Ht: 71 in Wt: 202 lbs BSA: 2.16 m2 HR: 81 bpm BP: 126 / 85 mmHg Heart Rhythm: Sinus Rhythm Technical Quality: Good Exam Date: 10/21/2019 3:07 PM Exam Location: [facility] Patient Status: Outpatient Admit Date: 10/20/2019 Staff Ordering Physician: Liz Alfaro PA-C Vice President Supply Chain: Jolie Ascencio RDCS Attending Provider: Liz Alfaro PA-C Referring Physician: Angelina BASHIR; Exam Type: CA echo doppler color flow Study Info Indications R55 - Syncope and collapse Complete two-dimensional, color flow and Doppler transthoracic echocardiogram is performed. Summary 1. Left ventricular chamber dimension is normal. 2. Left ventricular systolic function is normal, estimated at 65-70%. 3. There is no increased left ventricular wall thickness. 4. Left ventricular septal wall motion is normal. 5. The left ventricular diastolic function is grade I diastolic dysfunction. 6. There is mild tricuspid valve regurgitation. 7. There is mild pulmonic regurgitation. Left Ventricle Left ventricular chamber dimension is normal. Left ventricular systolic function is normal, estimated at 65-70%. There is no increased left ventricular wall thickness. Left ventricular septal wall motion is normal. The left ventricular diastolic function is grade I diastolic dysfunction. Right Ventricle Right ventricular chamber dimension is normal. Right ventricular systolic function is normal. Left Atria Left atrial chamber dimension is normal. Right Atria Right atrial chamber dimension is normal. Atrial Septum Intact interatrial septum visualized by color flow imaging. Aortic Valve The aortic valve is trileaflet. There is mild aortic valve sclerosis. There is no aortic valve stenosis. There is trace aortic valve regurgitation. Pulmonic Valve The pulmonic valve is normal. There is no pulmonic valve stenosis. There is mild pulmonic regurgitation. Mitral Valve The mitral valve has normal leaflets. There is no mitral valve stenosis. There is trace mitral valve regurgitation. Tricuspid Valve The tricuspid valve leaflets are normal. There is no significant tricuspid valve stenosis. There is mild tricuspid valve regurgitation. No pulmonary hypertension, estimated pulmonary arterial systolic pressure is 28 mmHg. Pericardium/Pleural The pericardium appears normal. There is no pericardial effusion. Inferior Vena Cava Normal inferior vena cava with >50% collapse upon inspiration consistent with normal right atrial pressure, 10 mmHg. Aorta The aortic root size at the sinus of Valsalva is normal. The prox ascending aorta size is normal. Left Ventricular Outflow Tract Name Value Normal LVOT 2D LVOT Diameter 2.2 cm LVOT Doppler LVOT Peak Gradient 4 mmHg LVOT Mean Gradient 2 mmHg LVOT VTI 19 cm LVOT VTI/AV VTI Ratio 1.0 LVOT Stroke Volume 73 ml LVO
[2019-10-21 05:28] LABS: Basophils Percent Auto 0.4 % (0.2-1.2); Eosinophils Absolute Auto 0.4 K/mm3 (0-0.3); Eosinophils Percent Auto 5.5 % (0-4.4); Hematocrit 33.8 % (42.0-52.0); Hemoglobin 10.8 g/dL (14.0-18.0); Immature Granulocyte Absolute 0.06 K/mm3 (0.00-0.031); Immature Granulocyte Percent A 0.8 % (0-0.5); Lymphocytes Absolute Auto 1.45 K/mm3 (0.9-3.2); Lymphocytes Percent Auto 19.6 % (18.3-44.2); Mean Corpuscular Hemoglobin 29.3 pg (26-34); Mean Corpuscular Volume 91.6 fl (80-100); Mean Platelet Volume 9.1 fl (7.4-10.4); Monocytes Absolute Auto 0.6 K/mm3 (0.1-0.6); Monocytes Percent Auto 7.6 % (2.6-8.5); Neutrophils Absolute Auto 4.9 K/mm3 (1.3-6.7); Neutrophils Percent Auto 66.1 % (45.5-73.1); Platelet Count Result 227 k/mm3 (150-375); Red Blood Count 3.69 M/mm3 (4.6-6.20); White Blood Count 7.4 K/mm3 (4.5-10.0)
[2019-10-21 05:41] LABS: Alanine Aminotransferase 9 U/L (4-50); Albumin Level 2.9 g/dL (3.5-5.1); Alkaline Phosphatase 84 U/L (38-126); Aspartate Amino Transferase 16 U/L (17-59); Bilirubin,Total 0.3 mg/dL (0.2-1.3); Blood Urea Nitrogen 15 mg/dL (9-20); Calcium 8.4 mg/dL (8.4-10.2); Carbon Dioxide 26 mmol/L (22-30); Chloride 109 mmol/L (98-107); Estimated CRCL calculation 71 ml/min; Estimated Glomerular Filt Rate > 60; Glucose 98 mg/dL (75-110); Sodium 138 mmol/L (137-145)
[2019-10-21] MEDS: LACTATED RINGERS 1,000 ML 125 ML IV CONT (05:52)
[2019-10-21] MEDS: FAMOTIDINE 20 MG/2 ML VIAL IV PUSH (09:17)
--- NOTE | 2019-10-21 09:49 | PM.IMHP ---
H&P: HPI History of Present Illness Chief complaint: Head injury, orthostatic hypotension Narrative: Manny Hurt is a 68 year old male with a history of bipolar 1, who was recently discharged ( 10/11/2019) from the hospital after being admitted for 19 days for constipation and ileus, who presents to emergency department after sustaining a fall at [facility] prior to arrival. The patient states he has been having some lightheadedness when standing and believes that he had a syncopal episode prior to arrival while he was walking to go to the bathroom. The patient states he was having some lightheadedness and palpitations prior to this occurring. He did hit the back of his head and was complaining of some neck discomfort which is why they called 911 and he was transferred to our emergency department for further evaluation. Patient denies any more issues with his ileus, and has been eating and drinking without any issues. He denies any nausea, vomiting, abdominal pain, chest pain, shortness of breath, dyspnea on exertion, leg swelling, calf pain, fever, chills, trouble with urination, dysuria, blurry vision, double vision, or any other symptoms at this time. Initial vital signs showed temperature of 97.7?, blood pressure 106/79, heart rate 100, respiratory rate 20, oxygen saturation 99% on room air. Initial labs showed normocytic anemia with a hemoglobin of 11.6, hematocrit 35%, normal coag panel, slight hyponatremia at 136, otherwise normal CMP. normal urinalysis. CT head and cervical spine showed no acute intracranial findings or cervical fracture. Patient was found to be orthostatic in the emergency room and was admitted into the hospital for further evaluation and workup for orthostatic hypotension and syncope workup. Code status: full code POA: Meño alonso PCP: Dr. Rivera Review of Systems Review of Systems: All systems reviewed & are unremarkable except as noted in HPI and below PMFSH Past Medical History Medical History (Updated 10/21/19 @ 12:58 by Liz Alfaro PA-C) Bipolar 1 disorder BPH loc w urin obs/LUTS GERD (gastroesophageal reflux disease) Hyperlipidemia Hypertension, essential Orthostatic hypotension Surgical History Surgical History History of appendectomy at about age 21 Hx laparoscopic cholecystectomy 5/19/20 Laparoscopic cholecystectomy for acute rupture cholecystitis. Family History Family History Father No problems noted. Mother Cancer Social History Social History Social History: Quit smoking as a young man. Never abused alcohol or recreational drugs. Currently resides at [facility]. Prior to his last hospitalization, he was placed there due to confusion and forgetfulness with medications. Previously lived at home alone. . The patient has no biological children. The lady that he was to had 2 children. There are not his biological children. He desires to be a full code and desires to have his youngest sister as a durable power employment law attorney for healthcare. Smoking status: Former smoker Tobacco type: cigars Alcohol intake: former Substance use: never Substance use type: does not use Gender identity (if verbalized by the patient): Male Spiritual care concerns: No Meds Home Medications and Allergies Home Medications Medication Instructions Recorded Confirmed Type Biotene Dry Mouth Oral Rinse 5 ml PO TID PRN 08/17/19 10/20/19 History aspirin [Aspir-81] 81 mg PO DAILY 08/17/19 10/20/19 History cyanocobalamin (vitamin B-12) 500 mcg PO DAILY 08/17/19 10/20/19 History famotidine 10 mg PO BID 08/17/19 10/20/19 History folic acid 1 mg PO DAILY 08/17/19 10/20/19 History lidocaine 1 patch TOPICAL DAILY #0 08/17/19 10/20/19 Hist
--- NOTE | 2019-10-21 12:55 | PC.NURSE ---
At 1230 verified with nurse, Lucia, at [facility] that queitapine is IR 800 mg PO every night.
[2019-10-21] MEDS: METOCLOPRAMIDE HCL 10 MG TABLET PO ×3 (13:42→20:11)
[2019-10-21] MEDS: LACTATED RINGERS 1,000 ML 90 ML IV CONT (14:48)
[2019-10-21] MEDS: QUEtiapine FUMARATE 100 MG TABLET 800 MG PO (20:10)
[2019-10-21] MEDS: TAMSULOSIN HCL 0.4 MG CAPSULE PO (20:11)
[2019-10-21] MEDS: SIMVASTATIN 20 MG TABLET PO (20:11)
[2019-10-21] MEDS: FAMOTIDINE 20 MG TABLET PO (20:11)
[2019-10-22] VITALS: PULSE 103
[2019-10-22] MEDS: ENOXAPARIN 100 MG/ML SYRINGE 90 MG SUB-Q (01:01)
[2019-10-22] MEDS: LACTATED RINGERS 1,000 ML 90 ML IV CONT (01:03)
[2019-10-22 04:00] VITALS: PULSE 80
--- NOTE | 2019-10-22 04:00 | PM.TDS ---
Transfer Discharge Sum: Prov Provider Date of admission: 10/20/19 18:18 Primary care physician: John Rivera Jr., MD Admitting clinician: Malinda Canas MD Consults: 10/21/19 16:49 Consult to Physician Routine Comment: spoke with Dr. Sellers at 17:30 Consulting Provider: Ganga Sellers call person/MD group to consult: larry Reason for consultation: Continued Ileus, still on Reglan 4x daily and suppositories Has provider been notified: Yes DS: Admitting Diagnosis Admitting Diagnosis Admitting Diagnosis: Syncope and collapse DS: Discharge Diagnosis Discharge Diagnosis (1) Saddle pulmonary embolus: Code(s): I26.92 - Saddle embolus of pulmonary artery without acute cor pulmonale Status: Acute (2) Orthostatic hypotension: Code(s): I95.1 - Orthostatic hypotension Status: Acute (3) Syncope and collapse: Code(s): R55 - Syncope and collapse Status: Acute (4) Adynamic ileus: Code(s): K56.0 - Paralytic ileus Status: Acute (5) BPH loc w urin obs/LUTS: Code(s): N40.1 - Benign prostatic hyperplasia with lower urinary tract symptoms Status: Acute (6) Bipolar 1 disorder: Code(s): F31.9 - Bipolar disorder, unspecified Status: Chronic Transfer Discharge Sum: Med Medications Active and Home Medications: Home Medications Biotene Dry Mouth Oral Rinse 5 ml PO TID PRN 08/17/19 [History Confirmed 10/20/19] aspirin [Aspir-81] 81 mg PO DAILY 08/17/19 [History Confirmed 10/20/19] cyanocobalamin (vitamin B-12) 500 mcg PO DAILY 08/17/19 [History Confirmed 10/20/19] famotidine 10 mg PO BID 08/17/19 [History Confirmed 10/20/19] folic acid 1 mg PO DAILY 08/17/19 [History Confirmed 10/20/19] lidocaine 1 patch TOPICAL DAILY #0 08/17/19 [History Confirmed 10/20/19] melatonin 3 mg PO HS PRN 08/17/19 [History Confirmed 10/20/19] multivitamin 1 tablet PO DAILY 08/17/19 [History Confirmed 10/20/19] olanzapine 2.5 mg PO DAILY PRN 08/17/19 [History Confirmed 10/20/19] quetiapine 800 mg PO HS 08/17/19 [History Confirmed 10/20/19] simvastatin 20 mg PO HS 08/17/19 [History Confirmed 10/20/19] tamsulosin 0.4 mg PO HS 08/17/19 [History Confirmed 10/20/19] Milk of Magnesia 400 mg PO DAILY PRN 09/23/19 [History Confirmed 10/20/19] acetaminophen [Tylenol Extra Strength] 500 mg PO Q6H PRN 09/23/19 [History Confirmed 10/20/19] ibuprofen 600 mg PO Q6H PRN 09/23/19 [History Confirmed 10/20/19] bisacodyl 10 mg RI QAM #3 ea 10/11/19 [Rx Confirmed 10/20/19] metoclopramide HCl [Reglan] 10 mg PO ACHS #30 tablet 10/11/19 [Rx Confirmed 10/20/19] polyethylene glycol 3350 [Miralax] 17 g PO QAM 30 Days each 10/11/19 [Rx Confirmed 10/20/19] Fleet Enema 118 ml RI HS PRN 10/20/19 [History Confirmed 10/20/19] Active Medications Acetaminophen (Tylenol Tablet) 500 mg PO Q6H PRN PRN Reason: Pain Rated 1-3 Aspirin (Aspirin Ec) 81 mg PO DAILY [facility] Cyanocobalamin (Vitamin B-12 Tab) 500 mcg PO DAILY [facility] Enoxaparin Sodium (Lovenox) 90 mg SUB-Q Q12HR [facility] Last Admin: 10/22/19 01:01 Dose: 90 mg Documented by: Famotidine (Pepcid) 20 mg PO Q12HR [facility] Last Admin: 10/21/19 20:11 Dose: 20 mg Documented by: Folic Acid (Folic Acid) 1 mg PO DAILY [facility] Lactated Ringer's (Lr - Lactated Ringers Iv) 1,000 mls @ 90 mls/hr IV CONT .Q11H7M [facility] Last Admin: 10/22/19 01:03 Dose: 90 mls/hr Documented by: Ibuprofen (Motrin) 600 mg PO Q6H PRN PRN Reason: Pain Rated 4-6 Lidocaine (Lidoderm) 1 patch TOPICAL DAILY [facility] Magnesium Hydroxide (Milk Of Magnesia) 30 ml PO DAILY PRN PRN Reason: Constipation Melatonin (Melatonin) 3 mg PO HS PRN PRN Reason: Insomnia Metoclopramide HCl (Reglan) 10 mg PO ACHS [facility] Last Admin: 10/21/19 20:11 Dose: 10 mg Documented by: Multivitamins Therapeutic (Multivitamins Therapeutic(*Bkc) 1 tablet PO DAILY [facility] Olanzapine (Zyprexa) 2.5 mg PO DAILY PRN PRN Reason: Anxiety Ondansetron HCl (Zofran Inj) 4 mg IV PUSH Q4H PRN PRN Reason: Nausea Polyethylene Glyco
--- NOTE | 2019-10-22 04:02 | PC.NURSE ---
Report given to Bakari bradley [facility] at 0350.
[2019-10-22 05:41] LABS: Hematocrit 32.1 % (42.0-52.0); Hemoglobin 10.2 g/dL (14.0-18.0); Mean Corpuscular HGB Conc 31.8 g/dl (32-36); Mean Corpuscular Hemoglobin 29.1 pg (26-34); Mean Corpuscular Volume 91.7 fl (80-100); Mean Platelet Volume 9.2 fl (7.4-10.4); Platelet Count Result 197 k/mm3 (150-375); White Blood Count 6.6 K/mm3 (4.5-10.0)
[2019-10-22 05:47] LABS: Blood Urea Nitrogen 13 mg/dL (9-20); Calcium 8.1 mg/dL (8.4-10.2); Carbon Dioxide 24 mmol/L (22-30); Chloride 107 mmol/L (98-107); Estimated CRCL calculation 80 ml/min; Estimated Glomerular Filt Rate > 60; Glucose 106 mg/dL (75-110); Potassium 3.7 mmol/L (3.4-5.0); Sodium 136 mmol/L (137-145)
[2019-10-22 06:00] VITALS: BP 129/60; PULSE 78; RESP 16; TEMP 36.6; O2SAT 100
[2019-10-22 08:00] VITALS: PULSE 77
[2019-10-22 08:15] VITALS: PULSE 80; RESP 16; O2SAT 100
== END 2019-10-22 08:15 | disposition short-term general hospital (02) ==
LOC: ANHED 18:11 → ANH3MED 18:37
PROVIDERS: Emergency Medicine Emergency Medical Services; Physician Assistant; Admitting Provider Family Medicine; Emergency Provider General Practice; PCP Internal Medicine; Visit Provider Family Medicine
DX: S09.90XA Unspecified injury of head, initial encounter (principal); I26.92 Saddle embolus of pulmonary artery without acute cor pulmonale; I95.1 Orthostatic hypotension; F31.9 Bipolar disorder, unspecified; K56.0 Paralytic ileus; N40.0 Benign prostatic hyperplasia without lower urinary tract symptoms; W19.XXXA Unspecified fall, initial encounter; Z87.891 Personal history of nicotine dependence; R55 Syncope and collapse
CPT/HCPCS: 36415; 51701; 70450; 71045; 71275; 72125; 74018; 80048; 80053; 81003; 85025; 85027; 85380; 85610; 85730; 93005; 93306; 96361; 96372; 96374; 96376; 97161; 97165; 99285; A9270; G0378; J1650; J7030; J7120; Q9967